=== PATIENT | male | born 1965 | race Native Hawaiian/Other Pacific Islander ===

== ENCOUNTER 2018-10-20 12:14 | Emergency (ER) | payer OTHER, MEDICARE, SELFPAY ==
[2018-10-20 12:22] VITALS: BMI 17.3
[2018-10-20 12:30] VITALS: BP 75/48; PULSE 53; RESP 20; O2SAT 100
[2018-10-20 12:47] VITALS: TEMP 36.5
--- NOTE | 2018-10-20 12:52 | ED_ITS ---
HPI - Male Genitourinary <ALEX BautistaBC - Last Filed: 10/20/18 16:49> General Chief complaint: Urogenital-Male Stated complaint: UTI Time Seen by Provider: 10/20/18 12:37 Source: patient Mode of arrival: wheelchair Limitations: no limitations History of Present Illness HPI Narrative: Patient is a 53-year-old male with history of paraplegia with injury to C6 level presents with a chief complaint of fever chills since Friday. He has a history of recurrent UTIs most recently at [facility]. He has a indwelling urinary catheter at this point time. He states he usually knows when he has a UTI and is treated with Cipro. He denies any fevers, nausea vomiting or diarrhea but complains of frequent fatigue. He does note that he was once admitted to [facility] with urosepsis. He states his Flowers catheter was most recently changed on . He is found to be hypotensive upon arrival to the emergency department, but not tachycardic and not febrile. I discussed with the patient has normal blood pressure parameters any states that his usual BP can range from 70 to below 120. he states he takes midodrine several times a day to help keep his blood pressure up. Related Data Home Medications Medication Instructions Recorded Confirmed Vitamin C 1 tab PO DAILY 10/20/18 10/20/18 Vitamin D3 1 tab PO DAILY 10/20/18 10/20/18 midodrine 1 tab PO DAILY 10/20/18 10/20/18 Previous Rx's Medication Instructions Recorded levofloxacin [Levaquin] 500 mg PO DAILY #10 tab 10/20/18 Allergies Allergy/AdvReac Type Severity Reaction Status Date / Time Sulfa (Sulfonamide Allergy Verified 10/20/18 12:22 Antibiotics) Review of Systems <ALEX BautistaBC - Last Filed: 10/20/18 16:49> Review of Systems GENERAL: See HPI HEENT: Denies sinus pain, ear pain, sore throat, difficulty swallowing, dizziness. RESPIRATORY: Denies dyspnea, cough, wheezing, hemoptysis, sputum. CARDIOVASCULAR: Denies chest pain, palpitations, orthopnea, edema, GASTROINTESTINAL: Denies nausea, vomiting, abdominal pain, diarrhea, constipation, melena. : see HPI MUSCULOSKELETAL: denies weakness, joint pain, or bony pain SKIN: Denies rash, skin lesions, or other NEUROLOGIC: Denies weakness, headache, numbness, change in speech, confusion, seizures, incoordination. PSYCHIATRIC: No concerning psychosocial issues. 12 point review of systems is negative except for those stated above Exam <MARLEN Bautista - Last Filed: 10/20/18 16:49> Narrative Exam Narrative: GENERAL: thin patient sitting in wheelchair HEAD: Atraumatic. Normocephalic. No temporal or scalp tenderness. EYES: Pupils equal round and reactive. Extraocular motions intact. No scleral icterus. No injection or drainage. ENT: Nose without bleeding, purulent drainage or septal hematoma. Throat without erythema, tonsillar hypertrophy or exudate. Uvula midline. Airway patent. NECK: Trachea midline. No JVD or lymphadenopathy. Supple, nontender, no meningeal signs. CARDIOVASCULAR: Regular rate and rhythm without murmurs, gallops, or rubs. RESPIRATORY: Clear to auscultation. Breath sounds equal bilaterally. No wheezes , rales, or rhonchi. No cough on exam. No increased respiratory effort. GASTROINTESTINAL: Abdomen soft, non-tender, nondistended. No hepato-splenomegaly , or palpable masses. No guarding. Active bowel sounds all [address]rants[address] catheter in place draining cloudy urine. EXTREMITIES: No clubbing, cyanosis, or edema. No joint tenderness, effusion, or edema noted. BACK: Nontender without deformity or crepitance. NEURO: AOx3. sensation is at patient's baseline Starting at patient's nipple line. SKIN: No rash or erythema. Initial Vital Signs Initial Vital Signs: Vital Signs Pulse Rate 53 L 10/20/18 12:30 Respiratory Rate 10/20/18 12:30 Blood Pressure 75/48 L 10/20/18 12:30 Pulse Oximetry 100 10/20/18 12:30 <Jackson Nicolas DO - Last Filed: 10/20/18 17:24> Initial Vital Signs Initial Vital Signs: Vital Signs Pulse Rate 53 L 10/20/18 12:30 Respiratory Rate 20 10/20/18 12:30 Blood Pressure 75/48 L 10/20/18 12:30 Pulse Oximetry 100 10/20/18 12:30 Course <MARLEN Bautista - Last Filed: 10/20/18 16:49> Course Narrative: I discussed at length with the patient that ft a patient who has a Flowers catheter presents with a urinary tract infection, I often change the Flowers catheters this can be a source of the infection. The patient declined stating that it was just changed on and he usually does not changes Flowers catheter when he has urinary tract infections. I checked on this patient several times throughout his stay in the emergency department. Orders Ordered: ED Orders 10/20/18 12:26 Urine Culture Stat Urine Microscopic Stat 10/20/18 13:42 Blood Culture Stat Complete Blood Count AUTO DIFF Stat Comprehensive Metabolic Panel Stat Lactate (Lactic Acid) Stat Procalcitonin Stat Discontinued Medications Sodium Chloride (Normal Saline 0.9%) 1,000 mls @ 1,000 mls/hr IV BOLUS ONE Stop: 10/20/18 13:48 Last Infusion: 10/20/18 16:08 Dose: 1,000 mls/hr Admin: 10/20/18 13:33 Dose: 1,000 mls/hr Levofloxacin (Levaquin) 750 mg in 150 mls @ 100 mls/hr IV NOW ONE Stop: 10/20/18 15:18 Last Infusion: 10/20/18 16:08 Dose: 100 mls/hr Admin: 10/20/18 14:07 Dose: 100 mls/hr Vital Signs - 8 hr 10/20/18 12:30 10/20/18 12:47 10/20/18 13:42 Temperature 97.7 F Pulse Rate 53 L 81 Respiratory Rate 20 20 Blood Pressure [Left Arm] 75/48 L 101/69 Pulse Oximetry 100 100 10/20/18 15:10 10/20/18 16:07 Temperature Pulse Rate 82 73 Respiratory Rate 20 Blood Pressure [Left Arm] 103/64 99/70 Pulse Oximetry 98 <Jackson Nicolas, - Last Filed: 10/20/18 17:24> Orders Ordered: ED Orders 10/20/18 12:26 Urine Culture Stat Urine Microscopic Stat 10/20/18 13:42 Blood Culture Stat Complete Blood Count AUTO DIFF Stat Comprehensive Metabolic Panel Stat Lactate (Lactic Acid) Stat Procalcitonin Stat Discontinued Medications Sodium Chloride (Normal Saline 0.9%) 1,000 mls @ 1,000 mls/hr IV BOLUS ONE Stop: 10/20/18 13:48 Last Infusion: 10/20/18 16:08 Dose: 1,000 mls/hr Admin: 10/20/18 13:33 Dose: 1,000 mls/hr Levofloxacin (Levaquin) 750 mg in 150 mls @ 100 mls/hr IV NOW ONE Stop: 10/20/18 15:18 Last Infusion: 10/20/18 16:08 Dose: 100 mls/hr Admin: 10/20/18 14:07 Dose: 100 mls/hr Vital Signs - 8 hr 10/20/18 12:30 10/20/18 12:47 10/20/18 13:42 Temperature 97.7 F Pulse Rate 53 L 81 Respiratory Rate 20 20 Blood Pressure [Left Arm] 75/48 L 101/69 Pulse Oximetry 100 100 10/20/18 15:10 10/20/18 16:07 Temperature Pulse Rate 82 73 Respiratory Rate 20 Blood Pressure [Left Arm] 103/64 99/70 Pulse Oximetry 98 MDM - Male Genitourinary <MELO Bautista- - Last Filed: 10/20/18 16:49> Lab Data Result diagrams: 10/20/18 13:42 10/20/18 13:42 Lab Results 10/20/18 10/20/18 10/20/18 Range/Units 12:26 13:42 13:42 WBC 9.6 (4.5-11.0) X10^3/uL RBC 4.00 L (4.5-5.9) X10^6/uL Hgb 11.8 L (13.5-17.5) g/dL Hct 35.3 L (41-53) % MCV 88.4 (80-100) fL MCH 29.4 (26-34) PG MCHC 33.3 (30-36) % RDW 14.3 (11.6-14.8) % Plt Count 199 (150-400) X10^3/uL Neut % (Auto) 82.5 H (50-75) % Lymph % (Auto) 7.9 L (25-40) % Callahan % (Auto) 8.5 (3-14) % Eos % (Auto) 0.7 L (2-4) % Baso % (Auto) 0.4 (0-2) % Neut # (Auto) 7900 H (9252-1358) /uL Lymph # (Auto) 800 L (7360-6180) /uL Callahan # (Auto) 800 (0-900) /uL Eos # (Auto) 100 (0-450) /uL Baso # (Auto) 0 (0-100) /uL Sodium (137-145) mmol/L Potassium (3.4-5.1) mmol/L Chloride (98-107) mmol/L Carbon Dioxide (22-32) mmol/L BUN (9-20) mg/dL Creatinine (0.66-1.25) mg/dL Estimated GFR (>60) mL/min BUN/Creatinine Ratio (6-22) Glucose (70-100) mg/dL Lactate (0.7-2.1) mmol/L Calcium (8.4-10.2) mg/dL Total Bilirubin (0.2-1.3) mg/dL AST (17-59) IU/L ALT (21-72) IU/L Alkaline Phosphatase (38-126) U/L Total Protein (6.3-8.2) g/dL Albumin (3.5-5.0) g/dL Globulin (1.7-4.1) g/dL Albumin/Globulin Ratio (1.0-2.8) Procalcitonin 0.24 (<0.5) ng/mL Urine RBC 1-5/hpf (0-5/HPF) Urine WBC >100/hpf H (0-5/HPF) Ur Squamous Epith Cells 1-5 /hpf Ur Renal Epithelial Cell 0-1/hpf Amorphous Sediment 1+ Urine Bacteria Many (>30) H (None) Urine Mucus 1+ H (Negative) Ur Culture Indicated? Specimen cultured 10/20/18 10/20/18 Range/Units 13:42 13:42 WBC (4.5-11.0) X10^3/uL RBC (4.5-5.9) X10^6/uL Hgb (13.5-17.5) g/dL Hct (41-53) % MCV (80-100) fL MCH (26-34) PG MCHC (30-36) % RDW (11.6-14.8) % Plt Count (150-400) X10^3/uL Neut % (Auto) (50-75) % Lymph % (Auto) (25-40) % Callahan % (Auto) (3-14) % Eos % (Auto) (2-4) % Baso % (Auto) (0-2) % Neut # (Auto) (9180-9766) /uL Lymph # (Auto) (5814-6635) /uL Callahan # (Auto) (0-900) /uL Eos # (Auto) (0-450) /uL Baso # (Auto) (0-100) /uL Sodium 133 L (137-145) mmol/L Potassium 4.2 (3.4-5.1) mmol/L Chloride 99 (98-107) mmol/L Carbon Dioxide 23 (22-32) mmol/L BUN 15 (9-20) mg/dL Creatinine 0.60 L (0.66-1.25) mg/dL Estimated GFR > 60.0 (>60) mL/min BUN/Creatinine Ratio 25.0 H (6-22) Glucose 115 H (70-100) mg/dL Lactate 2.0 (0.7-2.1) mmol/L Calcium 9.1 (8.4-10.2) mg/dL Total Bilirubin 0.8 (0.2-1.3) mg/dL AST 45 (17-59) IU/L ALT 32 (21-72) IU/L Alkaline Phosphatase 84 (38-126) U/L Total Protein 6.8 (6.3-8.2) g/dL Albumin 3.6 (3.5-5.0) g/dL Globulin 3.2 (1.7-4.1) g/dL Albumin/Globulin Ratio 1.1 (1.0-2.8) Procalcitonin (<0.5) ng/mL Urine RBC (0-5/HPF) Urine WBC (0-5/HPF) Ur Squamous Epith Cells Ur Renal Epithelial Cell Amorphous Sediment Urine Bacteria (None) Urine Mucus (Negative) Ur Culture Indicated? Urine Dip Bedside Urine Glucose Negative Bedside Urine Bilirubin ++ 2 Bedside Urine Ketone +/- 5 Urine Specific [place] 1.020 Bedside Urine Occult Blood +++ Bedside Urine pH 6.0 Bedside Urine Protein ++ 100 Bedside Urine Urobilinogen +/- 1mg Bedside Urine Nitrite + Positive Bedside Urine Leukocytes +++ 500 Esterase MDM Narrative Medical decision making narrative: the patient is a 53-year-old paraplegic who presents with a chief complaint of possible UTI. He does have a history of urosepsis is concerned as such. Urinalysis indicates a UTI. However he does not have an elevated white blood cell count, has a normal lactate and a normal pro calcitonin. His vital signs within normal limits for the patient as he has a history of hypotension. He remained afebrile throughout stay in the emergency department. I will treat him with Levaquin. Given his history is given a dose of IV antibiotics prior to discharge. I discussed at length follow up with primary care provider is worsening including fevers, inability keep down his antibiotics etc. Patient has no questions or concerns upon discharge. <Jackson Nicolas, DO - Last Filed: 10/20/18 17:24> Lab Data Lab Results 10/20/18 10/20/18 10/20/18 Range/Units 12:26 13:42 13:42 WBC 9.6 (4.5-11.0) X10^3/uL RBC 4.00 L (4.5-5.9) X10^6/uL Hgb 11.8 L (13.5-17.5) g/dL Hct 35.3 L (41-53) % MCV 88.4 (80-100) fL MCH 29.4 (26-34) PG MCHC 33.3 (30-36) % RDW 14.3 (11.6-14.8) % Plt Count 199 (150-400) X10^3/uL Neut % (Auto) 82.5 H (50-75) % Lymph % (Auto) 7.9 L (25-40) % Callahan % (Auto) 8.5 (3-14) % Eos % (Auto) 0.7 L (2-4) % Baso % (Auto) 0.4 (0-2) % Neut # (Auto) 7900 H (4496-3471) /uL Lymph # (Auto) 800 L (0253-3921) /uL Callahan # (Auto) 800 (0-900) /uL Eos # (Auto) 100 (0-450) /uL Baso # (Auto) 0 (0-100) /uL Sodium (137-145) mmol/L Potassium (3.4-5.1) mmol/L Chloride (98-107) mmol/L Carbon Dioxide (22-32) mmol/L BUN (9-20) mg/dL Creatinine (0.66-1.25) mg/dL Estimated GFR (>60) mL/min BUN/Creatinine Ratio (6-22) Glucose (70-100) mg/dL Lactate (0.7-2.1) mmol/L Calcium (8.4-10.2) mg/dL Total Bilirubin (0.2-1.3) mg/dL AST (17-59) IU/L ALT (21-72) IU/L Alkaline Phosphatase (38-126) U/L Total Protein (6.3-8.2) g/dL Albumin (3.5-5.0) g/dL Globulin (1.7-4.1) g/dL Albumin/Globulin Ratio (1.0-2.8) Procalcitonin 0.24 (<0.5) ng/mL Urine RBC 1-5/hpf (0-5/HPF) Urine WBC >100/hpf H (0-5/HPF) Ur Squamous Epith Cells 1-5 /hpf Ur Renal Epithelial Cell 0-1/hpf Amorphous Sediment 1+ Urine Bacteria Many (>30) H (None) Urine Mucus 1+ H (Negative) Ur Culture Indicated? Specimen cultured 10/20/18 10/20/18 Range/Units 13:42 13:42 WBC (4.5-11.0) X10^3/uL RBC (4.5-5.9) X10^6/uL Hgb (13.5-17.5) g/dL Hct (41-53) % MCV (80-100) fL MCH (26-34) PG MCHC (30-36) % RDW (11.6-14.8) % Plt Count (150-400) X10^3/uL Neut % (Auto) (50-75) % Lymph % (Auto) (25-40) % Callahan % (Auto) (3-14) % Eos % (Auto) (2-4) % Baso % (Auto) (0-2) % Neut # (Auto) (5741-5652) /uL Lymph # (Auto) (4060-8253) /uL Callahan # (Auto) (0-900) /uL Eos # (Auto) (0-450) /uL Baso # (Auto) (0-100) /uL Sodium 133 L (137-145) mmol/L Potassium 4.2 (3.4-5.1) mmol/L Chloride 99 (98-107) mmol/L Carbon Dioxide 23 (22-32) mmol/L BUN 15 (9-20) mg/dL Creatinine 0.60 L (0.66-1.25) mg/dL Estimated GFR > 60.0 (>60) mL/min BUN/Creatinine Ratio 25.0 H (6-22) Glucose 115 H (70-100) mg/dL Lactate 2.0 (0.7-2.1) mmol/L Calcium 9.1 (8.4-10.2) mg/dL Total Bilirubin 0.8 (0.2-1.3) mg/dL AST 45 (17-59) IU/L ALT 32 (21-72) IU/L Alkaline Phosphatase 84 (38-126) U/L Total Protein 6.8 (6.3-8.2) g/dL Albumin 3.6 (3.5-5.0) g/dL Globulin 3.2 (1.7-4.1) g/dL Albumin/Globulin Ratio 1.1 (1.0-2.8) Procalcitonin (<0.5) ng/mL Urine RBC (0-5/HPF) Urine WBC (0-5/HPF) Ur Squamous Epith Cells Ur Renal Epithelial Cell Amorphous Sediment Urine Bacteria (None) Urine Mucus (Negative) Ur Culture Indicated? Urine Dip Bedside Urine Glucose Negative Bedside Urine Bilirubin ++ 2 Bedside Urine Ketone +/- 5 Urine Specific [place] 1.020 Bedside Urine Occult Blood +++ Bedside Urine pH 6.0 Bedside Urine Protein ++ 100 Bedside Urine Urobilinogen +/- 1mg Bedside Urine Nitrite + Positive Bedside Urine Leukocytes +++ 500 Esterase Discharge Plan Departure Patient Disposition: Home Clinical Impression: Urinary tract infection Discharge Date/Time: 10/20/18 16:35 Interventions: ED Discharge Assessment Last Done: 10/20/18 16:32 Instructions: How to Care for Your Flowers Catheter -- Male, DI for Urinary Tract Infection (UTI) Activity Restrictions/Additional Instructions: I am starting on an antibiotic for your urinary tract infection. Given that we gave you dose the emergency department through your IV, you can start your prescription tomorrow. Please push fluids. Please follow-up with your primary care provider. Please come back to the emergency department if you become a febrile, or unable to keep down here antibiotics or fluid, or have any acute concerns. Prescriptions: New levofloxacin [Levaquin] 500 mg tablet 500 mg PO DAILY Qty: 10 RF: 0 No Action midodrine 1 tab PO DAILY RF: 0 Vitamin C 1 tab PO DAILY RF: 0 Vitamin D3 1 tab PO DAILY RF: 0 <Jackson Nicolas DO - Last Filed: 10/20/18 17:24> [facility] Attending Rhianna Attestation: I was available for consultation during this patient's emergency department encounter
[2018-10-20 13:02] LABS: Amorphous Sediment Urine 1+; Bacteria Urine Many (>30); Culture Indicated Urine Specimen Cultured; Mucus Urine 1+ (Negative); RBC Urine 1-5/HPF (0-5/HPF); Renal Epithelial Cells Urine 0-1/HPF; Squamous Epithelial Cell Urine 1-5 /HPF; WBC Urine >100/HPF (0-5/HPF)
[2018-10-20] MEDS: SODIUM CHLORIDE 0.9% 1,000 ML 1000 ML IV (13:33)
[2018-10-20 13:42] VITALS: BP 101/69; PULSE 81; RESP 20; O2SAT 100
[2018-10-20 13:54] LABS: Add Manual Diff / Slide Review NO; Basophils Absolute Auto 0 /uL (0-100); Basophils Percent Auto 0.4 % (0-2); Eosinophils Absolute Auto 100 /uL (0-450); Eosinophils Percent Auto 0.7 % (2-4); Hematocrit 35.3 % (41-53); Hemoglobin 11.8 g/dL (13.5-17.5); Lymphocytes Absolute Auto 800 /uL (1100-4500); Lymphocytes Percent Auto 7.9 % (25-40); Mean Corpuscular HGB Conc 33.3 % (30-36); Mean Corpuscular Hemoglobin 29.4 PG (26-34); Mean Corpuscular Volume 88.4 fL (80-100); Monocytes Absolute Auto 800 /uL (0-900); Monocytes Percent Auto 8.5 % (3-14); Neutrophils Absolute Auto 7900 /uL (1500-7000); Neutrophils Percent Auto 82.5 % (50-75); Platelet Count 199 X10^3/uL (150-400); Red Cell Distribution Width 14.3 % (11.6-14.8); White Blood Cell Count 9.6 X10^3/uL (4.5-11.0)
[2018-10-20] MEDS: levoFLOXacin 750 MG/150 ML PIGGYBACK 100 MG IV (14:07)
[2018-10-20 14:15] LABS: Alanine Aminotransferase 32 IU/L (21-72); Albumin 3.6 g/dL (3.5-5.0); Albumin Globulin Ratio 1.1 (1.0-2.8); Alkaline Phosphatase 84 U/L (38-126); Aspartate Aminotransferase 45 IU/L (17-59); Bilirubin Total 0.8 mg/dL (0.2-1.3); Blood Urea Nitrogen 15 mg/dL (9-20); Calcium 9.1 mg/dL (8.4-10.2); Carbon Dioxide 23 mmol/L (22-32); Chloride 99 mmol/L (98-107); Estimated Glomerular Filt Rate > 60.0 mL/min (>60); Globulin 3.2 g/dL (1.7-4.1); Glucose 115 mg/dL (70-100); HEMOLYSIS < 15 (0-50); Potassium 4.2 mmol/L (3.4-5.1); Sodium 133 mmol/L (137-145); Total Protein 6.8 g/dL (6.3-8.2)
[2018-10-20 14:45] LABS: Procalcitonin 0.24 ng/mL (<0.5)
[2018-10-20 15:10] VITALS: BP 103/64; PULSE 82; RESP 20; O2SAT 98
[2018-10-20 16:07] VITALS: BP 99/70; PULSE 73
== END 2018-10-20 16:35 | disposition home or self-care (01) ==
PROVIDERS: Emergency Medicine; Emergency Provider Nurse Practitioner Family
DX: N39.0 Urinary tract infection, site not specified (principal)
CPT/HCPCS: 36415; 36591; 80053; 81003; 81015; 83605; 84145; 85025; 87040; 87077; 87086; 87186; 96361; 96365; 96366; 99283; 99284; J1956

== ENCOUNTER 2019-01-14 16:45 | Inpatient (IN) | payer OTHER, MEDICARE, SELFPAY ==
[2019-01-14] VITALS (14 sets, daily range): BP systolic 77–146; BP diastolic 37–85; PULSE 76–91; RESP 15–20; TEMP 36.7–39.2; O2SAT 96–100; BMI 18.2
--- NOTE | 2019-01-14 17:38 | PC.NURSE ---
At triage pt was unable to move himself over to the bed. 3 staff members came in to assist me to help him onto the stretcher. Pt refused to let 3 of them help. He said only 2 of them could help or not at all. I told him we would use a bill lift. Pt was agreeable to that. Then while attempting to check pts vital signs pt told me that his is 5'4 and can lift him herself. I informed him that it is not a matter of if we can but should we. I informed him that we are not willing to injure ourselves to get him onto the stretcher. Then I asked the patient if we could take 1 of his arms out of his sweatshirt to check his bp,pt refused. He told me that we could do it over his sweatshirt, I've had it done many times over a shirt its fine. I told him it was too thick to check his bp over it. Pt told me that I could not check his bp then.
--- NOTE | 2019-01-14 17:45 | PC.NURSE ---
Assisted patient from wheelchair into bill lift and onto the bed with the help of the nurse. Patient was upset we chose to use a bill, but would not let us help him otherwise get into the bed. We helped him into a comfortable position while he waits.
[2019-01-14] MEDS: ACETAMINOPHEN 325 MG TABLET 975 MG PO (18:16)
[2019-01-14 18:22] LABS: Add Manual Diff / Slide Review NO; Basophils Absolute Auto 0 /uL (0-100); Basophils Percent Auto 0.3 % (0-2); Eosinophils Absolute Auto 100 /uL (0-450); Eosinophils Percent Auto 0.4 % (2-4); Hemoglobin 12.9 g/dL (13.5-17.5); Lymphocytes Absolute Auto 400 /uL (1100-4500); Lymphocytes Percent Auto 3.3 % (25-40); Mean Corpuscular Hemoglobin 29.1 PG (26-34); Mean Corpuscular Volume 88.1 fL (80-100); Monocytes Absolute Auto 800 /uL (0-900); Neutrophils Absolute Auto 11900 /uL (1500-7000); Platelet Count 206 X10^3/uL (150-400); Red Blood Cell Count 4.42 X10^6/uL (4.5-5.9); Red Cell Distribution Width 14.5 % (11.6-14.8); White Blood Cell Count 13.3 X10^3/uL (4.5-11.0)
--- NOTE | 2019-01-14 18:22 | ED.MALEGU ---
HPI - Male Genitourinary General Chief complaint: Urogenital-Male Stated complaint: wants to be seen for a bladder infection Time Seen by Provider: 01/14/19 17:16 Source: patient Mode of arrival: wheelchair Limitations: no limitations History of Present Illness HPI Narrative: Patient is a 53-year-old male. Has a known C6 spinal injury. He states that he is a ?quadriplegic ?however does have use of his upper extremities. He is in a wheelchair at home. He does have an indwelling Flowers catheter. His last change of the Flowers catheter was on Friday. He has frequent urinary tract infections. He states that yesterday started to not feel well which worsened today. He was concerned that he had another urinary tract infection. Related Data Home Medications Medication Instructions Recorded Confirmed Vitamin C 1 tab PO DAILY 10/20/18 01/14/19 Vitamin D3 1 tab PO DAILY 10/20/18 01/14/19 midodrine 1 tab PO DAILY 10/20/18 01/14/19 Allergies Allergy/AdvReac Type Severity Reaction Status Date / Time Sulfa (Sulfonamide Allergy Verified 01/14/19 17:20 Antibiotics) Review of Systems Constitutional Reports chills, Reports fever(s) and Reports malaise Cardiovascular Denies chest pain and Denies dyspnea Respiratory Denies dyspnea Musculoskeletal Comments: No change in his musculoskeletal is Integumentary/Breasts Denies lesions and Denies rash Neurologic Comments: No change in his neurologic status Hematologic/Lymphatic Denies easy bleeding and Denies easy bruising Allergic/Immunologic Denies urticaria [facility] Medical History Hearing loss (Chronic) Kidney stones (Chronic ~09/2017) Quadriplegia (Chronic) Shoulder pain (Chronic ~1997) Vision disorder (Chronic) Chicken pox (Resolved) Surgical History History of back surgery (Resolved) Family History (Updated 10/31/18 @ 22:03 by Rosy Aguirre) Father Cancer Mother Dementia Sister Heart disease Social History household members: caregiver Smoking Status: Never smoker Family History Father Cancer Mother Dementia Sister Heart disease Social History household members: caregiver Smoking Status: Never smoker Exam Initial Vital Signs Initial Vital Signs: Vital Signs Temperature 101.3 F H 01/14/19 17:20 Pulse Rate 91 H 01/14/19 17:20 Respiratory Rate 15 01/14/19 17:20 Pulse Oximetry 100 01/14/19 17:20 Const General: cooperative, No acute distress and ill appearing Orientation: alert, awake and oriented x3 HENMT Head: normal to inspection and normocephalic Resp Effort & Inspection: normal respiratory effort Auscultation: clear to auscultation bilaterally Cardio Rate: regular rate Rhythm: regular rhythm GI Inspection: non-distended Palpation: soft Skin Rashes: no rashes Neuro General: alert, awake and oriented x3 Cognition: normal cognition Speech: speech normal Other: No changes in his neurologic status Extrem General: capillary refill normal Psych Appearance: grossly normal and well kempt Course Orders Ordered: ED Orders 01/14/19 17:55 Complete Blood Count AUTO DIFF Stat Comprehensive Metabolic Panel Stat Lactate (Lactic Acid) Stat Procalcitonin Stat 01/14/19 18:16 Urinalysis and Microscopic Stat Urine Culture Stat 01/14/19 18:18 Blood Culture Stat 01/14/19 20:05 Consult to Physician Routine Sodium Chloride (Normal Saline 0.9%) 632 mls @ 544 mls/hr IV CONT ABNER Last Infusion: 01/14/19 22:27 Dose: 0 mls/hr Infusion: 01/14/19 21:06 Dose: 544 mls/hr Infusion: 01/14/19 20:50 Dose: 0 mls/hr Admin: 01/14/19 20:25 Dose: 544 mls/hr Midodrine (Midodrine) 5 mg PO 0600 [facility] Ondansetron HCl (Zofran) 4 mg IV Q4HR PRN PRN Reason: Nausea And Vomiting Discontinued Medications Acetaminophen (Tylenol) 975 mg PO NOW ONE Stop: 01/14/19 17:48 Last Admin: 01/14/19 18:16 Dose: 975 mg Diphenhydramine HCl (Benadryl) 25 mg IV NOW ONE Stop: 01/14/19 19:56 Last Admin: 01/14/19 20:15 Dose: 25 mg Sodium Chloride (Normal Saline 0.9%) 1,000 mls @ 1,000 mls/hr IV BOLUS ONE Stop: 01/14/19 19:24 Last Infusion: 01/14/19 20:30 Dose: 0 mls/hr Infusion: 01/14/19 19:52 Dose: 999 mls/hr Infusion: 01/14/19 19:08 Dose: 300 mls/hr Admin: 01/14/19 18:28 Dose: 1,000 mls/hr Ceftriaxone Sodium/Dextrose (Rocephin) 1 gm in 50 mls @ 100 mls/hr IV NOW ONE Stop: 01/14/19 19:16 Last Infusion: 01/14/19 19:52 Dose: 0 mls/hr Admin: 01/14/19 19:08 Dose: 100 mls/hr Sodium Chloride (Normal Saline 0.9%) 1,632.93 mls @ 544.31 mls/hr 30 ml/kg infuse over 3 hr (1632.93 ml) IV NOW ONE Stop: 01/14/19 22:53 Last Admin: 01/14/19 20:31 Dose: Not Given Ibuprofen (Advil) 800 mg PO NOW ONE Stop: 01/14/19 19:31 Last Admin: 01/14/19 19:32 Dose: 800 mg Vital Signs - 8 hr 01/14/19 17:20 01/14/19 18:00 01/14/19 18:16 Temperature 101.3 F H 101.6 F H Pulse Rate 91 H 81 Respiratory Rate 15 16 Blood Pressure Blood Pressure [Right Arm] 146/83 H Pulse Oximetry 100 97 01/14/19 18:30 01/14/19 18:47 01/14/19 19:07 Temperature 100.6 F H 100.6 F H 102.5 F H Pulse Rate 87 Respiratory Rate 19 Blood Pressure Blood Pressure [Right Arm] 104/69 Pulse Oximetry 96 01/14/19 19:30 01/14/19 19:32 01/14/19 19:53 Temperature 102.5 F H 102.1 F H Pulse Rate 88 89 Respiratory Rate 19 20 Blood Pressure Blood Pressure [Right Arm] 77/53 L 118/62 Pulse Oximetry 96 96 01/14/19 20:21 01/14/19 20:49 01/14/19 22:00 Temperature 100.2 F H 99.3 F Pulse Rate 88 86 Respiratory Rate 16 20 Blood Pressure 136/81 Blood Pressure [Right Arm] 140/85 Pulse Oximetry 97 97 MDM - Male Genitourinary Lab Data Attestation: I reviewed the patient's lab results. Result diagrams: 01/14/19 17:55 01/14/19 17:55 Lab Results 01/14/19 01/14/19 01/14/19 Range/Units 17:55 17:55 17:55 WBC 13.3 H (4.5-11.0) X10^3/uL RBC 4.42 L (4.5-5.9) X10^6/uL Hgb 12.9 L (13.5-17.5) g/dL Hct 39.0 L (41-53) % MCV 88.1 (80-100) fL MCH 29.1 (26-34) PG MCHC 33.0 (30-36) % RDW 14.5 (11.6-14.8) % Plt Count 206 (150-400) X10^3/uL Neut % (Auto) 90.0 H (50-75) % Lymph % (Auto) 3.3 L (25-40) % [place] % (Auto) 6.0 (3-14) % Eos % (Auto) 0.4 L (2-4) % Baso % (Auto) 0.3 (0-2) % Neut # (Auto) 94104 H (4873-6839) /uL Lymph # (Auto) 400 L (5389-9541) /uL [place] # (Auto) 800 (0-900) /uL Eos # (Auto) 100 (0-450) /uL Baso # (Auto) 0 (0-100) /uL Sodium 131 L (137-145) mmol/L Potassium 3.9 (3.4-5.1) mmol/L Chloride 96 L (98-107) mmol/L Carbon Dioxide 21 L (22-32) mmol/L BUN 13 (9-20) mg/dL Creatinine 0.40 L (0.66-1.25) mg/dL Estimated GFR > 60.0 (>60) mL/min BUN/Creatinine Ratio 32.5 H (6-22) Glucose 113 H (70-100) mg/dL Lactate (0.7-2.1) mmol/L Calcium 9.4 (8.4-10.2) mg/dL Total Bilirubin 1.0 (0.2-1.3) mg/dL AST 24 (17-59) IU/L ALT 27 (21-72) IU/L Alkaline Phosphatase 78 (38-126) U/L Total Protein 7.7 (6.3-8.2) g/dL Albumin 4.3 (3.5-5.0) g/dL Globulin 3.4 (1.7-4.1) g/dL Albumin/Globulin Ratio 1.3 (1.0-2.8) Procalcitonin 0.05 (<0.5) ng/mL Urine Color Urine Appearance Urine pH (4.5-8.0) Ur Specific [place] (1.000-1.035) Urine Protein (Negative) Urine Glucose (UA) (Negative) g/dL Urine Ketones (NEGATIVE) Urine Occult Blood (Negative) Urine Nitrate (Negative) Urine Bilirubin (NEGATIVE) Urine Urobilinogen (0.2) E.U./dL Ur Leukocyte Esterase (NEGATIVE) Urine RBC (0-5/HPF) Urine WBC (0-5/HPF) Ur Squamous Epith Cells (0-5/HPF) Urine Bacteria (None) Ur Culture Indicated? 01/14/19 01/14/19 01/14/19 Range/Units 17:55 18:16 20:25 WBC (4.5-11.0) X10^3/uL RBC (4.5-5.9) X10^6/uL Hgb (13.5-17.5) g/dL Hct (41-53) % MCV (80-100) fL MCH (26-34) PG MCHC (30-36) % RDW (11.6-14.8) % Plt Count (150-400) X10^3/uL Neut % (Auto) (50-75) % Lymph % (Auto) (25-40) % [place] % (Auto) (3-14) % Eos % (Auto) (2-4) % Baso % (Auto) (0-2) % Neut # (Auto) (2576-8409) /uL Lymph # (Auto) (3901-0883) /uL [place] # (Auto) (0-900) /uL Eos # (Auto) (0-450) /uL Baso # (Auto) (0-100) /uL Sodium (137-145) mmol/L Potassium (3.4-5.1) mmol/L Chloride (98-107) mmol/L Carbon Dioxide (22-32) mmol/L BUN (9-20) mg/dL Creatinine (0.66-1.25) mg/dL Estimated GFR (>60) mL/min BUN/Creatinine Ratio (6-22) Glucose (70-100) mg/dL Lactate 2.3 H 0.9 (0.7-2.1) mmol/L Calcium (8.4-10.2) mg/dL Total Bilirubin (0.2-1.3) mg/dL AST (17-59) IU/L ALT (21-72) IU/L Alkaline Phosphatase (38-126) U/L Total Protein (6.3-8.2) g/dL Albumin (3.5-5.0) g/dL Globulin (1.7-4.1) g/dL Albumin/Globulin Ratio (1.0-2.8) Procalcitonin (<0.5) ng/mL Urine Color Yellow Urine Appearance Cloudy Urine pH 7.5 (4.5-8.0) Ur Specific [place] 1.010 (1.000-1.035) Urine Protein Negative (Negative) Urine Glucose (UA) Negative (Negative) g/dL Urine Ketones Negative (NEGATIVE) Urine Occult Blood 2+ H (Negative) Urine Nitrate Positive (Negative) Urine Bilirubin Negative (NEGATIVE) Urine Urobilinogen 0.2 (0.2) E.U./dL Ur Leukocyte Esterase 3+ H (NEGATIVE) Urine RBC 1-5/hpf (0-5/HPF) Urine WBC 10-30/hpf H (0-5/HPF) Ur Squamous Epith Cells None seen (0-5/HPF) Urine Bacteria Moderate (10-30) H (None) Ur Culture Indicated? Specimen cultured Urine Dip Bedside Urine Glucose Negative Bedside Urine Bilirubin - Negative Bedside Urine Ketone - Negative Urine Specific [place] 1.015 Bedside Urine Occult Blood +/- Bedside Urine pH 8.0 Bedside Urine Protein +/- 15 Bedside Urine Urobilinogen - Negative Bedside Urine Nitrite + Positive Bedside Urine Leukocytes +++ 500 Esterase MDM Narrative Medical decision making narrative: Patient with nitrite positive urine. Was febrile. Initially had an elevated lactate which improved with fluids. Does have an elevated white blood cell count. Has had urinary tract infections in the past. Review of the prior urine cultures show multiple infections to include E coli. Does have variable susceptibilities. Was given Rocephin secondary to these susceptibilities. Patient looks ill. Is having rigors. Is tolerating oral intake. Has no change in his neurologic status. Discussed the case with Dr. Reddy who is on-call for the patient's primary provider who will accept the patient. Holding orders were placed. Care was transitioned to admitting provider at time of admission. Discuss the admission with the patient. He expressed understanding and agreement. Discharge Plan Departure Patient Disposition: Admitted As Inpatient Clinical Impression: Urinary tract infection Qualifiers: Urinary tract infection type: site unspecified Hematuria presence: without hematuria Qualified Code(s): N39.0 - Urinary tract infection, site not specified Discharge Date/Time: 01/14/19 20:55 Interventions: ED Discharge Assessment Last Done: 01/14/19 20:49 Admit Date/Time: 01/14/19 20:18 Admit Provider: Donte Reddy
[2019-01-14] MEDS: SODIUM CHLORIDE 0.9% 1,000 ML 1000 ML IV (18:28)
[2019-01-14 18:29] LABS: Lactate (Lactic Acid) 2.3 mmol/L (0.7-2.1)
[2019-01-14 18:30] LABS: Alanine Aminotransferase 27 IU/L (21-72); Albumin 4.3 g/dL (3.5-5.0); Albumin Globulin Ratio 1.3 (1.0-2.8); Alkaline Phosphatase 78 U/L (38-126); Aspartate Aminotransferase 24 IU/L (17-59); BUN Creatinine Ratio 32.5 (6-22); Blood Urea Nitrogen 13 mg/dL (9-20); Calcium 9.4 mg/dL (8.4-10.2); Carbon Dioxide 21 mmol/L (22-32); Chloride 96 mmol/L (98-107); Estimated Glomerular Filt Rate > 60.0 mL/min (>60); Globulin 3.4 g/dL (1.7-4.1); Glucose 113 mg/dL (70-100); HEMOLYSIS < 15 (0-50); Potassium 3.9 mmol/L (3.4-5.1); Sodium 131 mmol/L (137-145); Total Protein 7.7 g/dL (6.3-8.2)
[2019-01-14 18:34] LABS: Appearance Urine UA CLOUDY; Bilirubin Urine UA NEGATIVE (NEGATIVE); Color Urine UA YELLOW; Glucose Urine UA NEGATIVE (Negative); Ketones Urine UA NEGATIVE (NEGATIVE); Leukocyte Esterase Urine UA 3+ (NEGATIVE); Nitrite Urine UA POSITIVE (Negative); Occult Blood Urine UA 2+ (Negative); Protein Urine UA NEGATIVE (Negative); Urobilinogen Urine UA 0.2 E.U./dL (0.2); pH Urine UA 7.5 (4.5-8.0)
[2019-01-14 18:50] LABS: Bacteria Urine Moderate (10-30); Culture Indicated Urine Specimen Cultured; RBC Urine 1-5/HPF (0-5/HPF); Squamous Epithelial Cell Urine None Seen (0-5/HPF); WBC Urine 10-30/HPF (0-5/HPF)
[2019-01-14 18:55] LABS: Procalcitonin 0.05 ng/mL (<0.5)
[2019-01-14] MEDS: CEFTRIAXONE 1 GM/50 ML FROZ.PIGGY IV (19:08)
[2019-01-14] MEDS: IBUPROFEN 400 MG TABLET 800 MG PO (19:32)
[2019-01-14 20:09] LABS: Reflexed Lactate in 2 Hours Y
[2019-01-14] MEDS: diphenhydrAMINE 50 MG/ML VIAL 25 MG IV (20:15)
[2019-01-14] MEDS: SODIUM CHLORIDE 0.9% 632 ML 544 ML IV (20:25)
[2019-01-14 20:48] LABS: Lactate 2HR (Lactic Acid Rflx) 0.9 mmol/L (0.7-2.1)
--- NOTE | 2019-01-14 23:37 | PC.NURSE ---
2100:Pt A&OX3. 97%RA. denied chest pain, nausea or sob. IVF infusing. Flowers intact. pt has a leg bag. oriented pt to the room. call light in reach.
[2019-01-15] VITALS (9 sets, daily range): BP systolic 77–145; BP diastolic 53–84; PULSE 77–85; RESP 16–18; TEMP 36.7–38; O2SAT 95–100
--- NOTE | 2019-01-15 06:04 | PC.NURSE ---
VINER OPERATOR note: patient refused vital signs. VALE Valencia aware.
[2019-01-15 08:27] LABS: Enterococcus species Not Detected (Not Detect); Vancomycin-rest genes A/B Not Detected (Not Detect)
[2019-01-15 08:28] LABS: Acinetobacter baumannii Not Detected (Not Detect); Enterobacteriaceae species Detected (Not Detect); Listeria monocytogenes Not Detected (Not Detect); Methicillin-resistant gene Not Detected (Not Detect); Staphylococcus species Not Detected (Not Detect); Streptococcus agalactiae (Gr B Not Detected (Not Detect); Streptococcus pneumonia Not Detected (Not Detect); Streptococcus pyogenes (Gr A) Not Detected (Not Detect); Streptococcus species Not Detected (Not Detect)
[2019-01-15 08:29] LABS: Candida albicans Not Detected (Not Detect); Candida glabrata Not Detected (Not Detect); Candida krusei Not Detected (Not Detect); Candida parapsilosis Not Detected (Not Detect); Candida tropicalis Not Detected (Not Detect); E. coli Detected (Not Detect); Enterobacter cloacae complex Not Detected (Not Detect); Haemophilus influenzae Not Detected (Not Detect); KPC (carbapenem-resist gene) Not Detected (Not Detect); Neisseria meningitidis Not Detected (Not Detect); Proteus species Not Detected (Not Detect); Pseudomonas aeruginosa Not Detected (Not Detect); Serratia marcescens Not Detected (Not Detect)
[2019-01-15] MEDS: CEFTRIAXONE 2 GM/50 ML FROZ.PIGGY IV (11:13)
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
[2019-01-15] MEDS: ACETAMINOPHEN 325 MG TABLET 650 MG PO (16:23)
--- NOTE | 2019-01-15 20:27 | PC.NURSE ---
Pt is febrile 100.4, medicated w/ Tylenol, temp down to 99.6.
[2019-01-15] MEDS: SODIUM CHLORIDE 0.9% FLUSH 10 ML IV (22:12)
[2019-01-16] VITALS (12 sets, daily range): BP systolic 118–156; BP diastolic 73–104; PULSE 61–86; RESP 16–18; TEMP 36.8–37.8; O2SAT 97–99
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
[2019-01-16 05:57] LABS: Add Manual Diff / Slide Review NO; Basophils Absolute Auto 0 /uL (0-100); Basophils Percent Auto 0.3 % (0-2); Eosinophils Absolute Auto 100 /uL (0-450); Eosinophils Percent Auto 0.7 % (2-4); Hematocrit 35.9 % (41-53); Hemoglobin 11.8 g/dL (13.5-17.5); Lymphocytes Absolute Auto 1000 /uL (1100-4500); Lymphocytes Percent Auto 8.4 % (25-40); Mean Corpuscular HGB Conc 32.9 % (30-36); Mean Corpuscular Hemoglobin 29.4 PG (26-34); Mean Corpuscular Volume 89.4 fL (80-100); Monocytes Absolute Auto 900 /uL (0-900); Monocytes Percent Auto 7.4 % (3-14); Neutrophils Absolute Auto 9800 /uL (1500-7000); Neutrophils Percent Auto 83.2 % (50-75); Platelet Count 168 X10^3/uL (150-400); Red Blood Cell Count 4.02 X10^6/uL (4.5-5.9); Red Cell Distribution Width 14.8 % (11.6-14.8); White Blood Cell Count 11.8 X10^3/uL (4.5-11.0)
[2019-01-16 06:03] LABS: Blood Urea Nitrogen 12 mg/dL (9-20); Calcium 8.7 mg/dL (8.4-10.2); Carbon Dioxide 22 mmol/L (22-32); Chloride 103 mmol/L (98-107); Estimated Glomerular Filt Rate > 60.0 mL/min (>60); Glucose 86 mg/dL (70-100); HEMOLYSIS < 15 (0-50); Potassium 3.7 mmol/L (3.4-5.1); Sodium 134 mmol/L (137-145)
[2019-01-16] MEDS: CEFTRIAXONE 2 GM/50 ML FROZ.PIGGY IV (09:48)
[2019-01-16] MEDS: SODIUM CHLORIDE 0.9% FLUSH 10 ML IV ×2 (09:48→11:08)
--- NOTE | 2019-01-16 10:48 | PM.PN.1 ---
Subjective Date Patient Seen: 01/16/19 Time Patient Seen: 10:48 Interval history: Patient really has no complaints. Did acknowledge she had low-grade fever yesterday on 2 occasions. Did not spike to greater than 101 F Feels weak as he has been relatively inactive because of his illness and now here in the hospital etc but otherwise no new complaints or issues Exam Vital Signs (past 8 hours): - 01/16/19 06:09 01/16/19 07:30 01/16/19 09:09 Temperature 99.4 F 98.5 F Pulse Rate 79 84 Respiratory Rate 16 16 Blood Pressure 122/73 142/88 H Pulse Oximetry 98 97 97 Oxygen Delivery Method Room Air Oxygen Flow Rate 0 Objective Labs Result Diagrams: 01/16/19 05:35 01/16/19 05:35 Labs: Laboratory Results - last 24 hr 01/16/19 01/16/19 05:35 05:35 WBC 11.8 H RBC 4.02 L Hgb 11.8 L Hct 35.9 L MCV 89.4 MCH 29.4 MCHC 32.9 RDW 14.8 Plt Count 168 Neut % (Auto) 83.2 H Lymph % (Auto) 8.4 L [place] % (Auto) 7.4 Eos % (Auto) 0.7 L Baso % (Auto) 0.3 Neut # (Auto) 9800 H Lymph # (Auto) 1000 L [place] # (Auto) 900 Eos # (Auto) 100 Baso # (Auto) 0 Sodium 134 L Potassium 3.7 Chloride 103 Carbon Dioxide 22 BUN 12 Creatinine 0.50 L Estimated GFR > 60.0 BUN/Creatinine Ratio 24.0 H Glucose 86 Calcium 8.7 Blood culture growing E coli from 01/14/2019 Urine culture growing Serratia as well as a gram-negative bacillus yet to be determined (likely E coli given the blood culture result) Assessment & Plan Assessment & Plan narrative: 1. Urosepsis with initial elevated lactate and modest hypotension. Responded nicely to appropriate therapies. Growing E coli from the blood and Serratia from his urine with sensitivities matching previously identified organisms. Also previously grew Pseudomonas but we do not see at this point a 3rd gram-negative organism. Current antibiotics are 3rd generation cephalosporin it parenterally and patient is clinically much improved. Based on sensitivities thus far obtained that should be appropriate antibiotic therapy. At this point given his persistent even low-grade fever I am hesitant to send him home today. We have yet to identify the 2nd organism in his urine culture definitively although I suspect it is the E coli were picking up out of his blood. Assuming that is the case and he clinically remains stable with no evidence of clinical decline he can likely be discharged home tomorrow to continue on oral 3rd generation cephalosporin for another 7 days Fortunately patient has only had a couple of episodes of urosepsis like this given his 20+ year history of chronic indwelling urinary catheterization. He has had multiple UTIs of course which is why he has developed antibiotic resistance as with his microbial grace. Consideration for consultation with Urology regarding perhaps suppressive dose antibiotics and/or other ways to manage would certainly seem to be in order as an outpatient Otherwise he is stable. Blood pressure is okay on his usual midodrine etc. Plan for him to probably go home tomorrow assuming clinical stability. Note: Greater than 30 minutes was spent evaluating the patient on the floor, including examining the patient, discussing clinical course with clinical and nursing staff, reviewing clinical course in the computer, preparing documentation and writing orders for continued management of care, discussing status with family as appropriate, reviewing plans for the next 24 hours with both patient/family and nursing staff as appropriate.
--- NOTE | 2019-01-16 10:52 | P.PN_ITS ---
Subjective Date Patient Seen: 01/16/19 Time Patient Seen: 10:48 Interval history: Patient really has no complaints. Did acknowledge she had low-grade fever yesterday on 2 occasions. Did not spike to greater than 101 F Feels weak as he has been relatively inactive because of his illness and now here in the hospital etc but otherwise no new complaints or issues Exam Vital Signs (past 8 hours): - 01/16/19 06:09 01/16/19 07:30 01/16/19 09:09 Temperature 99.4 F 98.5 F Pulse Rate 79 84 Respiratory Rate 16 16 Blood Pressure 122/73 142/88 H Pulse Oximetry 98 97 97 Oxygen Delivery Method Room Air Oxygen Flow Rate 0 Objective Labs Result Diagrams: 01/16/19 05:35 01/16/19 05:35 Labs: Laboratory Results - last 24 hr 01/16/19 01/16/19 05:35 05:35 WBC 11.8 H RBC 4.02 L Hgb 11.8 L Hct 35.9 L MCV 89.4 MCH 29.4 MCHC 32.9 RDW 14.8 Plt Count 168 Neut % (Auto) 83.2 H Lymph % (Auto) 8.4 L [place] % (Auto) 7.4 Eos % (Auto) 0.7 L Baso % (Auto) 0.3 Neut # (Auto) 9800 H Lymph # (Auto) 1000 L [place] # (Auto) 900 Eos # (Auto) 100 Baso # (Auto) 0 Sodium 134 L Potassium 3.7 Chloride 103 Carbon Dioxide 22 BUN 12 Creatinine 0.50 L Estimated GFR > 60.0 BUN/Creatinine Ratio 24.0 H Glucose 86 Calcium 8.7 Blood culture growing E coli from 01/14/2019 Urine culture growing Serratia as well as a gram-negative bacillus yet to be determined (likely E coli given the blood culture result) Assessment & Plan Assessment & Plan narrative: 1. Urosepsis with initial elevated lactate and modest hypotension. Responded nicely to appropriate therapies. Growing E coli from the blood and Serratia from his urine with sensitivities matching previously identified organisms. Also previously grew Pseudomonas but we do not see at this point a 3rd gram- negative organism. Current antibiotics are 3rd generation cephalosporin it parenterally and patient is clinically much improved. Based on sensitivities thus far obtained that should be appropriate antibiotic therapy. At this point given his persistent even low-grade fever I am hesitant to send him home today. We have yet to identify the 2nd organism in his urine culture definitively although I suspect it is the E coli were picking up out of his b lood. Assuming that is the case and he clinically remains stable with no evidence of clinical decline he can likely be discharged home tomorrow to continue on oral 3rd generation cephalosporin for another 7 days Fortunately patient has only had a couple of episodes of urosepsis like this given his 20+ year history of chronic indwelling urinary catheterization. He has had multiple UTIs of course which is why he has developed antibiotic resistance as with his microbial grace. Consideration for consultation with Urology regarding perhaps suppressive dose antibiotics and/or other ways to manage would certainly seem to be in order as an outpatient Otherwise he is stable. Blood pressure is okay on his usual midodrine etc. Plan for him to probably go home tomorrow assuming clinical stability. Note: Greater than 30 minutes was spent evaluating the patient on the floor, including examining the patient, discussing clinical course with clinical and nursing staff, reviewing clinical course in the computer, preparing documentation and writing orders for continued management of care, discussing status with family as appropriate, reviewing plans for the next 24 hours with both patient/family and nursing staff as appropriate.
[2019-01-16] MEDS: FLEETS ENEMA 1 EACH PR (11:07)
--- NOTE | 2019-01-16 13:03 | PC.NURSE ---
Pt alert, oriented, denies pain at this time. Given enema per patient request, no results, manual disimpaction attempted per patient request, no stool noted.
[2019-01-17 00:05] VITALS: BP 162/94; PULSE 64; RESP 16; TEMP 37.4; O2SAT 99
[2019-01-17 06:20] VITALS: BP 124/77; PULSE 78; RESP 16; TEMP 37; O2SAT 98
[2019-01-17 09:00] VITALS: BP 117/78; PULSE 74; RESP 16; TEMP 36.6; O2SAT 99
--- NOTE | 2019-01-17 09:18 | P.DS_ITS ---
History of Present Illness Date Patient Seen: 01/17/19 Time Patient Seen: 09:14 Chief complaint: wants to be seen for a bladder infection Narrative: Pt is a 53yo man with incomplete C5-C6 quadriplegia and recurrent UTIs who presented with malaise and fever, found to have recurrent UTI and m eeting sepsis criteria. Discharge Providers Date of admission: 01/14/19 20:18 Discharge Date: 01/17/19 Primary care physician: Christine Magaña MD Consults: 01/14/19 20:05 Consult to Physician Routine Comment: Consulting Provider: Donte Reddy Reason for consultation: Admission Has provider been notified: Yes Discharge provider: Jeffery Elkins MD Summary Discharge Diagnosis: 1. UTI with sepsis 2. E coli bacteremia likely secondary to UTI 3. UTI growing Serratia, Pseudomonas, and presumably E coli, secondary to chronic indwelling Flowers catheterization 4. Chronic indwelling Flowers catheterization 5. Quadriplegia due to injury at C5-6 6. Autonomic insufficiency causing hypotension requiring treatment Hospital Course: Patient was admitted with evidence of sepsis on the basis of his UTI. Blood culture quickly grew gram-negative jerad where subsequent proved to be E coli with sensitivities consistent with prior organisms obtained from urine. Urine culture grew Serratia and Pseudomonas but as of time of discharge patient was not growing E coli from urine culture. Patient was placed on empiric (based on previous culture results) IV antibiotics (ceftriaxone) in the emergency department. With this he defervesced and slowly but surely improved over the next 24-48 hours. Over this time his urine and blood cultures came back as above. It appears the ceftriaxone is likely still appropriate for his organisms based on clinical result and findings on culture Given the rapid improvement, becoming afebrile and clinically subjectively feeling much better patient was felt to be ready for discharge by the morning of the 17 of January Patient will continue on oral 3rd generation cephalosporin as an outpatient. Patient reports upcoming appointment with his spinal cord injury physician at [facility] in the coming week and plan for him to be seen by his PCP locally here in the next 7-10 days as well. Again consideration for long-term management of his chronic indwelling Flowers in effort to reduce infectious complication should be employed as an outpatient Status at Discharge Cognitive/behavioral status at discharge: at baseline, oriented Functional status at discharge: wheelchair bound Overall status at discharge: patient is progressing back to baseline Exam Vital Signs (past 8 hours): - 01/17/19 06:20 Temperature 98.6 F Pulse Rate 78 Respiratory Rate 16 Blood Pressure 124/77 Pulse Oximetry 98 Oxygen Delivery Method Room Air Oxygen Flow Rate 0 Narrative Exam Narrative: Unchanged from previous Objective Labs Result Diagrams: 01/16/19 05:35 01/16/19 05:35 Discharge Plan Discharge Plan Patient Disposition: Home Discharge Med Rec/Prescriptions Prescriptions: New cefixime 400 mg capsule 400 mg PO Q24H 7 Days Qty: 7 RF: 0 Continued midodrine 1 tab PO DAILY RF: 0 Vitamin C 1 tab PO DAILY RF: 0 Vitamin D3 1 tab PO DAILY RF: 0 Follow up/Referrals: Christine Magaña MD [Primary Care Provider] - 1 Week Provider Discharge Instructions Diet: Diet as Tolerated Discharge Data Primary Care Provider: Christine Magaña Attending Provider: Christine Magaña Admit Date/Time: 01/14/19 20:18
[2019-01-17] MEDS: CEFTRIAXONE 2 GM/50 ML FROZ.PIGGY IV (09:57)
[2019-01-17] MEDS: SODIUM CHLORIDE 0.9% FLUSH 10 ML IV (09:57)
[2019-01-17 10:11] VITALS: O2SAT 96
--- NOTE | 2019-01-17 10:49 | PC.NURSE ---
Last dose IV abx finished, IV removed. Went over discharge instructions and medications with patient. Questions answered. Pt's omalley changed over to his leg bag, pt able to transfer himself to his wheelchair with min assist.Pt escorted to his vehicle. Pt had all belongings.
--- NOTE | 2019-01-17 12:44 | CM.DPC ---
DCP: continued: Case discussed in Team Rounds. EMR reviewed. Dr. Elkins was here and ok'd pt for d/c home today. [facility] and will see his PCP: Dr. Magaña in 7-10 days. Pt had last IV antibiotic dose and did go d/c to home today at 1030. JESSIE # 1: obtained from pt via [facility] on 01/15 1049 via verbal consent of pt ( quadriplegia and unable to sign form). Pt remained aware of his Medicare d/c rights.
== END 2019-01-17 10:58 | disposition home or self-care (01) | DRG 698 ==
LOC: ED 19:54 → AC 01-15 06:53
PROVIDERS: Emergency Medicine; Admitting Provider Family Medicine; Emergency Provider Emergency Medicine; Family Provider Family Medicine; PCP Family Medicine; Visit Provider Family Medicine
DX: T83.511A Infection and inflammatory reaction due to indwelling urethral catheter, initial encounter (principal); G82.54 Quadriplegia, C5-C7 incomplete; A41.51 Sepsis due to Escherichia coli [E. coli]; R65.20 Severe sepsis without septic shock; N39.0 Urinary tract infection, site not specified; B96.20 Unspecified Escherichia coli [E. coli] as the cause of diseases classified elsewhere; B96.89 Other specified bacterial agents as the cause of diseases classified elsewhere; Z99.3 Dependence on wheelchair; I95.9 Hypotension, unspecified; B96.5 Pseudomonas (aeruginosa) (mallei) (pseudomallei) as the cause of diseases classified elsewhere; G90.4 Autonomic dysreflexia; G90.8 Other disorders of autonomic nervous system
CPT/HCPCS: 36415; 36591; 80048; 80053; 81001; 81003; 83605; 84145; 85025; 87040; 87077; 87086; 87150; 87186; 87205; 96361; 96365; 96375; 99232; 99238; 99283; 99285; J0696; J1200

== ENCOUNTER 2019-03-13 19:04 | Emergency (ER) | payer OTHER, MEDICARE, SELFPAY ==
[2019-01-14 21:10] VITALS: BMI 18.2
[2019-03-13 19:15] VITALS: BP 120/80; PULSE 86; RESP 18; TEMP 37.1; O2SAT 100; BMI 17.6
--- NOTE | 2019-03-13 19:49 | ED_ITS ---
HPI - Male Genitourinary General Chief complaint: Urogenital-Male Stated complaint: Bladder infection Time Seen by Provider: 03/13/19 19:17 Source: patient Mode of arrival: wheelchair Limitations: no limitations History of Present Illness HPI Narrative: Patient is a 53-year-old spinal cord injury C6 wheelchair-bound patient. He has a chronic indwelling Flowers catheter. He states that he thinks he has infection as he does have some sensation insert places. He has been having some burning at his penis. He has had low-grade fever last night and just before he got here. Afebrile here. He previously was in the hospital in December with sepsis and bacteremia. He wants to catch it early this time. His he really has no abdominal pain but often can't feel that. He has not been vomiting. No coughing. He has history of recurrent UTI. Previously discharged on cefixime. This Flowers catheters are changed every other week MD Complaint: dysuria Related Data Home Medications Medication Instructions Recorded Confirmed Vitamin C 1 tab PO DAILY 10/20/18 01/26/19 Vitamin D3 1 tab PO DAILY 10/20/18 01/26/19 midodrine 1 tab PO DAILY 10/20/18 01/26/19 Previous Rx's Medication Instructions Recorded cefixime 400 mg PO Q24H 7 Days #7 cap 03/13/19 Allergies Allergy/AdvReac Type Severity Reaction Status Date / Time Sulfa (Sulfonamide Allergy Verified 01/26/19 15:32 Antibiotics) Review of Systems Review of Systems ROS Unobtainable: All systems reviewed & are unremarkable except as noted in HPI and below Constitutional Denies chills, Reports fever(s), Denies lethargy and Denies weakness Eyes Denies change in vision, Denies eye discharge, Denies irritation and Denies loss of vision ENT Ears, Nose, Mouth, and Throat: Denies change in voice, Denies neck pain and Denies sore throat Cardiovascular Denies dyspnea and Denies dyspnea on exertion Respiratory Denies cough, Denies dyspnea, Denies dyspnea on exertion and Denies wheezing Genitourinary Reports as per HPI Musculoskeletal Reports as per HPI and Denies neck pain Neurologic Reports as per HPI, Denies loss of vision and Denies weakness Allergic/Immunologic Denies wheezing [facility] Medical History Hearing loss (Chronic) Kidney stones (Chronic ~09/2017) Quadriplegia (Chronic) Shoulder pain (Chronic ~1997) Vision disorder (Chronic) Chicken pox (Resolved) Surgical History History of back surgery (Resolved) Family History Father Cancer Mother Dementia Sister Heart disease Social History household members: spouse and caregiver Smoking Status: Never smoker Family History Father Cancer Mother Dementia Sister Heart disease Social History household members: spouse and caregiver Smoking Status: Never smoker Exam Initial Vital Signs Initial Vital Signs: Vital Signs Temperature 98.7 F 03/13/19 19:15 Pulse Rate 86 03/13/19 19:15 Respiratory Rate 18 03/13/19 19:15 Blood Pressure 120/80 03/13/19 19:15 Pulse Oximetry 100 03/13/19 19:15 GENERAL: Alert well-appearing male quadriplegic in the chair HEENT: Head atraumatic,EOMI, pupils reactive, neck is supple CARDIOVASCULAR: Regular rate and rhythm without murmurs, rubs or gallops. RESPIRATORY: Breath sounds equal bilaterally, no wheezes rales or rhonchi. ABDOMEN: Soft, nontender. Normoactive bowel sounds all 4 quadrants. No guarding or rebound. EXTREMITIES: Normal range of motion, no clubbing or edema. Neurovascularly intact NEUROLOGICAL: Alert, neuro status at baseline. He actually does this time. SKIN: Warm, dry, no laceration, no petechiae, no rashes or lesions. Course Orders Ordered: ED Orders 03/13/19 19:10 Urine Culture Stat Urine Microscopic Stat 03/13/19 19:53 Basic Metabolic Panel Stat Complete Blood Count AUTO DIFF Stat Procalcitonin Stat 03/13/19 20:20 Blood Culture Stat Lactate (Lactic Acid) Stat Discontinued Medications Sodium Chloride (Normal Saline 0.9%) 1,000 mls @ 1,000 mls/hr IV BOLUS ONE Stop: 03/13/19 20:37 Last Infusion: 03/13/19 21:03 Dose: 0 mls/hr Admin: 03/13/19 20:03 Dose: 1,000 mls/hr Ceftriaxone Sodium/Dextrose (Rocephin) 1 gm in 50 mls @ 100 mls/hr IV NOW ONE Stop: 03/13/19 21:07 Last Infusion: 03/13/19 21:49 Dose: 0 mls/hr Admin: 03/13/19 21:15 Dose: 100 mls/hr Vital Signs - 8 hr 03/13/19 22:20 Temperature 97.6 F Pulse Rate 70 Respiratory Rate 18 Blood Pressure 98/68 Pulse Oximetry 99 MDM - Male Genitourinary Lab Data Attestation: I reviewed the patient's lab results. Result diagrams: 03/13/19 19:53 03/13/19 19:53 Lab Results 03/13/19 03/13/19 03/13/19 Range/Units 19:10 19:53 19:53 WBC 7.8 (4.5-11.0) X10^3/uL RBC 4.16 L (4.5-5.9) X10^6/uL Hgb 12.4 L (13.5-17.5) g/dL Hct 36.5 L (41-53) % MCV 87.7 (80-100) fL MCH 29.8 (26-34) PG MCHC 34.0 (30-36) % RDW 13.9 (11.6-14.8) % Plt Count 157 (150-400) X10^3/uL Neut % (Auto) 82.0 H (50-75) % Lymph % (Auto) 8.2 L (25-40) % [place] % (Auto) 7.9 (3-14) % Eos % (Auto) 1.6 L (2-4) % Baso % (Auto) 0.3 (0-2) % Neut # (Auto) 6400 (2280-3809) /uL Lymph # (Auto) 600 L (7527-9188) /uL [place] # (Auto) 600 (0-900) /uL Eos # (Auto) 100 (0-450) /uL Baso # (Auto) 0 (0-100) /uL Sodium (137-145) mmol/L Potassium (3.4-5.1) mmol/L Chloride (98-107) mmol/L Carbon Dioxide (22-32) mmol/L BUN (9-20) mg/dL Creatinine (0.66-1.25) mg/dL Estimated GFR (>60) mL/min BUN/Creatinine Ratio (6-22) Glucose (70-100) mg/dL Lactate (0.7-2.1) mmol/L Calcium (8.4-10.2) mg/dL Procalcitonin < 0.05 (<0.5) ng/mL Urine RBC 1-5/hpf (0-5/HPF) Urine WBC 10-30/hpf H (0-5/HPF) Amorphous Sediment 3+ Urine Bacteria Many (>30) H (None) Ur Culture Indicated? Specimen cultured 03/13/19 03/13/19 Range/Units 19:53 20:20 WBC (4.5-11.0) X10^3/uL RBC (4.5-5.9) X10^6/uL Hgb (13.5-17.5) g/dL Hct (41-53) % MCV (80-100) fL MCH (26-34) PG MCHC (30-36) % RDW (11.6-14.8) % Plt Count (150-400) X10^3/uL Neut % (Auto) (50-75) % Lymph % (Auto) (25-40) % [place] % (Auto) (3-14) % Eos % (Auto) (2-4) % Baso % (Auto) (0-2) % Neut # (Auto) (3580-0455) /uL Lymph # (Auto) (9318-9169) /uL [place] # (Auto) (0-900) /uL Eos # (Auto) (0-450) /uL Baso # (Auto) (0-100) /uL Sodium 130 L (137-145) mmol/L Potassium 4.0 (3.4-5.1) mmol/L Chloride 96 L (98-107) mmol/L Carbon Dioxide 25 (22-32) mmol/L BUN 13 (9-20) mg/dL Creatinine 0.50 L (0.66-1.25) mg/dL Estimated GFR > 60.0 (>60) mL/min BUN/Creatinine Ratio 26.0 H (6-22) Glucose 124 H (70-100) mg/dL Lactate 1.0 (0.7-2.1) mmol/L Calcium 9.1 (8.4-10.2) mg/dL Procalcitonin (<0.5) ng/mL Urine RBC (0-5/HPF) Urine WBC (0-5/HPF) Amorphous Sediment Urine Bacteria (None) Ur Culture Indicated? Urine Dip Bedside Urine Glucose Negative Bedside Urine Bilirubin - Negative Bedside Urine Ketone ++ 40 Urine Specific [place] 1.015 Bedside Urine Occult Blood +++ Bedside Urine pH 7 Bedside Urine Protein +/- 15 Bedside Urine Urobilinogen +/- 1mg Bedside Urine Nitrite + Positive Bedside Urine Leukocytes +++ 500 Esterase MDM Narrative Medical decision making narrative: Patient overall is not septic. Vitals are within normal limits and he appears well. He is given a dose of Rocephin and placed on cefixime, previously his culture was sensitive to this. I have explained that he may have resistance if that is the case we will call him. At this time I recommend outpatient follow-up. Discharge Plan Departure Patient Disposition: Home Clinical Impression: Recurrent UTI Discharge Date/Time: 03/13/19 22:21 Interventions: ED Discharge Assessment Last Done: 03/13/19 22:20 Instructions: DI for Urinary Tract Infection (UTI) Activity Restrictions/Additional Instructions: *You have been diagnosed with recurrent UTI *What to do: At this time blood work is reassuring. However antibiotics may need to be changed. *Continue to take medications as directed Cefixime 400 mg once daily for 7 days--> sent to [facility] in [place] *Follow up with your primary care provider in 2-3 days *Return to ER if you should have persistent fever, change in mentation is increasing pain or any new, worsening or concerning symptoms Prescriptions: New cefixime 400 mg capsule 400 mg PO Q24H 7 Days Qty: 7 RF: 0 No Action midodrine 1 tab PO DAILY RF: 0 Vitamin C 1 tab PO DAILY RF: 0 Vitamin D3 1 tab PO DAILY RF: 0 Referrals: Christine Magaña MD [Primary Care Provider] -
[2019-03-13] MEDS: SODIUM CHLORIDE 0.9% 1,000 ML 1000 ML IV (20:03)
[2019-03-13 20:14] LABS: Add Manual Diff / Slide Review NO; Basophils Absolute Auto 0 /uL (0-100); Basophils Percent Auto 0.3 % (0-2); Eosinophils Absolute Auto 100 /uL (0-450); Eosinophils Percent Auto 1.6 % (2-4); Hematocrit 36.5 % (41-53); Hemoglobin 12.4 g/dL (13.5-17.5); Lymphocytes Absolute Auto 600 /uL (1100-4500); Lymphocytes Percent Auto 8.2 % (25-40); Mean Corpuscular Hemoglobin 29.8 PG (26-34); Mean Corpuscular Volume 87.7 fL (80-100); Monocytes Absolute Auto 600 /uL (0-900); Monocytes Percent Auto 7.9 % (3-14); Neutrophils Absolute Auto 6400 /uL (1500-7000); Platelet Count 157 X10^3/uL (150-400); Red Blood Cell Count 4.16 X10^6/uL (4.5-5.9); Red Cell Distribution Width 13.9 % (11.6-14.8); White Blood Cell Count 7.8 X10^3/uL (4.5-11.0)
[2019-03-13 20:19] LABS: Blood Urea Nitrogen 13 mg/dL (9-20); Calcium 9.1 mg/dL (8.4-10.2); Carbon Dioxide 25 mmol/L (22-32); Chloride 96 mmol/L (98-107); Estimated Glomerular Filt Rate > 60.0 mL/min (>60); Glucose 124 mg/dL (70-100); HEMOLYSIS < 15 (0-50); Sodium 130 mmol/L (137-145)
[2019-03-13 20:35] LABS: Procalcitonin < 0.05 ng/mL (<0.5)
[2019-03-13] MEDS: CEFTRIAXONE 1 GM/50 ML FROZ.PIGGY IV (21:15)
[2019-03-13 22:20] VITALS: BP 98/68; PULSE 70; RESP 18; TEMP 36.4; O2SAT 99
== END 2019-03-13 22:21 | disposition home or self-care (01) ==
PROVIDERS: Emergency Provider Emergency Medicine; PCP Family Medicine
DX: N39.0 Urinary tract infection, site not specified (principal)
CPT/HCPCS: 36415; 36591; 80048; 81003; 81015; 83605; 84145; 85025; 87040; 87077; 87086; 87186; 96361; 96365; 99283; 99284

== ENCOUNTER 2019-04-11 00:48 | Emergency (ER) | payer OTHER, MEDICARE, SELFPAY ==
[2019-01-14 21:10] VITALS: BMI 18.2
[2019-04-11 00:57] VITALS: BP 133/102; PULSE 72; RESP 17; TEMP 37.1; O2SAT 97; BMI 17.6
[2019-04-11 01:00] LABS: RBC Urine None Seen (0-5/HPF)
[2019-04-11 01:02] LABS: Appearance Urine UA CLEAR; Bilirubin Urine UA NEGATIVE (NEGATIVE); Glucose Urine UA NEGATIVE (Negative); Ketones Urine UA NEGATIVE (NEGATIVE); Leukocyte Esterase Urine UA 3+ (NEGATIVE); Nitrite Urine UA POSITIVE (Negative); Occult Blood Urine UA 1+ (Negative); Protein Urine UA NEGATIVE (Negative); Urobilinogen Urine UA 0.2 E.U./dL (0.2)
[2019-04-11 01:03] LABS: Color Urine UA Straw
[2019-04-11 01:13] LABS: WBC Urine 10-30/HPF (0-5/HPF)
--- NOTE | 2019-04-11 01:13 | ED.MALEGU ---
HPI - Male Genitourinary General Chief complaint: Urogenital-Male Stated complaint: UTI Time Seen by Provider: 04/11/19 00:55 Source: patient and old records reviewed Mode of arrival: wheelchair Limitations: no limitations History of Present Illness HPI Narrative: Patient is a 53-year-old male with history of C6 spinal cord injury wheelchair-bound chronic indwelling Flowers catheter with frequent UTIs presenting all with a burning sensation and frequency along with abdominal distention. He said this started sometime this afternoon. Previously septic. Actually saw him here 03/13/2019 he was placed on cefixime, which was appropriate and he says it worked and helped him get better. This evening he was shaking and chills and could not get warm. MD Complaint: dysuria Related Data Home Medications Medication Instructions Recorded Confirmed Vitamin C 1 tab PO DAILY 10/20/18 01/26/19 Vitamin D3 1 tab PO DAILY 10/20/18 01/26/19 midodrine 1 tab PO DAILY 10/20/18 01/26/19 Previous Rx's Medication Instructions Recorded cefixime 400 mg PO Q24H 7 Days #7 cap 04/11/19 Allergies Allergy/AdvReac Type Severity Reaction Status Date / Time Sulfa (Sulfonamide Allergy Verified 04/11/19 01:03 Antibiotics) Review of Systems Review of Systems ROS Unobtainable: All systems reviewed & are unremarkable except as noted in HPI and below Constitutional Reports chills and Denies fever(s) Eyes Denies change in vision, Denies eye discharge, Denies irritation and Denies loss of vision Cardiovascular Denies chest pain, Denies irregular heart rhythm, Denies lightheadedness, Denies palpitations, Denies dyspnea, Denies dyspnea on exertion and Denies orthopnea Respiratory Denies cough, Denies dyspnea, Denies dyspnea on exertion and Denies wheezing Gastrointestinal Gastrointestinal: Denies abdominal pain, Reports bloating, Denies nausea and Denies vomiting Genitourinary Reports as per HPI Musculoskeletal Denies back pain, Denies muscle weakness, Denies numbness and Denies tingling Integumentary/Breasts Denies pruritus, Denies erythema, Denies rash and Denies wounds Neurologic Denies loss of vision, Denies numbness and Denies tingling Endocrine Denies palpitations Allergic/Immunologic Denies wheezing [facility] Medical History Hearing loss (Chronic) Kidney stones (Chronic ~09/2017) Quadriplegia (Chronic) Shoulder pain (Chronic ~1997) Vision disorder (Chronic) Chicken pox (Resolved) Surgical History History of back surgery (Resolved) Family History Father Cancer Mother Dementia Sister Heart disease Social History household members: spouse and caregiver Smoking Status: Never smoker Family History Father Cancer Mother Dementia Sister Heart disease Social History household members: spouse and caregiver Smoking Status: Never smoker Exam Initial Vital Signs Initial Vital Signs: Vital Signs Temperature 98.8 F 04/11/19 00:57 Pulse Rate 72 04/11/19 00:57 Respiratory Rate 17 04/11/19 00:57 Blood Pressure 133/102 H 04/11/19 00:57 Pulse Oximetry 97 04/11/19 00:57 GENERAL: Well-appearing, well-nourished and in no acute distress. HEENT: Head atraumatic, no crepitations no depression EOMI, pupils reactive, CARDIOVASCULAR: Regular rate and rhythm without murmurs, rubs or gallops. RESPIRATORY: Breath sounds equal bilaterally, no wheezes rales or rhonchi. ABDOMEN: Soft, mild distention but soft nontender nontender. Normoactive bowel sounds all 4 quadrants. No guarding or rebound. EXTREMITIES: Normal range of motion, no clubbing or edema. Neurovascularly intact NEUROLOGICAL: Alert and oriented x4. SKIN: Warm, dry, no laceration, no petechiae, no rashes or lesions. Course Orders Ordered: ED Orders 04/11/19 00:51 Urinalysis and Microscopic Stat Urine Culture Stat 04/11/19 01:30 Basic Metabolic Panel Stat Complete Blood Count AUTO DIFF Stat 04/11/19 01:54 Blood Culture Stat Lactate (Lactic Acid) Stat Discontinued Medications Ceftriaxone Sodium/Dextrose (Rocephin) 1 gm in 50 mls @ 100 mls/hr IV NOW ONE Stop: 04/11/19 01:43 Last Admin: 04/11/19 01:44 Dose: 100 mls/hr Vital Signs - 8 hr 04/11/19 00:57 Temperature 98.8 F Pulse Rate 72 Respiratory Rate 17 Blood Pressure 133/102 H Pulse Oximetry 97 MDM - Male Genitourinary Lab Data Attestation: I reviewed the patient's lab results. Result diagrams: 04/11/19 01:30 04/11/19 01:30 Lab Results 04/11/19 04/11/19 04/11/19 Range/Units 00:51 01:30 01:30 WBC 7.1 (4.5-11.0) X10^3/uL RBC 3.91 L (4.5-5.9) X10^6/uL Hgb 11.7 L (13.5-17.5) g/dL Hct 34.6 L (41-53) % MCV 88.5 (80-100) fL MCH 29.9 (26-34) PG MCHC 33.8 (30-36) % RDW 14.2 (11.6-14.8) % Plt Count 157 (150-400) X10^3/uL Neut % (Auto) 80.4 H (50-75) % Lymph % (Auto) 6.8 L (25-40) % [place] % (Auto) 8.4 (3-14) % Eos % (Auto) 3.9 (2-4) % Baso % (Auto) 0.5 (0-2) % Neut # (Auto) 5700 (8013-5156) /uL Lymph # (Auto) 500 L (7539-8565) /uL [place] # (Auto) 600 (0-900) /uL Eos # (Auto) 300 (0-450) /uL Baso # (Auto) 0 (0-100) /uL Sodium 135 L (137-145) mmol/L Potassium 4.0 (3.4-5.1) mmol/L Chloride 101 (98-107) mmol/L Carbon Dioxide 25 (22-32) mmol/L BUN 13 (9-20) mg/dL Creatinine 0.40 L (0.66-1.25) mg/dL Estimated GFR > 60.0 (>60) mL/min BUN/Creatinine Ratio 32.5 H (6-22) Glucose 93 (70-100) mg/dL Lactate (0.7-2.1) mmol/L Calcium 9.3 (8.4-10.2) mg/dL Urine Color Straw Urine Appearance Clear Urine pH 7.0 (4.5-8.0) Ur Specific [place] 1.010 (1.000-1.035) Urine Protein Negative (Negative) Urine Glucose (UA) Negative (Negative) g/dL Urine Ketones Negative (NEGATIVE) Urine Occult Blood 1+ H (Negative) Urine Nitrate Positive (Negative) Urine Bilirubin Negative (NEGATIVE) Urine Urobilinogen 0.2 (0.2) E.U./dL Ur Leukocyte Esterase 3+ H (NEGATIVE) Urine RBC None seen (0-5/HPF) Urine WBC 10-30/hpf H (0-5/HPF) Urine Bacteria Moderate (10-30) H (None) Ur Culture Indicated? Specimen cultured 04/11/19 Range/Units 01:54 WBC (4.5-11.0) X10^3/uL RBC (4.5-5.9) X10^6/uL Hgb (13.5-17.5) g/dL Hct (41-53) % MCV (80-100) fL MCH (26-34) PG MCHC (30-36) % RDW (11.6-14.8) % Plt Count (150-400) X10^3/uL Neut % (Auto) (50-75) % Lymph % (Auto) (25-40) % [place] % (Auto) (3-14) % Eos % (Auto) (2-4) % Baso % (Auto) (0-2) % Neut # (Auto) (7985-1723) /uL Lymph # (Auto) (2566-9518) /uL [place] # (Auto) (0-900) /uL Eos # (Auto) (0-450) /uL Baso # (Auto) (0-100) /uL Sodium (137-145) mmol/L Potassium (3.4-5.1) mmol/L Chloride (98-107) mmol/L Carbon Dioxide (22-32) mmol/L BUN (9-20) mg/dL Creatinine (0.66-1.25) mg/dL Estimated GFR (>60) mL/min BUN/Creatinine Ratio (6-22) Glucose (70-100) mg/dL Lactate 0.6 L (0.7-2.1) mmol/L Calcium (8.4-10.2) mg/dL Urine Color Urine Appearance Urine pH (4.5-8.0) Ur Specific [place] (1.000-1.035) Urine Protein (Negative) Urine Glucose (UA) (Negative) g/dL Urine Ketones (NEGATIVE) Urine Occult Blood (Negative) Urine Nitrate (Negative) Urine Bilirubin (NEGATIVE) Urine Urobilinogen (0.2) E.U./dL Ur Leukocyte Esterase (NEGATIVE) Urine RBC (0-5/HPF) Urine WBC (0-5/HPF) Urine Bacteria (None) Ur Culture Indicated? MDM Narrative Medical decision making narrative: Patient given 1 dose of IV Rocephin. He does not appear septic. Will be placed on cefixime mean again. However I cautioned him in regards to resistance. Discharge Plan Departure Patient Disposition: Home Clinical Impression: Recurrent UTI Instructions: DI for Urinary Tract Infection (UTI) Activity Restrictions/Additional Instructions: *You have been diagnosed with recurrent UTI *What to do: I recommend speaking with her specialist in regards to frequent UTIs. Your antibiotic may need to be changed. If this is truly will hear a call from us in the next 2-3 days. *Continue to take medications as directed Cefixime 400 mg every 24 hours for 7 days--> [facility] [place] *Follow up with your primary care provider in 2-3 days *Return to ER if you should have persistent fever change in mentation, confusion increasing pain or any new, worsening or concerning symptoms Prescriptions: New cefixime 400 mg capsule 400 mg PO Q24H 7 Days Qty: 7 RF: 0 No Action midodrine 1 tab PO DAILY RF: 0 Vitamin C 1 tab PO DAILY RF: 0 Vitamin D3 1 tab PO DAILY RF: 0 Referrals: Christine Magaña MD [Primary Care Provider] -
[2019-04-11 01:14] LABS: Bacteria Urine Moderate (10-30); Culture Indicated Urine Specimen Cultured
--- NOTE | 2019-04-11 01:15 | PC.NURSE ---
seen recently for UTI sepsis. States feeling poor again and came in before it feels too bad. chronic self cath from spinal cord injury and Know his body. urine sample provded.
[2019-04-11 01:39] LABS: Add Manual Diff / Slide Review NO; Basophils Absolute Auto 0 /uL (0-100); Basophils Percent Auto 0.5 % (0-2); Eosinophils Absolute Auto 300 /uL (0-450); Eosinophils Percent Auto 3.9 % (2-4); Hematocrit 34.6 % (41-53); Hemoglobin 11.7 g/dL (13.5-17.5); Lymphocytes Absolute Auto 500 /uL (1100-4500); Lymphocytes Percent Auto 6.8 % (25-40); Mean Corpuscular HGB Conc 33.8 % (30-36); Mean Corpuscular Hemoglobin 29.9 PG (26-34); Mean Corpuscular Volume 88.5 fL (80-100); Monocytes Absolute Auto 600 /uL (0-900); Monocytes Percent Auto 8.4 % (3-14); Neutrophils Absolute Auto 5700 /uL (1500-7000); Neutrophils Percent Auto 80.4 % (50-75); Platelet Count 157 X10^3/uL (150-400); Red Blood Cell Count 3.91 X10^6/uL (4.5-5.9); Red Cell Distribution Width 14.2 % (11.6-14.8); White Blood Cell Count 7.1 X10^3/uL (4.5-11.0)
[2019-04-11] MEDS: CEFTRIAXONE 1 GM/50 ML FROZ.PIGGY IV (01:44)
[2019-04-11 01:48] LABS: BUN Creatinine Ratio 32.5 (6-22); Blood Urea Nitrogen 13 mg/dL (9-20); Calcium 9.3 mg/dL (8.4-10.2); Carbon Dioxide 25 mmol/L (22-32); Chloride 101 mmol/L (98-107); Estimated Glomerular Filt Rate > 60.0 mL/min (>60); Glucose 93 mg/dL (70-100); HEMOLYSIS 33 (0-50); Sodium 135 mmol/L (137-145)
[2019-04-11 02:20] LABS: Lactate (Lactic Acid) 0.6 mmol/L (0.7-2.1)
[2019-04-11 02:31] VITALS: BP 128/78; PULSE 71; RESP 14; O2SAT 94
== END 2019-04-11 02:34 | disposition home or self-care (01) ==
PROVIDERS: Emergency Provider Emergency Medicine; PCP Family Medicine
DX: N39.0 Urinary tract infection, site not specified (principal)
CPT/HCPCS: 36415; 36591; 80048; 81001; 83605; 85025; 87040; 87077; 87086; 87186; 96365; 99283; 99284

== ENCOUNTER 2019-05-25 12:40 | Inpatient (IN) | payer OTHER, SELFPAY ==
[2019-01-14 21:10] VITALS: BMI 18.2
[2019-05-25] VITALS (12 sets, daily range): BP systolic 81–166; BP diastolic 53–116; PULSE 79–105; RESP 16–28; TEMP 36.6–38.9; O2SAT 96–99; BMI 17.6
[2019-05-25 13:00] LABS: Appearance Urine UA CLOUDY; Bilirubin Urine UA NEGATIVE (NEGATIVE); Color Urine UA YELLOW; Glucose Urine UA NEGATIVE (Negative); Ketones Urine UA NEGATIVE (NEGATIVE); Leukocyte Esterase Urine UA 2+ (NEGATIVE); Nitrite Urine UA POSITIVE (Negative); Occult Blood Urine UA 3+ (Negative); Protein Urine UA 2+ (Negative); Urobilinogen Urine UA 0.2 E.U./dL (0.2); pH Urine UA 6.5 (4.5-8.0)
--- NOTE | 2019-05-25 13:01 | ED_ITS ---
HPI - Male Genitourinary General Chief complaint: Urogenital-Male Stated complaint: POSSIBLE BLADDER INFECTION Time Seen by Provider: 05/25/19 13:07 Source: patient and family () Mode of arrival: wheelchair Limitations: no limitations History of Present Illness HPI Narrative: This is a 53-year-old male comes in with concern for UTI and possibly sepsis. Patient is a C6 incomplete quadriplegic. He has a chronic indwelling Flowers catheter. He had urosepsis in the past. He has felt shaking chills and spasms overnight and just felt really unwell. No documented fevers. No cold cough or congestion, no chest pain or shortness of breath. He felt nauseated but has not had any vomiting. His stools have been a little softer but no new color changes had a little bit of occasional bright red blood but he states he has hemorrhoids present. No other skin changes noted. Patient has chronic hypotension and takes midodrine to help regulate his blood pressure otherwise he does not take any medications regularly. Related Data Home Medications Medication Instructions Recorded Confirmed ascorbic acid (vitamin C) 1,000 mg PO DAILY #0 10/20/18 05/25/19 cholecalciferol (vitamin D3) 2,000 unit PO DAILY #0 10/20/18 05/25/19 [Vitamin D3] midodrine 5 mg PO TID #0 10/20/18 05/25/19 Lubricating Topical Jelly Bact 1 applic TOPICAL DAILY 05/25/19 05/25/19 citric be-ngvetzwowjp-yam carb 20 ml IRRIGATION Q OTHER DAY 05/25/19 05/25/19 [Renacidin] fexofenadine 60 mg PO BID 05/25/19 05/25/19 ibuprofen 400 mg PO TID PRN 05/25/19 05/25/19 nitroglycerin 1 inch TRANSDERMAL Q6H PRN 05/25/19 05/25/19 sodium chloride 1 irrig IRRIGATION DAILY 05/25/19 05/25/19 triamcinolone acetonide 1 applic TOPICAL TID PRN 05/25/19 05/25/19 Allergies Allergy/AdvReac Type Severity Reaction Status Date / Time Sulfa (Sulfonamide Allergy Verified 04/11/19 01:03 Antibiotics) msg Allergy Unknown Uncoded 05/25/19 15:43 Review of Systems Review of Systems ROS Unobtainable: All systems reviewed & are unremarkable except as noted in HPI and below Constitutional Reports chills, Reports fatigue, Denies fever(s), Denies lethargy and Denies weakness ENT Ears, Nose, Mouth, and Throat: Denies nasal discharge Cardiovascular Denies chest pain and Denies dyspnea Respiratory Denies chest congestion, Denies cough, Denies dyspnea and Denies wheezing Gastrointestinal Gastrointestinal: Denies abdominal pain, Denies melena, Reports hematochezia (mild), Denies change in bowel habits, Denies diarrhea, Reports nausea and Denies vomiting Integumentary/Breasts Denies non-healing lesions and Denies rash Neurologic Denies weakness Endocrine Reports fatigue Allergic/Immunologic Denies wheezing [facility] Medical History Hearing loss (Chronic) Kidney stones (Chronic ~09/2017) Quadriplegia (Chronic) Shoulder pain (Chronic ~1997) Vision disorder (Chronic) Chicken pox (Resolved) Surgical History History of back surgery (Resolved) Family History Father Cancer Mother Dementia Sister Heart disease Social History household members: spouse and caregiver Smoking Status: Never smoker Family History Father Cancer Mother Dementia Sister Heart disease Social History household members: spouse and caregiver Smoking Status: Never smoker Exam Narrative Exam Narrative: GENERAL: Alert and oriented x three, thin, well-appearing male i n mild distress. Patient is covered up in multiple blankets and appears cold. HEENT: Head normocephalic, atraumatic, EOMI, pupils reactive, face symmetric, moist mucous membranes NECK: Supple, full range of motion CARDIOVASCULAR: Regular rate and rhythm without murmurs, rubs or gallops. RESPIRATORY: Breath sounds equal bilaterally, no wheezes rales or rhonchi. ABDOMEN: Soft, nontender. Normoactive bowel sounds all 4 quadrants. No guarding or rebound, rigidity, no mass : No CVA tenderness EXTREMITIES: Patient is able to use upper extremities without much issue, he is in a wheelchair and does not have movement in his lower extremities. NEUROLOGICAL: Cranial nerves II through XII grossly intact. Moving upper extremities. SKIN: Warm, dry, no petechiae, no rashes or lesions. Initial Vital Signs Initial Vital Signs: Vital Signs Temperature 97.8 F 05/25/19 12:40 Pulse Rate 81 05/25/19 12:40 Respiratory Rate 18 05/25/19 12:40 Blood Pressure 81/59 L 05/25/19 12:40 Pulse Oximetry 97 05/25/19 12:40 Course Orders Ordered: ED Orders 05/25/19 11:45 Urinalysis and Microscopic Stat Urine Culture Stat 05/25/19 13:49 Blood Culture Stat Complete Blood Count AUTO DIFF Stat Comprehensive Metabolic Panel Stat Lactate (Lactic Acid) Stat Procalcitonin Stat 05/25/19 17:36 Education, smoking cessation ONGOING 05/25/19 17:40 Consult to Physical Therapy Evaluate & Treat 05/26/19 05:45 Basic Metabolic Panel DAILY Complete Blood Count AUTO DIFF DAILY 05/27/19 05:45 Basic Metabolic Panel DAILY Complete Blood Count AUTO DIFF DAILY 05/28/19 05:45 Basic Metabolic Panel DAILY Complete Blood Count AUTO DIFF DAILY 05/29/19 05:45 Basic Metabolic Panel DAILY Complete Blood Count AUTO DIFF DAILY Acetaminophen (Tylenol) 650 mg PO Q6HR PRN PRN Reason: As Needed for Fever/Mild Pain Last Admin: 05/25/19 18:00 Dose: 650 mg Enoxaparin Sodium (Lovenox) 40 mg SUBCUT DAILY [facility] Sodium Chloride (Normal Saline 0.9%) 1,000 mls @ 100 mls/hr IV CONT ABNER Last Admin: 05/25/19 17:58 Dose: 100 mls/hr Ceftriaxone Sodium/Dextrose (Rocephin) 2 gm in 50 mls @ 100 mls/hr IV Q24H ABNER Ciprofloxacin (Cipro) 400 mg in 200 mls @ 200 mls/hr IV Q12H ABNER Loratadine (Claritin) 10 mg PO DAILY [facility] Renacidin Irrigation Soln (Citric Ac/Gluconolact/Mag Carb ) 20 each INJ Q48H ABNER Ondansetron HCl (Zofran) 4 mg IV Q8HR PRN PRN Reason: Nausea And Vomiting Discontinued Medications Sodium Chloride (Normal Saline 0.9%) 1,769.01 mls @ 589.67 mls/hr 30 ml/kg infuse over 3 hr (1769.01 ml) IV NOW ONE Stop: 05/25/19 16:12 Last Infusion: 05/25/19 17:02 Dose: 0 mls/hr Admin: 05/25/19 13:40 Dose: 589.67 mls/hr Ceftriaxone Sodium/Dextrose (Rocephin) 2 gm in 50 mls @ 100 mls/hr IV NOW ONE Stop: 05/25/19 13:49 Last Infusion: 05/25/19 14:26 Dose: 0 mls/hr Admin: 05/25/19 13:56 Dose: 100 mls/hr Ciprofloxacin (Cipro) 400 mg in 200 mls @ 200 mls/hr IV NOW ABNER Last Infusion: 05/25/19 16:59 Dose: 0 mls/hr Admin: 05/25/19 15:43 Dose: 200 mls/hr Ketorolac Tromethamine (Toradol) 30 mg IV NOW ONE Stop: 05/25/19 15:59 Last Admin: 05/25/19 16:06 Dose: 30 mg Vital Signs - 8 hr 05/25/19 12:40 05/25/19 13:30 05/25/19 15:23 Temperature 97.8 F Pulse Rate 81 79 94 H Respiratory Rate 18 16 16 Blood Pressure 81/59 L Blood Pressure [Left Arm] 117/90 147/96 H Pulse Oximetry 97 98 05/25/19 16:00 05/25/19 17:05 05/25/19 17:30 Temperature 100.3 F H 100.3 F H 102.1 F H Pulse Rate 105 H 90 92 H Respiratory Rate 28 H 18 20 Blood Pressure 113/70 Blood Pressure [Left Arm] 166/116 H Pulse Oximetry 97 97 99 05/25/19 18:00 Temperature 102.1 F H Pulse Rate Respiratory Rate Blood Pressure Blood Pressure [Left Arm] Pulse Oximetry MDM - Male Genitourinary Lab Data Result diagrams: 05/25/19 13:49 05/25/19 13:49 Lab Results 05/25/19 05/25/19 05/25/19 Range/Units 11:45 13:49 13:49 WBC 17.4 H (4.5-11.0) X10^3/uL RBC 3.70 L (4.5-5.9) X10^6/uL Hgb 11.0 L (13.5-17.5) g/dL Hct 33.0 L (41-53) % MCV 89.2 (80-100) fL MCH 29.8 (26-34) PG MCHC 33.4 (30-36) % RDW 14.5 (11.6-14.8) % Plt Count 150 (150-400) X10^3/uL Neut % (Auto) 91.3 H (50-75) % Lymph % (Auto) 1.8 L (25-40) % [place] % (Auto) 6.7 (3-14) % Eos % (Auto) 0.1 L (2-4) % Baso % (Auto) 0.1 (0-2) % Neut # (Auto) 23819 H (7661-4435) /uL Lymph # (Auto) 300 L (6056-6627) /uL [place] # (Auto) 1200 H (0-900) /uL Eos # (Auto) 0 (0-450) /uL Baso # (Auto) 0 (0-100) /uL Sodium (137-145) mmol/L Potassium (3.4-5.1) mmol/L Chloride (98-107) mmol/L Carbon Dioxide (22-32) mmol/L BUN (9-20) mg/dL Creatinine (0.66-1.25) mg/dL Estimated GFR (>60) mL/min BUN/Creatinine Ratio (6-22) Glucose (70-100) mg/dL Lactate (0.7-2.1) mmol/L Calcium (8.4-10.2) mg/dL Total Bilirubin (0.2-1.3) mg/dL AST (17-59) IU/L ALT (21-72) IU/L Alkaline Phosphatase (38-126) U/L Total Protein (6.3-8.2) g/dL Albumin (3.5-5.0) g/dL Globulin (1.7-4.1) g/dL Albumin/Globulin Ratio (1.0-2.8) Procalcitonin 9.24 H (<0.5) ng/mL Urine Color Yellow Urine Appearance Cloudy Urine pH 6.5 (4.5-8.0) Ur Specific [place] 1.010 (1.000-1.035) Urine Protein 2+ H (Negative) Urine Glucose (UA) Negative (Negative) g/dL Urine Ketones Negative (NEGATIVE) Urine Occult Blood 3+ H (Negative) Urine Nitrate Positive (Negative) Urine Bilirubin Negative (NEGATIVE) Urine Urobilinogen 0.2 (0.2) E.U./dL Ur Leukocyte Esterase 2+ H (NEGATIVE) Urine RBC 5-10/hpf H (0-5/HPF) Urine WBC >100/hpf H (0-5/HPF) Ur Squamous Epith Cells 1-5 /hpf (0-5/HPF) Amorphous Sediment 2+ Urine Bacteria Many (>30) H (None) Urine Mucus 1+ H (Negative) Ur Culture Indicated? Specimen cultured 05/25/19 05/25/19 Range/Units 13:49 13:49 WBC (4.5-11.0) X10^3/uL RBC (4.5-5.9) X10^6/uL Hgb (13.5-17.5) g/dL Hct (41-53) % MCV (80-100) fL MCH (26-34) PG MCHC (30-36) % RDW (11.6-14.8) % Plt Count (150-400) X10^3/uL Neut % (Auto) (50-75) % Lymph % (Auto) (25-40) % [place] % (Auto) (3-14) % Eos % (Auto) (2-4) % Baso % (Auto) (0-2) % Neut # (Auto) (8407-8050) /uL Lymph # (Auto) (4638-8721) /uL [place] # (Auto) (0-900) /uL Eos # (Auto) (0-450) /uL Baso # (Auto) (0-100) /uL Sodium 134 L (137-145) mmol/L Potassium 3.6 (3.4-5.1) mmol/L Chloride 104 (98-107) mmol/L Carbon Dioxide 21 L (22-32) mmol/L BUN 16 (9-20) mg/dL Creatinine 0.70 (0.66-1.25) mg/dL Estimated GFR > 60.0 (>60) mL/min BUN/Creatinine Ratio 22.9 H (6-22) Glucose 101 H (70-100) mg/dL Lactate 1.3 (0.7-2.1) mmol/L Calcium 8.6 (8.4-10.2) mg/dL Total Bilirubin 1.1 (0.2-1.3) mg/dL AST 20 (17-59) IU/L ALT 19 L (21-72) IU/L Alkaline Phosphatase 61 (38-126) U/L Total Protein 6.2 L (6.3-8.2) g/dL Albumin 3.2 L (3.5-5.0) g/dL Globulin 3.0 (1.7-4.1) g/dL Albumin/Globulin Ratio 1.1 (1.0-2.8) Procalcitonin (<0.5) ng/mL Urine Color Urine Appearance Urine pH (4.5-8.0) Ur Specific [place] (1.000-1.035) Urine Protein (Negative) Urine Glucose (UA) (Negative) g/dL Urine Ketones (NEGATIVE) Urine Occult Blood (Negative) Urine Nitrate (Negative) Urine Bilirubin (NEGATIVE) Urine Urobilinogen (0.2) E.U./dL Ur Leukocyte Esterase (NEGATIVE) Urine RBC (0-5/HPF) Urine WBC (0-5/HPF) Ur Squamous Epith Cells (0-5/HPF) Amorphous Sediment Urine Bacteria (None) Urine Mucus (Negative) Ur Culture Indicated? MDM Narrative Medical decision making narrative: Patient comes in with concern for urosepsis, he has a sample which does show leuks as well as positive nitrates and 5-10 WBCs and greater than 100 WBC's and many bacteria. Specimen cultured. Concern for urosepsis, patient's hypotensive but that is typical for him and he actually takes midodrine when his pressures below with certain level. No temperatures in the department he has not been tachycardic but plan for lab work and IV fluids as well as a dose of IV Rocephin to evaluate for sepsis. Prior urine cultures show sensitivity to Rocephin with E.coli and Serratia, Psuedomonas has sensitivty to Ciprofloxacin but resistance to Levaquin. Spoke with Dr. Núñez who is covering for Dr. Magaña today. He asks that we admit patient under [facility], plan for IVF's, antibiotics and monitoring. Patient urine and blood cultures pending. Patient pressure improved with fluids, and a white count of 17, chronic anemia, procalcitonin is quite elevated at 9.2. Renal function is normal with CO2 being 21 and sodium is 134. Lactate is 1.3. Patient continues to feel chilled and shaking. After discussion patient initially wish to return home but was comfortable with observation for IV antibiotics, fluids and monitoring overnight. Discharge Plan Departure Patient Disposition: Admitted as Observation Clinical Impression: Urinary tract infection, Incomplete quadriplegia at C5-6 level, Sepsis Discharge Date/Time: 05/25/19 17:08 Interventions: ED Discharge Assessment Last Done: 05/25/19 17:05 Referrals: Christine Magaña MD [Primary Care Provider] - Admit Date/Time: 05/25/19 15:20 Admit Provider: Jose Núñez
[2019-05-25 13:06] LABS: RBC Urine 5-10/HPF (0-5/HPF); Squamous Epithelial Cell Urine 1-5 /HPF (0-5/HPF); WBC Urine >100/HPF (0-5/HPF)
[2019-05-25 13:07] LABS: Amorphous Sediment Urine 2+; Bacteria Urine Many (>30); Culture Indicated Urine Specimen Cultured; Mucus Urine 1+ (Negative)
[2019-05-25] MEDS: SODIUM CHLORIDE 0.9% 1,769.01 ML 589.67 ML IV (13:40)
--- NOTE | 2019-05-25 13:47 | PC.NURSE ---
Paraplegic pt at C6-- c/o increased and uncomfortable urination. sample obtained and sent. with with indwelling catheter with leg bag attached. pt reports Sepsis and chronic UTIs in the past. shivering. afebrile at this time. assisted to bed. placed on cardiac monitoring. NSR with frequent pvc's. 22G IV obtained and BC x 1 drawn and sent by VALE Coy. Lab in to draw remaining labs. IVF infusing. ABX started after BC x 2 completed. Resting flat in bed as requested. at side. RR even and unlabored. NAD.
[2019-05-25] MEDS: CEFTRIAXONE 2 GM/50 ML FROZ.PIGGY IV (13:56)
[2019-05-25 14:02] LABS: Add Manual Diff / Slide Review NO; Basophils Absolute Auto 0 /uL (0-100); Basophils Percent Auto 0.1 % (0-2); Eosinophils Absolute Auto 0 /uL (0-450); Eosinophils Percent Auto 0.1 % (2-4); Lymphocytes Absolute Auto 300 /uL (1100-4500); Lymphocytes Percent Auto 1.8 % (25-40); Mean Corpuscular HGB Conc 33.4 % (30-36); Mean Corpuscular Hemoglobin 29.8 PG (26-34); Mean Corpuscular Volume 89.2 fL (80-100); Monocytes Absolute Auto 1200 /uL (0-900); Monocytes Percent Auto 6.7 % (3-14); Neutrophils Absolute Auto 15900 /uL (1500-7000); Neutrophils Percent Auto 91.3 % (50-75); Platelet Count 150 X10^3/uL (150-400); Red Cell Distribution Width 14.5 % (11.6-14.8); White Blood Cell Count 17.4 X10^3/uL (4.5-11.0)
[2019-05-25 14:14] LABS: Alanine Aminotransferase 19 IU/L (21-72); Albumin 3.2 g/dL (3.5-5.0); Albumin Globulin Ratio 1.1 (1.0-2.8); Alkaline Phosphatase 61 U/L (38-126); Aspartate Aminotransferase 20 IU/L (17-59); BUN Creatinine Ratio 22.9 (6-22); Bilirubin Total 1.1 mg/dL (0.2-1.3); Blood Urea Nitrogen 16 mg/dL (9-20); Calcium 8.6 mg/dL (8.4-10.2); Carbon Dioxide 21 mmol/L (22-32); Chloride 104 mmol/L (98-107); Estimated Glomerular Filt Rate > 60.0 mL/min (>60); Glucose 101 mg/dL (70-100); HEMOLYSIS < 15 (0-50); Lactate (Lactic Acid) 1.3 mmol/L (0.7-2.1); Potassium 3.6 mmol/L (3.4-5.1); Sodium 134 mmol/L (137-145); Total Protein 6.2 g/dL (6.3-8.2)
[2019-05-25 14:33] LABS: Procalcitonin 9.24 ng/mL (<0.5)
[2019-05-25] MEDS: CIPROFLOXACIN 400 MG/200 ML PIGGYBACK 200 MG IV (15:43)
[2019-05-25] MEDS: KETOROLAC 30 MG/ML VIAL IV (16:06)
--- NOTE | 2019-05-25 17:02 | PC.NURSE ---
report mariam Simpson RN. pt transferred up to floor with KAYLEIGH Kent. reports mild generalized pain relief s/p torodol. last temp 100.3. No antipyretics ordered at this time. Pt completed ABX x 2 and IVF's. requesting to continue to lay flat for comfort. NAD. denies NVD and denies CP SOB. Flowers emptied before transfer to floor with 400mL output.
--- NOTE | 2019-05-25 17:44 | PM.HP.1 ---
History of Present Illness Date Patient Seen: 05/25/19 Time Patient Seen: 17:44 Chief complaint: POSSIBLE BLADDER INFECTION Narrative: Urinary tract infection. Patient presented to the emergency room this afternoon complaining of urinary tract infection. Symptoms including chills shakes or rigors no fever general muscle spasms and generally feeling poorly. 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 And has had recurrent urinary tract infections basically since Thanksgiving giving similar symptoms. Patient was admitted here in December for similar presentation. Patient is being followed by Urology at [facility] in [place] and [facility]. Was seen there yesterday for catheter change. Has seen there on a regular basis for same. He apparently has kidney stones as well as bladder stones. And was in the process of being arranged for as surgical intervention. Apparently the presumption is that his recurrent urinary tract infections secondary to either the kidney stone or the bladder stones and the intent is to remove same hoping to had decreased urinary tract infection frequently. As best I can tell there has not been urine culture that has been negative since July perhaps this is done through the [facility] system and we are unaware of same. Chart shows multiple urinary tract cultures positive with E coli, Serratia, and Pseudomonas. The patient was treated recently for urinary tract infection with Levaquin and apparently it was resistant but the symptoms resolved. Additionally he has been treated with ceftriaxone which read controlled the E coli and Serratia but not this moans. One/presumption is that the Pseudomonas is a colonization and not really a pathogen yet to be determined. 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 And has orthostatic hypotension for which she takes midodrine generally on the q.a.m. basis but more often on a as needed basis apparently blood pressure typically is approximately 90/60. Patient History Medical History Hearing loss (Chronic) Kidney stones (Chronic ~09/2017) Quadriplegia (Chronic) Shoulder pain (Chronic ~1997) Vision disorder (Chronic) Chicken pox (Resolved) Surgical History History of back surgery (Resolved) Family History Father Cancer Mother Dementia Sister Heart disease Social History household members: spouse and caregiver Smoking Status: Never smoker Family & Social History Family History Father Cancer Mother Dementia Sister Heart disease Social History: household members spouse,caregiver Prior Living Arrangements House Safety & Behavioral: Feels Safe in Current Yes Environment Been Physically Hurt or No Threatened By a Person Suicidal Ideation Description None Suicide Plan Description No Plan Tobacco & Substance use: Smoking Status Never smoker alcohol intake frequency holiday/special occasion Substance Use Type does not use Meds Home Medications Medication Instructions Recorded Confirmed Type ascorbic acid (vitamin C) 1,000 mg PO DAILY #0 10/20/18 05/25/19 History cholecalciferol (vitamin D3) 2,000 unit PO DAILY #0 10/20/18 05/25/19 History [Vitamin D3] midodrine 5 mg PO TID #0 10/20/18 05/25/19 History Lubricating Topical Jelly Bact 1 applic TOPICAL DAILY 05/25/19 05/25/19 History citric vb-[id number]-mrg carb 20 ml IRRIGATION Q OTHER DAY 05/25/19 05/25/19 History [Renacidin] fexofenadine 60 mg PO BID 05/25/19 05/25/19 History ibuprofen 400 mg PO TID PRN 05/25/19 05/25/19 History nitroglycerin 1 inch TRANSDERMAL Q6H PRN 05/25/19 05/25/19 History sodium chloride 1 irrig IRRIGATION DAILY 05/25/19 05/25/19 History triamcinolone acetonide 1 applic TOPICAL TID PRN 05/25/19 05/25/19 History Allergies Allergy/AdvReac Type Severity Reaction Status Date / Time Sulfa (Sulfonamide Allergy Verified 04/11/19 01:03 Antibiotics) msg Allergy Unknown Uncoded 05/25/19 15:43 Review of Systems Review of Systems All systems reviewed & are unremarkable except as noted in HPI and below Exam Vital Signs (past 8 hours): - 05/25/19 12:40 05/25/19 13:30 05/25/19 15:23 Temperature 97.8 F Pulse Rate 81 79 94 H Respiratory Rate 18 16 16 Blood Pressure 81/59 L Blood Pressure [Left Arm] 117/90 147/96 H Pulse Oximetry 97 98 05/25/19 16:00 05/25/19 17:05 05/25/19 17:30 Temperature 100.3 F H 100.3 F H 102.1 F H Pulse Rate 105 H 90 92 H Respiratory Rate 28 H 18 20 Blood Pressure 113/70 Blood Pressure [Left Arm] 166/116 H Pulse Oximetry 97 97 99 Oxygen Delivery Method Room Air Narrative Exam Narrative: Gen.: Patient is resting quietly in his hospital bed generally looks ill but in no acute distress. Complaining of muscle spasms. Skin: Warm well perfused. No prominent lesions. Nonicteric. HEENT: PERRL., normal EOM, external ears canals TMs normal, nasal mucosa normal and midline septum, oropharynx without lesions. Neck: Trachea midline. Thyroid nontender and not enlarged. Carotids without bruits. No lymphadenopathy Back: No obvious deformity or tenderness. Chest: Clear to P&A. Symmetric. CV: RRR no murmur or gallop. No JVD. Abdomen: No masses bruits tenderness or visceromegaly. Neuro: Cranial nerves II through XII grossly intact. Sensory and motor exams intact. Gait normal. Mental status: Intact for screening Extremities: No cyanosis clubbing or edema Musculoskeletal: No gross deformities Lymphatics: Negative for lymphadenopathy, supraclavicular axillary or inguinal Calves are nontender. He has atrophy of his upper extremities Flowers catheter present Objective Labs Result Diagrams: 05/25/19 13:49 05/25/19 13:49 Labs: Laboratory Results - last 24 hr 05/25/19 05/25/19 05/25/19 11:45 13:49 13:49 WBC 17.4 H RBC 3.70 L Hgb 11.0 L Hct 33.0 L MCV 89.2 MCH 29.8 MCHC 33.4 RDW 14.5 Plt Count 150 Neut % (Auto) 91.3 H Lymph % (Auto) 1.8 L [place] % (Auto) 6.7 Eos % (Auto) 0.1 L Baso % (Auto) 0.1 Neut # (Auto) 18899 H Lymph # (Auto) 300 L [place] # (Auto) 1200 H Eos # (Auto) 0 Baso # (Auto) 0 Sodium Potassium Chloride Carbon Dioxide BUN Creatinine Estimated GFR BUN/Creatinine Ratio Glucose Lactate Calcium Total Bilirubin AST ALT Alkaline Phosphatase Total Protein Albumin Globulin Albumin/Globulin Ratio Procalcitonin 9.24 H Urine Color Yellow Urine Appearance Cloudy Urine pH 6.5 Ur Specific [place] 1.010 Urine Protein 2+ H Urine Glucose (UA) Negative Urine Ketones Negative Urine Occult Blood 3+ H Urine Nitrate Positive Urine Bilirubin Negative Urine Urobilinogen 0.2 Ur Leukocyte Esterase 2+ H Urine RBC 5-10/hpf H Urine WBC >100/hpf H Ur Squamous Epith Cells 1-5 /hpf Amorphous Sediment 2+ Urine Bacteria Many (>30) H Urine Mucus 1+ H Ur Culture Indicated? Specimen cultured 05/25/19 05/25/19 13:49 13:49 WBC RBC Hgb Hct MCV MCH MCHC RDW Plt Count Neut % (Auto) Lymph % (Auto) [place] % (Auto) Eos % (Auto) Baso % (Auto) Neut # (Auto) Lymph # (Auto) [place] # (Auto) Eos # (Auto) Baso # (Auto) Sodium 134 L Potassium 3.6 Chloride 104 Carbon Dioxide 21 L BUN 16 Creatinine 0.70 Estimated GFR > 60.0 BUN/Creatinine Ratio 22.9 H Glucose 101 H Lactate 1.3 Calcium 8.6 Total Bilirubin 1.1 AST 20 ALT 19 L Alkaline Phosphatase 61 Total Protein 6.2 L Albumin 3.2 L Globulin 3.0 Albumin/Globulin Ratio 1.1 Procalcitonin Urine Color Urine Appearance Urine pH Ur Specific [place] Urine Protein Urine Glucose (UA) Urine Ketones Urine Occult Blood Urine Nitrate Urine Bilirubin Urine Urobilinogen Ur Leukocyte Esterase Urine RBC Urine WBC Ur Squamous Epith Cells Amorphous Sediment Urine Bacteria Urine Mucus Ur Culture Indicated? Significant lab abnormalities are is elevated white blood cell count, his elevated procalcitonin, and his abnormal urinalysis. Assessment & Plan Assessment & Plan narrative: 1. Presumed urinary tract infection as manifested by abnormal urine, elevated white blood cell count, he has been afebrile. He does have hypotension but that is his normal blood pressure and he has not tachycardic. 2. As stated above unclear actual pathogen but we will be treating him with ceftriaxone and ciprofloxacin to control the above mention bacteria. It would be prudent to verify sterilization of urine if at all possible prior to discharge. 3. Pre-existing indwelling Flowers catheter being managed by urology a at the [facility]. 4. Pre-existing kidney stones and bladder stones per report. 5. Pre-existing autonomic neuropathy secondary to cervical spine injury responding to midodrine. He patient basically has minimal if any sensation from simply nipple line down 6. Will follow up procalcitonin level this evening anticipating paying it to be decreased implying that the antibiotics are appropriate 7. Anticipate hospitalization for at least 2 midnights requiring intravenous antibiotics Quality VTE Deep Vein Thrombosis/Pulmonary Embolism Present on Admission: No
--- NOTE | 2019-05-25 17:52 | P.HP_ITS ---
History of Present Illness Date Patient Seen: 05/25/19 Time Patient Seen: 17:44 Chief complaint: POSSIBLE BLADDER INFECTION Narrative: Urinary tract infection. Patient presented to the emergency room this afternoon complaining of urinary tract infection. Symptoms including chills shakes or rigors no fever general muscle spasms and generally feeling poorly. 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 And has had recurrent urinary tract infections basically since Thanksgiving giving similar symptoms. Patient was admitted here in December for similar presentation. Patient is being followed by Urology at [facility] [place] [facility]. Was seen there yesterday for catheter change. Has seen there on a regular basis for same. He apparently has kidney stones as well as bladder stones. And was in the process of being arranged for as surgical intervention. Apparently the presumption is that his recurrent urinary tract infections secondary to either the kidney stone or the bladder stones and the intent is to remove same hoping to had decreased urinary tract infection frequently. As best I can tell there has not been urine culture that has been negative since July perhaps this is done through the [facility] system and we are unaware of same. Chart shows multiple urinary tract cultures positive with E coli, Serratia, and Pseudomonas. The patient was treated recently for urinary tract infection with Levaquin and apparently it was resistant but the symptoms resolved. Additionally he has been treated with ceftriaxone which read controlled the E coli and Serratia but not this moans. One/presumption is that the Pseudomonas is a colonization and not really a pathogen yet to be determined. 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 And has orthostatic hypotension for which she takes midodrine generally on the q.a.m. basis but more often on a as needed basis apparently blood pressure typically is approximately 90/60. Patient History Medical History Hearing loss (Chronic) Kidney stones (Chronic ~09/2017) Quadriplegia (Chronic) Shoulder pain (Chronic ~1997) Vision disorder (Chronic) Chicken pox (Resolved) Surgical History History of back surgery (Resolved) Family History Father Cancer Mother Dementia Sister Heart disease Social History household members: spouse and caregiver Smoking Status: Never smoker Family & Social History Family History Father Cancer Mother Dementia Sister Heart disease Social History: household members spouse,caregiver Prior Living Arrangements House Safety & Behavioral: Feels Safe in Current Yes Environment Been Physically Hurt or No Threatened By a Person Suicidal Ideation Description None Suicide Plan Description No Plan Tobacco & Substance use: Smoking Status Never smoker alcohol intake frequency holiday/special occasion Substance Use Type does not use Meds Home Medications Medication Instructions Recorded Confirmed Type ascorbic acid (vitamin C) 1,000 mg PO DAILY #0 10/20/18 05/25/19 History cholecalciferol (vitamin D3) 2,000 unit PO DAILY #0 10/20/18 05/25/19 History [Vitamin D3] midodrine 5 mg PO TID #0 10/20/18 05/25/19 History Lubricating Topical Jelly Bact 1 applic TOPICAL DAILY 05/25/19 05/25/19 History citric br-[id number]-fnt carb 20 ml IRRIGATION Q OTHER DAY 05/25/19 05/25/19 History [Renacidin] fexofenadine 60 mg PO BID 05/25/19 05/25/19 History ibuprofen 400 mg PO TID PRN 05/25/19 05/25/19 History nitroglycerin 1 inch TRANSDERMAL Q6H PRN 05/25/19 05/25/19 History sodium chloride 1 irrig IRRIGATION DAILY 05/25/19 05/25/19 History triamcinolone acetonide 1 applic TOPICAL TID PRN 05/25/19 05/25/19 History Allergies Allergy/AdvReac Type Severity Reaction Status Date / Time Sulfa (Sulfonamide Allergy Verified 04/11/19 01:03 Antibiotics) msg Allergy Unknown Uncoded 05/25/19 15:43 Review of Systems Review of Systems All systems reviewed & are unremarkable except as noted in HPI and below Exam Vital Signs (past 8 hours): - 05/25/19 12:40 05/25/19 13:30 05/25/19 15:23 Temperature 97.8 F Pulse Rate 81 79 94 H Respiratory Rate 18 16 16 Blood Pressure 81/59 L Blood Pressure [Left Arm] 117/90 147/96 H Pulse Oximetry 97 98 05/25/19 16:00 05/25/19 17:05 05/25/19 17:30 Temperature 100.3 F H 100.3 F H 102.1 F H Pulse Rate 105 H 90 92 H Respiratory Rate 28 H 18 20 Blood Pressure 113/70 Blood Pressure [Left Arm] 166/116 H Pulse Oximetry 97 97 99 Oxygen Delivery Method Room Air Narrative Exam Narrative: Gen.: Patient is resting quietly in his hospital bed generally looks ill but in no acute distress. Complaining of muscle spasms. Skin: Warm well perfused. No prominent lesions. Nonicteric. HEENT: PERRL., normal EOM, external ears canals TMs normal, nasal mucosa normal and midline septum, oropharynx without lesions. Neck: Trachea midline. Thyroid nontender and not enlarged. Carotids without bruits. No lymphadenopathy Back: No obvious deformity or tenderness. Chest: Clear to P&A. Symmetric. CV: RRR no murmur or gallop. No JVD. Abdomen: No masses bruits tenderness or visceromegaly. Neuro: Cranial nerves II through XII grossly intact. Sensory and motor exams intact. Gait normal. Mental status: Intact for screening Extremities: No cyanosis clubbing or edema Musculoskeletal: No gross deformities Lymphatics: Negative for lymphadenopathy, supraclavicular axillary or inguinal Calves are nontender. He has atrophy of his upper extremities Flowers catheter present Objective Labs Result Diagrams: 05/25/19 13:49 05/25/19 13:49 Labs: Laboratory Results - last 24 hr 05/25/19 05/25/19 05/25/19 11:45 13:49 13:49 WBC 17.4 H RBC 3.70 L Hgb 11.0 L Hct 33.0 L MCV 89.2 MCH 29.8 MCHC 33.4 RDW 14.5 Plt Count 150 Neut % (Auto) 91.3 H Lymph % (Auto) 1.8 L [place] % (Auto) 6.7 Eos % (Auto) 0.1 L Baso % (Auto) 0.1 Neut # (Auto) 50318 H Lymph # (Auto) 300 L [place] # (Auto) 1200 H Eos # (Auto) 0 Baso # (Auto) 0 Sodium Potassium Chloride Carbon Dioxide BUN Creatinine Estimated GFR BUN/Creatinine Ratio Glucose Lactate Calcium Total Bilirubin AST ALT Alkaline Phosphatase Total Protein Albumin Globulin Albumin/Globulin Ratio Procalcitonin 9.24 H Urine Color Yellow Urine Appearance Cloudy Urine pH 6.5 Ur Specific [place] 1.010 Urine Protein 2+ H Urine Glucose (UA) Negative Urine Ketones Negative Urine Occult Blood 3+ H Urine Nitrate Positive Urine Bilirubin Negative Urine Urobilinogen 0.2 Ur Leukocyte Esterase 2+ H Urine RBC 5-10/hpf H Urine WBC >100/hpf H Ur Squamous Epith Cells 1-5 /hpf Amorphous Sediment 2+ Urine Bacteria Many (>30) H Urine Mucus 1+ H Ur Culture Indicated? Specimen cultured 05/25/19 05/25/19 13:49 13:49 WBC RBC Hgb Hct MCV MCH MCHC RDW Plt Count Neut % (Auto) Lymph % (Auto) [place] % (Auto) Eos % (Auto) Baso % (Auto) Neut # (Auto) Lymph # (Auto) [place] # (Auto) Eos # (Auto) Baso # (Auto) Sodium 134 L Potassium 3.6 Chloride 104 Carbon Dioxide 21 L BUN 16 Creatinine 0.70 Estimated GFR > 60.0 BUN/Creatinine Ratio 22.9 H Glucose 101 H Lactate 1.3 Calcium 8.6 Total Bilirubin 1.1 AST 20 ALT 19 L Alkaline Phosphatase 61 Total Protein 6.2 L Albumin 3.2 L Globulin 3.0 Albumin/Globulin Ratio 1.1 Procalcitonin Urine Color Urine Appearance Urine pH Ur Specific [place] Urine Protein Urine Glucose (UA) Urine Ketones Urine Occult Blood Urine Nitrate Urine Bilirubin Urine Urobilinogen Ur Leukocyte Esterase Urine RBC Urine WBC Ur Squamous Epith Cells Amorphous Sediment Urine Bacteria Urine Mucus Ur Culture Indicated? Significant lab abnormalities are is elevated white blood cell count, his elevated procalcitonin, and his abnormal urinalysis. Assessment & Plan Assessment & Plan narrative: 1. Presumed urinary tract infection as manifested by abnormal urine, elevated white blood cell count, he has been afebrile. He does have hypotension but that is his normal blood pressure and he has not tachycardic. 2. As stated above unclear actual pathogen but we will be treating him with ceftriaxone and ciprofloxacin to control the above mention bacteria. It would be prudent to verify sterilization of urine if at all possible prior to discharge. 3. Pre-existing indwelling Flowers catheter being managed by urology a at the [facility]. 4. Pre-existing kidney stones and bladder stones per report. 5. Pre-existing autonomic neuropathy secondary to cervical spine injury responding to midodrine. He patient basically has minimal if any sensation from simply nipple line down 6. Will follow up procalcitonin level this evening anticipating paying it to be decreased implying that the antibiotics are appropriate 7. Anticipate hospitalization for at least 2 midnights requiring intravenous antibiotics Quality VTE Deep Vein Thrombosis/Pulmonary Embolism Present on Admission: No
[2019-05-25] MEDS: SODIUM CHLORIDE 0.9% 1,000 ML 100 ML IV (17:58)
[2019-05-25] MEDS: ACETAMINOPHEN 325 MG TABLET 650 MG PO (18:00)
[2019-05-25 21:33] LABS: Procalcitonin 12.01 ng/mL (<0.5)
--- NOTE | 2019-05-25 22:28 | PC.NURSE ---
Admit/Eveing Shift Note- Patient arrived to room from ER via stretcher, slider board used to transfer patient. Patient alert and oriented and able to make needs known to staff. Patient pleasent, calm, and cooperative with care. Admission question completed, home medications reviewed, and physical assessment done. Oriented patient to bed and bed controls, room, lights, phone, menu, and call henley/tv remote. No complaints of pain at this time. No complaints of N/v. chronic omalley in place. changed out patients own leg bag to a hospital bag and set to gravity to drain. blister noted to left lower leg, patient and reported blister is from omalley tubing. patient sating 98% on room air. lung sounds clear throughout, even and unlabored respirations noted. Safety measures in place. patient agrees to call for assistance. call henley and phone within reach. will continue to monitor.
[2019-05-26] VITALS (9 sets, daily range): BP systolic 94–132; BP diastolic 53–86; PULSE 78–94; RESP 16–78; TEMP 36.7–38.2; O2SAT 88–99
[2019-05-26] MEDS: ONDANSETRON 4 MG/2 ML INJ IV
[2019-05-26] MEDS: CIPROFLOXACIN 400 MG/200 ML PIGGYBACK 200 MG IV (03:29)
--- NOTE | 2019-05-26 03:47 | PC.NURSE ---
Pt is AxOx3, Vitals stable. Pt has hypotension at baseline. Reports no pain. T&P q2h upon patients request. Pt said his Flowers catheter was changed Thursday 05/24; Output oliguric. NS@100mL/hr Borderline temperatures, 99F then came down to 98F. Denies chills
[2019-05-26 06:21] LABS: Add Manual Diff / Slide Review NO; Basophils Absolute Auto 0 /uL (0-100); Basophils Percent Auto 0.2 % (0-2); Eosinophils Absolute Auto 0 /uL (0-450); Eosinophils Percent Auto 0.2 % (2-4); Hematocrit 31.8 % (41-53); Hemoglobin 10.6 g/dL (13.5-17.5); Lymphocytes Absolute Auto 300 /uL (1100-4500); Mean Corpuscular HGB Conc 33.3 % (30-36); Mean Corpuscular Hemoglobin 29.7 PG (26-34); Mean Corpuscular Volume 89.3 fL (80-100); Monocytes Absolute Auto 800 /uL (0-900); Monocytes Percent Auto 5.4 % (3-14); Neutrophils Absolute Auto 13100 /uL (1500-7000); Neutrophils Percent Auto 92.2 % (50-75); Platelet Count 101 X10^3/uL (150-400); Red Blood Cell Count 3.56 X10^6/uL (4.5-5.9); Red Cell Distribution Width 14.7 % (11.6-14.8); White Blood Cell Count 14.2 X10^3/uL (4.5-11.0)
[2019-05-26 06:27] LABS: Blood Urea Nitrogen 18 mg/dL (9-20); Calcium 7.6 mg/dL (8.4-10.2); Carbon Dioxide 22 mmol/L (22-32); Chloride 105 mmol/L (98-107); Estimated Glomerular Filt Rate > 60.0 mL/min (>60); Glucose 90 mg/dL (70-100); HEMOLYSIS < 15 (0-50); Potassium 3.7 mmol/L (3.4-5.1); Sodium 133 mmol/L (137-145)
[2019-05-26 06:59] LABS: Acinetobacter baumannii Not Detected (Not Detect); E. coli Detected (Not Detect); Enterobacter cloacae complex Not Detected (Not Detect); Enterococcus species Not Detected (Not Detect); KPC (carbapenem-resist gene) Not Detected (Not Detect); Listeria monocytogenes Not Detected (Not Detect); Staphylococcus species Not Detected (Not Detect); Streptococcus agalactiae (Gr B Not Detected (Not Detect); Streptococcus pneumonia Not Detected (Not Detect); Streptococcus pyogenes (Gr A) Not Detected (Not Detect); Streptococcus species Not Detected (Not Detect)
[2019-05-26 07:00] LABS: Candida albicans Not Detected (Not Detect); Candida glabrata Not Detected (Not Detect); Candida krusei Not Detected (Not Detect); Candida parapsilosis Not Detected (Not Detect); Candida tropicalis Not Detected (Not Detect); Enterobacteriaceae species Detected (Not Detect); Haemophilus influenzae Not Detected (Not Detect); Neisseria meningitidis Not Detected (Not Detect); Proteus species Not Detected (Not Detect); Pseudomonas aeruginosa Not Detected (Not Detect); Serratia marcescens Not Detected (Not Detect)
[2019-05-26 07:15] LABS: Procalcitonin 13.75 ng/mL (<0.5)
[2019-05-26] MEDS: ENOXAPARIN 40 MG/0.4 ML SYRINGE SUBCUT (08:45)
[2019-05-26] MEDS: LORATADINE 10 MG TABLET PO (08:45)
[2019-05-26] MEDS: ACETAMINOPHEN 325 MG TABLET 650 MG PO (08:45)
--- NOTE | 2019-05-26 09:01 | P.PN_ITS ---
Subjective Subjective Date Patient Seen: 05/26/19 Time Patient Seen: 09:01 Interval history: UTI. Patient had a difficult night. Had lot of chills and shakes. Generally just feels uncomfortable. Here has no basic sensation from the mid chest down so he is unaware of actual pain but he does feels like he is uncomfortable. Continues to have chills and shakes. Minimal nausea. No new symptoms otherwise. He does relate he has had manage his bowel issues with her daily did shows etc. He has noticed some blood in the stools periodically he he has hemorrhoids. He did have a CT of his abdomen looking at his kidneys unclear whether not that looked that is: But presumably so. This is not likely be contributing. Additionally wonders about his fungal toenails he has had fungal toenails he is using a topical. Seems to be helping Exam Vital Signs (past 8 hours): - 05/26/19 03:39 Temperature 98.0 F Pulse Rate 90 Respiratory Rate 16 Blood Pressure 100/61 Pulse Oximetry 99 Oxygen Delivery Method Room Air Narrative Exam Narrative: Patient examined he is in bed covered up with a blanket speaks very quietly hand does have the shakes want speaking with him. ENT unremarkable lungs are clear heart regular rhythm no murmur gallop abdomen is benign S some fairly dystrophic toenails but none of them were inflamed. Objective Labs Result Diagrams: 05/26/19 05:30 05/26/19 05:30 Labs: Laboratory Results - last 24 hr 05/25/19 05/25/19 05/25/19 11:45 13:49 13:49 WBC 17.4 H RBC 3.70 L Hgb 11.0 L Hct 33.0 L MCV 89.2 MCH 29.8 MCHC 33.4 RDW 14.5 Plt Count 150 Neut % (Auto) 91.3 H Lymph % (Auto) 1.8 L [place] % (Auto) 6.7 Eos % (Auto) 0.1 L Baso % (Auto) 0.1 Neut # (Auto) 61762 H Lymph # (Auto) 300 L [place] # (Auto) 1200 H Eos # (Auto) 0 Baso # (Auto) 0 Sodium Potassium Chloride Carbon Dioxide BUN Creatinine Estimated GFR BUN/Creatinine Ratio Glucose Lactate Calcium Total Bilirubin AST ALT Alkaline Phosphatase Total Protein Albumin Globulin Albumin/Globulin Ratio Procalcitonin 9.24 H Urine Color Yellow Urine Appearance Cloudy Urine pH 6.5 Ur Specific [place] 1.010 Urine Protein 2+ H Urine Glucose (UA) Negative Urine Ketones Negative Urine Occult Blood 3+ H Urine Nitrate Positive Urine Bilirubin Negative Urine Urobilinogen 0.2 Ur Leukocyte Esterase 2+ H Urine RBC 5-10/hpf H Urine WBC >100/hpf H Ur Squamous Epith Cells 1-5 /hpf Amorphous Sediment 2+ Urine Bacteria Many (>30) H Urine Mucus 1+ H Ur Culture Indicated? Specimen cultured A. baumannii (PCR) Lili albicans (PCR) C. glabrata (PCR) C. krusei (PCR) C. parapsilosis (PCR) C. tropicalis (PCR) Enterobacteriac sp PCR E. cloacae complex PCR Enterococcus sp PCR E. coli (PCR) H. influenzae (PCR) Klebsiella oxytoca PCR Klebsiella pneumoniae List. monocytogenes PCR N. meningitidis (PCR) Proteus species (PCR) Serratia marcescens PCR Staphylococcus sp PCR Staph aureus (PCR) mecA-Methicil Res Gene Streptococcus sp PCR Group A Strep (PCR) Strep agalactiae (PCR) Strep pneumoniae (PCR) P. aeruginosa (PCR) Yadira/B-Vanco Res Genes KPC-Carbap Res Gene PCR 05/25/19 05/25/19 05/25/19 13:49 13:49 13:49 WBC RBC Hgb Hct MCV MCH MCHC RDW Plt Count Neut % (Auto) Lymph % (Auto) [place] % (Auto) Eos % (Auto) Baso % (Auto) Neut # (Auto) Lymph # (Auto) [place] # (Auto) Eos # (Auto) Baso # (Auto) Sodium 134 L Potassium 3.6 Chloride 104 Carbon Dioxide 21 L BUN 16 Creatinine 0.70 Estimated GFR > 60.0 BUN/Creatinine Ratio 22.9 H Glucose 101 H Lactate 1.3 Calcium 8.6 Total Bilirubin 1.1 AST 20 ALT 19 L Alkaline Phosphatase 61 Total Protein 6.2 L Albumin 3.2 L Globulin 3.0 Albumin/Globulin Ratio 1.1 Procalcitonin Urine Color Urine Appearance Urine pH Ur Specific [place] Urine Protein Urine Glucose (UA) Urine Ketones Urine Occult Blood Urine Nitrate Urine Bilirubin Urine Urobilinogen Ur Leukocyte Esterase Urine RBC Urine WBC Ur Squamous Epith Cells Amorphous Sediment Urine Bacteria Urine Mucus Ur Culture Indicated? A. baumannii (PCR) Not detected Lili albicans (PCR) Not detected C. glabrata (PCR) Not detected C. krusei (PCR) Not detected C. parapsilosis (PCR) Not detected C. tropicalis (PCR) Not detected Enterobacteriac sp PCR Detected H E. cloacae complex PCR Not detected Enterococcus sp PCR Not detected E. coli (PCR) Detected H H. influenzae (PCR) Not detected Klebsiella oxytoca PCR Not detected Klebsiella pneumoniae Not detected List. monocytogenes PCR Not detected N. meningitidis (PCR) Not detected Proteus species (PCR) Not detected Serratia marcescens PCR Not detected Staphylococcus sp PCR Not detected Staph aureus (PCR) Not detected mecA-Methicil Res Gene Not Reportable Streptococcus sp PCR Not detected Group A Strep (PCR) Not detected Strep agalactiae (PCR) Not detected Strep pneumoniae (PCR) Not detected P. aeruginosa (PCR) Not detected Yadira/B-Vanco Res Genes Not Reportable KPC-Carbap Res Gene PCR Not detected 05/25/19 05/26/19 05/26/19 20:55 05:30 05:30 WBC 14.2 H RBC 3.56 L Hgb 10.6 L Hct 31.8 L MCV 89.3 MCH 29.7 MCHC 33.3 RDW 14.7 Plt Count 101 L Neut % (Auto) 92.2 H Lymph % (Auto) 2.0 L [place] % (Auto) 5.4 Eos % (Auto) 0.2 L Baso % (Auto) 0.2 Neut # (Auto) 64847 H Lymph # (Auto) 300 L [place] # (Auto) 800 Eos # (Auto) 0 Baso # (Auto) 0 Sodium 133 L Potassium 3.7 Chloride 105 Carbon Dioxide 22 BUN 18 Creatinine 0.90 Estimated GFR > 60.0 BUN/Creatinine Ratio 20.0 Glucose 90 Lactate Calcium 7.6 L Total Bilirubin AST ALT Alkaline Phosphatase Total Protein Albumin Globulin Albumin/Globulin Ratio Procalcitonin 12.01 H Urine Color Urine Appearance Urine pH Ur Specific [place] Urine Protein Urine Glucose (UA) Urine Ketones Urine Occult Blood Urine Nitrate Urine Bilirubin Urine Urobilinogen Ur Leukocyte Esterase Urine RBC Urine WBC Ur Squamous Epith Cells Amorphous Sediment Urine Bacteria Urine Mucus Ur Culture Indicated? A. baumannii (PCR) Lili albicans (PCR) C. glabrata (PCR) C. krusei (PCR) C. parapsilosis (PCR) C. tropicalis (PCR) Enterobacteriac sp PCR E. cloacae complex PCR Enterococcus sp PCR E. coli (PCR) H. influenzae (PCR) Klebsiella oxytoca PCR Klebsiella pneumoniae List. monocytogenes PCR N. meningitidis (PCR) Proteus species (PCR) Serratia marcescens PCR Staphylococcus sp PCR Staph aureus (PCR) mecA-Methicil Res Gene Streptococcus sp PCR Group A Strep (PCR) Strep agalactiae (PCR) Strep pneumoniae (PCR) P. aeruginosa (PCR) Yadira/B-Vanco Res Genes KPC-Carbap Res Gene PCR 05/26/19 05:30 WBC RBC Hgb Hct MCV MCH MCHC RDW Plt Count Neut % (Auto) Lymph % (Auto) [place] % (Auto) Eos % (Auto) Baso % (Auto) Neut # (Auto) Lymph # (Auto) [place] # (Auto) Eos # (Auto) Baso # (Auto) Sodium Potassium Chloride Carbon Dioxide BUN Creatinine Estimated GFR BUN/Creatinine Ratio Glucose Lactate Calcium Total Bilirubin AST ALT Alkaline Phosphatase Total Protein Albumin Globulin Albumin/Globulin Ratio Procalcitonin 13.75 H Urine Color Urine Appearance Urine pH Ur Specific [place] Urine Protein Urine Glucose (UA) Urine Ketones Urine Occult Blood Urine Nitrate Urine Bilirubin Urine Urobilinogen Ur Leukocyte Esterase Urine RBC Urine WBC Ur Squamous Epith Cells Amorphous Sediment Urine Bacteria Urine Mucus Ur Culture Indicated? A. baumannii (PCR) Lili albicans (PCR) C. glabrata (PCR) C. krusei (PCR) C. parapsilosis (PCR) C. tropicalis (PCR) Enterobacteriac sp PCR E. cloacae complex PCR Enterococcus sp PCR E. coli (PCR) H. influenzae (PCR) Klebsiella oxytoca PCR Klebsiella pneumoniae List. monocytogenes PCR N. meningitidis (PCR) Proteus species (PCR) Serratia marcescens PCR Staphylococcus sp PCR Staph aureus (PCR) mecA-Methicil Res Gene Streptococcus sp PCR Group A Strep (PCR) Strep agalactiae (PCR) Strep pneumoniae (PCR) P. aeruginosa (PCR) Yadira/B-Vanco Res Genes KPC-Carbap Res Gene PCR Labs reviewed today. White count is down to 14,000. Procalcitonin however is increased at 13.7. Blood culture positive for E coli. Urine culture positive for gram-negative jerad yet to be determined Prior urine culture showed E coli Serratia and Pseudomonas all 3 of which were sensitive to cefepime on. This was discussed with pharmacist harsh. And we will switch to this medication covering all 3 meds Assessment & Plan Assessment & Plan narrative: Patient with urinary tract infection as documented by positive urine and white count. Probably has sepsis also based on the current criteria. His white count has decreased. His procalcitonin is increased. His vital signs otherwise stable. He did have a fever during the night that has since resolved. Because of the above we will switch to cefepime fine a different antibiotic that he has not been on past perhaps getting some resistance to the above. Cultures sensitivities pending of the blood and urine but will start him on this 2 g twice a day as recommended by the pharmacist. Yet to be determined what oral version he would be on at that time Quality VTE Deep Vein Thrombosis/Pulmonary Embolism Present on Admission: No
[2019-05-26] MEDS: SODIUM CHLORIDE 0.9% 1,000 ML 100 ML IV (10:00)
[2019-05-26] MEDS: CEFEPIME 2 GM in SODIUM CHLORIDE 0.9% 100 ML 200 ML IV ×2 (10:00→20:39)
--- NOTE | 2019-05-26 11:27 | PC.NURSE ---
Pt shivering with temp of 101.0. Tylenol given and pt is still uncomfortable.. Called and got orders for percolone for pain, ibuprofen for temp, his own home bowel regimen, and saline irrigation bid to catheter. Was going to give pt is ibuprofen to help fever and pts states I gave him 800mg of Ibuprofen from my home supply. Explained to patient that we have to supply our medication if it is available here. He states that he did not understand that he couldnt take meds. Will not give pt ibuprofen to pt till around 1645, he took home dose at 1045. also gave okay for pt to have his own enamez from home which he uses for his daily bowel regimen. Pt is not shaky anymore and seems to be more comfortable. Ivf put back down to 100cc/hr and he is resting comfortably. BS wnl and hr regular.
--- NOTE | 2019-05-26 11:51 | PT-IP ANOTE ---
Physical therapy order received. Chart reviewed. Spoke with his nurse and the patient. Pt reports he does not feel well enough to be getting out of bed yet. He does squat-pivot transfers bed-wheelchair with one person assist at baseline. He has his wheelchair from home in his room. Pt does not feel he needs any physical therapy. He reports he has been able to return home without difficulty after his prior hospitalizations for UTI/sepsis. His and his caregiver assist him at home. 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 He reports he has needed equipment at home. Will discharge physical therapy at this time. Please re-order is new issues arise during this admission.
--- NOTE | 2019-05-26 13:27 | CM.DANOTE ---
Discharge Planning/Care Management DCP: assessment: case received, EMR reviewed. Met early this morning with pt and his . Introduced self and role. Pt is a 53 year old male who admitted yesterday afternoon to care of hospitalist team. Payer: [employer]. Does have Medicare but his care is paid for by the [place] plan. Pt is paraplegic x 20 years after a C5-6 injury related his service. Much of his care is with the [facility]. He has a neurogenic bladder with intermediate designer omalley catheter use and frequent UTIs. Neurogenic bowel. Pt lives with his in [place]. He has caregiver assist for his morning and evening routine and functions with one person assist bed to w/c (a specialized Smart Chair. currently in his room at the hospital.) PT Deidra did see him today and did bedside note after speaking with pt. Pt prefers no PT and currently does not feel well enough to get out of bed. P: PT and his both say he expects to go home when he is well enough just like we did in December. Will follow prn in case any d/c needs arise. Currently blood and urine cultures/sensitivities are pending. CM Discharge Assessment Start: 05/26/19 13:25 Freq: Status: Active Protocol: Document 05/26/19 13:26 ITV (Rec: 05/26/19 13:27 ITV [id number]) Discharge Planning Assessment Advance Directives? Yes History Provided By Patient,Family Member,Medical Record Has Patient been admitted in last 30 No days? Comment last inpt admission was December 2018 Prior Living Arrangements House Household Members spouse Independent with ADL's No Is patient alert and oriented? Yes Caregiver for Another No Whiteboard Updated in Patient Room with Yes name and ext. # of Machinist Class B Review Status In Process
--- NOTE | 2019-05-26 15:10 | P.PN_ITS ---
Exam Vital Signs (past 8 hours): - 05/26/19 08:00 05/26/19 12:00 Temperature 100.7 F H 99.5 F Pulse Rate 90 94 H Respiratory Rate 18 28 H Blood Pressure 94/53 L 104/62 Pulse Oximetry 99 94 Oxygen Delivery Method Room Air Oxygen Flow Rate 0 Objective Labs Result Diagrams: 05/26/19 05:30 05/26/19 05:30 Labs: Laboratory Results - last 24 hr 05/25/19 05/25/19 05/25/19 11:45 13:49 20:55 WBC RBC Hgb Hct MCV MCH MCHC RDW Plt Count Neut % (Auto) Lymph % (Auto) [place] % (Auto) Eos % (Auto) Baso % (Auto) Neut # (Auto) Lymph # (Auto) [place] # (Auto) Eos # (Auto) Baso # (Auto) Sodium Potassium Chloride Carbon Dioxide BUN Creatinine Estimated GFR BUN/Creatinine Ratio Glucose Calcium Procalcitonin 12.01 H Urine Color Yellow Urine Appearance Cloudy Urine pH 6.5 Ur Specific [place] 1.010 Urine Protein 2+ H Urine Glucose (UA) Negative Urine Ketones Negative Urine Occult Blood 3+ H Urine Nitrate Positive Urine Bilirubin Negative Urine Urobilinogen 0.2 Ur Leukocyte Esterase 2+ H Urine RBC 5-10/hpf H Urine WBC >100/hpf H Ur Squamous Epith Cells 1-5 /hpf Amorphous Sediment 2+ Urine Bacteria Many (>30) H Urine Mucus 1+ H Ur Culture Indicated? Specimen cultured A. baumannii (PCR) Not detected Lili albicans (PCR) Not detected C. glabrata (PCR) Not detected C. krusei (PCR) Not detected C. parapsilosis (PCR) Not detected C. tropicalis (PCR) Not detected Enterobacteriac sp PCR Detected H E. cloacae complex PCR Not detected Enterococcus sp PCR Not detected E. coli (PCR) Detected H H. influenzae (PCR) Not detected Klebsiella oxytoca PCR Not detected Klebsiella pneumoniae Not detected List. monocytogenes PCR Not detected N. meningitidis (PCR) Not detected Proteus species (PCR) Not detected Serratia marcescens PCR Not detected Staphylococcus sp PCR Not detected Staph aureus (PCR) Not detected mecA-Methicil Res Gene Not Reportable Streptococcus sp PCR Not detected Group A Strep (PCR) Not detected Strep agalactiae (PCR) Not detected Strep pneumoniae (PCR) Not detected P. aeruginosa (PCR) Not detected Yadira/B-Vanco Res Genes Not Reportable KPC-Carbap Res Gene PCR Not detected 05/26/19 05/26/19 05/26/19 05:30 05:30 05:30 WBC 14.2 H RBC 3.56 L Hgb 10.6 L Hct 31.8 L MCV 89.3 MCH 29.7 MCHC 33.3 RDW 14.7 Plt Count 101 L Neut % (Auto) 92.2 H Lymph % (Auto) 2.0 L [place] % (Auto) 5.4 Eos % (Auto) 0.2 L Baso % (Auto) 0.2 Neut # (Auto) 03153 H Lymph # (Auto) 300 L [place] # (Auto) 800 Eos # (Auto) 0 Baso # (Auto) 0 Sodium 133 L Potassium 3.7 Chloride 105 Carbon Dioxide 22 BUN 18 Creatinine 0.90 Estimated GFR > 60.0 BUN/Creatinine Ratio 20.0 Glucose 90 Calcium 7.6 L Procalcitonin 13.75 H Urine Color Urine Appearance Urine pH Ur Specific [place] Urine Protein Urine Glucose (UA) Urine Ketones Urine Occult Blood Urine Nitrate Urine Bilirubin Urine Urobilinogen Ur Leukocyte Esterase Urine RBC Urine WBC Ur Squamous Epith Cells Amorphous Sediment Urine Bacteria Urine Mucus Ur Culture Indicated? A. baumannii (PCR) Lili albicans (PCR) C. glabrata (PCR) C. krusei (PCR) C. parapsilosis (PCR) C. tropicalis (PCR) Enterobacteriac sp PCR E. cloacae complex PCR Enterococcus sp PCR E. coli (PCR) H. influenzae (PCR) Klebsiella oxytoca PCR Klebsiella pneumoniae List. monocytogenes PCR N. meningitidis (PCR) Proteus species (PCR) Serratia marcescens PCR Staphylococcus sp PCR Staph aureus (PCR) mecA-Methicil Res Gene Streptococcus sp PCR Group A Strep (PCR) Strep agalactiae (PCR) Strep pneumoniae (PCR) P. aeruginosa (PCR) Yadira/B-Vanco Res Genes KPC-Carbap Res Gene PCR Assessment & Plan Assessment & Plan narrative: Phone call discussion with pharmacist Chirag. When switching to oral antibiotics we will choose Cipro to cover the Pseudomonas and cefixime (Suprax) to cover the E coli in the Serratia. This will be prescribed as an outpatient when he is through with intravenous yet to be determined Quality VTE Deep Vein Thrombosis/Pulmonary Embolism Present on Admission: No
[2019-05-26] MEDS: SODIUM CHLORIDE IRRIG SOLUTION 1,000 ML 50 ML IRR (20:40)
[2019-05-26] MEDS: IBUPROFEN 600 MG TABLET PO (22:09)
[2019-05-27 00:30] VITALS: BP 132/86; PULSE 87; RESP 18; TEMP 37; O2SAT 95
[2019-05-27] MEDS: SODIUM CHLORIDE 0.9% 1,000 ML 25 ML IV (01:16)
[2019-05-27 04:00] VITALS: BP 121/74; PULSE 82; RESP 18; TEMP 36.9; O2SAT 99
--- NOTE | 2019-05-27 06:50 | PC.NURSE ---
Pt had 3 episodes of diarrhea for evening shift and 1 for NOC shift. Pts stomach is pretty distended/bloated and requested the IVF be turned down so NS@25mL/hr running for shift. Flowers dante with adequate output. Zofran given at midnight for some nausea. Afebrile. Pt states he hasn't had the chills overnight.
[2019-05-27 08:00] VITALS: BP 112/54; PULSE 79; RESP 17; TEMP 36.6; O2SAT 98
[2019-05-27 08:27] LABS: Add Manual Diff / Slide Review NO; Basophils Absolute Auto 0 /uL (0-100); Basophils Percent Auto 0.1 % (0-2); Eosinophils Absolute Auto 100 /uL (0-450); Eosinophils Percent Auto 1.4 % (2-4); Hematocrit 29.4 % (41-53); Lymphocytes Absolute Auto 300 /uL (1100-4500); Lymphocytes Percent Auto 3.7 % (25-40); Mean Corpuscular HGB Conc 33.8 % (30-36); Mean Corpuscular Hemoglobin 30.4 PG (26-34); Mean Corpuscular Volume 89.7 fL (80-100); Monocytes Absolute Auto 400 /uL (0-900); Monocytes Percent Auto 4.3 % (3-14); Neutrophils Absolute Auto 7800 /uL (1500-7000); Neutrophils Percent Auto 90.5 % (50-75); Platelet Count 77 X10^3/uL (150-400); Red Blood Cell Count 3.28 X10^6/uL (4.5-5.9); Red Cell Distribution Width 14.9 % (11.6-14.8); White Blood Cell Count 8.6 X10^3/uL (4.5-11.0)
[2019-05-27 08:40] LABS: BUN Creatinine Ratio 25.7 (6-22); Blood Urea Nitrogen 18 mg/dL (9-20); Calcium 7.6 mg/dL (8.4-10.2); Carbon Dioxide 19 mmol/L (22-32); Chloride 110 mmol/L (98-107); Estimated Glomerular Filt Rate > 60.0 mL/min (>60); Glucose 82 mg/dL (70-100); HEMOLYSIS 19 (0-50); Potassium 3.2 mmol/L (3.4-5.1); Sodium 133 mmol/L (137-145)
--- NOTE | 2019-05-27 10:00 | P.DS_ITS ---
History of Present Illness History of Present Illness Chief complaint: POSSIBLE BLADDER INFECTION Narrative: Urinary tract infection. Patient presented to the emergency room this afternoon complaining of urinary t ract infection. Symptoms including chills shakes or rigors no fever general muscle spasms and generally feeling poorly. 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 And has had recurrent urinary tract infections basically since Thanksgiving giving similar symptoms. Patient was admitted here in December for similar presentation. Patient is being followed by Urology at the [facility] in [place] and [facility]. Was seen there yesterday for catheter change. Has seen there on a regular basis for same. He apparently has kidney stones as well as bladder stones. And was in the process of being arranged for as surgical intervention. Apparently the presumption is that his recurrent urinary tract infections secondary to either the kidney stone or the bladder stones and the intent is to remove same hoping to had decreased urinary tract infection frequently. As best I can tell there has not been urine culture that has been negative since July perhaps this is done through the [facility] system and we are unaware of same. Chart shows multiple urinary tract cultures positive with E coli, Serratia, and Pseudomonas. The patient was treated recently for urinary tract infection with Levaquin and apparently it was resistant but the symptoms resolved. Additionally he has been treated with ceftriaxone which read controlled the E coli and Serratia but not this moans. One/presumption is that the Pseudomonas is a colonization and not really a pathogen yet to be determined. 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 And has orthostatic hypotension for which she takes midodrine generally on the q.a.m. basis but more often on a as needed basis apparently blood pressure typically is approximately 90/60. Discharge Providers Provider Date of admission: 05/25/19 15:20 Discharge Date: 05/27/19 Primary care physician: Christine Magaña MD Consults: 05/25/19 17:40 Consult to Physical Therapy Evaluate & Treat Comment: Physician Instructions: Evaluate and Treat Discharge provider: Jose Núñez MD Summary Hospital Course Discharge Diagnosis: 1. E coli urinary tract infection. 2. E coli sepsis manifested by positive blood culture. 3. Resolved Serratia and Pseudomonas infection. 4. C5-C6 spinal injury stable. 5. History of kidney stones. Hospital Course: The patient was admitted through the ER for presumed urinary tract infection and possible sepsis manifested by elevated white blood cell count elevated procalcitonin and general malaise. He was found to have E coli in his blood. Additionally was found to have he caught coli in his urine. Initially was empirically treated with ceftriaxone and Cipro which is what he been treated with 4. His white count dropped only minimally. She microbiology was reviewed and if I felt that perhaps more appropriate antibiotic would be cefixime. He was given 2 g IV twice a day and he defervesced, white count normalized and patient's nausea resolved chills resolved. He improved significantly on the change of antibiotics. Patient was discharged home on cefixime 400 mg daily for 10 days. He [facility] consideration being for evaluation of kidney stones. Also consideration would be ongoing urinary prophylaxis with low-dose antibiotics yet to be determined Status at Discharge Cognitive/behavioral status at discharge: oriented and at baseline, oriented Functional status at discharge: wheelchair bound Overall status at discharge: patient is progressing back to baseline Exam Vital Signs (past 8 hours): - 05/27/19 04:00 05/27/19 08:00 Temperature 98.4 F 97.8 F Pulse Rate 82 79 Respiratory Rate 18 17 Blood Pressure 121/74 112/54 L Pulse Oximetry 99 98 Oxygen Delivery Method Room Air Oxygen Flow Rate 0 on discharge he was alert and oriented x3 much more animated the had been in the past who appeared back to his usual premorbid state Objective Labs Result Diagrams: 05/27/19 08:07 05/27/19 08:07 Labs: Laboratory Results - last 24 hr 05/27/19 05/27/19 08:07 08:07 WBC 8.6 RBC 3.28 L Hgb 10.0 L Hct 29.4 L MCV 89.7 MCH 30.4 MCHC 33.8 RDW 14.9 H Plt Count 77 L Neut % (Auto) 90.5 H Lymph % (Auto) 3.7 L [place] % (Auto) 4.3 Eos % (Auto) 1.4 L Baso % (Auto) 0.1 Neut # (Auto) 7800 H Lymph # (Auto) 300 L [place] # (Auto) 400 Eos # (Auto) 100 Baso # (Auto) 0 Sodium 133 L Potassium 3.2 L Chloride 110 H Carbon Dioxide 19 L BUN 18 Creatinine 0.70 Estimated GFR > 60.0 BUN/Creatinine Ratio 25.7 H Glucose 82 Calcium 7.6 L Discharge Plan Discharge Plan Patient Disposition: Home Discharge comment: cefixime x 10 d [facility] Discharge Med Rec/Prescriptions Prescriptions: New cefixime 400 mg capsule 400 mg PO Q24H 10 Days Qty: 10 RF: 0 Continued midodrine 5 mg Tablet 5 mg PO TID Qty: 0 RF: 0 ascorbic acid (vitamin C) 500 mg Tablet 1,000 mg PO DAILY Qty: 0 RF: 0 cholecalciferol (vitamin D3) [Vitamin D3] 1,000 unit Tablet 2,000 unit PO DAILY Qty: 0 RF: 0 fexofenadine 60 mg Tablet 60 mg PO BID RF: 0 triamcinolone acetonide 0.5 % Cream 1 applic TOPICAL TID PRN (Reason: Itching) RF: 0 sodium chloride 0.9 % Solution 1 irrig IRRIGATION DAILY RF: 0 ibuprofen 400 mg Tablet 400 mg PO TID PRN (Reason: pain) RF: 0 nitroglycerin 2 % Ointment 1 inch TRANSDERMAL Q6H PRN (Reason: autonomic dysreflexia) RF: 0 Renacidin 1,980.6 mg-59.4 mg-980.4mg/30mL Solution 20 ml IRRIGATION Q OTHER DAY RF: 0 Lubricating Topical Jelly Bact 1 applic topical DAILY RF: 0 Follow up/Referrals: Christine Magaña MD [Primary Care Provider] - Discharge Data Primary Care Provider: Christine Magaña Quality VTE Deep Vein Thrombosis/Pulmonary Embolism Present on Admission: No
[2019-05-27] MEDS: CEFEPIME 2 GM in SODIUM CHLORIDE 0.9% 100 ML 200 ML IV (10:27)
[2019-05-27] MEDS: ENOXAPARIN 40 MG/0.4 ML SYRINGE SUBCUT (10:28)
[2019-05-27] MEDS: LORATADINE 10 MG TABLET PO (10:28)
[2019-05-27] MEDS: SODIUM CHLORIDE 0.9% FLUSH 10 ML IV (10:29)
[2019-05-27] MEDS: LACTOBACILLUS ACIDOPHILUS TABLET 1 EACH PO (10:30)
--- NOTE | 2019-05-27 11:38 | PC.NURSE ---
Pt seems to be feeling better this morning. He has had some lose stools in the night but not yet this am. He denies pain and has had no shaking. He is going to be discharged home today around 1300.
--- NOTE | 2019-05-27 14:08 | PC.NURSE ---
Pts abdomen distended, His wanted this RN to call the MD to let him know. Pt states that he is always distended like this when he leaves the hospital from having so many fluids. Dr. Núñez notified and had no knew orders for pt so he has discharged to home. Pt was not in any pain. Walked out to car and drove pt home.
== END 2019-05-27 14:07 | disposition home or self-care (01) | DRG 871 ==
LOC: ED 15:19 → AC 16:01
PROVIDERS: Admitting Provider Family Medicine; Emergency Provider Emergency Medicine; PCP Family Medicine; Visit Provider Family Medicine
DX: A41.51 Sepsis due to Escherichia coli [E. coli] (principal); G82.54 Quadriplegia, C5-C7 incomplete; N39.0 Urinary tract infection, site not specified; B96.20 Unspecified Escherichia coli [E. coli] as the cause of diseases classified elsewhere; Z16.11 Resistance to penicillins; Z16.19 Resistance to other specified beta lactam antibiotics; Z16.29 Resistance to other single specified antibiotic; Z16.39 Resistance to other specified antimicrobial drug; Z16.31 Resistance to antiparasitic drug(s); N20.0 Calculus of kidney; N21.0 Calculus in bladder; G90.8 Other disorders of autonomic nervous system
CPT/HCPCS: 36415; 36591; 80048; 80053; 81001; 83605; 84145; 85025; 87040; 87077; 87086; 87150; 87186; 87205; 96365; 96367; 96375; 99223; 99233; 99238; 99283; 99284; J0692; J0696; J0744; J1650; J1885; J2405

== ENCOUNTER 2019-06-10 19:38 | Emergency (ER) | payer OTHER, SELFPAY ==
[2019-05-25 17:27] VITALS: BMI 17.6
[2019-06-10 19:45] VITALS: BP 94/50; PULSE 85; RESP 16; TEMP 37.1; O2SAT 100
--- NOTE | 2019-06-10 20:03 | ED.MALEGU ---
HPI - Male Genitourinary General Chief complaint: Urogenital-Male Stated complaint: thinks he has an infection going on Time Seen by Provider: 06/10/19 19:44 Source: patient Mode of arrival: wheelchair Limitations: no limitations History of Present Illness HPI Narrative: Patient is a C6 quadriplegic. Within the past month he was admitted to the hospital here for urosepsis. Earlier this week he completed his course of antibiotics. Today he had a follow-up with his primary provider. He stated that as he was driving home he was feeling chills. He also has sensations a potentially has another urinary tract infection. He does have an indwelling urinary catheter. He also stated that last night he felt like he had a fever. He came in for evaluation because he did not want to have another episode of sepsis. Related Data Home Medications Medication Instructions Recorded Confirmed ascorbic acid (vitamin C) 1,000 mg PO DAILY #0 10/20/18 05/25/19 cholecalciferol (vitamin D3) 2,000 unit PO DAILY #0 10/20/18 05/25/19 [Vitamin D3] midodrine 5 mg PO TID #0 10/20/18 05/25/19 Lubricating Topical Jelly Bact 1 applic TOPICAL DAILY 05/25/19 05/25/19 Renacidin 20 ml IRRIGATION Q OTHER DAY 05/25/19 05/25/19 fexofenadine 60 mg PO BID 05/25/19 05/25/19 ibuprofen 400 mg PO TID PRN 05/25/19 05/25/19 nitroglycerin 1 inch TRANSDERMAL Q6H PRN 05/25/19 05/25/19 sodium chloride 1 irrig IRRIGATION DAILY 05/25/19 05/25/19 triamcinolone acetonide 1 applic TOPICAL TID PRN 05/25/19 05/25/19 Previous Rx's Medication Instructions Recorded cefixime 400 mg PO Q24H 10 Days #10 cap 05/27/19 Allergies Allergy/AdvReac Type Severity Reaction Status Date / Time Sulfa (Sulfonamide Allergy Verified 04/11/19 01:03 Antibiotics) msg Allergy Unknown Uncoded 05/25/19 15:43 Review of Systems Constitutional Constitutional: Reports chills and Reports fever(s) Cardiovascular Cardiovascular: Denies chest pain and Denies dyspnea Respiratory Respiratory: Denies dyspnea Integumentary/Breasts Skin/Breast: Denies rash Neurologic Comments: C6 quadriplegia without any change Hematologic/Lymphatic Hematologic/Lymphatic: Denies easy bleeding and Denies easy bruising [facility] Medical History Chicken pox (Resolved) Hearing loss (Chronic) Kidney stones (Chronic ~09/2017) Quadriplegia (Chronic) Shoulder pain (Chronic ~1997) Vision disorder (Chronic) Social History household members: spouse Smoking Status: Never smoker Exam Initial Vital Signs Initial Vital Signs: Vital Signs Temperature 98.8 F 06/10/19 19:45 Pulse Rate 85 06/10/19 19:45 Respiratory Rate 16 06/10/19 19:45 Blood Pressure 94/50 L 06/10/19 19:45 Pulse Oximetry 100 06/10/19 19:45 Const General: comfortable and well developed Orientation: alert, awake and oriented x3 Resp Effort & Inspection: normal respiratory effort Cardio Rate: regular rate Other: Flowers catheter in place Skin Lesions: no lesions Rashes: no rashes Neuro Other: In wheelchair unchanged from baseline Psych Appearance: grossly normal and well kempt Course Orders Ordered: ED Orders 06/10/19 20:15 Urinalysis and Microscopic Stat Urine Culture Stat 06/10/19 20:18 Basic Metabolic Panel Stat Complete Blood Count AUTO DIFF Stat Lactate (Lactic Acid) Stat Procalcitonin Stat Vital Signs Vital signs: Vital Signs - 8 hr 06/10/19 19:45 06/10/19 21:29 Temperature 98.8 F 98.3 F Pulse Rate 85 76 Respiratory Rate 16 Blood Pressure 94/50 L 87/54 L Pulse Oximetry 100 99 MDM - Male Genitourinary Lab Data Attestation: I reviewed the patient's lab results. Result diagrams: 06/10/19 20:18 06/10/19 20:18 Labs: Lab Results 06/10/19 06/10/19 06/10/19 Range/Units 20:15 20:18 20:18 WBC 10.3 (4.5-11.0) X10^3/uL RBC 3.48 L (4.5-5.9) X10^6/uL Hgb 10.2 L (13.5-17.5) g/dL Hct 30.7 L (41-53) % MCV 88.3 (80-100) fL MCH 29.4 (26-34) PG MCHC 33.3 (30-36) % RDW 14.2 (11.6-14.8) % Plt Count 292 (150-400) X10^3/uL Neut % (Auto) 80.5 H (50-75) % Lymph % (Auto) 7.0 L (25-40) % Rolette % (Auto) 9.4 (3-14) % Eos % (Auto) 2.5 (2-4) % Baso % (Auto) 0.6 (0-2) % Neut # (Auto) 8300 H (5236-1673) /uL Lymph # (Auto) 700 L (5784-5399) /uL Rolette # (Auto) 1000 H (0-900) /uL Eos # (Auto) 300 (0-450) /uL Baso # (Auto) 100 (0-100) /uL Sodium (137-145) mmol/L Potassium (3.4-5.1) mmol/L Chloride (98-107) mmol/L Carbon Dioxide (22-32) mmol/L BUN (9-20) mg/dL Creatinine (0.66-1.25) mg/dL Estimated GFR (>60) mL/min BUN/Creatinine Ratio (6-22) Glucose (70-100) mg/dL Lactate (0.7-2.1) mmol/L Calcium (8.4-10.2) mg/dL Procalcitonin < 0.05 (<0.5) ng/mL Urine Color Yellow Urine Appearance Cloudy Urine pH 6.5 (4.5-8.0) Ur Specific Murdock 1.015 (1.000-1.035) Urine Protein 1+ H (Negative) Urine Glucose (UA) Negative (Negative) g/dL Urine Ketones Trace H (NEGATIVE) Urine Occult Blood 3+ H (Negative) Urine Nitrate Positive (Negative) Urine Bilirubin Negative (NEGATIVE) Urine Urobilinogen 0.2 (0.2) E.U./dL Ur Leukocyte Esterase 3+ H (NEGATIVE) Urine RBC >100/hpf (0-5/HPF) Urine WBC 30-100/hpf H (0-5/HPF) Ur Squamous Epith Cells 0-1 /hpf (0-5/HPF) Urine Bacteria Many (>30) H (None) Ur Culture Indicated? Culture not indicate Micro UA Comment Cx already ordered 06/10/19 06/10/19 Range/Units 20:18 20:18 WBC (4.5-11.0) X10^3/uL RBC (4.5-5.9) X10^6/uL Hgb (13.5-17.5) g/dL Hct (41-53) % MCV (80-100) fL MCH (26-34) PG MCHC (30-36) % RDW (11.6-14.8) % Plt Count (150-400) X10^3/uL Neut % (Auto) (50-75) % Lymph % (Auto) (25-40) % Rolette % (Auto) (3-14) % Eos % (Auto) (2-4) % Baso % (Auto) (0-2) % Neut # (Auto) (6003-5683) /uL Lymph # (Auto) (0514-5296) /uL Rolette # (Auto) (0-900) /uL Eos # (Auto) (0-450) /uL Baso # (Auto) (0-100) /uL Sodium 134 L (137-145) mmol/L Potassium 3.4 (3.4-5.1) mmol/L Chloride 100 (98-107) mmol/L Carbon Dioxide 24 (22-32) mmol/L BUN 16 (9-20) mg/dL Creatinine 0.70 (0.66-1.25) mg/dL Estimated GFR > 60.0 (>60) mL/min BUN/Creatinine Ratio 22.9 H (6-22) Glucose 124 H (70-100) mg/dL Lactate 1.5 (0.7-2.1) mmol/L Calcium 9.3 (8.4-10.2) mg/dL Procalcitonin (<0.5) ng/mL Urine Color Urine Appearance Urine pH (4.5-8.0) Ur Specific Murdock (1.000-1.035) Urine Protein (Negative) Urine Glucose (UA) (Negative) g/dL Urine Ketones (NEGATIVE) Urine Occult Blood (Negative) Urine Nitrate (Negative) Urine Bilirubin (NEGATIVE) Urine Urobilinogen (0.2) E.U./dL Ur Leukocyte Esterase (NEGATIVE) Urine RBC (0-5/HPF) Urine WBC (0-5/HPF) Ur Squamous Epith Cells (0-5/HPF) Urine Bacteria (None) Ur Culture Indicated? Micro UA Comment MDM Narrative Medical decision making narrative: Patient does not have a white count, is afebrile, his procalcitonin is negative and lactate is negative. His urine does show nitrite positive urine. He just recently completed a course of antibiotics. Had a long discussion with him and his regarding his symptoms. Informed him that his urinalysis could be a urinary tract infection or could be colonization due to his indwelling Flowers catheter. His catheter was last changed on Friday of this week. I did inform him that the rest of his labs and his physical exam were not consistent with a systemic infection like sepsis. After this discussion the patient stated that he did not want to do another course of antibiotics. A urine culture was obtained and is pending. He was informed that we would contact him if we needed to start on antibiotics. He was given strict return precautions. He expressed understanding and agreement with plan. Discharge Plan Departure Patient Disposition: Home Clinical Impression: Bacteriuria Discharge Date/Time: 06/10/19 21:29 Instructions: How to Care for Your Flowers Catheter -- Male Activity Restrictions/Additional Instructions: There is a urine culture pending. We will call you in the next several days if we need to start on antibiotics. Continue all of your medications as directed. Contact your primary provider for follow-up. Return to the emergency department for any new or worsening symptoms Prescriptions: No Action midodrine 5 mg Tablet 5 mg PO TID Qty: 0 RF: 0 ascorbic acid (vitamin C) 500 mg Tablet 1,000 mg PO DAILY Qty: 0 RF: 0 cholecalciferol (vitamin D3) [Vitamin D3] 1,000 unit Tablet 2,000 unit PO DAILY Qty: 0 RF: 0 fexofenadine 60 mg Tablet 60 mg PO BID RF: 0 triamcinolone acetonide 0.5 % Cream 1 applic TOPICAL TID PRN (Reason: Itching) RF: 0 sodium chloride 0.9 % Solution 1 irrig IRRIGATION DAILY RF: 0 ibuprofen 400 mg Tablet 400 mg PO TID PRN (Reason: pain) RF: 0 nitroglycerin 2 % Ointment 1 inch TRANSDERMAL Q6H PRN (Reason: autonomic dysreflexia) RF: 0 Renacidin 1,980.6 mg-59.4 mg-980.4mg/30mL Solution 20 ml IRRIGATION Q OTHER DAY RF: 0 Lubricating Topical Jelly Bact 1 applic topical DAILY RF: 0 cefixime 400 mg capsule 400 mg PO Q24H 10 Days Qty: 10 RF: 0 Referrals: Christine Magaña MD [Primary Care Provider] -
[2019-06-10 20:28] LABS: Add Manual Diff / Slide Review NO; Basophils Absolute Auto 100 /uL (0-100); Basophils Percent Auto 0.6 % (0-2); Eosinophils Absolute Auto 300 /uL (0-450); Eosinophils Percent Auto 2.5 % (2-4); Hematocrit 30.7 % (41-53); Hemoglobin 10.2 g/dL (13.5-17.5); Lymphocytes Absolute Auto 700 /uL (1100-4500); Mean Corpuscular HGB Conc 33.3 % (30-36); Mean Corpuscular Hemoglobin 29.4 PG (26-34); Mean Corpuscular Volume 88.3 fL (80-100); Monocytes Absolute Auto 1000 /uL (0-900); Monocytes Percent Auto 9.4 % (3-14); Neutrophils Absolute Auto 8300 /uL (1500-7000); Neutrophils Percent Auto 80.5 % (50-75); Platelet Count 292 X10^3/uL (150-400); Red Blood Cell Count 3.48 X10^6/uL (4.5-5.9); Red Cell Distribution Width 14.2 % (11.6-14.8); White Blood Cell Count 10.3 X10^3/uL (4.5-11.0)
[2019-06-10 20:29] LABS: Appearance Urine UA CLOUDY; Bilirubin Urine UA NEGATIVE (NEGATIVE); Color Urine UA YELLOW; Glucose Urine UA NEGATIVE (Negative); Ketones Urine UA TRACE (NEGATIVE); Leukocyte Esterase Urine UA 3+ (NEGATIVE); Nitrite Urine UA POSITIVE (Negative); Occult Blood Urine UA 3+ (Negative); Protein Urine UA 1+ (Negative); Specific Gravity Urine UA 1.015 (1.000-1.035); Urobilinogen Urine UA 0.2 E.U./dL (0.2); pH Urine UA 6.5 (4.5-8.0)
--- NOTE | 2019-06-10 20:30 | PC.NURSE ---
p states he was driving home from [place] in [place]. pt states he starting having shaking last night, this am had a temp 100.5. pt took ibuprofen this am [facility] driving home this evening pt started having chills, pt nervous because 2 weeks ago he was admitted for urosepsis.
--- NOTE | 2019-06-10 20:32 | PC.NURSE ---
PT states concerned for urosepsis wants blood draw to check, has frequent UTI's and is nervous because has a 100.5 T this morning and was having chills and shaking last night. PT was admitted here for urosepsis 2 weeks ago. PT took ibuprofen this morning and macrobid [facility] received [facility]. Pt has indwelling catheter with leg bag, denies usual burning that is often associated with his chronic UTI's however states urine appears darker than normal.
[2019-06-10 20:37] LABS: Bacteria Urine Many (>30); RBC Urine >100/HPF (0-5/HPF); Squamous Epithelial Cell Urine 0-1 /HPF (0-5/HPF); Urine Comments CX ALREADY ORDERED; WBC Urine 30-100/HPF (0-5/HPF)
[2019-06-10 20:40] LABS: BUN Creatinine Ratio 22.9 (6-22); Blood Urea Nitrogen 16 mg/dL (9-20); Calcium 9.3 mg/dL (8.4-10.2); Carbon Dioxide 24 mmol/L (22-32); Chloride 100 mmol/L (98-107); Estimated Glomerular Filt Rate > 60.0 mL/min (>60); Glucose 124 mg/dL (70-100); HEMOLYSIS < 15 (0-50); Lactate (Lactic Acid) 1.5 mmol/L (0.7-2.1); Potassium 3.4 mmol/L (3.4-5.1); Sodium 134 mmol/L (137-145)
[2019-06-10 20:59] LABS: Procalcitonin < 0.05 ng/mL (<0.5)
[2019-06-10 21:29] VITALS: BP 87/54; PULSE 76; TEMP 36.8; O2SAT 99
== END 2019-06-10 21:29 | disposition home or self-care (01) ==
PROVIDERS: Emergency Provider Emergency Medicine; PCP Family Medicine
DX: R82.71 Bacteriuria (principal)
CPT/HCPCS: 36415; 80048; 81001; 83605; 84145; 85025; 87077; 87086; 87186; 99282; 99283

== ENCOUNTER → 2019-06-18 17:26 | Outpatient (ROUT) | payer OTHER, SELFPAY ==
[2019-05-25 17:27] VITALS: BMI 17.6
[2019-06-18 17:26] LABS: Add Manual Diff / Slide Review NO; Basophils Absolute Auto 100 /uL (0-100); Basophils Percent Auto 1.3 % (0-2); Eosinophils Absolute Auto 800 /uL (0-450); Eosinophils Percent Auto 10.3 % (2-4); Hematocrit 32.7 % (41-53); Hemoglobin 10.9 g/dL (13.5-17.5); Lymphocytes Absolute Auto 1400 /uL (1100-4500); Mean Corpuscular HGB Conc 33.5 % (30-36); Mean Corpuscular Hemoglobin 29.3 PG (26-34); Mean Corpuscular Volume 87.4 fL (80-100); Monocytes Absolute Auto 400 /uL (0-900); Monocytes Percent Auto 4.9 % (3-14); Neutrophils Absolute Auto 5000 /uL (1500-7000); Neutrophils Percent Auto 65.5 % (50-75); Platelet Count 277 X10^3/uL (150-400); Red Blood Cell Count 3.73 X10^6/uL (4.5-5.9); Red Cell Distribution Width 14.4 % (11.6-14.8); White Blood Cell Count 7.7 X10^3/uL (4.5-11.0)
[2019-06-18 17:41] LABS: Alanine Aminotransferase 19 IU/L (21-72); Albumin 3.7 g/dL (3.5-5.0); Albumin Globulin Ratio 1.1 (1.0-2.8); Alkaline Phosphatase 78 U/L (38-126); Aspartate Aminotransferase 26 IU/L (17-59); Bilirubin Total 0.3 mg/dL (0.2-1.3); Blood Urea Nitrogen 15 mg/dL (9-20); Calcium 9.1 mg/dL (8.4-10.2); Carbon Dioxide 29 mmol/L (22-32); Chloride 101 mmol/L (98-107); Estimated Glomerular Filt Rate > 60.0 mL/min (>60); Globulin 3.4 g/dL (1.7-4.1); Glucose 103 mg/dL (70-100); HEMOLYSIS < 15 (0-50); Potassium 4.2 mmol/L (3.4-5.1); Sodium 137 mmol/L (137-145); Total Protein 7.1 g/dL (6.3-8.2)
== END ==
PROVIDERS: PCP Family Medicine; Visit Provider Family Medicine
DX: Z45.2 Encounter for adjustment and management of vascular access device (principal); G82.50 Quadriplegia, unspecified
CPT/HCPCS: 80053; 85025

== ENCOUNTER 2019-06-18 17:58 | Outpatient (RCR) | payer OTHER, SELFPAY ==
[2019-05-25 17:27] VITALS: BMI 17.6
--- NOTE | 2019-06-18 16:47 | DI.RAD.S_ITS ---
PROCEDURE: XR CHEST FOR PICC 1V INDICATIONS: picc placement COMPARISON: None. FINDINGS: PICC was placed by the intravenous therapy team from the left side. Fluoroscopic spot film demonstrates the tip of PICC projecting to the area of mid SVC IMPRESSION: Tip of PICC projects to the area of the mid SVC Dictated by: Barbara Rosales M.D. on 06/18/2019 at 16:58 Approved by: Barbara Rosales M.D. on 06/18/2019 at 16:58
[2019-06-18] MEDS: CEFEPIME 2 GM in SODIUM CHLORIDE 0.9% 100 ML 200 ML IV (18:00)
--- NOTE | 2019-06-18 18:24 | PC.NURSE ---
pt here on this date 06/18/19 for picc placement and antibx infusion as pt [facility] well dc home for outpt iv therapy.
== END 2019-06-18 18:30 | disposition home or self-care (01) ==
PROVIDERS: PCP Family Medicine; Visit Provider Family Medicine
DX: Z45.2 Encounter for adjustment and management of vascular access device (principal); G82.50 Quadriplegia, unspecified
CPT/HCPCS: 36569; 80053; 85025; J0692

== ENCOUNTER 2019-11-16 11:46 | Outpatient (RCR) | payer OTHER, SELFPAY ==
[2019-05-25 17:27] VITALS: BMI 17.6
--- NOTE | 2019-11-16 16:12 | PT.OIE ---
Current Diagnoses Benign paroxysmal vertigo, unspecified ear (11/16/19) Past Medical History (Last Reviewed 06/11/19 @ 02:06 by Jackson Nicolas DO) Chicken pox (Resolved) Hearing loss (Chronic) Kidney stones (Chronic ~09/2017) Quadriplegia (Chronic) Shoulder pain (Chronic ~1997) Vision disorder (Chronic) Past Surgical History (Last Reviewed 05/25/19 @ 17:47 by Jose Núñez MD) History of back surgery (Resolved) Visit Care Team Role Provider Type Other Providers Referring Provider Specialty: Address: Phone: Fax: Email: Christine Magaña MD Family Provider Physician Primary Care Provider Specialty: Family Practice Address: [address] [place] [address], [id number] Email: [email or web address] Wright Attending Provider Non-Staff Specialty: Physical Medicine and Rehab Address: [address] [place] [address], [address] Email: Physical Therapy Initial Evaluation PT-OP-A Visit Information Start: 11/16/19 07:22 Freq: Status: Active Protocol: Document 11/16/19 12:16 MB (Rec: 11/16/19 13:04 MB [id number]) Out-Patient Physical Therapy Visit Information Visit Information Visit Type Initial Evaluation Visit Start Time 12:16 Visit Stop Time 12:56 Total Visit Minutes 40 Visit Number 1 Evaluation Information Evaluation Date 11/16/19 Precautions Precautions Fall risk, pt requires asst for transfers, dependent to [place] A for bed mobility PT-OP-B Current Condition Start: 11/16/19 07:22 Freq: Status: Active Protocol: Document 11/16/19 12:16 MB (Rec: 11/16/19 13:04 MB [id number]) Current Condition History of Current Condition Onset Date August 2019 Current Complaints Dizziness when sitting up in bed, lying down and rolling over History of Current Condition Pt states that he had vertigo in the past. He had increased wax in his right ear. Once it was cleaned out, it was better . Pt wears hearing aides in both ears. Pt has complete C6 injury. Pt can perform shoulder elevation , biceps curl, wrist extension and trace wrist flexion and triceps use. Pt has indwelling catheter. Pt has help with dressing, bathing and housework. He needs asst for transfers. He states that dizziness might be worst ot the left. Pt has history of low BP after neck injury. Pt takes Medidrine to help raise BP. He takes it occ . Eating a big meal drops his BP. He no longer uses compression. His BP symptoms are different that his current complaints. Pt had a recent concussion in 06/2019 on his w/c ramp getting into van. He his the back of his head, closer to the right. He heard ringing. He hit his head again last (4 days ago) when he popped a wheelie in his w/c and hit the back of his head. His issue is better. Treatment Goals Patient/Caregiver Goals To see if he has positional vertigo Prior Functional Status Baseline Function- ADL's Needs Assist Baseline Function- Mobility Needs Assist PT-OP-C Subjective Start: 11/16/19 07:22 Freq: Status: Active Protocol: Document 11/16/19 12:16 MB (Rec: 11/16/19 16:12 MB [id number]) OP-PT Subjective Patient Comments Patient Comments See pt goals Patient Reported Progress Improving Patient Questionnaires Dizziness Handicap Inventory DHI Score 4 DHI Functional Impairment 1 to 19% Impaired (Score 1-19) PT-OP-D Balance Start: 11/16/19 07:22 Freq: Status: Active Protocol: Document 11/16/19 12:16 MB (Rec: 11/16/19 16:12 MB [id number]) OP-PT Balance Assessment Sitting Balance Static Sitting Balance Ability Poor Dynamic Sitting Balance Ability Poor Sitting Balance Comments UE support static sitting as well as back support and cushion creating sacral sitting to help with upright balance. Pt requires min A for scoot pivot transfer w/c to mat and back Caruso Fall Scale Copyright Permission PT-OP-Q Treatments Start: 11/16/19 07:22 Freq: Status: Active Protocol: Document 11/16/19 12:16 MB (Rec: 11/16/19 16:12 MB [id number]) Self-Care/Home Management Treatment Education Other Education Extensive ed in inner ear anatomy, BPPV, causes and treatment for BPPV PT-OP-T Assessment and Plan Start: 11/16/19 07:22 Freq: Status: Active Protocol: Document 11/16/19 12:16 MB (Rec: 11/16/19 16:12 MB [id number]) Physical Therapy Assessment Rehab Potential Rehabilitation Potential Fair Evaluation Complexity Number of Personal Factors/Comorbidities 1-2 Number of Body Systems Impaired 3 Clinical Presentation at Evaluation Stable Impairments Impairments Balance,Functional Activities, Functional Mobility,ROM, Strength,Transfers,Vestibular Other Impairments Personal factors including quadriplegia and needing asst for mobility, recent histories of falls. Body systems affected include neuromuscular , cardiac (history hypotension ), musculoskeletal (weakness UEs and no AROM LEs) Other Concerns Fall Risk Yes Barriers to Rehabilitation Dependent asst needed for hook lying to supine for BPPV testing, heavy asst other mat mobility Goals 1 Manager [employer] Goal (LTG) Pt will present with no dizziness or nystagmus with B Roll Test and Bienvenido-Hallpike to decrease fall risk by 2019. LTG Duration 4 weeks Assessment Summary Assessment Pt is a 54 y/o male presenting with improving dizziness that he describes as rotatory in nature and with bed mobility and lying down and sitting up. He reports postural hypotension related to spinal cord injury in the past but that his recent symptoms are not the same. He reports two falls recently when he hit the back of his head. He requires heavy asst for transfer to the mat and mat mobility. Negative B Bienvenido-Hallpike and Roll Test for nystagmus and dizziness today. He can perform B shoulder elevation, biceps recruitment, mild wrist extensor recruitment, trace wrist flexor and triceps recruitment. He has good neck control and can only sit upright with back support. He has no spontaneous nystagmus today. Will set one appointment for pt and keep chart open for 1 month to see if dizziness recurs and pt needs treatment. Physical Therapy Plan Frequency and Duration Frequency of Treatment 1-2 treatments Duration of Treatment 1 month Plan of Care Start Date 11/16/19 Plan of Care End Date 12/15/19 Therapeutic Interventions Therapeutic Interventions Canalithic Repositioning, Vestibular Rehabilitation Next Visit Focus/Plan Next Note Type Treatment Note Next Visit Plan Reassess for BPPV
--- NOTE | 2019-11-16 16:13 | PT.OPPOC ---
Physical, Occupational & Speech Therapy At [facility] Current Diagnoses Benign paroxysmal vertigo, unspecified ear (11/16/19) Visit Care Team Role Provider Type Other Providers Referring Provider Specialty: Address: Phone: Fax: Email: Christine Magaña MD Family Provider Physician Primary Care Provider Specialty: Family Practice Address: [address] [place] [address], [place], [address] Email: [email or web address] Rut Wright Attending Provider Non-Staff Specialty: Physical Medicine and Rehab Address: [address] [facility], [place], [address] Email: Plan Of Care PT-OP-T Assessment and Plan Start: 11/16/19 07:22 Freq: Status: Active Protocol: Document 11/16/19 12:16 MB (Rec: 11/16/19 16:12 MB [id number]) Physical Therapy Assessment Rehab Potential Rehabilitation Potential Fair Evaluation Complexity Number of Personal Factors/Comorbidities 1-2 Number of Body Systems Impaired 3 Clinical Presentation at Evaluation Stable Impairments Impairments Balance,Functional Activities, Functional Mobility,ROM, Strength,Transfers,Vestibular Other Impairments Personal factors including quadriplegia and needing asst for mobility, recent histories of falls. Body systems affected include neuromuscular , cardiac (history hypotension ), musculoskeletal (weakness UEs and no AROM LEs) Other Concerns Fall Risk Yes Barriers to Rehabilitation Dependent asst needed for hook lying to supine for BPPV testing, heavy asst other mat mobility Goals 1 Steep Tender Goal (LTG) Pt will present with no dizziness or nystagmus with B Roll Test and Bienvenido-Hallpike to decrease fall risk by 2019. LTG Duration 4 weeks Assessment Summary Assessment Pt is a 54 y/o male presenting with improving dizziness that he describes as rotatory in nature and with bed mobility and lying down and sitting up. He reports postural hypotension related to spinal cord injury in the past but that his recent symptoms are not the same. He reports two falls recently when he hit the back of his head. He requires heavy asst for transfer to the mat and mat mobility. Negative B [place]-Hallpike and Roll Test for nystagmus and dizziness today. He can perform B shoulder elevation, biceps recruitment, mild wrist extensor recruitment, trace wrist flexor and triceps recruitment. He has good neck control and can only sit upright with back support. He has no spontaneous nystagmus today. Will set one appointment for pt and keep chart open for 1 month to see if dizziness recurs and pt needs treatment. Physical Therapy Plan Frequency and Duration Frequency of Treatment 1-2 treatments Duration of Treatment 1 month Plan of Care Start Date 11/16/19 Plan of Care End Date 12/15/19 Therapeutic Interventions Therapeutic Interventions Canalithic Repositioning, Vestibular Rehabilitation Next Visit Focus/Plan Next Note Type Treatment Note Next Visit Plan Reassess for BPPV Plan of Care Dates Plan of Care Start Date 11/16/19 Plan of Care End Date 12/15/19 Electronically Signed by: Clair Mckeon PT 11/16/19 2417 Please Sign and Return: I have reviewed this Plan of Care and certify that the skilled therapy services above are required to meet the patient?s needs. Physician Signature Date Printed Name and Credentials Clinical Instructor Signature Printed Name and Credentials
--- NOTE | 2019-12-10 13:15 | PT.OPDS ---
Current Diagnoses Benign paroxysmal vertigo, unspecified ear (11/16/19) Visit Care Team Role Provider Type Other Providers Referring Provider Specialty: Address: Phone: Fax: Email: Christine Magaña MD Family Provider Physician Primary Care Provider Specialty: Family Practice Address: [facility] [address], [place], [address] Email: [email or web address] Wright Attending Provider Non-Staff Specialty: Physical Medicine and Rehab Address: [address] [place], [address] Email: Visit Number Visit Number 1 Discharge Summary PT-OP-B Current Condition Start: 11/16/19 07:22 Freq: Status: Active Protocol: Document 11/16/19 12:16 MB (Rec: 11/16/19 13:04 MB [id number]) Current Condition History of Current Condition Onset Date August 2019 Current Complaints Dizziness when sitting up in bed, lying down and rolling over History of Current Condition Pt states that he had vertigo in the past. He had increased wax in his right ear. Once it was cleaned out, it was better . Pt wears hearing aides in both ears. Pt has complete C6 injury. Pt can perform shoulder elevation , biceps curl, wrist extension and trace wrist flexion and triceps use. Pt has indwelling catheter. Pt has help with dressing, bathing and housework. He needs asst for transfers. He states that dizziness might be worst ot the left. Pt has history of low BP after neck injury. Pt takes Medidrine to help raise BP. He takes it occ . Eating a big meal drops his BP. He no longer uses compression. His BP symptoms are different that his current complaints. Pt had a recent concussion in 06/2019 on his w/c ramp getting into van. He his the back of his head, closer to the right. He heard ringing. He hit his head again last (4 days ago) when he popped a wheelie in his w/c and hit the back of his head. His issue is better. Treatment Goals Patient/Caregiver Goals To see if he has positional vertigo Prior Functional Status Baseline Function- ADL's Needs Assist Baseline Function- Mobility Needs Assist PT-OP-C Subjective Start: 11/16/19 07:22 Freq: Status: Active Protocol: Document 11/16/19 12:16 MB (Rec: 11/16/19 16:12 MB [id number]) OP-PT Subjective Patient Comments Patient Comments See pt goals Patient Reported Progress Improving Patient Questionnaires Dizziness Handicap Inventory DHI Score 4 DHI Functional Impairment 1 to 19% Impaired (Score 1-19) PT-OP-D Balance Start: 11/16/19 07:22 Freq: Status: Active Protocol: Document 11/16/19 12:16 MB (Rec: 11/16/19 16:12 MB [id number]) OP-PT Balance Assessment Sitting Balance Static Sitting Balance Ability Poor Dynamic Sitting Balance Ability Poor Sitting Balance Comments UE support static sitting as well as back support and cushion creating sacral sitting to help with upright balance. Pt requires min A for scoot pivot transfer w/c to mat and back Caruso Fall Scale Copyright Permission PT-OP-T Assessment and Plan Start: 11/16/19 07:22 Freq: Status: Active Protocol: Document 12/10/19 13:15 MB (Rec: 12/10/19 13:15 MB [id number]) Physical Therapy Plan Discharge Physical Therapy Discharge Reasons No Longer Attending PT Discharge Comments PT calls pt. He reports that he has had no more dizziness after treatment for BPPV. D/c PT.
== END 2019-12-10 13:51 ==
LOC: PHYS 11:46
PROVIDERS: Family Provider Family Medicine; PCP Family Medicine; Visit Provider Physical Medicine & Rehabilitation Spinal Cord Injury Medicine
DX: H81.10 Benign paroxysmal vertigo, unspecified ear (principal)
CPT/HCPCS: 97161; 97535

== ENCOUNTER → 2019-12-31 14:02 | Outpatient (CLI) | payer OTHER, SELFPAY ==
[2019-05-25 17:27] VITALS: BMI 17.6
[2019-12-31 14:32] LABS: Appearance Urine UA CLOUDY; Bilirubin Urine UA NEGATIVE (NEGATIVE); Color Urine UA YELLOW; Glucose Urine UA NEGATIVE (Negative); Ketones Urine UA 2+ (NEGATIVE); Leukocyte Esterase Urine UA 3+ (NEGATIVE); Nitrite Urine UA POSITIVE (Negative); Occult Blood Urine UA 3+ (Negative); Protein Urine UA 1+ (Negative); Specific Gravity Urine UA 1.015 (1.000-1.035); Urobilinogen Urine UA 0.2 E.U./dL (0.2)
[2019-12-31 14:44] LABS: Amorphous Sediment Urine 1+; Bacteria Urine Many (>30); Culture Indicated Urine Specimen Cultured; Mucus Urine 2+ (Negative); RBC Urine 5-10/HPF (0-5/HPF); Squamous Epithelial Cell Urine 0-1 /HPF (0-5/HPF); WBC Urine >100/HPF (0-5/HPF)
== END ==
PROVIDERS: Family Provider Family Medicine; PCP Family Medicine; Referring Provider Family Medicine; Visit Provider Family Medicine
DX: N39.0 Urinary tract infection, site not specified (principal)
CPT/HCPCS: 81001; 87077; 87086; 87186

== ENCOUNTER 2020-04-28 23:47 | Emergency (ER) | payer OTHER, SELFPAY ==
[2019-05-25 17:27] VITALS: BMI 17.6
[2020-04-29 00:01] VITALS: BP 120/70; PULSE 77; RESP 28; TEMP 38.2; O2SAT 96; BMI 20.3
[2020-04-29 00:07] LABS: Appearance Urine UA CLEAR; Bilirubin Urine UA NEGATIVE (NEGATIVE); Color Urine UA YELLOW; Glucose Urine UA NEGATIVE (Negative); Ketones Urine UA NEGATIVE (NEGATIVE); Leukocyte Esterase Urine UA 3+ (NEGATIVE); Nitrite Urine UA POSITIVE (Negative); Occult Blood Urine UA 3+ (Negative); Protein Urine UA NEGATIVE (Negative); Specific Gravity Urine UA <=1.005 (1.000-1.035); Urobilinogen Urine UA 0.2 E.U./dL (0.2)
[2020-04-29 00:18] LABS: RBC Urine 1-5/HPF (0-5/HPF); WBC Urine 10-30/HPF (0-5/HPF)
[2020-04-29 00:19] LABS: Bacteria Urine Many (>30); Culture Indicated Urine Specimen Cultured
--- NOTE | 2020-04-29 00:31 | DI.RAD.S_ITS ---
PROCEDURE: XR CHEST 1V INDICATIONS: suspected sepsis TECHNIQUE: One view of the chest was acquired. COMPARISON: [facility], CR, XR CHEST FOR PICC 1V, 06/18/2019, 16:48. FINDINGS: Surgical changes and devices: Cervical spine fixation hardware is seen. Lungs and pleura: Lungs are clear. No pleural effusions or pneumothorax. Mediastinum: Mediastinal contours appear normal. Heart size is normal. Bones and chest wall: No suspicious bony lesions. Age-appropriate bony degenerative changes are seen. Overlying soft tissues appear unremarkable. IMPRESSION: No focal infiltrates are seen. Postoperative and degenerative changes are seen. Dictated by: Ru Fischer M.D. on 04/29/2020 at 7:43 Approved by: Ru Fischer M.D. on 04/29/2020 at 7:44
[2020-04-29 01:15] LABS: Add Manual Diff / Slide Review NO; Basophils Absolute Auto 0 /uL (0-100); Basophils Percent Auto 0.5 % (0-2); Eosinophils Absolute Auto 100 /uL (0-450); Eosinophils Percent Auto 0.6 % (2-4); Hematocrit 36.6 % (41-53); Hemoglobin 12.3 g/dL (13.5-17.5); Lymphocytes Absolute Auto 600 /uL (1100-4500); Lymphocytes Percent Auto 6.5 % (25-40); Mean Corpuscular HGB Conc 33.5 % (30-36); Mean Corpuscular Hemoglobin 30.1 PG (26-34); Mean Corpuscular Volume 89.8 fL (80-100); Monocytes Absolute Auto 800 /uL (0-900); Monocytes Percent Auto 9.5 % (3-14); Neutrophils Absolute Auto 7400 /uL (1500-7000); Neutrophils Percent Auto 82.9 % (50-75); Platelet Count 160 X10^3/uL (150-400); Red Blood Cell Count 4.08 X10^6/uL (4.5-5.9); White Blood Cell Count 8.9 X10^3/uL (4.5-11.0)
[2020-04-29 01:16] LABS: INR 1.2 (0.9-1.3); Prothrombin Time 13.5 SECONDS (10.1-12.7)
[2020-04-29 01:18] LABS: PTT Partial Thromboplastin Tim 36 SECONDS (26.4-36.2)
[2020-04-29 01:19] LABS: Lactate (Lactic Acid) 0.7 mmol/L (0.7-2.1)
[2020-04-29 01:22] LABS: Alanine Aminotransferase 13 IU/L (<50); Albumin 3.7 g/dL (3.5-5.0); Albumin Globulin Ratio 1.2 (1.0-2.8); Alkaline Phosphatase 70 U/L (38-126); Aspartate Aminotransferase 22 IU/L (17-59); BUN Creatinine Ratio 23.5 (6-22); Bilirubin Total 0.8 mg/dL (0.2-1.3); Blood Urea Nitrogen 12 mg/dL (9-20); Carbon Dioxide 25 mmol/L (22-32); Chloride 102 mmol/L (98-107); Estimated Glomerular Filt Rate > 60.0 mL/min (>60); Globulin 3.1 g/dL (1.7-4.1); Glucose 121 mg/dL (70-100); HEMOLYSIS < 15 (0-50); Lipase 132 U/L (23-300); Potassium 3.7 mmol/L (3.4-5.1); Sodium 132 mmol/L (137-145); Total Protein 6.8 g/dL (6.3-8.2)
--- NOTE | 2020-04-29 01:25 | ED.MALEGU ---
HPI - Male Genitourinary General Chief complaint: Urogenital-Male Stated complaint: states bladder infection Time Seen by Provider: 04/29/20 00:32 Source: patient Mode of arrival: Wheelchair Limitations: no limitations History of Present Illness HPI Narrative: 54-year-old see 5 6 quadriplegic presents with sensation of burning in his lower abdomen, chills and increasing autonomic dysreflexia symptoms which she has previously noted with prior bladder infections. He describes muscle aching, fevers, no vomiting, diarrhea, cough, chest pain. No skin breakdown however he does note a dry plaque on his right arm that he had been previously treating with the steroid cream. He has run out of the steroid cream in the plaque has returned. Related Data Home Medications Medication Instructions Recorded Confirmed ascorbic acid (vitamin C) 1,000 mg PO DAILY #0 10/20/18 05/25/19 cholecalciferol (vitamin D3) 2,000 unit PO DAILY #0 10/20/18 05/25/19 [Vitamin D3] midodrine 5 mg PO TID #0 10/20/18 05/25/19 Lubricating Topical Jelly Bact 1 applic TOPICAL DAILY 05/25/19 05/25/19 Renacidin 20 ml IRRIGATION Q OTHER DAY 05/25/19 05/25/19 fexofenadine 60 mg PO BID 05/25/19 05/25/19 ibuprofen 400 mg PO TID PRN 05/25/19 05/25/19 nitroglycerin 1 inch TRANSDERMAL Q6H PRN 05/25/19 05/25/19 sodium chloride 1 irrig IRRIGATION DAILY 05/25/19 05/25/19 triamcinolone acetonide 1 applic TOPICAL TID PRN 05/25/19 05/25/19 Previous Rx's Medication Instructions Recorded levofloxacin 750 mg PO DAILY #10 tab 04/29/20 Allergies Allergy/AdvReac Type Severity Reaction Status Date / Time Sulfa (Sulfonamide Allergy Verified 12/31/19 11:23 Antibiotics) msg Allergy Unknown Uncoded 05/25/19 15:43 Review of Systems Review of Systems Narrative: Remainder of review of systems including constitutional, ENT, cardiovascular, respiratory, GI, , musculoskeletal, skin, neurologic and psychiatric systems reviewed and are unremarkable except as noted in HPI. Patient History Medical History Chicken pox (Resolved) Hearing loss (Chronic) Kidney stones (Chronic ~09/2017) Quadriplegia (Chronic) Shoulder pain (Chronic ~1997) Vision disorder (Chronic) Surgical History History of back surgery (Resolved) Family History Father Cancer Mother Dementia Sister Heart disease Social History household members: spouse Smoking Status: Never smoker Smoking Status: Never smoker alcohol intake frequency: holidays/special occasions only Substance Use Type: does not use Exam Narrative Exam Narrative: General: Mildly ill-appearing in moderate distress, mildly tachypneic but able to give a complete and coherent history. In a wheelchair HEENT: Moist mucous membranes, normal sclera with reactive pupils, Neck: No JVD, supple Respiratory: Lungs are clear to auscultation, no wheezing no rales no rhonchi. Full and symmetrical air movement Cardiac: Regular rate and rhythm no murmurs no bruits Abdomen: Soft, he has minimal abdominal sensation, good bowel tones, Skin: Warm and dry, 1 cm plaque over the right elbow consistent with nummular eczema, noninfected Neurologic: C 5 6 paraplegia Extremities: No trauma, well perfused, muscle atrophy consistent with his paraplegia Psych: Cooperative, appropriate insight and affect Initial Vital Signs Initial Vital Signs: Vital Signs Temperature 100.8 F H 04/29/20 00:01 Pulse Rate 77 04/29/20 00:01 Respiratory Rate 28 H 04/29/20 00:01 Blood Pressure 120/70 04/29/20 00:01 Pulse Oximetry 96 04/29/20 00:01 Course Orders Ordered: ED Orders 04/28/20 23:40 Urinalysis and Microscopic Stat Urine Culture Stat 04/29/20 00:31 XR chest 1V Stat RT Consult Eval and Treat Now 04/29/20 00:50 Complete Blood Count AUTO DIFF Stat Comprehensive Metabolic Panel Stat Lactate (Lactic Acid) Stat Lipase Stat Partial Thromboplastin Time Stat Procalcitonin Stat Prothrombin Time INR Stat 04/29/20 01:00 Blood Culture Stat Discontinued Medications Sodium Chloride (Normal Saline 0.9%) 1,000 mls @ 1,000 mls/hr IV BOLUS ONE Stop: 04/29/20 01:29 Last Infusion: 04/29/20 03:07 Dose: 0 mls/hr Documented by: Admin: 04/29/20 01:43 Dose: 1,000 mls/hr Documented by: SIOBHAN Sodium Chloride (Normal Saline 0.9%) 1,000 mls @ 1,000 mls/hr IV BOLUS ONE Stop: 04/29/20 02:35 Last Admin: 04/29/20 03:07 Dose: Not Given Documented by: SIOBHAN Levofloxacin (Levaquin) 750 mg in 150 mls @ 100 mls/hr IV NOW ONE Stop: 04/29/20 03:05 Last Infusion: 04/29/20 03:07 Dose: 0 mls/hr Documented by: Admin: 04/29/20 01:43 Dose: 100 mls/hr Documented by: SIOBHAN Ondansetron HCl (Zofran) 4 mg IV NOW ONE Stop: 04/29/20 03:09 Last Admin: 04/29/20 03:19 Dose: 4 mg Documented by: SIOBHAN Vital Signs Vital signs: Vital Signs - 8 hr 04/29/20 00:01 Temperature 100.8 F H Pulse Rate 77 Respiratory Rate 28 H Blood Pressure 120/70 Pulse Oximetry 96 MDM - Male Genitourinary Lab Data Attestation: I reviewed the patient's lab results. Result diagrams: 04/29/20 00:50 04/29/20 00:50 Labs: Lab Results 04/28/20 04/29/20 04/29/20 Range/Units 23:40 00:50 00:50 WBC 8.9 (4.5-11.0) X10^3/uL RBC 4.08 L (4.5-5.9) X10^6/uL Hgb 12.3 L (13.5-17.5) g/dL Hct 36.6 L (41-53) % MCV 89.8 (80-100) fL MCH 30.1 (26-34) PG MCHC 33.5 (30-36) % RDW 14.0 (11.6-14.8) % Plt Count 160 (150-400) X10^3/uL Neut % (Auto) 82.9 H (50-75) % Lymph % (Auto) 6.5 L (25-40) % [place] % (Auto) 9.5 (3-14) % Eos % (Auto) 0.6 L (2-4) % Baso % (Auto) 0.5 (0-2) % Neut # (Auto) 7400 H (7158-2479) /uL Lymph # (Auto) 600 L (7776-7107) /uL [place] # (Auto) 800 (0-900) /uL Eos # (Auto) 100 (0-450) /uL Baso # (Auto) 0 (0-100) /uL PT 13.5 H (10.1-12.7) SECONDS INR 1.2 (0.9-1.3) APTT 36 (26.4-36.2) SECONDS Sodium (137-145) mmol/L Potassium (3.4-5.1) mmol/L Chloride (98-107) mmol/L Carbon Dioxide (22-32) mmol/L BUN (9-20) mg/dL Creatinine (0.66-1.25) mg/dL Estimated GFR (>60) mL/min BUN/Creatinine Ratio (6-22) Glucose (70-100) mg/dL Lactate (0.7-2.1) mmol/L Calcium (8.4-10.2) mg/dL Total Bilirubin (0.2-1.3) mg/dL AST (17-59) IU/L ALT (<50) IU/L Alkaline Phosphatase (38-126) U/L Total Protein (6.3-8.2) g/dL Albumin (3.5-5.0) g/dL Globulin (1.7-4.1) g/dL Albumin/Globulin Ratio (1.0-2.8) Lipase (23-300) U/L Procalcitonin (<0.5) ng/mL Urine Color Yellow Urine Appearance Clear Urine pH 7.0 (4.5-8.0) Ur Specific [place] <=1.005 (1.000-1.035) Urine Protein Negative (Negative) Urine Glucose (UA) Negative (Negative) g/dL Urine Ketones Negative (NEGATIVE) Urine Occult Blood 3+ H (Negative) Urine Nitrate Positive (Negative) Urine Bilirubin Negative (NEGATIVE) Urine Urobilinogen 0.2 (0.2) E.U./dL Ur Leukocyte Esterase 3+ H (NEGATIVE) Urine RBC 1-5/hpf (0-5/HPF) Urine WBC 10-30/hpf H (0-5/HPF) Urine Bacteria Many (>30) H (None) Ur Culture Indicated? Specimen cultured 04/29/20 04/29/20 04/29/20 Range/Units 00:50 00:50 00:50 WBC (4.5-11.0) X10^3/uL RBC (4.5-5.9) X10^6/uL Hgb (13.5-17.5) g/dL Hct (41-53) % MCV (80-100) fL MCH (26-34) PG MCHC (30-36) % RDW (11.6-14.8) % Plt Count (150-400) X10^3/uL Neut % (Auto) (50-75) % Lymph % (Auto) (25-40) % [place] % (Auto) (3-14) % Eos % (Auto) (2-4) % Baso % (Auto) (0-2) % Neut # (Auto) (2644-7672) /uL Lymph # (Auto) (4673-0340) /uL [place] # (Auto) (0-900) /uL Eos # (Auto) (0-450) /uL Baso # (Auto) (0-100) /uL PT (10.1-12.7) SECONDS INR (0.9-1.3) APTT (26.4-36.2) SECONDS Sodium 132 L (137-145) mmol/L Potassium 3.7 (3.4-5.1) mmol/L Chloride 102 (98-107) mmol/L Carbon Dioxide 25 (22-32) mmol/L BUN 12 (9-20) mg/dL Creatinine 0.51 L (0.66-1.25) mg/dL Estimated GFR > 60.0 (>60) mL/min BUN/Creatinine Ratio 23.5 H (6-22) Glucose 121 H (70-100) mg/dL Lactate 0.7 (0.7-2.1) mmol/L Calcium 9.0 (8.4-10.2) mg/dL Total Bilirubin 0.8 (0.2-1.3) mg/dL AST 22 (17-59) IU/L ALT 13 (<50) IU/L Alkaline Phosphatase 70 (38-126) U/L Total Protein 6.8 (6.3-8.2) g/dL Albumin 3.7 (3.5-5.0) g/dL Globulin 3.1 (1.7-4.1) g/dL Albumin/Globulin Ratio 1.2 (1.0-2.8) Lipase 132 (23-300) U/L Procalcitonin 0.05 (<0.5) ng/mL Urine Color Urine Appearance Urine pH (4.5-8.0) Ur Specific [place] (1.000-1.035) Urine Protein (Negative) Urine Glucose (UA) (Negative) g/dL Urine Ketones (NEGATIVE) Urine Occult Blood (Negative) Urine Nitrate (Negative) Urine Bilirubin (NEGATIVE) Urine Urobilinogen (0.2) E.U./dL Ur Leukocyte Esterase (NEGATIVE) Urine RBC (0-5/HPF) Urine WBC (0-5/HPF) Urine Bacteria (None) Ur Culture Indicated? Urinalysis December 31, 2019 Citrobacter braakii Serratia marcescens M.I.C. RX M.I.C. RX --------- --- --------- --- * Amoxicillin/Clavulanate R R * Cefazolin R R * Cefepime S S * Ceftriaxone I I * Ciprofloxacin S S * Ertapenem S S * Gentamicin S S * Imipenem S * Levofloxacin S S * Nitrofurantoin S R * Tobramycin S S * Trimethoprim/Sulfamethoxazole S S * Piperacillin/Tazobactam S MDM Narrative Medical decision making narrative: 54-year-old quadriplegic with symptoms consistent with urinary tract infection. He is not hypotensive and lactic acid is not elevated, no significantly elevated white blood cell count or acute renal insufficiency. Urinary tract infection from 4 months ago grew Citrobacter and Serratia both of which were sensitive to Levaquin. Urine today is consistent with recurrent bladder infection. Will begin treatment with Levaquin. Discharge Plan Departure Patient Disposition: Home Clinical Impression: Recurrent UTI, Incomplete quadriplegia at C5-6 level Instructions: DI for Urinary Tract Infection (UTI) Activity Restrictions/Additional Instructions: Thank you for coming in today You do have another bladder infection but I did not find evidence of kidney infection or sepsis. In the emergency room you are given a L of fluid and started on Levaquin. In December the 2 bacteria that grew with that bladder infection were both sensitive to Levaquin which is why that was chosen for you. I am going to prescribe another 10 days of Levaquin. The prescription was electronically transmitted to [facility] in [place] for you to order picker/assembler later today. If you develop worsening symptoms, fevers or other symptoms of worsening infection please return to the emergency department. I hope you feel better Prescriptions: New levofloxacin 750 mg tablet 750 mg PO DAILY Qty: 10 RF: 0 No Action midodrine 5 mg Tablet 5 mg PO TID Qty: 0 RF: 0 ascorbic acid (vitamin C) 500 mg Tablet 1,000 mg PO DAILY Qty: 0 RF: 0 cholecalciferol (vitamin D3) [Vitamin D3] 1,000 unit Tablet 2,000 unit PO DAILY Qty: 0 RF: 0 fexofenadine 60 mg Tablet 60 mg PO BID RF: 0 triamcinolone acetonide 0.5 % Cream 1 applic TOPICAL TID PRN (Reason: Itching) RF: 0 sodium chloride 0.9 % Solution 1 irrig IRRIGATION DAILY RF: 0 ibuprofen 400 mg Tablet 400 mg PO TID PRN (Reason: pain) RF: 0 nitroglycerin 2 % Ointment 1 inch TRANSDERMAL Q6H PRN (Reason: autonomic dysreflexia) RF: 0 Renacidin 1,980.6 mg-59.4 mg-980.4mg/30mL Solution 20 ml IRRIGATION Q OTHER DAY RF: 0 Lubricating Topical Jelly Bact 1 applic topical DAILY RF: 0 Referrals: Christine Magaña MD [Primary Care Provider] -
[2020-04-29 01:38] LABS: Procalcitonin 0.05 ng/mL (<0.5)
[2020-04-29] MEDS: levoFLOXacin 750 MG/150 ML PIGGYBACK 100 MG IV (01:43)
[2020-04-29] MEDS: SODIUM CHLORIDE 0.9% 1,000 ML 1000 ML IV (01:43)
--- NOTE | 2020-04-29 01:52 | PC.NURSE ---
pt is quadriplegic, has indwelling catheter, states has burning in lower abdomen. Pt reports has this feeling with urinary tract infections. has had fever as high as 104.
[2020-04-29] MEDS: ONDANSETRON 4 MG/2 ML INJ IV (03:19)
[2020-04-29 03:57] VITALS: BP 178/90; PULSE 78; RESP 24; TEMP 37
== END 2020-04-29 04:00 | disposition home or self-care (01) ==
PROVIDERS: Emergency Provider Emergency Medicine; Family Provider Family Medicine; PCP Family Medicine
DX: N39.0 Urinary tract infection, site not specified (principal); G82.54 Quadriplegia, C5-C7 incomplete
CPT/HCPCS: 36415; 71045; 80053; 81001; 83605; 83690; 84145; 85025; 85610; 85730; 87040; 87086; 96365; 96375; 99284; J1956; J2405

== ENCOUNTER → 2021-03-14 14:49 | Outpatient (CLI) | payer OTHER, SELFPAY ==
[2019-05-25 17:27] VITALS: BMI 17.6
--- NOTE | 2021-03-14 14:51 | DI.RAD.S_ITS ---
PROCEDURE: XR ABDOMEN 1V INDICATIONS: constipation TECHNIQUE: One view of the abdomen acquired. COMPARISON: None. FINDINGS: Surgical changes and devices: None. Bowel: Bowel gas pattern is abnormal with colonic obstipation over the mid and lower abdomen and gas-filled colon across the upper abdomen.. Soft tissues: No suspicious abdominal calcifications. Visualized solid organ contours appear normal in size. Bones: No suspicious bony lesions. IMPRESSION: No free air found but there is prominent colonic obstipation over the mid and lower abdomen and gas-filled colon over the upper abdomen. Dictated by: Rajesh Tony M.D. on 03/14/2021 at 15:20 Approved by: Rajesh Tony M.D. on 03/14/2021 at 15:21
== END ==
PROVIDERS: Family Provider Family Medicine; PCP Family Medicine; Referring Provider Family Medicine; Visit Provider Family Medicine
DX: K59.00 Constipation, unspecified (principal)
CPT/HCPCS: 74018

== ENCOUNTER → 2021-04-10 11:26 | Outpatient (ROUT) | payer OTHER, SELFPAY ==
[2019-05-25 17:27] VITALS: BMI 17.6
[2021-04-10 11:46] LABS: Appearance Urine UA SL CLOUDY; Bilirubin Urine UA NEGATIVE (NEGATIVE); Color Urine UA YELLOW; Glucose Urine UA NEGATIVE (Negative); Ketones Urine UA NEGATIVE (NEGATIVE); Leukocyte Esterase Urine UA 2+ (NEGATIVE); Nitrite Urine UA POSITIVE (Negative); Occult Blood Urine UA 3+ (Negative); Protein Urine UA TRACE (Negative); Specific Gravity Urine UA 1.015 (1.000-1.035); Urobilinogen Urine UA 0.2 E.U./dL (0.2)
[2021-04-10 12:00] LABS: Bacteria Urine Many (>30); Culture Indicated Urine Specimen Cultured; RBC Urine 1-5/HPF (0-5/HPF); WBC Urine 30-100/HPF (0-5/HPF)
== END ==
PROVIDERS: Family Provider Family Medicine; PCP Family Medicine; Visit Provider Family Medicine
DX: N39.0 Urinary tract infection, site not specified (principal)
CPT/HCPCS: 81001; 87077; 87086; 87186

== ENCOUNTER → 2021-09-02 11:11 | Outpatient (CLI) | payer OTHER, SELFPAY ==
[2019-05-25 17:27] VITALS: BMI 17.6
== END ==
PROVIDERS: Family Provider Family Medicine; PCP Family Medicine; Referring Provider Nurse Practitioner; Visit Provider Nurse Practitioner
DX: R82.90 Unspecified abnormal findings in urine (principal)
CPT/HCPCS: 87077; 87086; 87186

== ENCOUNTER 2022-05-15 12:10 | Emergency (ER) | payer OTHER, MEDICARE, SELFPAY ==
[2019-05-25 17:27] VITALS: BMI 17.6
[2022-05-15] VITALS (12 sets, daily range): BP systolic 90–131; BP diastolic 50–78; PULSE 73–98; RESP 14–24; TEMP 37.6; O2SAT 91–99; BMI 20.3
[2022-05-15 13:13] LABS: Bacteria Urine Many (>30); RBC Urine 1-5/HPF (0-5/HPF); Squamous Epithelial Cell Urine 0-1 /HPF (0-5/HPF); WBC Urine 10-30/HPF (0-5/HPF)
--- NOTE | 2022-05-15 14:07 | PC.NURSE ---
Pt reports testing positive for COVID this morning at home.
--- NOTE | 2022-05-15 14:30 | DI.RAD.S_ITS ---
PROCEDURE: XR CHEST 1V INDICATIONS: covid TECHNIQUE: One view of the chest was acquired. COMPARISON: [facility], , XR CHEST FOR PICC 1V, 06/18/2019, 16:48. FINDINGS: Surgical changes and devices: Fusion hardware in lower cervical spine is seen. Lungs and pleura: There is mild hyperinflation. Lungs are clear. No pleural effusions or pneumothorax. Mediastinum: Mediastinal contours appear normal. Heart size is normal. Bones and chest wall: No suspicious bony lesions. Overlying soft tissues appear unremarkable. IMPRESSION: No focal infiltrate, pleural effusion or pneumothorax. Mild hyperinflation. Dictated by: Sid Jin M.D. on 05/15/2022 at 15:22 Approved by: Sid Jin M.D. on 05/15/2022 at 15:23
--- NOTE | 2022-05-15 14:30 | ED.SEPSIS ---
HPI - Sepsis General Chief Complaint: Upper Respiratory Symptoms Mode of arrival: Wheelchair Evaluation Sepsis Screen: Possible Severe Sepsis Risk Sepsis Infection Criteria Present: Documented Infection Narrative: Patient is a 56-year-old male C5-6, quadriplegic chronic indwelling Flowers catheter recurrent UTIs autonomic dysreflexia presenting today with fever chills headache. He said he started having a dry nonproductive cough 5 days ago. Woke up very chilled this morning to go home COVID test was positive. He is also thinks that he has a UTI. His Flowers catheter was changed yesterday. He denies any shortness of breath or chest pain. Overall very chilled under many blankets. Review of Systems Review of Systems Narrative: GENERAL: Denies chills, fatigue, malaise, fever, sweats, travel HEENT: Denies sinus pain, ear pain, sore throat, difficulty swallowing, neck pain RESPIRATORY: See HPI CARDIOVASCULAR: Denies chest pain, palpitations, orthopnea, edema GASTROINTESTINAL: Denies nausea, vomiting, abdominal pain, diarrhea, constipation, melena. : See HPI MUSCULOSKELETAL: Denies weakness, joint pain, or bony pain SKIN: No rash, no erythema, no pruritus NEUROLOGIC: See HPI PSYCHIATRIC: No concerning psychosocial issues. 12 point review of systems is negative except for those stated above and HPI Patient History Medical History (Updated 05/15/22 @ 16:22 by Skylar Mitchell DO) Chicken pox Hearing loss Kidney stones (~09/2017) Quadriplegia Shoulder pain (~1997) Vision disorder Surgical History History of back surgery Family History Father Cancer Mother Dementia Sister Heart disease Social History household members: spouse Smoking Status: Never smoker Smoking Status: Never smoker alcohol intake frequency: holidays/special occasions only Substance Use Type: does not use Exam Initial Vital Signs Initial Vital Signs: Vital Signs Temperature 99.7 F H 05/15/22 12:35 Pulse Rate 98 H 05/15/22 12:35 Respiratory Rate 18 05/15/22 12:35 Blood Pressure 90/50 L 05/15/22 12:35 Pulse Oximetry 99 05/15/22 12:35 Oxygen Delivery Method 05/15/22 12:35 GENERAL: Alert 56-year-old male covered in blankets in his wheelchair appears to not feel well HEENT: Head atraumatic,EOMI, pupils reactive, face symmetric, [moist] mucous membranes CARDIOVASCULAR: Regular rate and rhythm without murmurs, rubs or gallops. RESPIRATORY: Breath sounds equal bilaterally, no wheezes rales or rhonchi. ABDOMEN: Soft, nontender. Normoactive bowel sounds all 4 quadrants. No guarding or rebound. : Flowers catheter EXTREMITIES: Normal range of motion, no clubbing or edema. Neurovascularly intact NEUROLOGICAL: Alert and oriented x4. At baseline SKIN: Warm, dry, no laceration, no petechiae, no rashes or lesions. Course Orders Ordered: ED Orders 05/15/22 12:54 Urine Culture Stat Urine Microscopic Stat 05/15/22 14:14 COVID19 -Nasal RAPID/Pre-Proc Stat 05/15/22 14:30 XR chest 1V Stat 05/15/22 14:39 Complete Blood Count AUTO DIFF Stat Comprehensive Metabolic Panel Stat Lactate (Lactic Acid) Stat Procalcitonin Stat 05/15/22 15:05 EKG-12 Lead Stat 05/15/22 15:22 Blood Culture Stat Discontinued Medications Acetaminophen (Acetaminophen 325 Mg Tablet) 975 mg PO NOW ONE Stop: 05/15/22 14:34 Last Admin: 05/15/22 14:47 Dose: 975 mg Documented By: NEFTALI Sodium Chloride (Normal Saline 0.9%) 1,000 mls @ 1,000 mls/hr IV BOLUS ONE Stop: 05/15/22 15:32 Last Infusion: 05/15/22 16:35 Dose: 0 mls/hr Documented By: Admin: 05/15/22 14:47 Dose: 1,000 mls/hr Documented By: NEFTALI Ceftriaxone Sodium 1,000 mg/ (Sodium Chloride) 100 mls @ 200 mls/hr IV NOW ONE Stop: 05/15/22 15:21 Last Infusion: 05/15/22 16:35 Dose: 0 mls/hr Documented By: Admin: 05/15/22 15:33 Dose: 200 mls/hr Documented By: ANA Vital Signs Vital signs: Vital Signs - 8 hr 05/15/22 13:54 05/15/22 13:54 05/15/22 14:00 Pulse Rate 94 H 88 Respiratory Rate Blood Pressure 131/76 Pulse Oximetry 97 96 05/15/22 14:58 05/15/22 14:30 05/15/22 14:31 Pulse Rate 86 89 Respiratory Rate 24 Blood Pressure 128/78 Pulse Oximetry 91 91 05/15/22 14:46 05/15/22 15:00 05/15/22 15:07 Pulse Rate 88 Respiratory Rate Blood Pressure 128/78 98/63 Pulse Oximetry 97 05/15/22 15:30 05/15/22 15:31 05/15/22 15:31 Pulse Rate 76 78 Respiratory Rate 17 14 Blood Pressure 123/58 L Pulse Oximetry 05/15/22 16:00 05/15/22 16:00 Pulse Rate 73 Respiratory Rate 23 Blood Pressure 111/68 Pulse Oximetry Sepsis Guideline Criteria Level 1 - Infection Sepsis Infection Criteria Present: Documented Infection Treatment Initiated Antibiotics:: IV antimicrobials will be initiated as soon as possible after recognition of sepsis state and within one hour for both sepsis and septic shock. MDM - Sepsis Lab Data Result diagrams: 05/15/22 14:39 05/15/22 14:39 Labs: Lab Results 05/15/22 05/15/22 05/15/22 Range/Units 12:54 14:14 14:39 WBC 4.9 (4.5-11.0) X10^3/uL RBC 4.07 L (4.5-5.9) X10^6/uL Hgb 12.6 L (13.5-17.5) g/dL Hct 36.0 L (41-53) % MCV 88.6 (80-100) fL MCH 31.0 (26-34) PG MCHC 35.0 (30-36) % RDW 14.1 (11.6-14.8) % Plt Count 151 (150-400) X10^3/uL Neut % (Auto) 79.5 H (50-75) % Lymph % (Auto) 5.8 L (25-40) % [place] % (Auto) 11.7 (3-14) % Eos % (Auto) 2.3 (2-4) % Baso % (Auto) 0.7 (0-2) % Neut # (Auto) 3900 (4327-6851) /uL Lymph # (Auto) 300 L (5254-9086) /uL [place] # (Auto) 600 (0-900) /uL Eos # (Auto) 100 (0-450) /uL Baso # (Auto) 0 (0-100) /uL Sodium (137-145) mmol/L Potassium (3.4-5.1) mmol/L Chloride (98-107) mmol/L Carbon Dioxide (22-32) mmol/L BUN (9-20) mg/dL Creatinine (0.66-1.25) mg/dL Estimated GFR (>60) mL/min BUN/Creatinine Ratio (6-22) Glucose (70-100) mg/dL Lactate (0.7-2.1) mmol/L Calcium (8.4-10.2) mg/dL Total Bilirubin (0.2-1.3) mg/dL AST (17-59) IU/L ALT (<50) IU/L Alkaline Phosphatase (38-126) U/L Total Protein (6.3-8.2) g/dL Albumin (3.5-5.0) g/dL Globulin (1.7-4.1) g/dL Albumin/Globulin Ratio (1.0-2.8) Procalcitonin (<0.5) ng/mL Urine RBC 1-5/hpf (0-5/HPF) Urine WBC 10-30/hpf H (0-5/HPF) Ur Squamous Epith Cells 0-1 /hpf (0-5/HPF) Urine Bacteria Many (>30) H (None) Ur Culture Indicated? Culture not indicate SARS-CoV-2 (PCR) Positive H (Negative) 05/15/22 05/15/22 Range/Units 14:39 14:39 WBC (4.5-11.0) X10^3/uL RBC (4.5-5.9) X10^6/uL Hgb (13.5-17.5) g/dL Hct (41-53) % MCV (80-100) fL MCH (26-34) PG MCHC (30-36) % RDW (11.6-14.8) % Plt Count (150-400) X10^3/uL Neut % (Auto) (50-75) % Lymph % (Auto) (25-40) % [place] % (Auto) (3-14) % Eos % (Auto) (2-4) % Baso % (Auto) (0-2) % Neut # (Auto) (6855-5156) /uL Lymph # (Auto) (3793-3662) /uL [place] # (Auto) (0-900) /uL Eos # (Auto) (0-450) /uL Baso # (Auto) (0-100) /uL Sodium 135 L (137-145) mmol/L Potassium 3.8 (3.4-5.1) mmol/L Chloride 102 (98-107) mmol/L Carbon Dioxide 23 (22-32) mmol/L BUN 13 (9-20) mg/dL Creatinine 0.53 L (0.66-1.25) mg/dL Estimated GFR > 60 (>60) mL/min BUN/Creatinine Ratio 24.5 H (6-22) Glucose 98 (70-100) mg/dL Lactate 0.8 (0.7-2.1) mmol/L Calcium 8.7 (8.4-10.2) mg/dL Total Bilirubin 0.3 (0.2-1.3) mg/dL AST 27 (17-59) IU/L ALT 22 (<50) IU/L Alkaline Phosphatase 90 (38-126) U/L Total Protein 7.2 (6.3-8.2) g/dL Albumin 4.0 (3.5-5.0) g/dL Globulin 3.2 (1.7-4.1) g/dL Albumin/Globulin Ratio 1.3 (1.0-2.8) Procalcitonin 0.05 (<0.5) ng/mL Urine RBC (0-5/HPF) Urine WBC (0-5/HPF) Ur Squamous Epith Cells (0-5/HPF) Urine Bacteria (None) Ur Culture Indicated? SARS-CoV-2 (PCR) (Negative) Urine Dip Bedside Urine Glucose Negative Bedside Urine Bilirubin - Negative Bedside Urine Ketone - Negative Urine Specific [place] 1.025 Bedside Urine Occult Blood +++ Bedside Urine pH 6.0 Bedside Urine Protein - Negative Bedside Urine Urobilinogen - Negative Bedside Urine Nitrite + Positive Bedside Urine Leukocytes ++ 125 Esterase Imaging Data Chest x-ray: Radiologist's Impression: [facility] [address] [place] [id number] XRay Report Signed Patient: Jeffery Figueroa MR#: [id number] : 1965 Acct:[id number] Age/Sex: 56 / M Date of Service: 05/15/22 Loc: ED Accession Number: [id number] ?? Procedure: XR chest 1V Ordering Provider: Skylar Mitchell D.O. PROCEDURE:? XR CHEST 1V ? INDICATIONS:? covid ? TECHNIQUE:? One view of the chest was acquired.? ? COMPARISON:? [facility], CR, XR CHEST FOR PICC 1V, 06/18/2019, 16:48. ? FINDINGS:? ? Surgical changes and devices:? Fusion hardware in lower cervical spine is seen. ? Lungs and pleura:? There is mild hyperinflation.? Lungs are clear.? No pleural effusions or pneumothorax.? ? Mediastinum:? Mediastinal contours appear normal.? Heart size is normal.? ? Bones and chest wall:? No suspicious bony lesions.? Overlying soft tissues appear unremarkable.? ? IMPRESSION:? No focal infiltrate, pleural effusion or pneumothorax.? Mild hyperinflation. ? ? Dictated by: Sid Jin M.D. on 05/15/2022 at 15:22 ?? MDM Narrative Medical decision making narrative: Patient is found to be COVID positive and have a UTI. His symptoms of COVID seems to have started last week certainly more than 5 days ago. And today woke up with symptoms of a UTI. He has nitrates and leukocytes in his urine he has had multiple recurrent UTIs. After IV fluids and IV antibiotics he is overall feeling significantly better. Antibiotic choice is based off of previous cultures and sensitivities. He is not hypotensive he is not tachycardic. He feels like he is able to go home. All likely on the tail end of his COVID infection but now with a new UTI infection. Discharge Plan Departure Patient Disposition: Home Clinical Impression: COVID-19, UTI (urinary tract infection) due to urinary indwelling catheter Instructions: DI for Urinary Tract Infection (UTI), COVID-19 Activity Restrictions/Additional Instructions: *You have been diagnosed with bladder infection and COVID *What to do: I am sorry that you feel terrible. At this time antibiotic should help her bladder infection. Your COVID infection should actually start improving. *Continue to take medications as directed Cefdinir 300 mg twice a day for 10 days--> SENT TO [facility] *Follow up with your primary care provider in 2-3 days or call [phone] *Return to ER if you should have increasing confusion weakness [or] any new, worsening or concerning symptoms Prescriptions: New cefdinir 300 mg capsule 300 mg PO Q12H Qty: 20 0RF No Action levofloxacin 750 mg tablet 750 mg PO DAILY Qty: 10 0RF cefpodoxime 200 mg tablet 200 mg PO BID Qty: 28 0RF Rx Instructions: must administer with a meal/food cefixime 400 mg capsule 400 mg PO DAILY 7 Days Qty: 7 0RF midodrine 5 mg Tablet 5 mg PO TID Qty: 0 Label Comments: patient states takes daily and prn. Rx Instructions: Take first dose shortly before rising, last dose 4 hours or more before lying down. ascorbic acid (vitamin C) 500 mg Tablet 1,000 mg PO DAILY Qty: 0 cholecalciferol (vitamin D3) [Vitamin D3] 1,000 unit Tablet 2,000 unit PO DAILY Qty: 0 fexofenadine 60 mg Tablet 60 mg PO BID triamcinolone acetonide 0.5 % Cream 1 applic TOPICAL TID PRN (Reason: Itching) Rx Instructions: itching or rash on on right elbow sodium chloride 0.9 % Solution 1 irrig IRRIGATION DAILY Rx Instructions: when Renacidin not used ibuprofen 400 mg Tablet 400 mg PO TID PRN (Reason: pain) nitroglycerin 2 % Ointment 1 inch TRANSDERMAL Q6H PRN (Reason: autonomic dysreflexia) Renacidin 1,980.6 mg-59.4 mg-980.4mg/30mL Solution 20 ml IRRIGATION Q OTHER DAY Rx Instructions: by catheter Lubricating Topical Jelly Bact 1 applic topical DAILY Rx Instructions: Apply thin film to affected area every day levofloxacin 750 mg tablet 750 mg PO DAILY Qty: 10 0RF Referrals: Christine Magaña MD [Primary Care Provider] - Visit Report Forms: Patient Portal/API
[2022-05-15] MEDS: ACETAMINOPHEN 325 MG TABLET 975 MG PO (14:47)
[2022-05-15] MEDS: SODIUM CHLORIDE 0.9% 1,000 ML 1000 ML IV (14:47)
[2022-05-15 14:49] LABS: Add Manual Diff / Slide Review NO; Basophils Absolute Auto 0 /uL (0-100); Basophils Percent Auto 0.7 % (0-2); Eosinophils Absolute Auto 100 /uL (0-450); Eosinophils Percent Auto 2.3 % (2-4); Hemoglobin 12.6 g/dL (13.5-17.5); Lymphocytes Absolute Auto 300 /uL (1100-4500); Lymphocytes Percent Auto 5.8 % (25-40); Mean Corpuscular Volume 88.6 fL (80-100); Monocytes Absolute Auto 600 /uL (0-900); Monocytes Percent Auto 11.7 % (3-14); Neutrophils Absolute Auto 3900 /uL (1500-7000); Neutrophils Percent Auto 79.5 % (50-75); Platelet Count 151 X10^3/uL (150-400); Red Blood Cell Count 4.07 X10^6/uL (4.5-5.9); Red Cell Distribution Width 14.1 % (11.6-14.8); White Blood Cell Count 4.9 X10^3/uL (4.5-11.0)
[2022-05-15 15:08] LABS: Lactate (Lactic Acid) 0.8 mmol/L (0.7-2.1)
[2022-05-15 15:10] LABS: Alanine Aminotransferase 22 IU/L (<50); Albumin Globulin Ratio 1.3 (1.0-2.8); Alkaline Phosphatase 90 U/L (38-126); Aspartate Aminotransferase 27 IU/L (17-59); BUN Creatinine Ratio 24.5 (6-22); Bilirubin Total 0.3 mg/dL (0.2-1.3); Blood Urea Nitrogen 13 mg/dL (9-20); Calcium 8.7 mg/dL (8.4-10.2); Carbon Dioxide 23 mmol/L (22-32); Chloride 102 mmol/L (98-107); Estimated Glomerular Filt Rate > 60 mL/min (>60); Globulin 3.2 g/dL (1.7-4.1); Glucose 98 mg/dL (70-100); HEMOLYSIS < 15 (0-50); Potassium 3.8 mmol/L (3.4-5.1); Sodium 135 mmol/L (137-145); Total Protein 7.2 g/dL (6.3-8.2)
[2022-05-15 15:16] LABS: COVID19 -Nasal RAPID POSITIVE (Negative)
[2022-05-15 15:26] LABS: Procalcitonin 0.05 ng/mL (<0.5)
[2022-05-15] MEDS: cefTRIAXone 1,000 MG in SODIUM CHLORIDE 0.9% 100 ML 200 MG IV (15:33)
== END 2022-05-15 16:37 | disposition home or self-care (01) ==
PROVIDERS: Emergency Provider Emergency Medicine; Family Provider Family Medicine; PCP Family Medicine
DX: U07.1 COVID-19 (principal); T83.511A Infection and inflammatory reaction due to indwelling urethral catheter, initial encounter
CPT/HCPCS: 36415; 71045; 80053; 81003; 81015; 83605; 84145; 85025; 87040; 87077; 87086; 87186; 87635; 93005; 93010; 96365; 99284; C9803; J0696

== ENCOUNTER → 2022-11-12 10:32 | Outpatient (ROUT) | payer OTHER, SELFPAY ==
[2019-05-25 17:27] VITALS: BMI 17.6
[2022-11-12 10:40] LABS: Appearance Urine UA CLEAR; Bilirubin Urine UA NEGATIVE (NEGATIVE); Color Urine UA YELLOW; Glucose Urine UA NEGATIVE (Negative); Ketones Urine UA NEGATIVE (NEGATIVE); Leukocyte Esterase Urine UA 3+ (NEGATIVE); Nitrite Urine UA POSITIVE (Negative); Occult Blood Urine UA 1+ (Negative); Protein Urine UA NEGATIVE (Negative); Specific Gravity Urine UA 1.015 (1.000-1.035)
[2022-11-12 10:58] LABS: Bacteria Urine Many (>30); Culture Indicated Urine Specimen Cultured; RBC Urine 1-5/HPF (0-5/HPF); Squamous Epithelial Cell Urine 0-1 /HPF (0-5/HPF); WBC Urine 30-100/HPF (0-5/HPF)
== END ==
PROVIDERS: Family Provider Family Medicine; PCP Family Medicine; Visit Provider Family Medicine
DX: N39.0 Urinary tract infection, site not specified (principal); R30.0 Dysuria
CPT/HCPCS: 81001; 87077; 87086; 87186

== ENCOUNTER 2022-12-27 19:35 | Inpatient (IN) | payer OTHER, SELFPAY ==
[2019-05-25 17:27] VITALS: BMI 17.6
[2022-12-27] VITALS (7 sets, daily range): BP systolic 110–119; BP diastolic 61–62; PULSE 73–79; RESP 18; TEMP 37.3; O2SAT 95–99
--- NOTE | 2022-12-27 22:16 | ED_ITS ---
HPI - Male Genitourinary General Chief complaint: Urogenital-Male Stated complaint: Bladder infection Time Seen by Provider: 12/27/22 19:50 Source: patient Mode of arrival: Wheelchair History of Present Illness HPI Narrative: 57-year-old male nonsmoker with prior C6 spinal cord injury and recent urologic procedure involving a kidney stone removed on states and states that he has had subjective fever, chills and felt generally unwell since then. [place]. He denies any runny nose, sore throat or cough. He is had no chest pain or shortness of breath. Related Data Home Medications Medication Instructions Recorded Confirmed ascorbic acid (vitamin C) 500 mg 1,000 mg PO DAILY ##0 10/20/18 03/14/21 tablet cholecalciferol (vitamin D3) 25 2,000 unit PO DAILY ##0 10/20/18 03/14/21 mcg (1,000 unit) tablet (Vitamin D3) midodrine 5 mg tablet 5 mg PO TID ##0 10/20/18 03/14/21 Lubricating Topical Jelly Bact 1 applic topical DAILY 05/25/19 03/14/21 citric ac 1980.6 mg-glucono 59.4 20 ml irrigation Q OTHER DAY 05/25/19 03/14/21 mg-mag carb 980.4 mg/30 mL irrig.soln (Renacidin) fexofenadine 60 mg tablet 60 mg PO BID 05/25/19 03/14/21 ibuprofen 400 mg tablet 400 mg PO TID PRN pain 05/25/19 03/14/21 nitroglycerin 2 % transdermal 1 inch transdermal Q6H PRN 05/25/19 03/14/21 ointment autonomic dysreflexia sodium chloride 0.9 % irrigation 1 irrig irrigation DAILY 05/25/19 03/14/21 solution triamcinolone acetonide 0.5 % 1 applic topical TID PRN Itching 05/25/19 03/14/21 topical cream Allergies Allergy/AdvReac Type Severity Reaction Status Date / Time Sulfa (Sulfonamide Allergy Verified 05/15/22 12:43 Antibiotics) msg Allergy Unknown Uncoded 05/15/22 12:43 Review of Systems Review of Systems Narrative: GENERAL: See HPI HEENT: Denies sinus pain, ear pain, sore throat, difficulty swallowing, dizziness. RESPIRATORY: See HPI CARDIOVASCULAR: Denies chest pain, palpitations, orthopnea, edema, GASTROINTESTINAL: Denies nausea, vomiting, abdominal pain, diarrhea, constipation, melena. : Denies dysuria, frequency, incontinence, hematuria, urinary retention. MUSCULOSKELETAL: denies weakness, joint pain, or bony pain SKIN: Denies rash, skin lesions, or other NEUROLOGIC: Denies weakness, headache, numbness, change in speech, confusion, seizures, incoordination. PSYCHIATRIC: No concerning psychosocial issues. 12 point review of systems is negative except for those stated above Patient History Medical History (Updated 12/28/22 @ 05:42 by Wade Zaragoza DO) Chicken pox Hearing loss Kidney stones (~09/2017) Quadriplegia Shoulder pain (~1997) Vision disorder Surgical History History of back surgery Family History Father Cancer Mother Dementia Sister Heart disease Social History household members: spouse Smoking Status: Never smoker Smoking Status: Never smoker alcohol intake frequency: holidays/special occasions only Substance Use Type: does not use Exam Narrative Exam Narrative: GENERAL: [57] year old patient appears stated age. Well-developed patient, in mild distress. HEAD: Atraumatic. Normocephalic. EYES: Pupils equal round and reactive. Extraocular motions intact. No scleral icterus. No injection or drainage. ENT: Nose without bleeding, purulent drainage. Throat without erythema, tonsillar hypertrophy or exudate. Airway patent. NECK: Trachea midline. Non tender CARDIOVASCULAR: Regular rate and rhythm without murmurs, gallops, or rubs. RESPIRATORY: Clear to auscultation. Breath sounds equal bilaterally. No wheezes, rales, or rhonchi. GASTROINTESTINAL: A soft, slightly distended, this is at baseline per patient. Bowel sounds present. He feels no pain with palpation but just pressure EXTREMITIES: No edema or joint tenderness. BACK: Nontender without deformity or crepitance. No flank tenderness. NEURO: AOx3. SKIN: No rash or erythema of visible areas Initial Vital Signs Initial Vital Signs: Vital Signs Temperature 99.2 F 12/27/22 19:46 Pulse Rate 79 12/27/22 19:46 Respiratory Rate 18 12/27/22 19:46 Blood Pressure 110/62 12/27/22 19:46 Pulse Oximetry 99 12/27/22 19:46 Oxygen Delivery Method Room Air 12/27/22 19:46 Course Orders Ordered: ED Orders 12/27/22 22:27 Blood Culture Stat EKG-12 Lead Stat 12/27/22 22:30 Complete Blood Count AUTO DIFF Stat Comprehensive Metabolic Panel Stat Lactate (Lactic Acid) Stat Procalcitonin Stat Troponin & CK Cardiac Panel Stat 12/27/22 23:18 CT kidney ureter bladder (KUB) Stat 12/28/22 02:10 COVID19 -Nasal RAPID Stat Sodium Chloride (Normal Saline 0.9%) 1,000 mls @ 125 mls/hr IV CONT ABNER Last Admin: 12/28/22 05:31 Dose: 125 mls/hr Documented By: Ondansetron HCl (Ondansetron 4 Mg/2 Ml Inj) 4 mg IV Q4HR PRN PRN Reason: Nausea And Vomiting Discontinued Medications Sodium Chloride (Normal Saline 0.9%) 1,000 mls @ 1,000 mls/hr IV BOLUS ONE Stop: 12/27/22 23:26 Last Infusion: 12/27/22 23:55 Dose: 0 mls/hr Documented By: Admin: 12/27/22 22:55 Dose: 1,000 mls/hr Documented By: SHERLY Ceftriaxone Sodium 2,000 mg/ (Sodium Chloride) 100 mls @ 200 mls/hr IV NOW ONE Stop: 12/27/22 22:28 Last Infusion: 12/27/22 23:22 Dose: 0 mls/hr Documented By: Admin: 12/27/22 22:55 Dose: 200 mls/hr Documented By: SHERLY Potassium Chloride (Potassium Chloride 20 Meq/15 Ml Udc) 40 meq PO NOW ONE Stop: 12/27/22 23:37 Last Admin: 12/28/22 00:04 Dose: 40 meq Documented By: SHERLY Potassium Chloride (Potassium Chloride 20 Meq Tab) 40 meq PO NOW ONE Stop: 12/27/22 23:37 Last Admin: 12/28/22 00:03 Dose: 40 meq Documented By: SHERLY Vital Signs Vital signs: Vital Signs - 8 hr 12/27/22 23:01 12/27/22 22:00 12/27/22 22:30 Pulse Rate 73 77 79 Respiratory Rate 18 Blood Pressure 119/61 Pulse Oximetry 98 95 99 Oxygen Delivery Method Room Air Room Air Room Air 12/28/22 00:25 12/28/22 00:30 12/28/22 01:00 Pulse Rate 71 72 77 Respiratory Rate 17 17 23 Blood Pressure Pulse Oximetry 96 98 97 Oxygen Delivery Method 12/28/22 01:30 12/28/22 02:00 12/28/22 02:30 Pulse Rate 76 74 71 Respiratory Rate 20 19 16 Blood Pressure Pulse Oximetry 97 98 98 Oxygen Delivery Method 12/28/22 03:00 12/28/22 03:05 12/28/22 03:05 Pulse Rate 75 81 Respiratory Rate 18 31 H Blood Pressure 139/96 H Pulse Oximetry 99 99 Oxygen Delivery Method MDM - Male Genitourinary Lab Data 12/27/22 22:30 12/27/22 22:30 Labs: Lab Results 12/27/22 12/27/22 12/27/22 Range/Units 22:30 22:30 22:30 WBC 21.2 H (4.5-11.0) X10^3/uL RBC 3.71 L (4.5-5.9) X10^6/uL Hgb 10.9 L (13.5-17.5) g/dL Hct 32.3 L (41-53) % MCV 87.2 (80-100) fL MCH 29.4 (26-34) PG MCHC 33.8 (30-36) % RDW 13.9 (11.6-14.8) % Plt Count 301 (150-400) X10^3/uL Neut % (Auto) 90.9 H (50-75) % Lymph % (Auto) 2.7 L (25-40) % [place] % (Auto) 5.8 (3-14) % Eos % (Auto) 0.0 L (2-4) % Baso % (Auto) 0.6 (0-2) % Neut # (Auto) 92034 H (1176-9838) /uL Lymph # (Auto) 600 L (1741-6973) /uL [place] # (Auto) 1200 H (0-900) /uL Eos # (Auto) 0 (0-450) /uL Baso # (Auto) 100 (0-100) /uL Sodium 129 L (137-145) mmol/L Potassium 2.7 L* (3.4-5.1) mmol/L Chloride 96 L (98-107) mmol/L Carbon Dioxide 23 (22-32) mmol/L BUN 9 (9-20) mg/dL Creatinine 0.45 L (0.66-1.25) mg/dL Estimated GFR > 60 (>60) mL/min BUN/Creatinine Ratio 20.0 (6-22) Glucose 118 H (70-100) mg/dL Lactate 0.8 (0.7-2.1) mmol/L Calcium 8.3 L (8.4-10.2) mg/dL Total Bilirubin 1.5 H (0.2-1.3) mg/dL AST 28 (17-59) IU/L ALT 43 (<50) IU/L Alkaline Phosphatase 104 (38-126) U/L Total Creatine Kinase 51 L (55-170) U/L CK-MB (CK-2) TNP CK-MB (CK-2) Rel Index TNP Troponin I 0.023 (0.01-0.034) ng/mL Total Protein 6.8 (6.3-8.2) g/dL Albumin 3.4 L (3.5-5.0) g/dL Globulin 3.4 (1.7-4.1) g/dL Albumin/Globulin Ratio 1.0 (1.0-2.8) Procalcitonin 1.20 H (<0.5) ng/mL SARS-CoV-2 (PCR) (Negative) 12/28/22 Range/Units 02:10 WBC (4.5-11.0) X10^3/uL RBC (4.5-5.9) X10^6/uL Hgb (13.5-17.5) g/dL Hct (41-53) % MCV (80-100) fL MCH (26-34) PG MCHC (30-36) % RDW (11.6-14.8) % Plt Count (150-400) X10^3/uL Neut % (Auto) (50-75) % Lymph % (Auto) (25-40) % [place] % (Auto) (3-14) % Eos % (Auto) (2-4) % Baso % (Auto) (0-2) % Neut # (Auto) (5932-0531) /uL Lymph # (Auto) (6237-4864) /uL [place] # (Auto) (0-900) /uL Eos # (Auto) (0-450) /uL Baso # (Auto) (0-100) /uL Sodium (137-145) mmol/L Potassium (3.4-5.1) mmol/L Chloride (98-107) mmol/L Carbon Dioxide (22-32) mmol/L BUN (9-20) mg/dL Creatinine (0.66-1.25) mg/dL Estimated GFR (>60) mL/min BUN/Creatinine Ratio (6-22) Glucose (70-100) mg/dL Lactate (0.7-2.1) mmol/L Calcium (8.4-10.2) mg/dL Total Bilirubin (0.2-1.3) mg/dL AST (17-59) IU/L ALT (<50) IU/L Alkaline Phosphatase (38-126) U/L Total Creatine Kinase (55-170) U/L CK-MB (CK-2) CK-MB (CK-2) Rel Index Troponin I (0.01-0.034) ng/mL Total Protein (6.3-8.2) g/dL Albumin (3.5-5.0) g/dL Globulin (1.7-4.1) g/dL Albumin/Globulin Ratio (1.0-2.8) Procalcitonin (<0.5) ng/mL SARS-CoV-2 (PCR) Negative (Negative) Urine Dip Bedside Urine Glucose Negative Bedside Urine Bilirubin - Negative Bedside Urine Ketone ++ 40 Urine Specific [place] 1.025 Bedside Urine Occult Blood +++ Bedside Urine pH 6.0 Bedside Urine Protein + 30 Bedside Urine Urobilinogen 1+ 2mg Bedside Urine Nitrite + Positive Bedside Urine Leukocytes ++ 125 Esterase MDM Narrative Medical decision making narrative: [57] year old patient presents with fever, chills, weakness and recent urological procedure Multiple etiologies for patient's symptoms considered including, but not limited to: [UTI with sepsis, upper respiratory infection versus other] Prior Charts reviewed in our EMR Primary Historian: patient Labs reviewed and interpreted by myself: Leukocytosis with relative left shift, procalcitonin critically elevated, lactate and normal range Imaging reviewed: CT KUB notes possible ileus, left ureteral stent in place with mild hydro and mild right hydro, possible recently passed stone Consultations: Dr. Reddy on behalf of Dr. Magaña, accepts patient on his service Discharge Plan Departure Patient Disposition: Admitted As Inpatient Clinical Impression: Acute UTI, Sepsis, Acute hypokalemia Admit Date/Time: 12/28/22 03:13 Admit Provider: Vamshi Gordon
[2022-12-27 22:54] LABS: Add Manual Diff / Slide Review NO; Basophils Absolute Auto 100 /uL (0-100); Basophils Percent Auto 0.6 % (0-2); Eosinophils Absolute Auto 0 /uL (0-450); Hematocrit 32.3 % (41-53); Hemoglobin 10.9 g/dL (13.5-17.5); Lymphocytes Absolute Auto 600 /uL (1100-4500); Lymphocytes Percent Auto 2.7 % (25-40); Mean Corpuscular HGB Conc 33.8 % (30-36); Mean Corpuscular Hemoglobin 29.4 PG (26-34); Mean Corpuscular Volume 87.2 fL (80-100); Monocytes Absolute Auto 1200 /uL (0-900); Monocytes Percent Auto 5.8 % (3-14); Neutrophils Absolute Auto 19200 /uL (1500-7000); Neutrophils Percent Auto 90.9 % (50-75); Platelet Count 301 X10^3/uL (150-400); Red Blood Cell Count 3.71 X10^6/uL (4.5-5.9); Red Cell Distribution Width 13.9 % (11.6-14.8); White Blood Cell Count 21.2 X10^3/uL (4.5-11.0)
[2022-12-27] MEDS: cefTRIAXone 2,000 MG in SODIUM CHLORIDE 0.9% 100 ML 200 MG IV (22:55)
[2022-12-27] MEDS: SODIUM CHLORIDE 0.9% 1,000 ML 1000 ML IV (22:55)
[2022-12-27 23:05] LABS: Alanine Aminotransferase 43 IU/L (<50); Albumin 3.4 g/dL (3.5-5.0); Alkaline Phosphatase 104 U/L (38-126); Aspartate Aminotransferase 28 IU/L (17-59); Bilirubin Total 1.5 mg/dL (0.2-1.3); Blood Urea Nitrogen 9 mg/dL (9-20); Calcium 8.3 mg/dL (8.4-10.2); Carbon Dioxide 23 mmol/L (22-32); Chloride 96 mmol/L (98-107); Creatine Kinase 51 U/L (55-170); Estimated Glomerular Filt Rate > 60 mL/min (>60); Globulin 3.4 g/dL (1.7-4.1); Glucose 118 mg/dL (70-100); HEMOLYSIS < 15 (0-50); Sodium 129 mmol/L (137-145); Total Protein 6.8 g/dL (6.3-8.2)
[2022-12-27 23:06] LABS: Lactate (Lactic Acid) 0.8 mmol/L (0.7-2.1)
[2022-12-27 23:11] LABS: Potassium 2.7 mmol/L (3.4-5.1)
[2022-12-27 23:17] LABS: Troponin I 0.023 ng/mL (0.01-0.034)
--- NOTE | 2022-12-27 23:18 | DI.CT.S_ITS ---
PROCEDURE: CT KIDNEY URETER BLADDER (KUB) INDICATIONS: recent stent/lithotripsy, UTI, uropathy? TECHNIQUE: Axial sections were acquired from the lung bases to the pubic symphysis. Coronal and sagittal reformats were performed. For radiation dose reduction, the following was used: automated exposure control, adjustment of mA and/or kV according to patient size. COMPARISON: None available. FINDINGS: Image quality: Excellent. Lung bases: There is mild dependent atelectasis. Heart: Heart is normal in size. URINARY: Right Kidney and Ureter: There is mild right hydroureteronephrosis extending to the ureterovesicular junction without a discrete obstructing stone visualized. No renal stones. There is a right renal cortical cyst medially. Left Kidney and Ureter: There is a left ureteral stent with the proximal coil in the left renal pelvis and the distal coil in the bladder. There is mild left hydroureteronephrosis with mild urothelial thickening. There is also mild left perinephric stranding. There are 3 nonobstructing left renal stones with the largest measuring up to 0.3 cm. Bladder: There is a Flowers catheter within a partially distended urinary bladder. Normal wall thickness. No stones. ABDOMEN: Liver: There is a small hypodensity in the right hepatic dome likely representing a cyst. Gallbladder: Within normal limits without calcified gallstones. Biliary ducts: No biliary ductal dilatation. Pancreas: Unremarkable. Spleen: Normal in size. Adrenal Glands: No adrenal nodules. Stomach and Bowel: Stomach and small bowel are normal in caliber and wall thickness. No pericecal inflammatory changes to suggest appendicitis. There is marked gaseous distention of the sigmoid colon, measuring up to 9.0 cm in diameter. There is a transition into a nondistended distal sigmoid colon without a discrete obstructing mass identified. No evidence of volvulus. There is [id number] stool distention of the colon proximally. Peritoneum: There is a small amount of intraperitoneal free fluid. No free air. Ventral Wall: No hernia. Abdominal Nodes: No retroperitoneal or mesenteric adenopathy by size criteria. Vessels: Aorta and inferior vena cava are normal in size. PELVIS: Pelvic Organs: Unremarkable. Pelvic Nodes: No enlarged lymph nodes. Miscellaneous: No inguinal hernias identified. Bones: Visualized osseous structures demonstrate no suspicious focal lesions. IMPRESSION: 1. Mild right hydroureteronephrosis extending to the UVJ without a discrete obstructing stone visualized. Findings may represent a recently passed stone. 2. Left ureteral stent demonstrated with mild left hydroureteronephrosis. 3. Marked gaseous distention in the sigmoid colon without a discrete obstructing mass identified at the transition point. No definite evidence of volvulus. The findings are suggestive of an ileus. 4. Small nonobstructing left renal stones as described. Dictated by: Tad Rincon M.D. on 12/28/2022 at 0:32 Approved by: Tad Rincon M.D. on 12/28/2022 at 0:42
[2022-12-28] VITALS (19 sets, daily range): BP systolic 108–165; BP diastolic 58–101; PULSE 67–88; RESP 16–31; TEMP 36.3–38.2; O2SAT 94–99; BMI 25.7
[2022-12-28] MEDS: POTASSIUM CHLORIDE 20 MEQ TAB 40 MEQ PO (00:03)
[2022-12-28] MEDS: POTASSIUM CHLORIDE 20 MEQ/15 ML UDC 40 MEQ PO (00:04)
[2022-12-28 02:31] LABS: COVID19 -Nasal RAPID Negative (Negative)
[2022-12-28] MEDS: SODIUM CHLORIDE 0.9% 1,000 ML 125 ML IV (05:31)
--- NOTE | 2022-12-28 06:27 | PC.NURSE ---
[facility] Contacted ER Dr Zaragoza about orders for patient. Dr Zaragoza gave verbal orders for tele, and confirmed only medications for patient is NS @125 and 4mg zofran IV PRN for nausea, and Q2Hour VS per Sepsis protocol, Dr Zaragoza informed RN that Dr Reddy was informed on patient status and admission and that Dr Reddy would be in first thing in the morning to assess patient and to notify Dr Reddy of any other concerns.
[2022-12-28] MEDS: cefTRIAXone 1,000 MG in SODIUM CHLORIDE 0.9% 100 ML 200 MG IV (07:07)
[2022-12-28] MEDS: ACETAMINOPHEN 325 MG TABLET 650 MG PO ×3 (07:07→21:44)
[2022-12-28 07:29] LABS: BUN Creatinine Ratio 22.5 (6-22); Blood Urea Nitrogen 9 mg/dL (9-20); Calcium 8.2 mg/dL (8.4-10.2); Carbon Dioxide 21 mmol/L (22-32); Chloride 105 mmol/L (98-107); Estimated Glomerular Filt Rate > 60 mL/min (>60); Glucose 112 mg/dL (70-100); HEMOLYSIS 18 (0-50); Potassium 3.6 mmol/L (3.4-5.1); Sodium 134 mmol/L (137-145)
--- NOTE | 2022-12-28 08:10 | PM.HP.1 ---
History of Present Illness History of Present Illness Date Patient Seen: 12/28/22 Time Patient Seen: 08:10 Chief complaint: Bladder infection Narrative: 57-year-old male with a history of incomplete quadriplegia at C5-C6 level with recent kidney stone. Patient was [facility] at the [facility] where he had lithotripsy and a stent placed approximately 3 days ago. Patient states he was doing well after discharge. 24 hours after discharge broke out in a little bit of sweat with G never does before. The following day he was sick and nauseated in addition to sweats. He did not really want to come back to the hospital but his made him come back in. Because he has loss of sensation he does not have any significant pain has always belly distention but it is a little bit more distended than normal. Does have a history of urinary tract infections. But he usually does not know because of his sensory deficits. On arrival the emergency department he was found to have an elevated white blood cell count was hypokalemic he had a normal lactate and an elevated procalcitonin. His CT scan shows my mild right hydronephrosis left ureteral stent gaseous distention in the sigmoid colon with no mass left nonobstructing renal stone. Patient was admitted for IV antibiotics IV fluids because of infection of his urinary tract and possible blood infection. Patient states he is feeling a little bit better this morning. He is still quite weak and tired. Has mild decreased appetite. [facility] Medical History Chicken pox Hearing loss Kidney stones (~09/2017) Quadriplegia Shoulder pain (~1997) Vision disorder Surgical History History of back surgery Family History Father Cancer Mother Dementia Sister Heart disease Social History household members: spouse Smoking Status: Never smoker alcohol intake: current Meds Home Medications and Allergies Home Medications Medication Instructions Recorded Confirmed Type ascorbic acid (vitamin C) 500 mg 1,000 mg PO DAILY ##0 10/20/18 03/14/21 History tablet cholecalciferol (vitamin D3) 25 2,000 unit PO DAILY ##0 10/20/18 03/14/21 History mcg (1,000 unit) tablet (Vitamin D3) midodrine 5 mg tablet 5 mg PO TID ##0 10/20/18 03/14/21 History Lubricating Topical Jelly Bact 1 applic topical DAILY 05/25/19 03/14/21 History citric ac 1980.6 mg-glucono 59.4 20 ml irrigation Q OTHER DAY 05/25/19 03/14/21 History mg-mag carb 980.4 mg/30 mL irrig.soln (Renacidin) fexofenadine 60 mg tablet 60 mg PO BID 05/25/19 03/14/21 History ibuprofen 400 mg tablet 400 mg PO TID PRN pain 05/25/19 03/14/21 History nitroglycerin 2 % transdermal 1 inch transdermal Q6H PRN 05/25/19 03/14/21 History ointment autonomic dysreflexia sodium chloride 0.9 % irrigation 1 irrig irrigation DAILY 05/25/19 03/14/21 History solution triamcinolone acetonide 0.5 % 1 applic topical TID PRN Itching 05/25/19 03/14/21 History topical cream Allergies Allergy/AdvReac Type Severity Reaction Status Date / Time Sulfa (Sulfonamide Allergy Verified 05/15/22 12:43 Antibiotics) msg Allergy Unknown Uncoded 05/15/22 12:43 Exam Vital Signs (past 8 hours): - 12/28/22 00:25 12/28/22 00:30 12/28/22 01:00 Temperature Pulse Rate 71 72 77 Respiratory Rate 17 17 23 Blood Pressure Pulse Oximetry 96 98 97 Oxygen Delivery Method Oxygen Flow Rate 12/28/22 01:30 12/28/22 02:00 12/28/22 02:30 Temperature Pulse Rate 76 74 71 Respiratory Rate 20 19 16 Blood Pressure Pulse Oximetry 97 98 98 Oxygen Delivery Method Oxygen Flow Rate 12/28/22 03:00 12/28/22 03:05 12/28/22 03:05 Temperature Pulse Rate 75 81 Respiratory Rate 18 31 H Blood Pressure 139/96 H Pulse Oximetry 99 99 Oxygen Delivery Method Oxygen Flow Rate 12/28/22 03:30 12/28/22 03:59 12/28/22 03:45 Temperature 98.7 F Pulse Rate 75 85 Respiratory Rate 25 H 19 Blood Pressure 165/87 H Pulse Oximetry 97 97 Oxygen Delivery Method Room Air Oxygen Flow Rate 0 12/28/22 04:15 12/28/22 05:26 12/28/22 03:32 Temperature 100.8 F H Pulse Rate 88 Respiratory Rate 19 Blood Pressure 151/87 H 150/71 H Pulse Oximetry 97 Oxygen Delivery Method Room Air Oxygen Flow Rate 0 12/28/22 07:07 Temperature 100.3 F H Pulse Rate Respiratory Rate Blood Pressure Pulse Oximetry Oxygen Delivery Method Oxygen Flow Rate Oxygen Delivery Method Room Air Oxygen Flow Rate 0 Narrative Exam Narrative: Gen.:[Alert and oriented x3 no apparent distress. HEENT: NCAT PERRLA tympanic membranes are clear nares are patent oral mucosa is moist no tonsillar hypertrophy neck is supple without lymphadenopathy no thyroid enlargement. Cardio: S1-S2 regular rate and rhythm no murmurs appreciated. Respiratory:[Lungs are clear to auscultation no wheezes or crackles normal respiratory effort. Abdomen: Soft nontender Distended Extremities: patient has decreased movement of lower extremities and right upper extremity weakness and lack of range of motion. Objective Labs 12/27/22 22:30 12/28/22 07:10 Labs: Laboratory Results - last 24 hr 12/27/22 12/27/22 12/27/22 22:30 22:30 22:30 WBC 21.2 H RBC 3.71 L Hgb 10.9 L Hct 32.3 L MCV 87.2 MCH 29.4 MCHC 33.8 RDW 13.9 Plt Count 301 Neut % (Auto) 90.9 H Lymph % (Auto) 2.7 L [place] % (Auto) 5.8 Eos % (Auto) 0.0 L Baso % (Auto) 0.6 Neut # (Auto) 43364 H Lymph # (Auto) 600 L [place] # (Auto) 1200 H Eos # (Auto) 0 Baso # (Auto) 100 Sodium 129 L Potassium 2.7 L* Chloride 96 L Carbon Dioxide 23 BUN 9 Creatinine 0.45 L Estimated GFR > 60 BUN/Creatinine Ratio 20.0 Glucose 118 H Lactate 0.8 Calcium 8.3 L Total Bilirubin 1.5 H AST 28 ALT 43 Alkaline Phosphatase 104 Total Creatine Kinase 51 L CK-MB (CK-2) TNP CK-MB (CK-2) Rel Index TNP Troponin I 0.023 Total Protein 6.8 Albumin 3.4 L Globulin 3.4 Albumin/Globulin Ratio 1.0 Procalcitonin 1.20 H SARS-CoV-2 (PCR) 12/28/22 12/28/22 02:10 07:10 WBC RBC Hgb Hct MCV MCH MCHC RDW Plt Count Neut % (Auto) Lymph % (Auto) [place] % (Auto) Eos % (Auto) Baso % (Auto) Neut # (Auto) Lymph # (Auto) [place] # (Auto) Eos # (Auto) Baso # (Auto) Sodium 134 L Potassium 3.6 Chloride 105 Carbon Dioxide 21 L BUN 9 Creatinine 0.40 L Estimated GFR > 60 BUN/Creatinine Ratio 22.5 H Glucose 112 H Lactate Calcium 8.2 L Total Bilirubin AST ALT Alkaline Phosphatase Total Creatine Kinase CK-MB (CK-2) CK-MB (CK-2) Rel Index Troponin I Total Protein Albumin Globulin Albumin/Globulin Ratio Procalcitonin SARS-CoV-2 (PCR) Negative Assessment & Plan Assessment and plan (1) Acute hypokalemia: Status: Acute (2) Sepsis: Status: Acute (3) UTI (urinary tract infection) due to urinary indwelling catheter: Status: Acute (4) Incomplete quadriplegia at C5-6 level: Status: Chronic Plan sepsis due to acute urinary tract infection patient received appropriate treatment in the emergency department with fluids IV antibiotics blood culture and urine culture pending at this point. Patient will be continued on IV fluids antibiotics with ceftriaxone review of previous urinary tract infections shows rush sensitivity we will follow urinary tract cultures and blood cultures. Will continue ceftriaxone. Monitor his white blood cell count for improvement. Acute hypokalemia. Patient's potassium was quite low on arrival. He received IV potassium. Will switch his IV fluid over to normal saline with potassium. Will continue IV fluids for another 24 hours due to his weakness and infection. Recent kidney stone removal with lithotripsy and stent in place in the right kidney. Has mild hydronephrosis. No signs of abscess or underlying injury on CT scan. Continue to observe. Sigmoid gaseous distention. Patient has gaseous distention of his sigmoid colon patient states this happened sometime it is not unusual. He is having bowel movements and passing gas will continue with a soft mechanical diet. DVT prophylaxis with Lovenox Anticipate hospital stay for greater than 48 hours
[2022-12-28] MEDS: ENOXAPARIN 40 MG/0.4 ML SYRINGE SUBCUT (09:48)
[2022-12-28] MEDS: KCL 20 MEQ IN NS 1,000 ML 125 MEQ IV ×2 (09:49→16:33)
--- NOTE | 2022-12-28 12:52 | CM.DANOTE ---
Initial Discharge Planning Assessment Note: Case reviewed, met with patient. Introduced self and role. Payer: [employer] and self pay PCP: Christine Magaña 57 year old male with incomplete quadriplegia (C5-6) admitted yesterday with fever, chills, diagnosed with acute UTI, Sepsis and acute hypokalemia. He had a recent procedure at the [facility] (pt states was on 12/19/22) for lithrotripsy for kidney stone and a stent. Patient is pleasant, A/O. His spinal injury occurred over 20 years ago from an accident he states. He lives with spouse in [place], she works from the home and is available to help him. Additionally he has a caregiver in the mornings who does AM care and helps get him up to his custom wheelchair. Plan: When medically cleared, return home to care of spouse, with continued daily caregiving. [facility] Discharge Planning/Care Management Advanced directive, confirm from FAMILY Start: 12/28/22 06:13 Freq: Q24H Status: Active Protocol: Document 12/28/22 06:13 MS (Rec: 12/28/22 06:14 MS [id number]) Advance Directive, confirm on record Time 06:14 Person contacted patient Copy received No CM Discharge Assessment Start: 12/28/22 12:50 Freq: Status: Active Protocol: Document 12/28/22 12:50 SJ (Rec: 12/28/22 12:52 SJ [id number]) Discharge Planning Assessment Assigned Screw Machine Adjust[employer] Automatic Pura Jacques RN/DCP Advance Directives? Yes Advance Directives on File No History Provided By Patient,Medical Record Prior Living Arrangements House Household Members spouse Type of transporation used prior to Drives own vehicle admit Comment has specially adapted van Independent with ADL's No: Self transfers, but some assist from /cg in ADLs Is patient alert and oriented? Yes Needs Assistance With Bathing,Grooming,Meal Prep, Toileting,Managing Medications ,Home Chores / Shopping Caregiver for Another No DME Already Rented / Owned Hospital Bed,Wheelchair, Elevated Toilet Seat,Bedside Commode Discharge Plan Home Referrals Initiated None needed Review Status In Process Next Review Type Continued Stay Review
[2022-12-28] MEDS: MAGNESIUM HYDROXIDE 30 ML UDC PO (20:18)
[2022-12-28] MEDS: DOCUSATE 100 MG CAPSULE PO (20:19)
[2022-12-28] MEDS: FLEETS ENEMA 1 EACH PR (22:20)
[2022-12-29 05:36] LABS: Alanine Aminotransferase 34 IU/L (<50); Albumin Globulin Ratio 0.8 (1.0-2.8); Alkaline Phosphatase 110 U/L (38-126); Aspartate Aminotransferase 22 IU/L (17-59); BUN Creatinine Ratio 19.5 (6-22); Bilirubin Total 0.5 mg/dL (0.2-1.3); Blood Urea Nitrogen 8 mg/dL (9-20); Calcium 8.1 mg/dL (8.4-10.2); Carbon Dioxide 23 mmol/L (22-32); Chloride 107 mmol/L (98-107); Estimated Glomerular Filt Rate > 60 mL/min (>60); Globulin 3.6 g/dL (1.7-4.1); Glucose 91 mg/dL (70-100); HEMOLYSIS < 15 (0-50); Potassium 3.3 mmol/L (3.4-5.1); Sodium 136 mmol/L (137-145); Total Protein 6.6 g/dL (6.3-8.2)
[2022-12-29 06:00] VITALS: BP 145/92; PULSE 69; RESP 18; TEMP 36.4; O2SAT 95
[2022-12-29] MEDS: cefTRIAXone 1,000 MG in SODIUM CHLORIDE 0.9% 100 ML 200 MG IV (06:20)
[2022-12-29 07:59] VITALS: BP 139/84; PULSE 72; RESP 18; TEMP 36.7; O2SAT 100
--- NOTE | 2022-12-29 08:24 | P.PN_ITS ---
Subjective Subjective Date Patient Seen: 12/29/22 Time Patient Seen: 08:25 Interval history: Patient seen and evaluated this morning. Had an elevation of his blood pressure last night. He says it was due to being constipated. We are able to give him a enema get him cleaned out. Blood pressure is responding his belly is less distended today he is on some stool softeners. Looks less weak and pale. Exam Vital Signs (past 8 hours): - 12/29/22 06:00 12/29/22 07:59 Temperature 97.5 F L 98.0 F Pulse Rate 69 72 Respiratory Rate 18 18 Blood Pressure 145/92 H 139/84 Pulse Oximetry 95 100 Oxygen Flow Rate 0 0 Oxygen Delivery Method Room Air Oxygen Flow Rate 0 Narrative Exam Narrative: Gen.: Alert and oriented x3 no apparent distress. HEENT: NCAT PERRLA tympanic membranes are clear nares are patent oral mucosa is moist no tonsillar hypertrophy neck is supple without lymphadenopathy no thyroid enlargement. Cardio: S1-S2 regular rate and rhythm no murmurs appreciated. Respiratory: Lungs are clear to auscultation no wheezes or crackles normal respiratory effort. Abdomen: Soft nontender no rebound or guarding no liver spleen enlargement no appreciable hernias Extremities: Patient with paraplegia and weakness in upper and lower extremities Objective Labs 12/27/22 22:30 12/29/22 04:40 Labs: Laboratory Results - last 24 hr 12/29/22 04:40 Sodium 136 L Potassium 3.3 L Chloride 107 Carbon Dioxide 23 BUN 8 L Creatinine 0.41 L Estimated GFR > 60 BUN/Creatinine Ratio 19.5 Glucose 91 Calcium 8.1 L Total Bilirubin 0.5 AST 22 ALT 34 Alkaline Phosphatase 110 Total Protein 6.6 Albumin 3.0 L Globulin 3.6 Albumin/Globulin Ratio 0.8 L [facility] Medical History Chicken pox Hearing loss Kidney stones (~09/2017) Quadriplegia Shoulder pain (~1997) Vision disorder Surgical History History of back surgery Family History Father Cancer Mother Dementia Sister Heart disease Social History household members: spouse Smoking Status: Never smoker alcohol intake: current Assessment & Plan Assessment and plan (1) Acute UTI: Status: Acute (2) Sepsis: Status: Acute (3) Acute hypokalemia: Status: Acute Plan Sepsis due to urinary tract infection. Continue with ceftriaxone. Blood counts are pending this morning blood pressure stable definitely less weak. Will go ahead and DC his IV fluids continue ceftriaxone monitor blood counts blood cultures and urine culture results for determination. Acute hypokalemia. On potassium containing IV fluids he is will be stopped his potassium again a little bit low today will provide oral potassium replacement. Kidney stone with recent stent placement with lithotripsy. Some bilateral hydronephrosis. Chronic and stable contributing factor to his underlying infection no signs of perinephric abscess bleeding Obstipation constipation with sigmoid gaseous distention. Patient was able to get a bowel clean out yesterday. His abdomen is less distended. Had some hypertension associated with this DVT prophylaxis with Lovenox Disposition and plan decrease IV fluid continue with potassium supplementation. Anticipate hopeful discharge tomorrow after 48 hours of IV antibiotics and awaiting culture results
[2022-12-29 08:37] LABS: Add Manual Diff / Slide Review NO; Basophils Absolute Auto 0 /uL (0-100); Basophils Percent Auto 0.3 % (0-2); Eosinophils Absolute Auto 100 /uL (0-450); Eosinophils Percent Auto 0.5 % (2-4); Hematocrit 33.2 % (41-53); Lymphocytes Absolute Auto 700 /uL (1100-4500); Lymphocytes Percent Auto 7.4 % (25-40); Mean Corpuscular HGB Conc 33.3 % (30-36); Mean Corpuscular Hemoglobin 29.4 PG (26-34); Mean Corpuscular Volume 88.3 fL (80-100); Monocytes Absolute Auto 800 /uL (0-900); Monocytes Percent Auto 7.7 % (3-14); Neutrophils Absolute Auto 8500 /uL (1500-7000); Neutrophils Percent Auto 84.1 % (50-75); Platelet Count 294 X10^3/uL (150-400); Red Blood Cell Count 3.76 X10^6/uL (4.5-5.9); Red Cell Distribution Width 14.3 % (11.6-14.8); White Blood Cell Count 10.1 X10^3/uL (4.5-11.0)
[2022-12-29] MEDS: ACETAMINOPHEN 325 MG TABLET 650 MG PO ×2 (08:57→17:44)
[2022-12-29] MEDS: DOCUSATE 100 MG CAPSULE PO ×2 (08:57→21:00)
[2022-12-29] MEDS: POTASSIUM CHLORIDE 20 MEQ/15 ML UDC PO ×2 (09:35→16:13)
[2022-12-29] MEDS: FLEETS ENEMA 1 EACH PR (13:56)
[2022-12-29 15:00] VITALS: BP 141/91; PULSE 65; RESP 16; TEMP 36.8; O2SAT 99
[2022-12-29 18:52] VITALS: BP 125/75; PULSE 85; RESP 20; TEMP 37.4; O2SAT 98
[2022-12-29 21:37] VITALS: TEMP 36.9
[2022-12-30] VITALS (9 sets, daily range): BP systolic 124–177; BP diastolic 79–99; PULSE 78–87; RESP 14–24; TEMP 36.7–40.1; O2SAT 96–98
[2022-12-30] MEDS: FLEETS ENEMA 1 EACH PR (02:58)
[2022-12-30 05:27] LABS: Add Manual Diff / Slide Review NO; Basophils Absolute Auto 0 /uL (0-100); Basophils Percent Auto 0.4 % (0-2); Eosinophils Absolute Auto 0 /uL (0-450); Eosinophils Percent Auto 0.5 % (2-4); Hematocrit 31.8 % (41-53); Hemoglobin 10.9 g/dL (13.5-17.5); Lymphocytes Absolute Auto 700 /uL (1100-4500); Lymphocytes Percent Auto 7.5 % (25-40); Mean Corpuscular HGB Conc 34.2 % (30-36); Mean Corpuscular Hemoglobin 29.6 PG (26-34); Mean Corpuscular Volume 86.7 fL (80-100); Monocytes Absolute Auto 700 /uL (0-900); Monocytes Percent Auto 7.9 % (3-14); Neutrophils Absolute Auto 7500 /uL (1500-7000); Neutrophils Percent Auto 83.7 % (50-75); Platelet Count 350 X10^3/uL (150-400); Red Blood Cell Count 3.67 X10^6/uL (4.5-5.9); White Blood Cell Count 8.9 X10^3/uL (4.5-11.0)
[2022-12-30 05:31] LABS: Alanine Aminotransferase 31 IU/L (<50); Albumin 2.9 g/dL (3.5-5.0); Albumin Globulin Ratio 0.8 (1.0-2.8); Alkaline Phosphatase 132 U/L (38-126); Aspartate Aminotransferase 19 IU/L (17-59); BUN Creatinine Ratio 16.7 (6-22); Bilirubin Total 0.5 mg/dL (0.2-1.3); Blood Urea Nitrogen 6 mg/dL (9-20); Calcium 8.3 mg/dL (8.4-10.2); Carbon Dioxide 24 mmol/L (22-32); Chloride 104 mmol/L (98-107); Estimated Glomerular Filt Rate > 60 mL/min (>60); Globulin 3.6 g/dL (1.7-4.1); Glucose 102 mg/dL (70-100); HEMOLYSIS < 15 (0-50); Potassium 3.2 mmol/L (3.4-5.1); Sodium 134 mmol/L (137-145); Total Protein 6.5 g/dL (6.3-8.2)
[2022-12-30] MEDS: cefTRIAXone 1,000 MG in SODIUM CHLORIDE 0.9% 100 ML 200 MG IV (06:52)
[2022-12-30] MEDS: SODIUM CHLORIDE 0.9% 250 ML 21 ML IV (07:01)
[2022-12-30] MEDS: POTASSIUM CHLORIDE 20 MEQ/15 ML UDC PO ×2 (09:00→17:29)
[2022-12-30] MEDS: ENOXAPARIN 40 MG/0.4 ML SYRINGE SUBCUT (09:03)
[2022-12-30] MEDS: DOCUSATE 100 MG CAPSULE PO ×2 (09:03→21:33)
[2022-12-30] MEDS: ACETAMINOPHEN 325 MG TABLET 650 MG PO ×2 (09:06→15:37)
--- NOTE | 2022-12-30 12:01 | CM.DPNOTE ---
Discharge Planning Note: Met with patient and he states that Dr Magaña had just seen him and that he will not be discharged today, possibly tomorrow if symptoms have resolved. Patient states he had chills and sweats this morning and generally not feeling well. Plan: When medically cleared, discharge home, spouse has wheelchair van and can transport. Patient is able to self transfer and has his specialty wheelchair in the room. Pura Jacques RN/DCP
[2022-12-30] MEDS: POTASSIUM CHLORIDE 20 MEQ/15 ML UDC 40 MEQ PO (12:55)
--- NOTE | 2022-12-30 13:23 | P.PN_ITS ---
Subjective Subjective Date Patient Seen: 12/30/22 Time Patient Seen: 09:30 Interval history: The pt reports that overall he is feeling improved. He continues to have autonomic dysfunction particularly in the evening where he feels very sweaty and clammy. He had chills last night as well. He states that he normally doesn't sweat at all. He denies any chest pain, SOB. He had a BM last night after an enema, which did help with the feeling. Exam Vital Signs (past 8 hours): - 12/30/22 09:02 Temperature 99.0 F Pulse Rate 87 Respiratory Rate 20 Blood Pressure 158/81 H Pulse Oximetry 97 Oxygen Delivery Method Room Air Oxygen Flow Rate 0 Narrative Exam Narrative: Gen: NAD, sitting comfortably in bed, appears well CV: RRR, no murmurs Resp: clear to auscultation bilaterally Abd: soft, nontender, slightly distended, normoactive bowel sounds, no HSM Ext: no edema Objective Labs 12/30/22 04:50 12/30/22 04:50 Labs: Laboratory Results - last 24 hr 12/30/22 12/30/22 04:50 04:50 WBC 8.9 RBC 3.67 L Hgb 10.9 L Hct 31.8 L MCV 86.7 MCH 29.6 MCHC 34.2 RDW 14.0 Plt Count 350 Neut % (Auto) 83.7 H Lymph % (Auto) 7.5 L [place] % (Auto) 7.9 Eos % (Auto) 0.5 L Baso % (Auto) 0.4 Neut # (Auto) 7500 H Lymph # (Auto) 700 L [place] # (Auto) 700 Eos # (Auto) 0 Baso # (Auto) 0 Sodium 134 L Potassium 3.2 L Chloride 104 Carbon Dioxide 24 BUN 6 L Creatinine 0.36 L Estimated GFR > 60 BUN/Creatinine Ratio 16.7 Glucose 102 H Calcium 8.3 L Total Bilirubin 0.5 AST 19 ALT 31 Alkaline Phosphatase 132 H Total Protein 6.5 Albumin 2.9 L Globulin 3.6 Albumin/Globulin Ratio 0.8 L PFSH Medical History Chicken pox Hearing loss Kidney stones (~09/2017) Quadriplegia Shoulder pain (~1997) Vision disorder Surgical History History of back surgery Family History Father Cancer Mother Dementia Sister Heart disease Social History household members: spouse Smoking Status: Never smoker alcohol intake: current Assessment & Plan Assessment & Plan narrative: 1) Sepsis due to UTI: Blood cultures negative x 48hrs. Pt with ongoing chills , but no documented fevers. Pt continues to feel weak. - Continue IV Ceftriaxone - At discharge, plan to continue for 14 days total of antibiotic therapy - F/U blood cultures to 72hrs. Urine culture unfortunately not sent from the ED. 2) Acute hypokalemia: Potassium critically low at admission, now 3.2. - Continue oral replacement - Continue to trend 3) Kidney stone with recent stent placement with lithotripsy: Some bilateral hydronephrosis noted on admission imaging.? Chronic and stable contributing factor to his underlying infection. No signs of perinephric abscess, bleeding. - No intervention needed 4) Obstipation/constipation with sigmoid gaseous distention: Improving with nelly wel clean out yesterday.? Pt feels the need for additional enema tonight or tomorrow morning. - Continue with enema PRN - Bowel regimen FEN: General diet Code: Full DVT prophylaxis with Lovenox Disposition: Continue potassium supplementation, IV antibiotics, more aggressive bowel regimen for one more night. Plan on d/c tomorrow morning.
--- NOTE | 2022-12-30 16:05 | PC.NURSE ---
Addendum entered by Ching Blanton R.N. 12/30/22 18:45: Per MD orders omalley catheter replaced. Ibuprofen 800mg po PRN administered. Pt is also given simethicone 80mg po prn per request. upon recheck temp 98.9. Pt without chills or shakes. Original Note: Pt trembling approximately 1510 today, reports feelimg chilled and awful. Upon temperature assessment temp is 101.9. Pt is given tylenol 650 mg PRN, and MD Magaña notified. Per new orders from MD Magaña sent urine sample from Omalley catheter port. Patient encouraged to drink po fluids. Upon reassment of temperature at 1600 temp is 104.1. MD Magaña office staff Luma notified. Applying ice packs to under arms.
[2022-12-30] MEDS: SIMETHICONE 80 MG TABLET PO (16:31)
[2022-12-30] MEDS: IBUPROFEN 400 MG TABLET 800 MG PO (16:37)
[2022-12-31] VITALS (19 sets, daily range): BP systolic 110–197; BP diastolic 69–108; PULSE 66–96; RESP 14–20; TEMP 36.2–39.8; O2SAT 94–100; BMI 25.7
--- NOTE | 2022-12-31 | PATH_ITS ---
[facility] Accession Number: [id number] No. of containers..01 Tissue . 01 Material submitted: . colon - SIGMOID COLON . 01 Diagnosis: Sigmoid Colon, Sigmoidectomy: Segments of colonic tissue with vascular congestion, mural hematoma, and focal active inflammation, consistent with operative impression of volvulus. Ten benign pericolonic lymph nodes. Negative for granulomas, dysplasia or malignancy. MRV 01/06/2023 1254 Local . 01 Electronically signed: . Dakota Mcdaniels MD, PhD, Pathologist NPI- [id number] . 01 Gross description: . The specimen is received in formalin labeled with the patient's name, , and sigmoid colon, and consists of two unoriented fragments of colon, the first fragment measures 44.8 cm in length and ranges in diameter from 2.1 to 5.8 cm. A moderate amount of mesentery is attached extending out to 7.5 cm. The margin with the widest diameter is inked blue while the narrowest diameter margin is inked black, and the mesenteric margin is inked green. The serosa is grady, smooth and intact with no perforations or areas of puckering grossly identified. The lumen contains a small amount of mucohemorrhagic material. The mucosa is pink-grady and denuded with minimal folds and slightly nodular areas measuring up to 5.2 cm in greatest dimension and occupying approximately 10% of the mucosal surface. Several small hemorrhagic defects are identified measuring up to 0.5 cm in greatest dimension possibly consistent with surgical artifact. No lesions, polyps or diverticula are identified. The martin average 0.2 cm thick. Palpation of the attached adipose reveals 11 grady lymph node candidates ranging from 0.1 to 0.7 cm in greatest dimension. . The second fragment of colon measures 6.1 cm in length by 2.5 cm in diameter with grady intact smooth serosa and a moderate amount of attached adipose extending out to 4.5 cm. One margin is inked blue, the opposite margin is inked black, and the mesenteric margin is inked green. The lumen contains a small amount of brown semi-solid material. The mucosa is grady and velvety with slightly attenuated folds with no polyps, lesions or diverticula identified. The martin average 0.2 cm thick. Palpation of the attached adipose reveals two grady lymph node candidates measuring 0.2 cm each in greatest dimension. . Emergency Vehicle Driver sections are submitted as follows: A1: First fragment rep blue and green margins en face. A2: First fragment rep black margin en face. A3: First fragment possible surgical defects. A4: First fragment nodular area. A5: First fragment additional rep sections. A6: First fragment three intact lymph node candidates. A7: First fragment three intact lymph node candidates. A8: First fragment three intact lymph node candidates. A9: First fragment two intact lymph node candidates. A10: Second fragment appliance service representative margins en face. A11: Additional appliance service representative sections second fragment. A12: Second fragment two intact lymph node candidates. ([id number]) /MRV 01/01/2023 1648 Local . 01 Pathologist provided ICD-10: K56.2 . 01 CPT . 530269 Specimen Comment: A courtesy copy of this report has been sent to [phone] Performed at: 01 [facility] [address] [place] [address], [place], [place] [id number] MD Tad Farley MD Phone: [phone]
[2022-12-31] MEDS: ACETAMINOPHEN 325 MG TABLET 650 MG PO ×3 (01:27→23:29)
[2022-12-31] MEDS: FLEETS ENEMA 1 EACH PR (01:28)
[2022-12-31] MEDS: SIMETHICONE 80 MG TABLET PO (02:34)
[2022-12-31 05:15] LABS: HEMOLYSIS 29 (0-50); Potassium 3.3 mmol/L (3.4-5.1)
[2022-12-31] MEDS: cefTRIAXone 1,000 MG in SODIUM CHLORIDE 0.9% 100 ML 200 MG IV (06:17)
--- NOTE | 2022-12-31 08:29 | CM.DPC ---
DCP Cont: Per MD, pt continues to have fever and chills and abdomen slightly distended and getting imaging today to r/o illeus. Pt may not be medically stable to d/c home yet today. Per UR RN, EHR determined pt can be changed from OBS to Inpt Status as of 12/29/22. Plan: SW to follow for imaging and to r/o further medical needs to confirm safe plan of home via spouse's w/c van and any further identified needs. JUSTO Oconnell
--- NOTE | 2022-12-31 08:35 | DI.CT.S_ITS ---
PROCEDURE: CT ABDOMEN PELVIS W CON INDICATIONS: firm abdominal distension TECHNIQUE: After the administration of intravenous contrast, axial sections acquired from the lung bases to the pubic symphysis. Coronal and sagittal reformats were performed. For radiation dose reduction, the following was used: automated exposure control, adjustment of mA and/or kV according to patient size. COMPARISON: [facility], CT, CT KIDNEY URETER BLADDER (KUB), 12/27/2022, 23:21. FINDINGS: Image quality: Good Lower chest: Basal scarring/atelectasis Solid organs: Subcentimeter hepatic lesions are too small to characterize. Per latest proposed guidelines, no dedicated followup is needed assuming patient has no primary malignancy history and is not high risk. There also cysts. Gallbladder is absent. Prominent pancreatic duct appears similar to prior, without definite obstructing lesion. No splenomegaly. No adrenal nodules. Left ureter stent in place without significant collecting system dilation, however the, there is heterogeneous decreased perfusion to the left kidney compared to the right. Right renal cyst is present. No right hydronephrosis. Vessels and lymph nodes: Prominent, non-specific lymph nodes are present that are not enlarged by size criteria. No significant portal venous gas at this time. Bowel and peritoneum: Sigmoid volvulus, with increased distention. There is mesenteric congestion. Small amount pelvic free fluid is present. Body wall: Unremarkable Pelvis: Bladder has a stent and is under distended with Flowers in place. Prostate is not well evaluated. Bones: Demineralization and degenerative changes. IMPRESSION: Sigmoid volvulus. Distension is increased. Recommend urgent surgical consultation Delayed heterogeneous left renal perfusion is suggestive of infection, ureteral stent is in place without hydronephrosis currently. Decreased dilation of the right collecting system. Other nonacute findings as above. Dictated by: Christ Meeks M.D. on 12/31/2022 at 11:05 Approved by: Christ Meeks M.D. on 12/31/2022 at 11:11
[2022-12-31] MEDS: DOCUSATE 100 MG CAPSULE PO (08:56)
[2022-12-31] MEDS: ENOXAPARIN 40 MG/0.4 ML SYRINGE SUBCUT (08:57)
[2022-12-31] MEDS: POTASSIUM CHLORIDE 20 MEQ/15 ML UDC PO (08:58)
--- NOTE | 2022-12-31 10:32 | PM.PN.1 ---
Subjective Subjective Date Patient Seen: 12/31/22 Time Patient Seen: 08:00 Interval history: The pt reports feeling unwell this morning. Yesterday afternoon he felt extremely chills and shakes, and spiked a fever to 104F. The nurse did a digital rectal exam without production of any gas or fecal material. He was given Tylenol and Ibuprofen, and ultimately his temperature improved. In the evening, he again felt very chilled. He did not have a fever. Another digital rectal exam was completed, and a small amount of fecal material was produced. The pts chills improved briefly, but returned again this morning. He continues to deny any chest pain or SOB. Exam Vital Signs (past 8 hours): - 12/31/22 08:43 12/31/22 08:55 Temperature 100.8 F H Pulse Rate 75 Respiratory Rate 17 Blood Pressure 158/85 H Pulse Oximetry 94 Oxygen Flow Rate 0 Oxygen Delivery Method Room Air Oxygen Flow Rate 0 Narrative Exam Narrative: Gen: shaking with chills with many blankets on in bed, appears slightly pale CV: RRR, no murmurs Resp: clear to auscultation bilaterally Abd: significantly distended and slightly taught, no fluid wave, normoactive bowel sounds Ext: no edema Objective Labs 12/30/22 04:50 12/31/22 04:40 Labs: Laboratory Results - last 24 hr 12/31/22 04:40 Potassium 3.3 L PFSH Medical History Chicken pox Hearing loss Kidney stones (~09/2017) Quadriplegia Shoulder pain (~1997) Vision disorder Surgical History History of back surgery Family History Father Cancer Mother Dementia Sister Heart disease Social History household members: spouse Smoking Status: Never smoker alcohol intake: current Assessment & Plan Assessment & Plan narrative: 1)? Obstipation:? Pt with chronic bowel issues due to quadriplegia, however acutely worsened now. Does have significantly distension this morning. Question more severe ileus/obstruction. - Repeat enema this morning - CT abd/pelvis this morning to re-evaluate 2) Fever, chills: Did obtain urine culture yesterday, pt already on IV abx. Growing gram negative bacilli, however pt is chronically colonized with E coli. Pt feels is from autonomic dysfunction, however this is typically triggered by something such as infection. No symptoms to suggest pneumonia/pulm etiology. No swelling suggestive of DVT. Does have significant abdominal distension this morning as above. Pt does not experience abdominal pain, therefore difficult to say if more acute infection could be at play. - CT to evaluate for ileus/obstruction, also ensure no evidence infectious cause that could require different antibiotics/surgical evaluation 3)? Sepsis due to UTI:? Blood cultures negative x 72hrs.? Pt with ongoing chills as above. Urine culture not sent from the ED, due to recurrent fever sent yesterday. Growing gram negative bacilli, however pt is chronically colonized. Low suspicion contributing to fevers at this point. - Continue IV Ceftriaxone - At discharge, plan to continue for 14 days total of antibiotic therapy 2)? Acute hypokalemia:? Potassium critically low at admission, now 3.3. - Continue oral replacement - Continue to trend 3)? Kidney stone with recent stent placement with lithotripsy:? Some bilateral hydronephrosis noted on admission imaging.? Chronic and stable contributing factor to his underlying infections.? No signs of perinephric abscess, bleeding. Repeat CT today to ensure no worsening of hydronephrosis. FEN:? General diet Code:? Full DVT prophylaxis with Lovenox Disposition:? Pending additional work-up with CT abd/pelvis. Anticipate at least one additional midnight. Would like to see improved bowel function prior to d/c.
[2022-12-31] MEDS: IBUPROFEN 400 MG TABLET 800 MG PO ×2 (10:42→20:22)
--- NOTE | 2022-12-31 14:05 | PC.NURSE ---
Addendum entered by Ching Blanton R.N. 12/31/22 18:51: Pt returned from PACU this evening at 1700. He is lethargic but able to answer questions and talk to his on the phone. SBP elevates 180's -190's and prn nitro paste applied (1 inch) IVF LR at 125 ml/hr. Upon reassessment BP 160's /100's.Repositioning q [address] Continuous monitoring. Original Note: Pt is A&OX4, he experiences chills this a.m. with a fever tmax of 103.6 which improves this afternoon after tylenol and ibuprofen (temp reduces to 97.2) Pt reports feeling generalized upper body aches from the shaking and overall doesnt feel well. He is taken for a CT scan this a.m. after drinking contrast. MD Magaña orders a surgical consult shortly afterwards and pt is kept NPO. He is taken to pre op at approximately 1400.
[2022-12-31] MEDS: LACTATED RINGERS 1,000 ML 42 ML IV (14:13)
--- NOTE | 2022-12-31 14:44 | PM.CN ---
History of Present Illness Consult details Date Patient Seen: 12/31/22 Time Patient Seen: 14:44 Chief complaint: Bladder infection Reason for consult: sigmoid volvulus Requesting provider: Christine Magaña Narrative: Admitted for UTI, underlying condition of incomplete quad. New onset of distended abdomen with CT scan confirming sigmoid volvulus. Stage 1 pressure ulcer on right buttock. Meds Home Medications and Allergies Home Medications Medication Instructions Recorded Confirmed Type ascorbic acid (vitamin C) 500 mg 1,000 mg PO DAILY ##0 10/20/18 12/30/22 History tablet cholecalciferol (vitamin D3) 25 2,000 unit PO DAILY ##0 10/20/18 12/30/22 History mcg (1,000 unit) tablet (Vitamin D3) midodrine 5 mg tablet 5 mg PO TID ##0 10/20/18 12/30/22 History Lubricating Topical Jelly Bact 1 applic topical DAILY 05/25/19 12/30/22 History citric ac 1980.6 mg-glucono 59.4 20 ml irrigation Q OTHER DAY 05/25/19 03/14/21 History mg-mag carb 980.4 mg/30 mL irrig.soln (Renacidin) fexofenadine 60 mg tablet 60 mg PO BID 05/25/19 12/30/22 History ibuprofen 400 mg tablet 400 mg PO TID PRN pain 05/25/19 12/30/22 History nitroglycerin 2 % transdermal 1 inch transdermal Q6H PRN 05/25/19 12/30/22 History ointment autonomic dysreflexia sodium chloride 0.9 % irrigation 1 irrig irrigation DAILY 05/25/19 03/14/21 History solution triamcinolone acetonide 0.5 % 1 applic topical TID PRN Itching 05/25/19 03/14/21 History topical cream Allergies Allergy/AdvReac Type Severity Reaction Status Date / Time Sulfa (Sulfonamide Allergy Mild Rash Verified 12/31/22 14:10 Antibiotics) Review of Systems Review of Systems ROS: Yes All systems reviewed with the patient and are negative except as otherwise documented Exam Vital Signs (past 8 hours): - 12/31/22 08:43 12/31/22 08:55 12/31/22 10:33 Temperature 100.8 F H 103.2 F H Pulse Rate 75 Respiratory Rate 17 Blood Pressure 158/85 H Pulse Oximetry 94 Oxygen Delivery Method Oxygen Flow Rate 0 12/31/22 10:42 12/31/22 09:20 12/31/22 10:50 Temperature 102.1 F H 103.6 F H 102.1 F H Pulse Rate 95 H Respiratory Rate 18 Blood Pressure 153/92 H Pulse Oximetry 98 Oxygen Delivery Method Oxygen Flow Rate 0 12/31/22 13:14 12/31/22 12:00 12/31/22 14:23 Temperature 97.2 F L 97.2 F L 98.2 F Pulse Rate 75 Respiratory Rate 20 Blood Pressure 158/99 H Pulse Oximetry 100 Oxygen Delivery Method Room Air Oxygen Flow Rate Oxygen Delivery Method Room Air Oxygen Flow Rate 0 Const General: cooperative and frail appearing Nutritional Appearance: cachectic Orientation: alert, awake and oriented x3 HENMT Head: normocephalic and atraumatic Ears: hearing grossly normal bilaterally Nose: external nose normal Face and sinus: normal facial exam Eyes General: appearance normal, both eyes and all related structures Neck Neck: trachea midline Resp Effort & Inspection: normal respiratory effort and able to speak in complete sentences Cardio Rate: regular rate Rhythm: regular rhythm GI Inspection: distended Palpation: firm Skin General: atrophy Neuro General: patient alert, patient awake and patient oriented x3 Cognition: normal cognition Speech: speech normal Motor: muscle tone abnormal and strength abnormal Psych Mental Status: mental status grossly normal Judgment: judgment good Objective Labs 12/30/22 04:50 12/31/22 04:40 Labs: Laboratory Results - last 24 hr 12/31/22 04:40 Potassium 3.3 L [facility] Medical History Chicken pox Hearing loss Kidney stones (~09/2017) Quadriplegia Shoulder pain (~1997) Vision disorder Surgical History History of back surgery Family History Father Cancer Mother Dementia Sister Heart disease Social History household members: spouse Tobacco & Substance Use Smoking Status: Never smoker alcohol intake: current Assessment & Plan Assessment & Plan narrative: Sigmoid volvulus with underlying incomplete quadraplegic. Plan: Open Sigmoid colectomy COVID-19 COVID-19 status: Negative Time Spent With Patient Time with patient: 30 to 49 minutes with 50% spent counseling/coordinating care
--- NOTE | 2022-12-31 15:45 | SUR.OPER ---
Addendum entered by Bernadette Luciano R.N. 12/31/22 16:52: Patients bilateral hearing aids removed when patient in the OR. Bilateral hearing aids Placed into patient labelled specimen cup and taken with patient to PACU. Original Note: Lithotomy on padded OR bed, head on pillow, arms secured on padded arm boards at <90 degrees abduction. Legs secured in padded yellow fins stirrups.
--- NOTE | 2022-12-31 16:52 | PM.OP.1 ---
Operative Date/Time/Diagnoses Date of procedure: 12/31/22 Time of procedure: 16:52 Pre-op diagnosis: Sigmoid volvulus Post-op diagnosis: same Procedure & Clinicians Procedure: Exploratory laparotomy with sigmoid colectomy Same procedure as scheduled: Yes Indications: Sigmoid volvulus Surgeon: Annabelle Okeefe Click Yes if Unassisted: Yes Anesthesia Type: General Operative Notes Findings: Sigmoid volvulus Closure Type: primary Specimen(s): other (Sigmoid colon) Estimated Blood Loss (mL): 30 Blood products transfused: none Procedure in detail: Preop diagnosis: Sigmoid volvulus Postop diagnosis: Same Operative procedure: Exploratory laparotomy with sigmoid colectomy Surgeon: Chanda Okeefe MD Findings: Sigmoid volvulus without rupture. Procedure: Patient placed in a supine position. Prepped and draped sterile fashion to expose his abdomen. Lower midline incision was created using electrocautery and blunt dissection. The large sigmoid colon was delivered into the lower midline wound. Transition point at the twist was located. Mesenteric windows were created and the colon was transected with a 75 blue load TAZ stapling device both proximal and distal. The mesentery was taken down with electrocautery and LigaSure device. I then did a dhha-hj-cebe staple anastomosis again using the linear 75 blue load closing the enterotomy with a 60 blue load TIA. The staple line was oversewn with interrupted 3-0 silk suture. There was a small mesenteric window and that was addressed by tacking the left colon to the sidewall with interrupted 3-0 silk suture to close the defect. Abdomen was irrigated to a clear return. The omentum was pulled down across the exposed bowel. And fascial closure was created using a running looped 0 PDS. Skin was reapproximated with surgical tarah. Dry dressings were placed. Patient was awakened, extubated, taken to recovery room in stable condition. Needle, instrument, sponge counts correct. Blood loss: 30 mL Specimen: Sigmoid colon
[2022-12-31] MEDS: LACTATED RINGERS 1,000 ML 120 ML IV (17:20)
[2022-12-31] MEDS: POTASSIUM CHLORIDE 20 MEQ TAB 40 MEQ PO (18:03)
[2022-12-31] MEDS: NITROGLYCERIN OINT 1 INCH/GM OINT...G. 86 INCH TOP (18:48)
[2023-01-01] MEDS: IBUPROFEN 400 MG TABLET 800 MG PO (04:41)
[2023-01-01 05:00] VITALS: BP 104/60; PULSE 89; RESP 18; TEMP 36.7; O2SAT 99
[2023-01-01] MEDS: cefTRIAXone 1,000 MG in SODIUM CHLORIDE 0.9% 100 ML 200 MG IV (06:50)
[2023-01-01] MEDS: DOCUSATE 100 MG CAPSULE PO (09:00)
--- NOTE | 2023-01-01 09:44 | P.PN_ITS ---
Subjective Subjective Date Patient Seen: 01/01/23 Time Patient Seen: 09:44 Interval history: Patient seen this morning received sign-out from Dr. Daniel muhammad. Patient is sitting comfortably in bed. Had some clear liquid diet this morning. He feels fine. Tired of being in the hospital would like to go home although he is not ready. Patient had yesterday a new concerning finding with the just still blood pressure issues sweaty chilly not feeling well repeat CT scan showed sigmoid bolus general surgery was consulted patient underwent surgical operation yesterd ay evening. This morning patient is feeling well. No nausea or vomiting. Unaware of passing gas. No pain concerns. Exam Vital Signs (past 8 hours): - 01/01/23 05:00 Temperature 98.0 F Pulse Rate 89 Respiratory Rate 18 Blood Pressure 104/60 Pulse Oximetry 99 Oxygen Flow Rate 0 Oxygen Delivery Method Room Air Oxygen Flow Rate 0 Narrative Exam Narrative: Gen.: Alert good historian HEENT: Pupils equal round and reactive or mucosa is moist Cardio: S1-S2 regular rate and rhythm no murmurs appreciated. Respiratory: Lungs are clear to auscultation no wheezes or crackles normal respiratory effort. Abdomen: Soft bandage in place on abdomen mild distention Extremities: Quadriplegic warm dry perfused extremities loss of range of motion upper and lower extremities Objective Labs 12/30/22 04:50 12/31/22 04:40 [facility] Medical History Chicken pox Hearing loss Kidney stones (~09/2017) Quadriplegia Shoulder pain (~1997) Vision disorder Surgical History History of back surgery Family History Father Cancer Mother Dementia Sister Heart disease Social History household members: spouse Smoking Status: Never smoker alcohol intake: current Assessment & Plan Assessment and plan (1) Sepsis: Status: Acute Plan Sigmoid volvulus. Patient with quadriplegic with worsening symptoms yesterday of distention ileus obstruction. Repeat imaging showed sigmoid volvulus general surgery consulted and patient was taken to the OR for sigmoid volvulus and sigmoid colectomy. Patient postoperative day 1. Doing well this morning surgical care per General surgery. Fever chills due to underlying urinary tract infection with sepsis. Patient on ceftriaxone cultures are pending. Blood cultures have been no growth to this state. Continue with IV antibiotics. Patient with multiple history of urinary tract infections and possibly colonized. Sepsis due to UTI. Sepsis has resolved. Kidney stone with recent stent placement and lithotripsy. Stent in place and functioning. Acute hypokalemia. Continue to monitor closely potassium and electrolytes replace as needed. Quadriplegia present on admission. Lower extremity and upper extremity weakness. Chronic continue with positioning and comfort. Disposition and plan patient doing well surgical management per General surgery. Medically stable at this time
--- NOTE | 2023-01-01 10:31 | P.PN_ITS ---
Subjective Subjective Date Patient Seen: 01/01/23 Time Patient Seen: 10:31 Interval history: no complaints. Unable to tell if he passes gas due to paralysis. Exam Vital Signs (past 8 hours): - 01/01/23 05:00 Temperature 98.0 F Pulse Rate 89 Respiratory Rate 18 Blood Pressure 104/60 Pulse Oximetry 99 Oxygen Flow Rate 0 Oxygen Delivery Method Room Air Oxygen Flow Rate 0 Narrative Exam Narrative: abdomen is soft, not distended, wound intact. Objective Labs 12/30/22 04:50 12/31/22 04:40 [facility] Medical History Chicken pox Hearing loss Kidney stones (~09/2017) Quadriplegia Shoulder pain (~1997) Vision disorder Surgical History History of back surgery Family History Father Cancer Mother Dementia Sister Heart disease Social History household members: spouse Smoking Status: Never smoker alcohol intake: current Assessment & Plan Post-op Postoperative Procedures: Procedures Operation Date: 12/31/22 15:15 Actual Procedure Side Surgeon p Exploratory Laparotomy with Sigmoid Colectomy Not Applicable Annabelle Okeefe MD Postoperative status: doing well Postoperative plan narrative: Clear liquids until clear evidence of GI function. Needs discharge planning due to no heavy lifting for 2 weeks that impacts his transfers No enemas for 2 weeks. Time Spent With Patient Time with patient: 15-24 minutes
[2023-01-01 14:14] VITALS: BP 117/74; PULSE 81; TEMP 36.5
[2023-01-01 14:15] VITALS: BP 114/74; PULSE 81; RESP 18; TEMP 36.5; O2SAT 99
[2023-01-01] MEDS: SODIUM CHLORIDE 0.9% FLUSH 10 ML IV (20:39)
[2023-01-01] MEDS: SIMETHICONE 80 MG TABLET PO (20:39)
--- NOTE | 2023-01-01 21:02 | PC.NURSE ---
[facility] Contacted contact center rep Mami Sanchez on Pt distended abdominal. Dr. Sanchez recommended call Dr Okeefe. Contacted Dr Okeefe. Informed Dr Okeefe that Pt has a distended abdomen, Pt's VS WNL, temp 97.3, denies N/V or Shortness of breath. Bowel tones present but hypoactive in all quadrants. denied any tenderness to palpation. Dr Okeefe gave verbal order for dulcolax suppository to help relieve gas.
[2023-01-01 22:00] VITALS: BP 120/77; PULSE 74; RESP 18; TEMP 36.7; O2SAT 97
[2023-01-01] MEDS: BISACODYL 10 MG SUPP PR (22:17)
[2023-01-01] MEDS: ACETAMINOPHEN 325 MG TABLET 650 MG PO (22:29)
[2023-01-02] VITALS (12 sets, daily range): BP systolic 91–159; BP diastolic 62–88; PULSE 69–82; RESP 15–22; TEMP 36.6–37.3; O2SAT 94–100; BMI 25.7
[2023-01-02] MEDS: IBUPROFEN 400 MG TABLET 800 MG PO (01:41)
[2023-01-02] MEDS: ACETAMINOPHEN 325 MG TABLET 650 MG PO (06:14)
[2023-01-02] MEDS: cefTRIAXone 1,000 MG in SODIUM CHLORIDE 0.9% 100 ML 200 MG IV (06:14)
[2023-01-02 06:24] LABS: Add Manual Diff / Slide Review NO; Basophils Absolute Auto 0 /uL (0-100); Basophils Percent Auto 0.3 % (0-2); Eosinophils Absolute Auto 100 /uL (0-450); Eosinophils Percent Auto 0.7 % (2-4); Hemoglobin 10.5 g/dL (13.5-17.5); Lymphocytes Absolute Auto 900 /uL (1100-4500); Lymphocytes Percent Auto 8.9 % (25-40); Mean Corpuscular HGB Conc 33.8 % (30-36); Mean Corpuscular Volume 88.7 fL (80-100); Monocytes Absolute Auto 800 /uL (0-900); Neutrophils Absolute Auto 8300 /uL (1500-7000); Neutrophils Percent Auto 82.1 % (50-75); Platelet Count 339 X10^3/uL (150-400); Red Blood Cell Count 3.49 X10^6/uL (4.5-5.9); Red Cell Distribution Width 14.3 % (11.6-14.8); White Blood Cell Count 10.1 X10^3/uL (4.5-11.0)
[2023-01-02 06:40] LABS: BUN Creatinine Ratio 13.3 (6-22); Blood Urea Nitrogen 6 mg/dL (9-20); Calcium 8.3 mg/dL (8.4-10.2); Carbon Dioxide 26 mmol/L (22-32); Chloride 100 mmol/L (98-107); Estimated Glomerular Filt Rate > 60 mL/min (>60); Glucose 95 mg/dL (70-100); HEMOLYSIS < 15 (0-50); Potassium 3.7 mmol/L (3.4-5.1); Sodium 133 mmol/L (137-145)
--- NOTE | 2023-01-02 07:38 | DI.RAD.S_ITS ---
PROCEDURE: XR ABDOMEN 1V INDICATIONS: abd pain TECHNIQUE: One view of the abdomen acquired. COMPARISON: [facility], CR, XR ABDOMEN 1V, 03/14/2021, 14:49. [facility], CT, CT ABDOMEN PELVIS W CON, 12/31/2022, 10:19. FINDINGS: Surgical changes and devices: Surgical skin tarah are seen projecting over the lower abdomen. Stable left ureteral stent. Bowel: Distended air-filled loops of small and large bowel are again seen filling the abdomen. Distension of the sigmoid colon appears decreased when compared to the prior CT. Soft tissues: Evaluation for calcifications is compromised by extensive overlying bowel gas. Visualized solid organ contours appear normal in size. Bones: No suspicious bony lesions. IMPRESSION: Interval postsurgical changes with decreased prominence of the sigmoid colon. Distended air-filled loops of small and large bowel are again seen throughout the abdomen and pelvis, which may be secondary to ileus or persistent bowel obstruction. Approved by: Mundo Kimball M.D. on 01/02/2023 at 9:00
--- NOTE | 2023-01-02 07:51 | DI.RAD.S_ITS ---
PROCEDURE: XR SHOULDER RT MIN 2V INDICATIONS: shoulder pain TECHNIQUE: 4 views of the shoulder were acquired. COMPARISON: None. FINDINGS: Bones: No acute fractures or dislocations. No suspicious bony lesions. Visualized ribs appear intact. Mild to moderate acromioclavicular joint osteoarthrosis. Postsurgical changes are seen in the cervical spine. Soft tissues: No suspicious soft tissue calcifications. There appears to be free air under the right hemidiaphragm, which may be related to recent surgery. IMPRESSION: 1. Mild to moderate acromioclavicular joint osteoarthrosis. No acute osseous abnormality. If the symptoms persist, consider cross sectional imaging such as MRI or CT for further assessment. 2. Suspected free air under the right hemidiaphragm may be related to recent abdominal surgery. Approved by: Mundo Kimball M.D. on 01/02/2023 at 9:03
--- NOTE | 2023-01-02 07:52 | PM.PN.1 ---
Subjective Subjective Date Patient Seen: 01/02/23 Time Patient Seen: 07:52 Interval history: Patient seen and evaluated this morning. Patient states a little bit of a rough night. Having some abdominal spasm pain. And some shoulder pain which is probably referred. He worries about his arms and shoulders as this is how he mobilizes he was wondering about an x-ray. Says he has not really passed gas that he is aware of. He is feeling a little bit nauseated. He said the general surgeon had been in to see him this morning. Exam Vital Signs (past 8 hours): - 01/02/23 04:41 Temperature 97.9 F Pulse Rate 80 Respiratory Rate 19 Blood Pressure 146/88 H Pulse Oximetry 96 Oxygen Flow Rate 0 Oxygen Delivery Method Room Air Oxygen Flow Rate 0 Narrative Exam Narrative: Gen.: Alert good historian HEENT: Pupils equal round and reactive or mucosa is moist mildly hard of hearing Cardio: [S1-S2 regular rate and rhythm no murmurs appreciated.] Respiratory: [Lungs are clear to auscultation no wheezes or crackles normal respiratory effort.] Abdomen: Soft mild distention Extremities: Quadriplegic with decreased range of motion of lower extremities and limited range of motion upper extremities Objective Labs 01/02/23 04:55 01/02/23 04:55 Labs: Laboratory Results - last 24 hr 01/02/23 01/02/23 04:55 04:55 WBC 10.1 RBC 3.49 L Hgb 10.5 L Hct 31.0 L MCV 88.7 MCH 30.0 MCHC 33.8 RDW 14.3 Plt Count 339 Neut % (Auto) 82.1 H Lymph % (Auto) 8.9 L [place] % (Auto) 8.0 Eos % (Auto) 0.7 L Baso % (Auto) 0.3 Neut # (Auto) 8300 H Lymph # (Auto) 900 L [place] # (Auto) 800 Eos # (Auto) 100 Baso # (Auto) 0 Sodium 133 L Potassium 3.7 Chloride 100 Carbon Dioxide 26 BUN 6 L Creatinine 0.45 L Estimated GFR > 60 BUN/Creatinine Ratio 13.3 Glucose 95 Calcium 8.3 L PFSH Medical History Chicken pox Hearing loss Kidney stones (~09/2017) Quadriplegia Shoulder pain (~1997) Vision disorder Surgical History History of back surgery Family History Father Cancer Mother Dementia Sister Heart disease Social History household members: spouse Smoking Status: Never smoker alcohol intake: current Assessment & Plan Assessment and plan (1) Sepsis: Status: Acute (2) Incomplete quadriplegia at C5-6 level: Status: Chronic Plan Sigmoid volvulus.? Patient with quadriplegic with worsening symptoms yesterday of distention ileus obstruction.? Postop day 2. As per General surgery Fever chills due to underlying urinary tract infection with sepsis.? Patient on ceftriaxone cultures are pending.? Antibiotics will be continued. Once tolerating better oral diet will switch to oral antibiotics. Sepsis due to UTI.? Sepsis has resolved. Kidney stone with recent stent placement and lithotripsy.? Stent in place and functioning. Acute hypokalemia.? Potassium looks good today. Quadriplegia present on admission.? Lower extremity and upper extremity weakness.? Chronic continue with positioning and comfort. Disposition and plan. [facility] with [facility] due to his abdominal surgery.
--- NOTE | 2023-01-02 08:28 | P.PN_ITS ---
Subjective Subjective Date Patient Seen: 01/02/23 Time Patient Seen: 08:28 Interval history: left shoulder pain and abdominal distention. No stools, no gas out with suppository. Exam Vital Signs (past 8 hours): - 01/02/23 04:41 Temperature 97.9 F Pulse Rate 80 Respiratory Rate 19 Blood Pressure 146/88 H Pulse Oximetry 96 Oxygen Flow Rate 0 Oxygen Delivery Method Room Air Oxygen Flow Rate 0 Narrative Exam Narrative: abdomen distended. Abd Xray is diffuse gas w/o transition. Const General: cooperative Nutritional Appearance: overweight HENMT Head: normocephalic and atraumatic GI Inspection: distended Palpation: soft Objective Labs 01/02/23 04:55 01/02/23 04:55 Labs: Laboratory Results - last 24 hr 01/02/23 01/02/23 04:55 04:55 WBC 10.1 RBC 3.49 L Hgb 10.5 L Hct 31.0 L MCV 88.7 MCH 30.0 MCHC 33.8 RDW 14.3 Plt Count 339 Neut % (Auto) 82.1 H Lymph % (Auto) 8.9 L [place] % (Auto) 8.0 Eos % (Auto) 0.7 L Baso % (Auto) 0.3 Neut # (Auto) 8300 H Lymph # (Auto) 900 L [place] # (Auto) 800 Eos # (Auto) 100 Baso # (Auto) 0 Sodium 133 L Potassium 3.7 Chloride 100 Carbon Dioxide 26 BUN 6 L Creatinine 0.45 L Estimated GFR > 60 BUN/Creatinine Ratio 13.3 Glucose 95 Calcium 8.3 L PFSH Medical History Chicken pox Hearing loss Kidney stones (~09/2017) Quadriplegia Shoulder pain (~1997) Vision disorder Surgical History History of back surgery Family History Father Cancer Mother Dementia Sister Heart disease Social History household members: spouse Smoking Status: Never smoker alcohol intake: current Assessment & Plan Post-op Postoperative Procedures: Procedures Operation Date: 12/31/22 15:15 Actual Procedure Side Surgeon p Exploratory Laparotomy with Sigmoid Colectomy Not Applicable Annabelle Okeefe MD Postoperative status narrative: post op ileus verse anastomotic issue. Plan: Gentle flex sig to decompress and evaluate anastomosis. Time Spent With Patient Time with patient: 15-24 minutes
[2023-01-02] MEDS: SODIUM CHLORIDE 0.9% FLUSH 10 ML IV ×2 (08:58→20:47)
[2023-01-02] MEDS: SIMETHICONE 80 MG TABLET PO ×2 (08:58→20:46)
[2023-01-02] MEDS: LACTATED RINGERS 1,000 ML 42 ML IV (10:08)
--- NOTE | 2023-01-02 10:14 | PM.PREOP ---
Pre-operative Note COVID-19 COVID-19 status: Negative Criteria for continued procedure: Expected advancement of disease process Interval Note History & Physical reviewed/Exam performed by Physician: Yes Changes to H&P: Yes H&P completed within 30 days and has changed as indicated here:: See todays progress note.
--- NOTE | 2023-01-02 10:52 | PM.OP.COLON ---
Operative Date/Time/Diagnoses Date of procedure: 01/02/23 Time of procedure: 10:52 Pre-op diagnosis: Status post sigmoid colectomy for sigmoid volvulus. Evaluation of anastomosis Post-op diagnosis: same Procedure & Clinicians Study performed: Flex sig with MAC Same procedure as scheduled: Yes Indications: Status post sigmoid colectomy for sigmoid volvulus. Evaluation of anastomosis Surgeon: Annabelle Okeefe Procedure Notes Procedure in detail: Preop diagnosis: Status post sigmoid colectomy, evaluation of anastomosis Postop diagnosis: Same Operative procedure: Flexible sigmoidoscopy with MAC Findings: Stool throughout the sigmoid colon into the rectal vault. Anastomosis is within normal limits. Distended colon above without abnormality Procedure: Patient placed in a lateral position. Rectal exam performed showing no tone no masses. Colonoscope inserted in the rectum and advanced to the splenic flexure without difficulty. Insufflation and extraction of the scope allowed me to decompress the proximal colon and evaluate the anastomosis which was in good standing. Also manual disimpaction of the stool from the rectal vault. Impression: No twist or obstruction at the anastomosis. Slow transit phenomenon causing colonic distention at this time. Plan: Proceed with regular diet and can resume daily bowel regimen without enema. May require oral laxatives until 2 weeks have passed and he can resume his enemas. Specimen(s): none sent Complications: none Post-procedure Follow up: as needed Disposition: PACU
--- NOTE | 2023-01-02 10:54 | PC.NURSE ---
Addendum entered by Renetta Caruso R.N. 01/02/23 12:12: Pt arrived back to unit @ 1130. VS stable, RA, A&Ox4, pt stating that he felt groggy and tired. Pt currently resting in bed with call light within reach. Original Note: Pt left unit for a scope @ 0975 onto stretcher to pre op.
[2023-01-02] MEDS: CIPROFLOXACIN 400 MG/200 ML PIGGYBACK 200 MG IV ×2 (11:31→21:11)
[2023-01-02] MEDS: MAGNESIUM HYDROXIDE 30 ML UDC PO (20:46)
[2023-01-02] MEDS: DOCUSATE 100 MG CAPSULE PO (20:46)
[2023-01-03 00:02] VITALS: BP 143/85; PULSE 83; RESP 18; TEMP 37.2; O2SAT 98
[2023-01-03] MEDS: ACETAMINOPHEN 325 MG TABLET 650 MG PO ×2 (03:12→21:42)
[2023-01-03] MEDS: SIMETHICONE 80 MG TABLET PO ×2 (05:44→08:35)
--- NOTE | 2023-01-03 08:32 | P.PN_ITS ---
Subjective Subjective Date Patient Seen: 01/03/23 Time Patient Seen: 08:33 Interval history: Patient seen this morning doing well. Discussed care with Dr. Okeefe yesterday. Recommended MiraLax regimen daily. Patient has little bit of decreased appetite not feeling super hungry. Stills feels like his abdomen is distended. Antibiotics changed yesterday per recommendation of new urine culture. Exam Vital Signs (past 8 hours): Oxygen Delivery Method Room Air Oxygen Flow Rate 0 Narrative Exam Narrative: Gen.: Alert good historian HEENT: Pupils equal round and reactive Respiratory: Normal respiratory effort Abdomen: Soft mild distention Objective Labs 01/02/23 04:55 01/02/23 04:55 [facility] Medical History (Updated 01/03/23 @ 08:37 by Donte Reddy MD) Chicken pox Hearing loss Kidney stones (~09/2017) Quadriplegia Shoulder pain (~1997) Vision disorder Surgical History History of back surgery Family History Father Cancer Mother Dementia Sister Heart disease Social History household members: spouse Smoking Status: Never smoker alcohol intake: current Assessment & Plan Assessment and plan (1) Sigmoid volvulus: Status: Acute Plan Sigmoid volvulus.? Postop day 3. Colonoscopy done yesterday with this impaction. Started on MiraLax. Further surgical management per General surgery Urinary tract infection with sepsis. Repeat urinalysis showed Pseudomonas. Intermediate sensitivity to cephalosporins he is currently on ciprofloxacin IV. Will continue with this. He will be discharged on oral antibiotics Kidney stone with recent stent placement and lithotripsy.? Stent in place and functioning. Acute hypokalemia.? Resolved. No current labs today. Quadriplegia present on admission.? Lower extremity and upper extremity weakness.? Chronic continue with positioning and comfort. Disposition and plan.? Discharge plan. Non weightbearing for 14 days to protect abdominal surgery.
[2023-01-03] MEDS: polyethylene glycoL 3350 17 GM POWD.PACK PO (08:35)
[2023-01-03] MEDS: SODIUM CHLORIDE 0.9% FLUSH 10 ML IV ×2 (08:37→22:25)
[2023-01-03] MEDS: CIPROFLOXACIN 400 MG/200 ML PIGGYBACK 200 MG IV ×2 (09:36→21:50)
--- NOTE | 2023-01-03 09:49 | PM.PNPO.1 ---
Subjective Subjective Date Patient Seen: 01/03/23 Time Patient Seen: 09:49 Interval history: no issues. Exam Vital Signs (past 8 hours): Oxygen Delivery Method Room Air Oxygen Flow Rate 0 Narrative Exam Narrative: abdomen is distended and soft, wound dry and intact. Objective Labs 01/02/23 04:55 01/02/23 04:55 [facility] Medical History (Updated 01/03/23 @ 08:37 by Donte Reddy MD) Chicken pox Hearing loss Kidney stones (~09/2017) Quadriplegia Shoulder pain (~1997) Vision disorder Surgical History History of back surgery Family History Father Cancer Mother Dementia Sister Heart disease Social History household members: spouse Smoking Status: Never smoker alcohol intake: current Assessment & Plan Post-op Postoperative Procedures: Procedures Operation Date: 12/31/22 15:15 Actual Procedure Side Surgeon p Exploratory Laparotomy with Sigmoid Colectomy Not Applicable Annabelle Okeefe MD Operation Date: 01/02/23 12:45 Actual Procedure Side Surgeon p Colonoscopy Flexible Sigmoidoscopy Annabelle Okeefe MD Postoperative status narrative: No colon obstruction at anastomosis, no postop complications. Slow transit issue with remaining colon Postoperative plan narrative: Add Miralax to bowel regimen, avoid enema for 2 weeks. Can continue to do digital assist. No heavy lifting (transfers) for 2 weeks. Time Spent With Patient Time with patient: 15-24 minutes
[2023-01-03] MEDS: ONDANSETRON 4 MG/2 ML INJ IV ×2 (10:52→21:41)
--- NOTE | 2023-01-03 10:57 | PC.NURSE ---
Addendum entered by Renetta Caruso R.N. 01/03/23 15:44: Turned pt to the R side to attempt to disimpact. There was more gas but no stool. Encouraged pt to keep alternating laying on each side to relieve gas and move stool along. Pt tolerated it well. Pt requested to lie on L side, supported pt with pillows and left chucks pad just in case pt has loose, incontinent stool. Addendum entered by Renetta Caruso R.N. 01/03/23 14:43: Rolled pt of L side with a chucks pad, towel and bedpan. attempted to disimpact pt, but could not feel an hard stool. There was a lot of gas expelled. Allowed pt to lie on L side for 10-15 mins to allow for gas/stool to move. Will attempt to disimpact and turn pt to the other side. Pt tolerated attempts well. Original Note: Pt c/o nausea and had a little emesis. Zofran IV administered. Effective and pt is lying down, cleaned up, resting.
--- NOTE | 2023-01-03 11:42 | CM.DPNOTE ---
DCP Note According to review of Dr Okeefe's notes and then discussion with Dr Reddy- recommendation for patient s/p: Exploratory Laparotomy with Sigmoid Colectomy 4.01.19 Colonoscopy Flexible Sigmoidoscopy .03.21 is Non weightbearing for 14 days to protect abdominal surgery Met w/patient to discuss dispo options. Patient will not consider discharge to a SNF, rather requests this CARPET INSTALLATION SPECIALIST contact the [place] spinal chord unit within the [facility] system at P [phone] Rut Wright- spinal chord specialist [email or web address] and ask about respite stay for two weeks for assist w/ADLs Placed call to the inpatient spinal chord unit and spoke w/Hattie in admissions. Currently, this unit is at maximum capacity and currently does not take veterans for respite at this time (this was a pre-COVID service which has not resumed) Hattie, admissions, will plan to leave patient's [facility] social work supervisor a msg today alerting her that of patient's needs. Hattie recommends SNF placement using patient's [facility]. Updated that patient resistant to this option at this time This CARPET INSTALLATION SPECIALIST will plan to return to patient's room to discuss dispo options once again, likely home w/spouse and caregivers (increase hours of assistance?) vs SNF search if patient agreeable JW
[2023-01-03] MEDS: MIDODRINE HCL 5 MG TABLET PO (16:55)
--- NOTE | 2023-01-03 17:26 | PC.NURSE ---
Days shift: Pt BP 80/40 at approx 1640. States I feel like its low and feel just a little off. Pt states THis does happen to me when I'm not in the hospital and I take a medication that helps raise my blood pressure. Dr Reddy called and this telegraphic typewriter operator chief spoke to him about Pt's hypotension. Verbal order taken to order Midodrine. This has been done and Pt sleping at this time (1730). Will continue to monitor.
[2023-01-03 17:28] VITALS: BP 69/40; PULSE 79; RESP 18; TEMP 36.7; O2SAT 97
[2023-01-03 17:34] VITALS: BP 113/68
--- NOTE | 2023-01-03 17:35 | PC.NURSE ---
Day shift: Pt BP at this time (1736) is 113/68. Will continue to monitor.
[2023-01-03 20:00] VITALS: BP 142/86; PULSE 90; RESP 17; TEMP 37.4; O2SAT 97
[2023-01-03] MEDS: DOCUSATE 100 MG CAPSULE PO (21:42)
[2023-01-04 04:00] VITALS: BP 148/85; PULSE 86; RESP 19; TEMP 37.1; O2SAT 100
--- NOTE | 2023-01-04 06:29 | PC.WOUNDPHOT ---
2 cm x 3 cm stage 2 PI on coccyx
--- NOTE | 2023-01-04 06:30 | PC.NURSE ---
Open wound on coccyx noted, cleaned and dressed with allevyn Pt passed stool and gas, bloating and distension improving over shift
--- NOTE | 2023-01-04 08:06 | PC.NURSE ---
Pt is A&O offers no overt c/o. Will call as needs present.
[2023-01-04] MEDS: CIPROFLOXACIN 400 MG/200 ML PIGGYBACK 200 MG IV ×2 (10:03→21:27)
[2023-01-04] MEDS: DOCUSATE 100 MG CAPSULE PO ×2 (10:03→21:27)
[2023-01-04] MEDS: SODIUM CHLORIDE 0.9% FLUSH 10 ML IV ×2 (10:03→21:27)
[2023-01-04] MEDS: polyethylene glycoL 3350 17 GM POWD.PACK PO (10:03)
[2023-01-04 11:03] VITALS: BP 125/79; PULSE 79; RESP 17; TEMP 35.8; O2SAT 100
--- NOTE | 2023-01-04 11:23 | PM.DS.1 ---
History of Present Illness History of Present Illness Date Patient Seen: 01/04/23 Time Patient Seen: 11:23 Chief complaint: Bladder infection Narrative: done in error Discharge Providers Provider Date of admission: 12/29/22 07:00 Discharge Date: 01/21/23 Primary care physician: Christine Magaña MD Consults: 12/31/22 12:44 Consult to General Surgery Routine Comment: Consulting Provider: Annabelle Okeefe Reason for consultation: sigmoid volvulus Has provider been notified: Yes 01/01/23 10:30 Consult to Discharge Planning Routine Comment: needs no lifting >15lbs for 2 weeks Discharge provider: Sohan Sanchez MD Exam Vital Signs (past 8 hours): - 01/04/23 04:00 01/04/23 11:03 Temperature 98.7 F 96.4 F L Pulse Rate 86 79 Respiratory Rate 19 17 Blood Pressure 148/85 H 125/79 Pulse Oximetry 100 100 Oxygen Flow Rate 0 Oxygen Delivery Method Room Air Oxygen Flow Rate 0 Objective Labs 01/06/23 04:59 01/06/23 04:59 PFSH Medical History (Updated 01/16/23 @ 15:12 by Gucci Patten MD) Chicken pox Hearing loss Kidney stones (~09/2017) Quadriplegia Shoulder pain (~1997) Vision disorder Surgical History History of back surgery Family History Father Cancer Mother Dementia Sister Heart disease Social History household members: spouse Smoking Status: Never smoker alcohol intake: current Discharge Plan Discharge Plan Patient Disposition: Home Discharge orders & Medications Prescriptions: New polyethylene glycol 3350 17 gram Powder In Packet 17 gm PO DAILY Qty: 300 0RF docusate sodium 100 mg Capsule 100 mg PO BID Qty: 60 0RF simethicone [Gas Relief 80 (simethicone)] 80 mg Tablet,Chewable 80 mg PO QID PRN (Reason: Flatulence or bloating) Qty: 30 0RF ondansetron 4 mg tablet,disintegrating 4 mg PO Q8H PRN (Reason: nausea and vomiting) Qty: 20 0RF ciprofloxacin HCl 500 mg tablet 500 mg PO BID Qty: 7 0RF Continued midodrine 5 mg Tablet 5 mg PO TID Qty: 0 Patient Comments: patient states takes daily and prn. Rx Instructions: Take first dose shortly before rising, and the other doses PRN ie: after a big meal/ when BP drops ascorbic acid (vitamin C) 500 mg Tablet 1,000 mg PO DAILY Qty: 0 cholecalciferol (vitamin D3) [Vitamin D3] 1,000 unit Tablet 2,000 unit PO DAILY Qty: 0 fexofenadine 60 mg Tablet 60 mg PO BID triamcinolone acetonide 0.5 % Cream 1 applic TOPICAL TID PRN (Reason: Itching) Rx Instructions: itching or rash on on right elbow sodium chloride 0.9 % Solution 1 irrig IRRIGATION DAILY Rx Instructions: when Renacidin not used ibuprofen 400 mg Tablet 400 mg PO TID PRN (Reason: pain) nitroglycerin 2 % Ointment 1 inch TRANSDERMAL Q6H PRN (Reason: autonomic dysreflexia) Rx Instructions: when blood pressure spikes Renacidin 1,980.6 mg-59.4 mg-980.4mg/30mL Solution 20 ml IRRIGATION Q OTHER DAY Rx Instructions: by catheter Lubricating Topical Jelly Bact 1 applic topical DAILY Rx Instructions: Apply thin film to affected area every day Follow up/Referrals: Annabelle Okeefe MD [Physician] - (skin staple remove 7-10 days) Christine Magaña MD [Primary Care Provider] - 1 Month Diet/Activity/Treatments Diet: Diet as Tolerated and Regular Skin/Wound/Dressing Care Report to your healthcare provider any signs of infection, such as:: chills, fever and unusual drainage Visit Report/Discharge Packet Instructions: [facility]: Wound Care Stand Alone Forms: Patient Portal/API, Stroke Signs & Symptoms, Surgery Discharge Discharge Data Primary Care Provider: Christine Magaña Discharges patient from system. Discharge Date/Time: 01/07/23 15:07
--- NOTE | 2023-01-04 11:24 | PM.PN.1 ---
Subjective Subjective Interval history: Patient seen in follow-up of UTI and sigmoid volvulus. Patient feeling better today. Appetite is better. Apparently still required manual extraction of bowel movements. But overall feeling better. No nausea no vomiting. No other changes. Day 4 status post surgery. Without any other changes. Exam Vital Signs (past 8 hours): - 01/04/23 04:00 01/04/23 11:03 Temperature 98.7 F 96.4 F L Pulse Rate 86 79 Respiratory Rate 19 17 Blood Pressure 148/85 H 125/79 Pulse Oximetry 100 100 Oxygen Flow Rate 0 Oxygen Delivery Method Room Air Oxygen Flow Rate 0 Narrative Exam Narrative: Alert male lying in bed no acute distress. Mucous membranes moist. Neck supple without adenopathy lungs are clear heart regular rate and rhythm. Abdomen is distended with tympanic bowel sounds. Moderate tenderness no rebound or guarding Objective Labs 01/02/23 04:55 01/02/23 04:55 [facility] Medical History (Updated 01/03/23 @ 08:37 by Donte Reddy MD) Chicken pox Hearing loss Kidney stones (~09/2017) Quadriplegia Shoulder pain (~1997) Vision disorder Surgical History History of back surgery Family History Father Cancer Mother Dementia Sister Heart disease Social History household members: spouse Smoking Status: Never smoker alcohol intake: current Assessment & Plan Assessment & Plan narrative: Urinary tract infection with sepsis. Growing both E coli and Pseudomonas now. Clinically seems better. White count is down. Complicated by sigmoid volvulus. At this point will continue Cipro. Sensitivities for both should be good. May need longer antibiotics then discharged due to stent. Will see how things go. Sigmoid volvulus postop day 3. Bowel sounds still do not sound normal he still mildly distended as per surgery. Will find out how things go. Is on MiraLax. Kidney stone recent stent placement seems to be functional. May need to consider longer antibiotics with stent just to make sure we clear infection. Acute hypokalemia. Stable at this time. Will recheck a.m.. Hypertension. Patient with blood pressure variability. Off of nitro and watching closely. Will follow. Quadriplegia present on admission no change but will impact discharge. Disposition. Patient is certainly improving. Issue will be will need quite a bit of help because will be able to mobilize in his usual wheelchair because of abdominal restrictions. Discussed with social service. Apparently unable to transfer to [place] and other options are less appealing. Apparently plan is to go home. Will need time to get risk and compliance analytics director set up. I do not think will be going home today maybe tomorrow maybe on Friday I do not know this will depend on surgical opinion. Certainly abdomen does not seem to be doing well. We discussed this with patient and we will continue to follow recheck a.m. depending on surgical evaluation 50 minutes spent with patient chart review social service orders in no
--- NOTE | 2023-01-04 14:47 | CM.DPNOTE ---
Addendum entered by JUSTO Huerta 01/04/23 15:57: ADD: [place] spinal chord social contact worker covering Friday is Luis Alberto P [phone] (same number as Jaqui) WILIAM Original Note: DCP Note Lengthy voice message from Jaqui Storey, [place] spinal chord injury social contact worker P [phone] relaying her conversation with patient yesterday afternoon 4..23- Patient's father in law just so spouse will need to be flying to [place] soon Patient has been calling family members that can help care for him and stay overnight once home and can help with his bowel regimen Contacts left on VM: Sister Karmen Serrato and PAZ P [phone] Brother (nm?) P [phone] Sanchez, patient will likely be here through the weekend, potential for discharge home w/family Friday if cleared by surgery. If patient does not discharge to a SNF he will require caregivers/family to assist Plan: Anticipate discharge home w/family, established caregivers (increase hours possibly?) and home health services if patient agreeable WILIAM
[2023-01-04 17:12] VITALS: BP 96/63; PULSE 83; RESP 18; TEMP 37.8; O2SAT 98
[2023-01-04 21:00] VITALS: BP 138/87; PULSE 84; RESP 17; TEMP 37.3; O2SAT 98
[2023-01-04] MEDS: ACETAMINOPHEN 325 MG TABLET 650 MG PO (21:29)
[2023-01-04] MEDS: MAGNESIUM HYDROXIDE 30 ML UDC PO (21:29)
[2023-01-04] MEDS: SIMETHICONE 80 MG TABLET PO (21:59)
[2023-01-05] VITALS: BP 155/77; PULSE 83; RESP 19; TEMP 37.4; O2SAT 99
[2023-01-05] MEDS: ONDANSETRON 4 MG/2 ML INJ IV ×2 (04:42→10:02)
[2023-01-05] MEDS: SODIUM CHLORIDE 0.9% FLUSH 10 ML IV ×2 (04:48→21:21)
[2023-01-05 06:11] LABS: Add Manual Diff / Slide Review NO; Basophils Absolute Auto 100 /uL (0-100); Basophils Percent Auto 0.5 % (0-2); Eosinophils Absolute Auto 300 /uL (0-450); Eosinophils Percent Auto 2.9 % (2-4); Hematocrit 32.1 % (41-53); Hemoglobin 10.7 g/dL (13.5-17.5); Lymphocytes Absolute Auto 800 /uL (1100-4500); Lymphocytes Percent Auto 7.6 % (25-40); Mean Corpuscular HGB Conc 33.2 % (30-36); Mean Corpuscular Hemoglobin 29.2 PG (26-34); Mean Corpuscular Volume 88.2 fL (80-100); Monocytes Absolute Auto 700 /uL (0-900); Monocytes Percent Auto 6.3 % (3-14); Neutrophils Absolute Auto 9100 /uL (1500-7000); Neutrophils Percent Auto 82.7 % (50-75); Platelet Count 412 X10^3/uL (150-400); Red Blood Cell Count 3.64 X10^6/uL (4.5-5.9); White Blood Cell Count 11.1 X10^3/uL (4.5-11.0)
[2023-01-05 06:24] LABS: Alanine Aminotransferase 48 IU/L (<50); Albumin Globulin Ratio 0.8 (1.0-2.8); Alkaline Phosphatase 191 U/L (38-126); Aspartate Aminotransferase 47 IU/L (17-59); BUN Creatinine Ratio 10.4 (6-22); Bilirubin Total 0.5 mg/dL (0.2-1.3); Blood Urea Nitrogen 5 mg/dL (9-20); Calcium 8.6 mg/dL (8.4-10.2); Carbon Dioxide 29 mmol/L (22-32); Chloride 98 mmol/L (98-107); Estimated Glomerular Filt Rate > 60 mL/min (>60); Globulin 3.6 g/dL (1.7-4.1); Glucose 110 mg/dL (70-100); HEMOLYSIS < 15 (0-50); Potassium 3.1 mmol/L (3.4-5.1); Sodium 132 mmol/L (137-145); Total Protein 6.6 g/dL (6.3-8.2)
[2023-01-05 08:00] VITALS: BP 119/75; PULSE 75; RESP 17; TEMP 36.6; O2SAT 99
--- NOTE | 2023-01-05 10:00 | PM.PNPO.1 ---
Subjective Subjective Date Patient Seen: 01/05/23 Time Patient Seen: 10:00 Interval history: Sleeping. Exam Vital Signs (past 8 hours): - 01/05/23 08:00 Temperature 97.8 F Pulse Rate 75 Respiratory Rate 17 Blood Pressure 119/75 Pulse Oximetry 99 Oxygen Flow Rate 0 Oxygen Delivery Method Room Air Oxygen Flow Rate 0 Narrative Exam Narrative: abdomen is soft and slightly distended. wound intact. No complications Objective Labs 01/05/23 05:29 01/05/23 05:29 Labs: Laboratory Results - last 24 hr 01/05/23 01/05/23 05:29 05:29 WBC 11.1 H RBC 3.64 L Hgb 10.7 L Hct 32.1 L MCV 88.2 MCH 29.2 MCHC 33.2 RDW 14.0 Plt Count 412 H Neut % (Auto) 82.7 H Lymph % (Auto) 7.6 L [place] % (Auto) 6.3 Eos % (Auto) 2.9 Baso % (Auto) 0.5 Neut # (Auto) 9100 H Lymph # (Auto) 800 L [place] # (Auto) 700 Eos # (Auto) 300 Baso # (Auto) 100 Sodium 132 L Potassium 3.1 L Chloride 98 Carbon Dioxide 29 BUN 5 L Creatinine 0.48 L Estimated GFR > 60 BUN/Creatinine Ratio 10.4 Glucose 110 H Calcium 8.6 Total Bilirubin 0.5 AST 47 ALT 48 Alkaline Phosphatase 191 H Total Protein 6.6 Albumin 3.0 L Globulin 3.6 Albumin/Globulin Ratio 0.8 L [facility] Medical History (Updated 01/03/23 @ 08:37 by Donte Reddy MD) Chicken pox Hearing loss Kidney stones (~09/2017) Quadriplegia Shoulder pain (~1997) Vision disorder Surgical History History of back surgery Family History Father Cancer Mother Dementia Sister Heart disease Social History household members: spouse Smoking Status: Never smoker alcohol intake: current Assessment & Plan Post-op Postoperative Procedures: Procedures Operation Date: 12/31/22 15:15 Actual Procedure Side Surgeon p Exploratory Laparotomy with Sigmoid Colectomy Not Applicable Annabelle Okeefe MD Operation Date: 01/02/23 12:45 Actual Procedure Side Surgeon p Colonoscopy Flexible Sigmoidoscopy Annabelle Okeefe MD Postoperative status narrative: no post op complications. slow transit issues with remaining GI tract will persist, bloating should improve over time Postoperative plan narrative: Modify bowel regimen for 2 weeks and heavy lifting(transfers) for 2 weeks. Time Spent With Patient Time with patient: less than 15 minutes
[2023-01-05] MEDS: SCOPOLAMINE 1 PATCH TOP (12:48)
[2023-01-05] MEDS: METOCLOPRAMIDE 10 MG/2 ML INJ IV ×2 (12:48→21:23)
--- NOTE | 2023-01-05 12:53 | PC.NURSE ---
Addendum entered by Rach Fong R.N. 01/05/23 13:35: Patient had an xl soft/semiformed bowel movement. Did digital stimulation and their was nothing in rectum. Patient cleaned up and placed on his left side with pillows under his legs and a brief on him. His abdomen has gone down and is half the size it was before having the bowel movement, his abdomen is soft and non tender. Given reglan and a scopalomine patch behind r.ear and this has been helpful for his nausea. He has been unable to take po, will try again after his nap. Dressing to stage two/three to coccyx changed. Area is dry and looks to be healing. Resting comfortably at this time. Original Note: Patient is nauseous this morning and was given zofran. This did not help him. Reglan and Scopalomine patch placed on patient. We are going to reposition him to his side, see if he has to have a bm, and check for wrinkles under his bottom. We will also make sure that his omalley is draining well.
--- NOTE | 2023-01-05 13:41 | P.PN_ITS ---
Subjective Subjective Interval history: Patient seen in follow-up of UTIs sigmoid volvulus. Patient overall feeling a little better. Had a large bowel movement which is better. Has been having a lot of nausea. No vomiting. No pain. No fevers no chills otherwise stable. Exam Vital Signs (past 8 hours): - 01/05/23 08:00 Temperature 97.8 F Pulse Rate 75 Respiratory Rate 17 Blood Pressure 119/75 Pulse Oximetry 99 Oxygen Flow Rate 0 Oxygen Delivery Method Room Air Oxygen Flow Rate 0 Narrative Exam Narrative: Alert male lying in bed mildly fatigued in appearance Lungs are clear heart is regular rate and rhythm abdomen is still mildly distended with hypoactive bowel sounds but otherwise no change minimally tender Objective Labs 01/05/23 05:29 01/05/23 05:29 Labs: Laboratory Results - last 24 hr 01/05/23 01/05/23 05:29 05:29 WBC 11.1 H RBC 3.64 L Hgb 10.7 L Hct 32.1 L MCV 88.2 MCH 29.2 MCHC 33.2 RDW 14.0 Plt Count 412 H Neut % (Auto) 82.7 H Lymph % (Auto) 7.6 L Kaufman % (Auto) 6.3 Eos % (Auto) 2.9 Baso % (Auto) 0.5 Neut # (Auto) 9100 H Lymph # (Auto) 800 L Kaufman # (Auto) 700 Eos # (Auto) 300 Baso # (Auto) 100 Sodium 132 L Potassium 3.1 L Chloride 98 Carbon Dioxide 29 BUN 5 L Creatinine 0.48 L Estimated GFR > 60 BUN/Creatinine Ratio 10.4 Glucose 110 H Calcium 8.6 Total Bilirubin 0.5 AST 47 ALT 48 Alkaline Phosphatase 191 H Total Protein 6.6 Albumin 3.0 L Globulin 3.6 Albumin/Globulin Ratio 0.8 L [facility] Medical History (Updated 01/03/23 @ 08:37 by Donte Reddy MD) Chicken pox Hearing loss Kidney stones (~09/2017) Quadriplegia Shoulder pain (~1997) Vision disorder Surgical History History of back surgery Family History Father Cancer Mother Dementia Sister Heart disease Social History household members: spouse Smoking Status: Never smoker alcohol intake: current Assessment & Plan Assessment & Plan narrative: Urinary tract infection with sepsis. Seems to be doing well white count is stable. Slightly increased today but I do not think it is significant. Will repeat tomorrow to make sure stable. Otherwise seems to be doing well. Will continue antibiotics today question will be how long do we continue on as outpatient. Will discuss tomorrow. Sigmoid volvulus day 4 postop. Still slow return to normal bowel function but did have bowel function today. Has been persistently nauseated. Suspect this is going to take time. Will see how he does in the next 24 hours. Status post recent kidney stone stent placement at this time doing well no evidence of infection History of hypokalemia. Acute. Normal. Stable at this time. Will follow probably will need follow-up as outpatient Hypertension stable no change at this time Quadriplegia present on admission no change but will impact his ability to go home Disposition. Little unclear on his bowel function whether it is going to be able to go home tomorrow or not. He does have caretakers set up plan is for him to go home. Not sure what that will look like depending on tomorrow. Surgery feels like things are progressing but slowly and at this point will continue current care and see how things go over the next 24 hours
[2023-01-05 14:27] VITALS: BP 137/92; PULSE 83; RESP 18; TEMP 36.2; O2SAT 99
--- NOTE | 2023-01-05 14:27 | CM.DPNOTE ---
Discharge Planning Note: Dr Sanchez just in to see patient. Patient is in discomfort due to bowels, sigmoid volvulus. He did just have large stool and feels relieved but not able to talk about his discharge plan desires this afternoon. Plan: Possible DC Friday per Dr Sanchez (?). Discuss DCP with patient, increasing caregiving hours, possible HH? Pura Jacques RN/DCP
[2023-01-05] MEDS: LACTATED RINGERS 1,000 ML 100 ML IV (18:53)
[2023-01-05] MEDS: CIPROFLOXACIN 400 MG/200 ML PIGGYBACK 200 MG IV (18:54)
[2023-01-05 20:00] VITALS: BP 105/69; PULSE 84; RESP 18; TEMP 36.9; O2SAT 99
[2023-01-06 02:00] VITALS: BP 126/77; PULSE 92; RESP 18; TEMP 36.5; O2SAT 99
[2023-01-06 05:19] LABS: Hemoglobin 10.3 g/dL (13.5-17.5); Mean Corpuscular HGB Conc 33.3 % (30-36); Mean Corpuscular Hemoglobin 29.2 PG (26-34); Mean Corpuscular Volume 87.7 fL (80-100); Platelet Count 407 X10^3/uL (150-400); Red Blood Cell Count 3.54 X10^6/uL (4.5-5.9); Red Cell Distribution Width 14.1 % (11.6-14.8); White Blood Cell Count 10.2 X10^3/uL (4.5-11.0)
[2023-01-06 05:20] LABS: Add Manual Diff / Slide Review YES
[2023-01-06 05:26] LABS: HEMOLYSIS < 15 (0-50); Potassium 3.9 mmol/L (3.4-5.1)
[2023-01-06 06:42] LABS: Neutrophils Absolute Manual 8364 /uL (3000-5900); Total Cells Counted 100
[2023-01-06 06:43] LABS: RBC Morphology Normal Morphology
[2023-01-06] MEDS: CIPROFLOXACIN 400 MG/200 ML PIGGYBACK 200 MG IV ×2 (06:59→18:23)
--- NOTE | 2023-01-06 09:25 | P.PN_ITS ---
Subjective Subjective Date Patient Seen: 01/06/23 Interval history: This morning the pt reports that he has had more than one very loose BM since yesterday. He continues to experience intermittent nausea. He is happy with his return of bowel function, and feels it will be easier to manage at home. He is feeling weak, and is concerned about being able to stay upright in his wheelchair. Exam Vital Signs (past 8 hours): - 01/06/23 02:00 Temperature 97.7 F Pulse Rate 92 H Respiratory Rate 18 Blood Pressure 126/77 Pulse Oximetry 99 Oxygen Delivery Method Room Air Oxygen Flow Rate 0 Narrative Exam Narrative: Gen: NAD, laying comfortably in bed, appears slightly more pale than usual CV: RRR, no murmurs Resp: clear to auscultation bilaterally Abd: soft, nontender, nondistended, dressing with central dried blood present, hypoactive bowel sounds Ext: 1+ pitting edema bilateral feet Objective Labs 01/06/23 04:59 01/06/23 04:59 Labs: Laboratory Results - last 24 hr 01/06/23 01/06/23 04:59 04:59 WBC 10.2 RBC 3.54 L Hgb 10.3 L Hct 31.0 L MCV 87.7 MCH 29.2 MCHC 33.3 RDW 14.1 Plt Count 407 H Neut % (Auto) Not Reportable Lymph % (Auto) Not Reportable Faulkner % (Auto) Not Reportable Eos % (Auto) Not Reportable Baso % (Auto) Not Reportable Lymph # (Auto) Not Reportable Faulkner # (Auto) Not Reportable Baso # (Auto) Not Reportable Total Counted 100 Seg Neutrophils % 79.0 H Band Neutrophils % 3.0 Lymphocytes % (Manual) 12.0 L Monocytes % (Manual) 3.0 Eosinophils % (Manual) 2.0 Myelocytes % 1.0 H Neutrophils # (Manual) 8364 H RBC Morphology Normal morphology Potassium 3.9 PFSH Medical History (Updated 01/03/23 @ 08:37 by Donte Reddy MD) Chicken pox Hearing loss Kidney stones (~09/2017) Quadriplegia Shoulder pain (~1997) Vision disorder Surgical History History of back surgery Family History Father Cancer Mother Dementia Sister Heart disease Social History household members: spouse Smoking Status: Never smoker alcohol intake: current Assessment & Plan Assessment & Plan narrative: 1) Sigmoid volvulus, POD #6 s/p sigmoid colectomy: Pt recovering well overall, has had slow return of bowel function but is now with more consistent BMs. Is experiencing more incontinence than usual. Postoperative course complicated by paralysis. - Continue management as per Surgery - Will need to continue bowel regimen at home - PT consulted today to help with upper body strengthening 2) UTI with sepsis: WBC count stable. Grew Pseudomonas. - Plan to continue antibiotics for total of 14 days, will discharge on PO Cipro 3) s/p recent ureteral stent placement: No evidence complications 4) Acute hypokalemia: Stable 5) Hypertension: Stable FEN: General diet Code: Full DVT ppx: Lovenox Dispo: Potential discharge tomorrow assuming continued good bowel function. Pt with 24hr caregiving available at home.
[2023-01-06 11:00] VITALS: BP 122/71; PULSE 71; RESP 18; TEMP 36.6; O2SAT 100
[2023-01-06] MEDS: LACTATED RINGERS 1,000 ML 100 ML IV (11:12)
--- NOTE | 2023-01-06 12:12 | PT-IP ANOTE ---
Received PT orders and completed chart review. Per general surgery note, No heavy lifting (transfers) for 2 weeks. Acute PT is not indicated at this time. Will discharge therapy orders. Due to inability to transfer independently (which is pt's baseline), pt will likely require SNF or a bill lift for home.
--- NOTE | 2023-01-06 13:31 | PM.CALLCOV.1 ---
Call Coverage Note Note Date of Patient Contact: 01/06/23 Narrative of Care Provided: No surgical complications. Recovery is more challenging due to paralysis. Will see again tomorrow and likely sign off.
[2023-01-06 20:00] VITALS: BP 136/94; PULSE 85; RESP 18; TEMP 36.8; O2SAT 100
[2023-01-07] VITALS: BP 105/68; PULSE 86; RESP 19; TEMP 37.4; O2SAT 98
[2023-01-07] MEDS: ACETAMINOPHEN 325 MG TABLET 650 MG PO (03:54)
[2023-01-07] MEDS: CIPROFLOXACIN 400 MG/200 ML PIGGYBACK 200 MG IV (06:13)
[2023-01-07] MEDS: METOCLOPRAMIDE 10 MG/2 ML INJ IV (07:47)
[2023-01-07 09:32] VITALS: BP 110/70; PULSE 83; RESP 18; TEMP 37.1; O2SAT 97
[2023-01-07] MEDS: DOCUSATE 100 MG CAPSULE PO (09:39)
[2023-01-07] MEDS: polyethylene glycoL 3350 17 GM POWD.PACK PO (09:39)
[2023-01-07] MEDS: SODIUM CHLORIDE 0.9% FLUSH 10 ML IV (09:41)
--- NOTE | 2023-01-07 11:27 | PM.DS.1 ---
History of Present Illness History of Present Illness Date Patient Seen: 01/07/23 Chief complaint: Bladder infection Narrative: 57-year-old male with a history of incomplete quadriplegia at C5-C6 level with recent kidney stone.? Patient was down at the [facility] where he had lithotripsy and a stent placed approximately 3 days ago.? Patient states he was doing well after discharge.? 24 hours after discharge broke out in a little bit of sweat with G never does before.? The following day he was sick and nauseated in addition to sweats.? He did not really want to come back to the hospital but his made him come back in.? Because he has loss of sensation he does not have any significant pain has always belly distention but it is a little bit more distended than normal.? Does have a history of urinary tract infections.? But he usually does not know because of his sensory deficits.? On arrival the emergency department he was found to have an elevated white blood cell count was hypokalemic he had a normal lactate and an elevated procalcitonin.? His CT scan shows my mild right hydronephrosis left ureteral stent gaseous distention in the sigmoid colon with no mass left nonobstructing renal stone.? Patient was admitted for IV antibiotics IV fluids because of infection of his urinary tract and possible blood infection. Patient states he is feeling a little bit better this morning.? He is still quite weak and tired.? Has mild decreased appetite. Discharge Providers Provider Date of admission: 12/29/22 07:00 Discharge Date: 01/07/23 Primary care physician: Christine Magaña MD Consults: 12/31/22 12:44 Consult to General Surgery Routine Comment: Consulting Provider: Annabelle Okeefe Reason for consultation: sigmoid volvulus Has provider been notified: Yes 01/01/23 10:30 Consult to Discharge Planning Routine Comment: needs no lifting >15lbs for 2 weeks 01/06/23 11:25 Consult to Physical Therapy Evaluate & Treat Comment: please give therabands so can do in bed arm work Physician Instructions: Evaluate and Treat Discharge provider: Christine Magaña MD Summary Hospital Course Discharge Diagnosis: UTI with sepsis Sigmoid volvulus S/P sigmoid colectomy Hypokalemia Hypertension Incomplete quadriplegia Hospital Course: The pt presented with sepsis thought to be due to UTI. He was initially treated with IV Ceftriaxone. He continued to have fevers and autonomic dysfunction episodes. Urine culture was obtained that grew Pseudomonas, and his antibiotics were switched to IV Ciprofloxacin. His abdomen was noted to be increasingly distended. Repeat abdominal CT showed a sigmoid volvulus. The pt underwent sigmoid colectomy with Dr Okeefe on 12/31 without complications. Colonoscopy on 01/02 showed an intact anastamosis. The pts recovery after surgery was without complications, although slightly prolonged due to his immobility. At the time of discharge he had return of bowel function and was tolerating PO well. He had mild nausea associated with his antibiotics. The pt did have several episodes of hypertension while in the hospital, that resolved with nitroglycerin paste. His BP was stable off medications for more than 24hrs prior to discharge. The pt will complete 14 days of antibiotics total as an outpatient. Status at Discharge Cognitive/behavioral status at discharge: oriented Functional status at discharge: wheelchair bound Overall status at discharge: patient is progressing back to baseline Exam Vital Signs (past 8 hours): - 01/07/23 09:32 Temperature 98.8 F Pulse Rate 83 Respiratory Rate 18 Blood Pressure 110/70 Pulse Oximetry 97 Oxygen Flow Rate 0 Oxygen Delivery Method Room Air Oxygen Flow Rate 0 Narrative Exam Narrative: Gen:? NAD, laying comfortably in bed, appears slightly more pale than usual CV:? RRR, no murmurs Resp:? clear to auscultation bilaterally Abd:? soft, nontender, nondistended, dressing with central dried blood present, normoactive bowel sounds Ext:? trace pitting edema bilateral feet Objective Labs 01/06/23 04:59 01/06/23 04:59 [facility] Medical History (Updated 01/03/23 @ 08:37 by Donte Reddy MD) Chicken pox Hearing loss Kidney stones (~09/2017) Quadriplegia Shoulder pain (~1997) Vision disorder Surgical History History of back surgery Family History Father Cancer Mother Dementia Sister Heart disease Social History household members: spouse Smoking Status: Never smoker alcohol intake: current Discharge Plan Discharge Plan Patient Disposition: Home Health Service Discharge orders & Medications Prescriptions: New polyethylene glycol 3350 17 gram Powder In Packet 17 gm PO DAILY Qty: 300 0RF docusate sodium 100 mg Capsule 100 mg PO BID Qty: 60 0RF simethicone [Gas Relief 80 (simethicone)] 80 mg Tablet,Chewable 80 mg PO QID PRN (Reason: Flatulence or bloating) Qty: 30 0RF ondansetron 4 mg tablet,disintegrating 4 mg PO Q8H PRN (Reason: nausea and vomiting) Qty: 20 0RF ciprofloxacin HCl 500 mg tablet 500 mg PO BID Qty: 7 0RF Continued midodrine 5 mg Tablet 5 mg PO TID Qty: 0 Patient Comments: patient states takes daily and prn. Rx Instructions: Take first dose shortly before rising, and the other doses PRN ie: after a big meal/ when BP drops ascorbic acid (vitamin C) 500 mg Tablet 1,000 mg PO DAILY Qty: 0 cholecalciferol (vitamin D3) [Vitamin D3] 1,000 unit Tablet 2,000 unit PO DAILY Qty: 0 fexofenadine 60 mg Tablet 60 mg PO BID triamcinolone acetonide 0.5 % Cream 1 applic TOPICAL TID PRN (Reason: Itching) Rx Instructions: itching or rash on on right elbow sodium chloride 0.9 % Solution 1 irrig IRRIGATION DAILY Rx Instructions: when Renacidin not used ibuprofen 400 mg Tablet 400 mg PO TID PRN (Reason: pain) nitroglycerin 2 % Ointment 1 inch TRANSDERMAL Q6H PRN (Reason: autonomic dysreflexia) Rx Instructions: when blood pressure spikes Renacidin 1,980.6 mg-59.4 mg-980.4mg/30mL Solution 20 ml IRRIGATION Q OTHER DAY Rx Instructions: by catheter Lubricating Topical Jelly Bact 1 applic topical DAILY Rx Instructions: Apply thin film to affected area every day Follow up/Referrals: Annabelle Okeefe MD [Physician] - (skin staple remove 7-10 days) Christine Magaña MD [Primary Care Provider] - 1 Month Diet/Activity/Treatments Diet: Diet as Tolerated and Regular Skin/Wound/Dressing Care Report to your healthcare provider any signs of infection, such as:: chills, fever and unusual drainage Visit Report/Discharge Packet Instructions: [facility]: Wound Care Stand Alone Forms: Patient Portal/API, Stroke Signs & Symptoms, Surgery Discharge Discharge Data Primary Care Provider: Christine Magaña Discharges patient from system. Discharge Date/Time: 01/07/23 15:07
--- NOTE | 2023-01-07 12:06 | CM.DPNOTE ---
Addendum entered by JUSTO Huerta 01/07/23 12:14: ADD: Patient has arranged for one of his caregivers to be at his house upon his arrival via BLS JW Original Note: DC Note Discharge order placed by Dr Magaña this morning, home w assist Met w/patient to review DCP; he confirms he has arranged help once home. Patient denies the need for home health services Patient requests BLS transport home; does not want a cabulance home r/t not being able to self transfer. Patient has transported via BLS before and is hopeful his [facility] Plan will cover the entire cost of BLS transport Plan: Discharge home via BLS, p/u arranged for 1445, close outpatient follow up recommended, patient denies need for services at this time JW
--- NOTE | 2023-01-07 12:06 | CM.DPNOTE ---
Called [facility] and spoke to Edin in the beginning to arrange BLS transport to his home. After giving preliminary information, I was to call back with caregiver numbers and to see if they could transport his wheel chair. I called back and spoke to Chriss and told her patient will give name and number to ambulance crew when they get here. Also, she said she will tell her crew about the portable wheel chair with wheels that come off. Tequila Santos CM Assist.
--- NOTE | 2023-01-07 14:43 | PM.PNPO.1 ---
Subjective Subjective Date Patient Seen: 01/07/23 Time Patient Seen: 12:00 Interval history: Good return of bowel function. Exam Vital Signs (past 8 hours): - 01/07/23 09:32 Temperature 98.8 F Pulse Rate 83 Respiratory Rate 18 Blood Pressure 110/70 Pulse Oximetry 97 Oxygen Flow Rate 0 Oxygen Delivery Method Room Air Oxygen Flow Rate 0 Narrative Exam Narrative: No post op complication. Distension will improve over time. Poor wound healing with tarah still in place for skin closure. Objective Labs 01/06/23 04:59 01/06/23 04:59 [facility] Medical History (Updated 01/03/23 @ 08:37 by Donte Reddy MD) Chicken pox Hearing loss Kidney stones (~09/2017) Quadriplegia Shoulder pain (~1997) Vision disorder Surgical History History of back surgery Family History Father Cancer Mother Dementia Sister Heart disease Social History household members: spouse Smoking Status: Never smoker alcohol intake: current Assessment & Plan Post-op Postoperative Procedures: Procedures Operation Date: 12/31/22 15:15 Actual Procedure Side Surgeon p Exploratory Laparotomy with Sigmoid Colectomy Not Applicable Annabelle Okeefe MD Operation Date: 01/02/23 12:45 Actual Procedure Side Surgeon p Colonoscopy Flexible Sigmoidoscopy Annabelle Okeefe MD Postoperative status: doing well Postoperative status narrative: No heavy lifting or enemas for another week. Needs protein in nutrition to improve healing Postoperative plan narrative: Discharging home. Follow up for staple removal in surgery clinic 7-10 days
== END 2023-01-07 15:07 | disposition home or self-care (01) | DRG 673 ==
LOC: ED 12-28 02:08 → AC 12-28 03:57
PROVIDERS: Family Medicine; Surgery; Admitting Provider Family Medicine; Emergency Provider Emergency Medicine; Family Provider Family Medicine; PCP Family Medicine; Referring Provider Emergency Medicine; Visit Provider Family Medicine
PROC: 0DTN0ZZ Resection of Sigmoid Colon, Open Approach (ICD-10-PCS; CPT 49000; principal; 2022-12-31 15:15)
PROC: 0DJD8ZZ Inspection of Lower Intestinal Tract, Via Natural or Artificial Opening Endoscopic (ICD-10-PCS; CPT 45378; principal; 2023-01-02 12:45)
DX: T83.518A Infection and inflammatory reaction due to other urinary catheter, initial encounter (principal); A41.9 Sepsis, unspecified organism; G82.54 Quadriplegia, C5-C7 incomplete; K56.2 Volvulus; N39.0 Urinary tract infection, site not specified; N13.30 Unspecified hydronephrosis; E87.6 Hypokalemia; K59.00 Constipation, unspecified; L89.311 Pressure ulcer of right buttock, stage 1; B96.20 Unspecified Escherichia coli [E. coli] as the cause of diseases classified elsewhere; B96.5 Pseudomonas (aeruginosa) (mallei) (pseudomallei) as the cause of diseases classified elsewhere; I10 Essential (primary) hypertension; Z20.822 Contact with and (suspected) exposure to COVID-19
CPT/HCPCS: 36415; 44140; 44388; 73030; 74018; 74176; 74177; 80048; 80053; 81003; 82550; 82553; 83605; 84132; 84145; 84484; 85007; 85025; 87040; 87077; 87086; 87186; 87635; 93005; 96365; 99222; 99223; 99232; 99233; 99238; 99284; 99285; C9803; G0378; J0330; J0360; J0696; J0744; J1100; J1650; J2250; J2405; J2704; J2765; J3010; Q9967

== ENCOUNTER 2023-02-10 11:12 | Emergency (ER) | payer OTHER, MEDICARE, SELFPAY ==
[2023-01-16 11:34] VITALS: BMI 25.7
[2023-02-10] VITALS (8 sets, daily range): BP systolic 87–159; BP diastolic 50–84; PULSE 66–79; RESP 18; TEMP 36.4; O2SAT 97–100
[2023-02-10 11:44] LABS: Appearance Urine UA CLEAR; Bilirubin Urine UA NEGATIVE (NEGATIVE); Color Urine UA YELLOW; Glucose Urine UA NEGATIVE (Negative); Ketones Urine UA 1+ (NEGATIVE); Leukocyte Esterase Urine UA 3+ (NEGATIVE); Nitrite Urine UA POSITIVE (Negative); Occult Blood Urine UA 3+ (Negative); Protein Urine UA 2+ (Negative); Specific Gravity Urine UA 1.025 (1.000-1.035); pH Urine UA 6.5 (4.5-8.0)
--- NOTE | 2023-02-10 11:44 | DI.CT.S_ITS ---
PROCEDURE: CT KIDNEY URETER BLADDER (KUB) INDICATIONS: known L sided ureteral stent with UTI TECHNIQUE: Axial sections were acquired from the lung bases to the pubic symphysis. Coronal and sagittal reformats were performed. For radiation dose reduction, the following was used: automated exposure control, adjustment of mA and/or kV according to patient size. COMPARISON: [facility], CT, CT ABDOMEN PELVIS W CON, 12/31/2022, 10:19. [facility], CT, CT KIDNEY URETER BLADDER (KUB), 12/27/2022, 23:21. FINDINGS: Image quality: Excellent. Lung bases: Unremarkable. Heart: No significant findings. URINARY: Right Kidney: No hydronephrosis. 2 or 3 small nonobstructing kidney stones. Small benign cysts. Right Ureter: No hydroureter. Left Kidney: No significant hydronephrosis. Questionable punctate focus of gas at the superior pole calyx, (11/25). Small nonobstructing kidney stones. Largest measuring 0.3 cm. Small benign cysts. Left Ureter: Left double-J ureteral stent. The superior aspect is located in the proximal ureter. The distal aspect is located in the urinary bladder. Bladder: Decompressed with Flowers catheter. Possible punctate stone in the bladder, (). ABDOMEN: Liver: Small cyst at the dome, unchanged. Gallbladder: Absent. Biliary ducts: Unremarkable. Pancreas: Unremarkable. Spleen: Unremarkable. Adrenal Glands: Unremarkable. Stomach and Bowel: Sigmoid colon anastomosis. Gaseous distension of the proximal colon. Peritoneum: No abnormal intraperitoneal fluid. No free air. Ventral Wall: No hernia. Abdominal Nodes: No enlarged retroperitoneal or mesenteric lymph nodes. Vessels: Aorta and inferior vena cava are normal in size. PELVIS: Pelvic Organs: Prominent prostate gland. Pelvic Nodes: Unremarkable. Miscellaneous: No inguinal hernias are seen. Presacral edema. Bones: Several lucencies within the pelvis and a somewhat heterogeneous appearance, unchanged. No compression fracture. IMPRESSION: 1. Left double-J ureteral stent. The stent has displaced inferiorly out of the renal pelvis. No hydronephrosis. Questionable punctate focus of gas at the left superior pole calyx. 2. Small nonobstructing kidney stones bilaterally. 3. No small bowel obstruction. Gaseous distension of the colon. Similar presacral edema. Dictated by: Dio Polanco M.D. on 02/10/2023 at 12:50 Approved by: Dio Polanco M.D. on 02/10/2023 at 13:01
--- NOTE | 2023-02-10 11:44 | ED.GENADULT ---
HPI - General Adult General Chief complaint: Urogenital-Male Stated complaint: poss bladder infection T-2 Time Seen by Provider: 02/10/23 11:33 Source: patient Mode of arrival: Wheelchair History of Present Illness HPI narrative: Patient is a 57-year-old male. He is a C6/C7 quadriplegic. He does have an indwelling urinary catheter. Has had multiple urinary tract infections in the past. Last time he had an infection he was on Levaquin. He also has a left-sided ureteral stent that was placed after having kidney stones removed. He stated that on Friday he thought that maybe he overdid it in the heat and he started to not feel very well. It has continued and he is having chills which is some of the symptoms he gets when he has a urinary tract infection. Does not have any sensation from his mid chest down. He does have a urinary catheter in place that was changed last . He states that the catheter is draining but he is also having some blood in the urine. He is scheduled to have a repeat CT scan later this week to evaluate for the progression of the stones and also the placement of the left-sided ureteral stent. Related Data Home Medications Medication Instructions Recorded Confirmed ascorbic acid (vitamin C) 500 mg 1,000 mg PO DAILY ##0 10/20/18 01/30/23 tablet cholecalciferol (vitamin D3) 25 2,000 unit PO DAILY ##0 10/20/18 01/30/23 mcg (1,000 unit) tablet (Vitamin D3) midodrine 5 mg tablet 5 mg PO TID ##0 10/20/18 02/10/23 Previous Rx's Medication Instructions Recorded levofloxacin 750 mg tablet 750 mg PO DAILY 5 days #5 tabs 02/10/23 Allergies Allergy/AdvReac Type Severity Reaction Status Date / Time Sulfa (Sulfonamide Allergy Mild Rash Verified 02/10/23 11:24 Antibiotics) Review of Systems Constitutional Constitutional: Reports system reviewed and no additional complaints, except as documented Respiratory Respiratory: Reports system reviewed and no additional complaints, except as documented Gastrointestinal Gastrointestinal: Reports system reviewed and no additional complaints, except as documented Genitourinary Genitourinary: Reports system reviewed and no additional complaints, except as documented Integumentary/Breasts Skin/Breast: Reports system reviewed and no additional complaints, except as documented Hematologic/Lymphatic On Anticoagulants: No Patient History Medical History (Updated 02/10/23 @ 13:13 by Jackson Nicolas DO) Chicken pox Hearing loss Kidney stones (~09/2017) Quadriplegia Shoulder pain (~1997) Vision disorder Surgical History History of back surgery Family History Father Cancer Mother Dementia Sister Heart disease Social History household members: spouse Smoking Status: Never smoker alcohol intake: current Smoking Status: Never smoker alcohol intake frequency: holidays/special occasions only Substance Use Type: does not use Exam Initial Vital Signs Initial Vital Signs: Vital Signs Blood Pressure 87/50 L 02/10/23 11:16 HENMT Head: normal to inspection and normocephalic Mouth: oral mucosae normal Resp Effort & Inspection: normal respiratory effort Cardio Rate: regular rate Neuro General: patient alert and patient awake Course Orders Ordered: ED Orders 02/10/23 11:32 Urinalysis and Microscopic Stat Urine Culture Stat 02/10/23 11:44 CT kidney ureter bladder (KUB) Stat Vital Signs Vital signs: Vital Signs - 8 hr 02/10/23 11:19 02/10/23 11:16 02/10/23 11:17 Temperature 97.6 F Pulse Rate 79 Respiratory Rate 18 Blood Pressure 90/54 L 87/50 L 90/54 L Pulse Oximetry 99 Oxygen Delivery Method Room Air 02/10/23 11:17 02/10/23 11:24 02/10/23 11:24 Temperature Pulse Rate 78 78 Respiratory Rate Blood Pressure 88/54 L Pulse Oximetry 99 100 Oxygen Delivery Method 02/10/23 11:30 02/10/23 11:45 Temperature Pulse Rate 75 77 Respiratory Rate Blood Pressure Pulse Oximetry 100 97 Oxygen Delivery Method Medical Decision Making Medical Records Medical records reviewed: Yes I reviewed the patient's medical records. Lab Data Lab results reviewed: Yes I reviewed the patient's lab results. Labs: Lab Results 02/10/23 Range/Units 11:32 Urine Color Yellow Urine Appearance Clear Urine pH 6.5 (4.5-8.0) Ur Specific [place] 1.025 (1.000-1.035) Urine Protein 2+ H (Negative) Urine Glucose (UA) Negative (Negative) g/dL Urine Ketones 1+ H (NEGATIVE) Urine Occult Blood 3+ H (Negative) Urine Nitrate Positive H (Negative) Urine Bilirubin Negative (NEGATIVE) Urine Urobilinogen 1.0 (0.2) E.U./dL Ur Leukocyte Esterase 3+ H (NEGATIVE) Urine RBC 1-5/hpf (0-5/HPF) Urine WBC 10-30/hpf H (0-5/HPF) Ur Squamous Epith Cells 0-1 /hpf (0-5/HPF) Amorphous Sediment 1+ Urine Bacteria Many (>30) H (None) Ur Culture Indicated? Specimen cultured Imaging Data CT scan - abdomen/pelvis: Radiologist's Impression: PROCEDURE:? CT KIDNEY URETER BLADDER (KUB) ? INDICATIONS:? known L sided ureteral stent with UTI ? TECHNIQUE:? Axial sections were acquired from the lung bases to the pubic symphysis.? Coronal and sagittal reformats were performed.? For radiation dose reduction, the following was used: ?automated exposure control, adjustment of mA and/or kV according to patient size.? ? COMPARISON:? [facility], CT, CT ABDOMEN PELVIS W CON, 12/31/2022, 10:19.? [facility], CT, CT KIDNEY URETER BLADDER (KUB), 12/27/2022, 23:21. ? FINDINGS:? Image quality:? Excellent.? ? Lung bases:? Unremarkable.? ? Heart:? No significant findings. ? URINARY: Right Kidney:? No hydronephrosis.? 2 or 3 small nonobstructing kidney stones.? Small benign cysts. Right Ureter:? No hydroureter.? ? Left Kidney:? No significant hydronephrosis.? Questionable punctate focus of gas at the superior pole calyx, (11/25).? Small nonobstructing kidney stones.? Largest measuring 0.3 cm.? Small benign cysts. Left Ureter:? Left double-J ureteral stent.? The superior aspect is located in the proximal ureter.? The distal aspect is located in the urinary bladder. ? Bladder:? Decompressed with Flowers catheter.? Possible punctate stone in the bladder, (). ? ABDOMEN: Liver:? Small cyst at the dome, unchanged.? Gallbladder:? Absent. Biliary ducts:? Unremarkable.? ? Pancreas:? Unremarkable.? ? Spleen:? Unremarkable.? ? Adrenal Glands:? Unremarkable.? ? ? Stomach and Bowel:? Sigmoid colon anastomosis.? Gaseous distension of the proximal colon. Peritoneum:? No abnormal intraperitoneal fluid.? No free air.? ? Ventral Wall: ? No hernia.? Abdominal Nodes:? No enlarged retroperitoneal or mesenteric lymph nodes.? Vessels:? Aorta and inferior vena cava are normal in size.? ? PELVIS: Pelvic Organs:? Prominent prostate gland.? ? Pelvic Nodes: Unremarkable. Miscellaneous: No inguinal hernias are seen.? Presacral edema.? ? ? Bones:? Several lucencies within the pelvis and a somewhat heterogeneous appearance, unchanged.? No compression fracture. ? IMPRESSION:? 1. Left double-J ureteral stent.? The stent has displaced inferiorly out of the renal pelvis.? No hydronephrosis.? Questionable punctate focus of gas at the left superior pole calyx. ? 2. Small nonobstructing kidney stones bilaterally. ? 3. No small bowel obstruction.? Gaseous distension of the colon.? Similar presacral edema.? MDM Narrative Medical decision making narrative: Urinalysis today his consistent with a urinary tract infection especially given his history and also his presentation. He states that he has been on Levaquin in the past which seems to have helped his prior infections. Review of his medical record shows that he is had multiple different bacteria that been the source of infections however they do all seem to be susceptible to ciprofloxacin. Since he is tolerated Levaquin in the past I will prescribe another course of this. The CT scan does show the left-sided ureteral stent which seems to have migrated distally however does not appear to have any sort of blockage. Patient is not septic. Is tolerating oral intake. He was given a copy of this CT scan so that he does not have to have it repeated on Friday of this week. He was given return precautions. He expressed understanding and agreement. Discharge Plan Departure Patient Disposition: Home Clinical Impression: Acute UTI Instructions: DI for Urinary Tract Infection (UTI) Activity Restrictions/Additional Instructions: A prescription for antibiotics was sent to [facility] in [place]. There was a urine culture pending at the time of your discharge and we will contact you if we need to change any of these antibiotics. I do recommend that you contact your urologist for a follow-up. Return to the emergency department for new or worsening symptoms. Prescriptions: New levofloxacin 750 mg tablet 750 mg PO DAILY 5 Days Qty: 5 0RF No Action midodrine 5 mg Tablet 5 mg PO TID Qty: 0 Patient Comments: patient states takes daily and prn. Rx Instructions: Take first dose shortly before rising, and the other doses PRN ie: after a big meal/ when BP drops ascorbic acid (vitamin C) 500 mg Tablet 1,000 mg PO DAILY Qty: 0 cholecalciferol (vitamin D3) [Vitamin D3] 1,000 unit Tablet 2,000 unit PO DAILY Qty: 0 Referrals: Christine Magaña MD [Primary Care Provider] - Stand Alone Forms: Patient Portal/API
[2023-02-10 11:48] LABS: Amorphous Sediment Urine 1+; Bacteria Urine Many (>30); Culture Indicated Urine Specimen Cultured; RBC Urine 1-5/HPF (0-5/HPF); Squamous Epithelial Cell Urine 0-1 /HPF (0-5/HPF); WBC Urine 10-30/HPF (0-5/HPF)
== END 2023-02-10 13:46 | disposition home or self-care (01) ==
PROVIDERS: Emergency Provider Emergency Medicine; Family Provider Family Medicine; PCP Family Medicine
DX: T83.192A Other mechanical complication of indwelling ureteral stent, initial encounter (principal); N39.0 Urinary tract infection, site not specified; G82.54 Quadriplegia, C5-C7 incomplete
CPT/HCPCS: 74176; 81001; 87077; 87086; 87186; 99281; 99284

== ENCOUNTER → 2023-03-12 14:17 | Outpatient (CLI) | payer OTHER, MEDICARE, SELFPAY ==
[2023-01-16 11:34] VITALS: BMI 25.7
[2023-03-12 15:47] LABS: Bilirubin Urine UA NEGATIVE (NEGATIVE); Color Urine UA YELLOW; Glucose Urine UA NEGATIVE (Negative); Ketones Urine UA NEGATIVE (NEGATIVE); Leukocyte Esterase Urine UA 3+ (NEGATIVE); Nitrite Urine UA POSITIVE (Negative); Occult Blood Urine UA 1+ (Negative); Protein Urine UA NEGATIVE (Negative); Specific Gravity Urine UA 1.015 (1.000-1.035); Urobilinogen Urine UA 0.2 E.U./dL (0.2); pH Urine UA 6.5 (4.5-8.0)
[2023-03-12 15:49] LABS: Appearance Urine UA SL CLOUDY
[2023-03-12 15:58] LABS: Amorphous Sediment Urine 2+; Bacteria Urine Moderate (10-30); Culture Indicated Urine Specimen Cultured; Mucus Urine 1+ (Negative); RBC Urine 1-5/HPF (0-5/HPF); Squamous Epithelial Cell Urine 0-1 /HPF (0-5/HPF); WBC Urine 30-100/HPF (0-5/HPF)
== END ==
PROVIDERS: Family Provider Family Medicine; PCP Family Medicine; Referring Provider Family Medicine; Visit Provider Family Medicine
DX: N39.0 Urinary tract infection, site not specified (principal); T83.511A Infection and inflammatory reaction due to indwelling urethral catheter, initial encounter
CPT/HCPCS: 81001; 87077; 87086; 87186

== ENCOUNTER → 2023-10-01 09:44 | Outpatient (CLI) | payer OTHER, MEDICARE, SELFPAY ==
[2023-01-16 11:34] VITALS: BMI 25.7
[2023-10-01 10:04] LABS: Appearance Urine UA SL CLOUDY; Bilirubin Urine UA NEGATIVE (NEGATIVE); Color Urine UA YELLOW; Glucose Urine UA NEGATIVE (Negative); Ketones Urine UA NEGATIVE (NEGATIVE); Leukocyte Esterase Urine UA 3+ (NEGATIVE); Nitrite Urine UA POSITIVE (Negative); Occult Blood Urine UA TRACE-INTACT (Negative); Protein Urine UA NEGATIVE (Negative); Urobilinogen Urine UA 0.2 E.U./dL (0.2); pH Urine UA 6.5 (4.5-8.0)
[2023-10-01 10:11] LABS: Bacteria Urine Many (>30); Culture Indicated Urine Specimen Cultured; RBC Urine 0-1/HPF (0-5/HPF); Squamous Epithelial Cell Urine 1-5 /HPF (0-5/HPF); WBC Urine 10-30/HPF (0-5/HPF)
== END ==
PROVIDERS: Family Provider Family Medicine; PCP Family Medicine; Referring Provider Family Medicine; Visit Provider Family Medicine
DX: T83.511A Infection and inflammatory reaction due to indwelling urethral catheter, initial encounter (principal); N39.0 Urinary tract infection, site not specified
CPT/HCPCS: 81001; 87077; 87086; 87186

== ENCOUNTER 2023-10-22 22:42 | Emergency (ER) | payer OTHER, MEDICARE, SELFPAY ==
[2023-01-16 11:34] VITALS: BMI 25.7
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
[2023-10-22 22:52] VITALS: PULSE 75; O2SAT 99
[2023-10-22 22:53] VITALS: BP 102/55; PULSE 77; O2SAT 98
[2023-10-22 22:56] VITALS: BP 102/55; PULSE 76; RESP 20; TEMP 36.2; O2SAT 100; BMI 19.0
[2023-10-22 23:00] VITALS: PULSE 72; RESP 18; O2SAT 99
[2023-10-22 23:40] LABS: Influenza A - CEPHEID Flu A NEGATIVE (NEGATIVE); Influenza B - CEPHEID Flu B NEGATIVE (NEGATIVE); Respiratory Syncytial Virus Negative (Negative)
[2023-10-22] MEDS: LACTATED RINGERS 1,000 ML 1000 ML IV (23:44)
[2023-10-22 23:45] LABS: COVID-19 CEPHEID 4-PLEX PCR POSITIVE (Negative)
[2023-10-23] VITALS (20 sets, daily range): BP systolic 77–166; BP diastolic 42–107; PULSE 55–100; RESP 15–18; TEMP 36.2; O2SAT 89–100
[2023-10-23 00:27] LABS: Add Manual Diff / Slide Review NO; Basophils Absolute Auto 0 /uL (0-100); Basophils Percent Auto 0.9 % (0-2); Eosinophils Absolute Auto 200 /uL (0-450); Eosinophils Percent Auto 3.5 % (2-4); Hematocrit 35.5 % (41-53); Hemoglobin 11.9 g/dL (13.5-17.5); Lactate (Lactic Acid) 0.9 mmol/L (0.7-2.1); Lymphocytes Absolute Auto 800 /uL (1100-4500); Lymphocytes Percent Auto 16.4 % (25-40); Mean Corpuscular HGB Conc 33.6 % (30-36); Mean Corpuscular Volume 89.3 fL (80-100); Monocytes Absolute Auto 300 /uL (0-900); Monocytes Percent Auto 5.9 % (3-14); Neutrophils Absolute Auto 3800 /uL (1500-7000); Neutrophils Percent Auto 73.3 % (50-75); Platelet Count 148 X10^3/uL (150-400); Red Blood Cell Count 3.98 X10^6/uL (4.5-5.9); Red Cell Distribution Width 14.8 % (11.6-14.8); White Blood Cell Count 5.2 X10^3/uL (4.5-11.0)
[2023-10-23 00:28] LABS: Alanine Aminotransferase 17 IU/L (<50); Albumin 3.5 g/dL (3.5-5.0); Albumin Globulin Ratio 1.1 (1.0-2.8); Alkaline Phosphatase 67 U/L (38-126); Aspartate Aminotransferase 28 IU/L (17-59); BUN Creatinine Ratio 24.1 (6-22); Bilirubin Total 0.7 mg/dL (0.2-1.3); Blood Urea Nitrogen 13 mg/dL (9-20); Calcium 8.6 mg/dL (8.4-10.2); Carbon Dioxide 21 mmol/L (22-32); Chloride 96 mmol/L (98-107); Estimated Glomerular Filt Rate > 60 mL/min (>60); Globulin 3.1 g/dL (1.7-4.1); Glucose 113 mg/dL (80-110); HEMOLYSIS 46 (0-50); Magnesium 1.6 mg/dL (1.6-2.3); Potassium 4.2 mmol/L (3.4-5.1); Sodium 125 mmol/L (137-145); Total Protein 6.6 g/dL (6.3-8.2)
[2023-10-23 00:33] LABS: D Dimer 676 ng/ml (<500)
--- NOTE | 2023-10-23 00:49 | DI.CT.S_ITS ---
PROCEDURE: CT ANGIO CHEST PE PROTOCOL INDICATIONS: cough, hemoptysis, Dimer above age corrected cutoff TECHNIQUE: After the administration of intravenous contrast, 2 mm thick sections acquired from the pulmonary apices to the posterior costophrenic angles. 3-dimensional maximum intensity projection (MIP) coronal and sagittal reformats were then acquired through the thorax. For radiation dose reduction, the following was used: automated exposure control, adjustment of mA and/or kV according to patient size. COMPARISON: [facility], CR, XR CHEST 1V, 05/15/2022, 14:33. FINDINGS: Image quality: Diagnostic. Pulmonary arteries: Pulmonary arteries are normal in size, and demonstrate no intraluminal filling defects to suggest central pulmonary embolism. Lower Neck: No enlarged lymph nodes. Thyroid: No thyroid nodules which require sonographic follow up, per consensus guidelines. Axillae: No enlarged lymph nodes. Chest Wall: Unremarkable. Bones: Unremarkable. Lungs and Pleura: There are clustered nodules in the right upper lobe and right middle lobe with tree-in-bud configuration. There is a 3 mm subpleural nodule in the right middle lobe. Tiny clustered nodules are also seen in left lower lobe. There is bronchiectasis in right upper lobe and right middle lobe. No pneumothorax or pleural effusions. Heart: Heart size is normal. No pericardial effusion. Thoracic Vessels: No aortic aneurysm. Mediastinum and Jacqui: No enlarged lymph nodes. Esophagus: No wall thickening. No hiatal hernia. Upper Abdomen: There is a 1 cm hypodense nodule in the hepatic dome, probably a cyst. Visualized upper abdomen solid organs and bowel loops appear normal. IMPRESSION: 1. No pulmonary embolus. 2. Multiple pulmonary nodules are seen in right upper lobe and right middle. The right upper lobe nodules demonstrate tree-in-bud configuration suggesting atypical infection such as CASSIE. Recommend clinical correlation. 3. Bronchiectasis in right upper lobe and right middle lobe. Dictated by: Candace Harley M.D. on 10/23/2023 at 2:04 Approved by: Candace Harley M.D. on 10/23/2023 at 2:11
[2023-10-23 01:00] LABS: RBC Urine 0-1/HPF (0-5/HPF); Urine Volume Low Vol <10mL (spun)
[2023-10-23] MEDS: LACTATED RINGERS 1,000 ML 1000 ML IV (01:00)
[2023-10-23 01:01] LABS: Bacteria Urine Few (2-10); Mucus Urine 1+ (Negative); Squamous Epithelial Cell Urine 0-1 /HPF (0-5/HPF); WBC Urine 30-100/HPF (0-5/HPF)
[2023-10-23 01:02] LABS: Culture Indicated Urine Specimen Cultured
[2023-10-23 04:00] LABS: BUN Creatinine Ratio 25.6 (6-22); Blood Urea Nitrogen 11 mg/dL (9-20); Calcium 8.3 mg/dL (8.4-10.2); Carbon Dioxide 20 mmol/L (22-32); Chloride 102 mmol/L (98-107); Estimated Glomerular Filt Rate > 60 mL/min (>60); Glucose 101 mg/dL (80-110); HEMOLYSIS < 15 (0-50); Potassium 3.6 mmol/L (3.4-5.1); Sodium 130 mmol/L (137-145)
== END 2023-10-23 05:01 | disposition home or self-care (01) ==
PROVIDERS: Emergency Provider Emergency Medicine; Family Provider Family Medicine; PCP Family Medicine
DX: U07.1 COVID-19 (principal); T83.511A Infection and inflammatory reaction due to indwelling urethral catheter, initial encounter; E87.1 Hypo-osmolality and hyponatremia; R91.1 Solitary pulmonary nodule
CPT/HCPCS: 0241U; 36415; 71275; 80048; 80053; 81003; 81015; 83605; 83735; 85025; 85379; 87040; 87077; 87086; 87147; 87186; 96360; 96361; 99284; Q9967

== ENCOUNTER 2024-08-19 11:12 | Emergency (ER) | payer OTHER, MEDICARE, SELFPAY ==
[2023-01-16 11:34] VITALS: BMI 25.7
[2024-08-19 11:17] VITALS: BP 139/84; PULSE 61; RESP 12; TEMP 36.6; O2SAT 100; BMI 17.8
[2024-08-19 11:23] VITALS: BMI 17.8
--- NOTE | 2024-08-19 11:31 | PC.NURSE ---
Friday pt had indwelling catheter exchanged; a couple of days ago pt noted to have symptoms of UTI. Pt states he is feeling burning, discharge at catheter site, and cloudy urine. Pt states he has also felt some chills. Pt brings in a catheter sample for ER. GCS 15. Respirations regular and unlabored.
--- NOTE | 2024-08-19 11:35 | ED.MALEGU ---
HPI - Male Genitourinary General Chief complaint: Urogenital-Male Stated complaint: per pt bladder infection Time Seen by Provider: 08/19/24 11:23 Source: patient Mode of arrival: Wheelchair Related Data Home Medications Medication Instructions Recorded Confirmed ascorbic acid (vitamin C) 500 mg 1,000 mg PO DAILY ##0 10/20/18 03/12/23 tablet cholecalciferol (vitamin D3) 25 2,000 unit PO DAILY ##0 10/20/18 03/12/23 mcg (1,000 unit) tablet (Vitamin D3) midodrine 5 mg tablet 5 mg PO TID ##0 10/20/18 03/12/23 Allergies Allergy/AdvReac Type Severity Reaction Status Date / Time Sulfa (Sulfonamide Allergy Mild Rash Verified 10/26/23 16:36 Antibiotics) Patient History Medical History Hypotension after procedure Sigmoid volvulus Quadriplegia Vision disorder Hearing loss Shoulder pain (~1997) Chicken pox Kidney stones (~09/2017) Surgical History S/P partial colectomy History of back surgery Family History Father Cancer Mother Dementia Sister Heart disease Social History household members: spouse Smoking Status: Never smoker alcohol intake: current Smoking Status: Never smoker alcohol intake frequency: holidays/special occasions only Substance Use Type: does not use Exam Initial Vital Signs Initial Vital Signs: Vital Signs Temperature 97.8 F 08/19/24 11:17 Pulse Rate 61 08/19/24 11:17 Respiratory Rate 12 08/19/24 11:17 Blood Pressure 139/84 08/19/24 11:17 Pulse Oximetry 100 08/19/24 11:17 Oxygen Delivery Method Room Air 08/19/24 11:17 Course Vital Signs Vital signs: Vital Signs - 8 hr 08/19/24 11:17 Temperature 97.8 F Pulse Rate 61 Respiratory Rate 12 Blood Pressure 139/84 Pulse Oximetry 100 Oxygen Delivery Method Room Air MDM - Male Genitourinary Medical Records Attestation: I reviewed the patient's medical records. Medical records narrative: Reviewed ED visit 02/10/2023 for UTI where patient was treated with Levaquin then switched to ciprofloxacin after culture results. Also reviewed most recent urine culture result on 10/23/2023 that was positive for MRSA. Urine culture on 10/01/2023 positive for Serratia marcescens, Pseudomonas aeruginosa. Discharge Plan Departure Prescriptions: No Action midodrine 5 mg Tablet 5 mg PO TID Qty: 0 Patient Comments: patient states takes daily and prn. Rx Instructions: Take first dose shortly before rising, and the other doses PRN ie: after a big meal/ when BP drops ascorbic acid (vitamin C) 500 mg Tablet 1,000 mg PO DAILY Qty: 0 cholecalciferol (vitamin D3) [Vitamin D3] 1,000 unit Tablet 2,000 unit PO DAILY Qty: 0 Referrals: Christine Magaña MD [Primary Care Provider] -
--- NOTE | 2024-08-19 11:50 | ED.MALEGU ---
HPI - Male Genitourinary <Maia Archer PA-C - Last Filed: 08/19/24 12:32> General Chief complaint: Urogenital-Male Stated complaint: per pt bladder infection Time Seen by Provider: 08/19/24 11:23 Source: patient Mode of arrival: Wheelchair History of Present Illness HPI Narrative: Mr. Figueroa is a very pleasant 58-year-old male with a medical history of C6 quadriplegia with chronic indwelling Flowers catheter changed every 2 weeks who presents to the emergency department for concern for UTI x3 days. Patient reports he changes Flowers catheter every 2 weeks, most recently changed on Friday. States that he is just getting over a cold so he attributed feeling fatigued and chills to that however on Friday his cold symptoms started to resolve but his urine began to become cloudy. This concerned him that he now has a urinary tract infection. Patient was last treated with antibiotics for UTI in September of this year and at that time it was MRSA. States that he does have some phantom pains of burning sensation when urinating. Still producing normal amount of urine and having good output. He denies fever, nausea, vomiting, hematuria, urinary retention. He is allergic to sulfa antibiotics. Related Data Home Medications Medication Instructions Recorded Confirmed ascorbic acid (vitamin C) 500 mg 1,000 mg PO DAILY ##0 10/20/18 03/12/23 tablet cholecalciferol (vitamin D3) 25 2,000 unit PO DAILY ##0 10/20/18 03/12/23 mcg (1,000 unit) tablet (Vitamin D3) midodrine 5 mg tablet 5 mg PO TID ##0 10/20/18 03/12/23 Previous Rx's Medication Instructions Recorded ciprofloxacin HCl 500 mg tablet 500 mg PO BID 7 days #14 tabs 08/19/24 (Cipro) nitrofurantoin macrocrystal 100 mg 100 mg PO BID 7 days #14 caps 08/19/24 capsule Allergies Allergy/AdvReac Type Severity Reaction Status Date / Time Sulfa (Sulfonamide Allergy Mild Rash Verified 10/26/23 16:36 Antibiotics) Review of Systems <Maia Archer PA-C - Last Filed: 08/19/24 12:32> Review of Systems Narrative: All systems reviewed and are unremarkable except as noted in HPI and below. Patient History <Maia Archer PA-C - Last Filed: 08/19/24 12:32> Medical History Hypotension after procedure Sigmoid volvulus Quadriplegia Vision disorder Hearing loss Shoulder pain (~1997) Chicken pox Kidney stones (~09/2017) Surgical History S/P partial colectomy History of back surgery Family History Father Cancer Mother Dementia Sister Heart disease Social History household members: spouse Smoking Status: Never smoker alcohol intake: current Smoking Status: Never smoker alcohol intake frequency: holidays/special occasions only Substance Use Type: does not use Exam <Maia Archer PA-C - Last Filed: 08/19/24 12:32> Narrative Exam Narrative: GENERAL: 58 year old patient appears stated age. Well-developed patient, in no acute distress, sitting in wheelchair. HEAD: Atraumatic. Normocephalic. EYES: Extraocular motions intact. No scleral icterus. No injection or drainage. ENT: Nose without bleeding, purulent drainage. Airway patent. NECK: Trachea midline. Cervical ROM intact. CARDIOVASCULAR: Regular rate and rhythm. RESPIRATORY: Nonlabored respirations. Speaking in clear, full sentences. Clear to auscultation. Breath sounds equal bilaterally. No wheezes, rales, or rhonchi. GASTROINTESTINAL: Declines exam. Abdomen soft, non-tender, nondistended. EXTREMITIES: Some movement of upper extremities. NEURO: AOx3. Clear speech. No sensation or movement approximately 2 inches above nipple line, baseline. SKIN: No rash or erythema of visible areas Initial Vital Signs Initial Vital Signs: Vital Signs Temperature 97.8 F 08/19/24 11:17 Pulse Rate 61 08/19/24 11:17 Respiratory Rate 12 08/19/24 11:17 Blood Pressure 139/84 08/19/24 11:17 Pulse Oximetry 100 08/19/24 11:17 Oxygen Delivery Method Room Air 08/19/24 11:17 <Rhonda Cloud MD - Last Filed: 08/20/24 08:24> Initial Vital Signs Initial Vital Signs: Vital Signs Temperature 97.8 F 08/19/24 11:17 Pulse Rate 61 08/19/24 11:17 Respiratory Rate 12 08/19/24 11:17 Blood Pressure 139/84 08/19/24 11:17 Pulse Oximetry 100 08/19/24 11:17 Oxygen Delivery Method Room Air 08/19/24 11:17 Course <Maia Archer PA-C - Last Filed: 08/19/24 12:32> Orders Ordered: ED Orders 08/19/24 11:40 Urinalysis and Microscopic Stat Urine Culture Stat Vital Signs Vital signs: Vital Signs - 8 hr 08/19/24 11:17 Temperature 97.8 F Pulse Rate 61 Respiratory Rate 12 Blood Pressure 139/84 Pulse Oximetry 100 Oxygen Delivery Method Room Air <Rhonda Cloud MD - Last Filed: 08/20/24 08:24> Orders Ordered: ED Orders 08/19/24 11:40 Urinalysis and Microscopic Stat Urine Culture Stat Vital Signs Vital signs: Vital Signs - 8 hr 08/19/24 11:17 Temperature 97.8 F Pulse Rate 61 Respiratory Rate 12 Blood Pressure 139/84 Pulse Oximetry 100 Oxygen Delivery Method Room Air MDM - Male Genitourinary <Maai Archer PA-C - Last Filed: 08/19/24 12:32> Medical Records Attestation: I reviewed the patient's medical records. Medical records narrative: Reviewed ED visit 02/10/2023 for UTI where patient was treated with Levaquin then switched to ciprofloxacin after culture results. Also reviewed most recent urine culture result on 10/23/2023 that was positive for MRSA. Urine culture on 10/01/2023 positive for Serratia marcescens, Pseudomonas aeruginosa. Lab Data Labs: Lab Results 08/19/24 Range/Units 11:40 Urine Color Yellow Urine Appearance Cloudy Urine pH 6.5 (4.5-8.0) Ur Specific [place] 1.015 (1.000-1.035) Urine Protein Trace H (Negative) Urine Glucose (UA) Negative (Negative) g/dL Urine Ketones Negative (NEGATIVE) Urine Occult Blood 1+ H (Negative) Urine Nitrate Positive H (Negative) Urine Bilirubin Negative (NEGATIVE) Urine Urobilinogen 1.0 (0.2) E.U./dL Ur Leukocyte Esterase 2+ H (NEGATIVE) Urine RBC 5-10/hpf H (0-5/HPF) Urine WBC 30-100/hpf H (0-5/HPF) Ur Squamous Epith Cells 1-5 /hpf (0-5/HPF) Urine Bacteria Many (>30) H (None) Ur Culture Indicated? Specimen cultured Vol Urine Centrifuged 10ml (spun) MDM Narrative Medical decision making narrative: 58-year-old C6 quadriplegic man with chronic indwelling Flowers catheter presents to the emergency department for UTI symptoms x3 days. Differential diagnosis includes but not limited to cystitis, urinary tract infection, complicated UTI, pyelonephritis, ureterolithiasis, etc. On exam patient is in no acute distress, nontoxic-appearing, all vital signs within normal limits. He is not febrile or tachycardic. Extensive record review of prior urine cultures, he was most recently treated with doxycycline in September of this year for MRSA UTI. We will obtain urinalysis directly from Flowers catheter tube, patient declines changing out his Flowers or exam. UA sent and positive for UTI. 1203: Consulted our pharmacist, Angel. After extensive discussion & review of the patient's past urine cultures, we decided to treat the patient with both nitrofurantoin as his most recent urine culture was susceptible to that, in addition to ciprofloxacin, as prior urine cultures that grew Pseudomonas were susceptible to Cipro. Patient is agreeable to this plan. All of his questions were answered. Very strict return precautions discussed. Antibiotics sent to pharmacy of choice, Patient is stable for discharge. <Rhonda Cloud MD - Last Filed: 08/20/24 08:24> Lab Data Labs: Lab Results 08/19/24 Range/Units 11:40 Urine Color Yellow Urine Appearance Cloudy Urine pH 6.5 (4.5-8.0) Ur Specific [place] 1.015 (1.000-1.035) Urine Protein Trace H (Negative) Urine Glucose (UA) Negative (Negative) g/dL Urine Ketones Negative (NEGATIVE) Urine Occult Blood 1+ H (Negative) Urine Nitrate Positive H (Negative) Urine Bilirubin Negative (NEGATIVE) Urine Urobilinogen 1.0 (0.2) E.U./dL Ur Leukocyte Esterase 2+ H (NEGATIVE) Urine RBC 5-10/hpf H (0-5/HPF) Urine WBC 30-100/hpf H (0-5/HPF) Ur Squamous Epith Cells 1-5 /hpf (0-5/HPF) Urine Bacteria Many (>30) H (None) Ur Culture Indicated? Specimen cultured Vol Urine Centrifuged 10ml (spun) Discharge Plan Departure Patient Disposition: Home Clinical Impression: Acute UTI (urinary tract infection) Instructions: DI for Urinary Tract Infection (UTI) Activity Restrictions/Additional Instructions: Dear Mr. Figueroa, Your diagnosis today is urinary tract infection. After discussion with our pharmacist, we have decided to start you on two different antibiotics to cover a broader possibility of bacteria. Your urine culture result is pending and in 2-3 days, you will be called if you need to change or discontinue an antibiotic. Please follow up with your primary care doctor within the next 2-3 days for ER follow-up. IF YOU DEVELOP ANY NEW OR WORSENING SYMPTOMS, RETURN TO THE ER! Please read the attached instructions, they highlight more specific treatments and interventions for you at home. Thank you for letting me participate in your care, Maia Archer PA-C Prescriptions: New ciprofloxacin HCl [Cipro] 500 mg tablet 500 mg PO BID 7 Days Qty: 14 0RF nitrofurantoin macrocrystal 100 mg capsule 100 mg PO BID 7 Days Qty: 14 0RF Rx Instructions: must administer with a meal/food No Action midodrine 5 mg Tablet 5 mg PO TID Qty: 0 Patient Comments: patient states takes daily and prn. Rx Instructions: Take first dose shortly before rising, and the other doses PRN ie: after a big meal/ when BP drops ascorbic acid (vitamin C) 500 mg Tablet 1,000 mg PO DAILY Qty: 0 cholecalciferol (vitamin D3) [Vitamin D3] 1,000 unit Tablet 2,000 unit PO DAILY Qty: 0 Referrals: Christine Magaña MD [Primary Care Provider] - Stand Alone Forms: Patient Portal/API/Survey ED Sign-out <Rhonda Cloud MD - Last Filed: 08/20/24 08:24> Cosign ED Attending Pacoature Attestation: I was immediately available in the department for consultation throughout this patient's visit. Rhonda Cloud MD
[2024-08-19 11:55] LABS: Appearance Urine UA CLOUDY; Bilirubin Urine UA NEGATIVE (NEGATIVE); Color Urine UA YELLOW; Glucose Urine UA NEGATIVE (Negative); Ketones Urine UA NEGATIVE (NEGATIVE); Leukocyte Esterase Urine UA 2+ (NEGATIVE); Nitrite Urine UA POSITIVE (Negative); Occult Blood Urine UA 1+ (Negative); Protein Urine UA TRACE (Negative); Specific Gravity Urine UA 1.015 (1.000-1.035); Urine Volume 10mL (spun); pH Urine UA 6.5 (4.5-8.0)
[2024-08-19 11:57] LABS: Bacteria Urine Many (>30); RBC Urine 5-10/HPF (0-5/HPF); WBC Urine 30-100/HPF (0-5/HPF)
[2024-08-19 11:58] LABS: Culture Indicated Urine Specimen Cultured; Squamous Epithelial Cell Urine 1-5 /HPF (0-5/HPF)
== END 2024-08-19 12:20 | disposition home or self-care (01) ==
PROVIDERS: Emergency Provider Physician Assistant; Family Provider Family Medicine; PCP Family Medicine
DX: N39.0 Urinary tract infection, site not specified (principal)
CPT/HCPCS: 81001; 87077; 87086; 87186; 99281; 99282

== ENCOUNTER 2024-08-28 18:06 | Emergency (ER) | payer OTHER, MEDICARE, SELFPAY ==
[2023-01-16 11:34] VITALS: BMI 25.7
[2024-08-28 18:13] VITALS: BP 95/56; PULSE 76; RESP 17; TEMP 36.2; O2SAT 100; BMI 18.3
[2024-08-28 19:11] LABS: Bilirubin Urine UA NEGATIVE (NEGATIVE); Color Urine UA YELLOW; Glucose Urine UA NEGATIVE (Negative); Ketones Urine UA TRACE (NEGATIVE); Leukocyte Esterase Urine UA 2+ (NEGATIVE); Nitrite Urine UA NEGATIVE (Negative); Occult Blood Urine UA 1+ (Negative); Protein Urine UA TRACE (Negative); Specific Gravity Urine UA 1.015 (1.000-1.035); Urobilinogen Urine UA 0.2 E.U./dL (0.2)
[2024-08-28 19:13] LABS: Add Manual Diff / Slide Review NO; Appearance Urine UA Slightly Cloudy; Basophils Absolute Auto 100 /uL (0-100); Basophils Percent Auto 0.8 % (0-2); Eosinophils Absolute Auto 400 /uL (0-450); Eosinophils Percent Auto 4.1 % (2-4); Hemoglobin 12.4 g/dL (13.5-17.5); Lymphocytes Absolute Auto 900 /uL (1100-4500); Lymphocytes Percent Auto 10.1 % (25-40); Mean Corpuscular HGB Conc 33.5 % (30-36); Mean Corpuscular Hemoglobin 29.8 PG (26-34); Mean Corpuscular Volume 88.9 fL (80-100); Monocytes Absolute Auto 600 /uL (0-900); Monocytes Percent Auto 7.2 % (3-14); Neutrophils Absolute Auto 6800 /uL (1500-7000); Neutrophils Percent Auto 77.8 % (50-75); Platelet Count 254 X10^3/uL (150-400); Red Blood Cell Count 4.16 X10^6/uL (4.5-5.9); Red Cell Distribution Width 13.9 % (11.6-14.8); White Blood Cell Count 8.7 X10^3/uL (4.5-11.0)
[2024-08-28 19:20] LABS: Alanine Aminotransferase 24 IU/L (<50); Albumin 3.9 g/dL (3.5-5.0); Albumin Globulin Ratio 1.2 (1.0-2.8); Alkaline Phosphatase 69 U/L (38-126); Aspartate Aminotransferase 29 IU/L (17-59); BUN Creatinine Ratio 30.8 (6-22); Bacteria Urine Few (2-10); Bilirubin Total 0.6 mg/dL (0.2-1.3); Blood Urea Nitrogen 20 mg/dL (9-20); Calcium 9.3 mg/dL (8.4-10.2); Carbon Dioxide 25 mmol/L (22-32); Chloride 100 mmol/L (98-107); Estimated Glomerular Filt Rate > 60 mL/min (>60); Globulin 3.3 g/dL (1.7-4.1); Glucose 117 mg/dL (80-110); HEMOLYSIS < 15 (0-50); Lipase 215 U/L (23-300); Potassium 4.1 mmol/L (3.4-5.1); RBC Urine 1-5/HPF (0-5/HPF); Sodium 133 mmol/L (137-145); Total Protein 7.2 g/dL (6.3-8.2); Urine Volume 10mL (spun); WBC Urine 10-30/HPF (0-5/HPF)
[2024-08-28 19:21] LABS: Squamous Epithelial Cell Urine 1-5 /HPF (0-5/HPF)
[2024-08-28 21:20] VITALS: BP 112/70; PULSE 79; RESP 16; TEMP 36.4; O2SAT 100
--- NOTE | 2024-08-28 21:32 | PC.NURSE ---
Pt self wheeled to room 2. Alert and oriented. C/O current fatigue and feeling ill over past two days. recently completed abx for UTI. Reports concentrated urine. No fever, but chills started today. Pt reports recurrent UTIs. Pt in room with call light, reports most comfortable in his chair at this time. Family at bedside.
--- NOTE | 2024-08-28 21:54 | ED_ITS ---
HPI - Recheck/Abnormal Lab/Rx General Chief Complaint: Recheck/Abnormal Lab/Rx Stated Complaint: infection Time Seen by Provider: 08/28/24 21:13 Source: patient Mode of arrival: Wheelchair History of Present Illness HPI narrative: Patient is a 59-year-old male. He was a incomplete quadriplegia. He was in a wheelchair. He was an indwelling Flowers catheter. Was recently seen and evaluated and diagnosed with a urinary tract infection. He was put on both Macrobid and ciprofloxacin based on prior urine cultures. He took these antibiotics. Tolerated them well. Thought that his symptoms were improving. The antibiotics were completed earlier this week. Since that time he was felt like his symptoms were returning to include dark-colored urine. No vomiting. No fevers. Related Data Home Medications Medication Instructions Recorded Confirmed ascorbic acid (vitamin C) 500 mg 1,000 mg PO DAILY ##0 10/20/18 03/12/23 tablet cholecalciferol (vitamin D3) 25 2,000 unit PO DAILY ##0 10/20/18 03/12/23 mcg (1,000 unit) tablet (Vitamin D3) midodrine 5 mg tablet 5 mg PO TID ##0 10/20/18 03/12/23 Previous Rx's Medication Instructions Recorded ciprofloxacin HCl 500 mg tablet 500 mg PO BID 7 days #14 tabs 08/28/24 nitrofurantoin 100 mg PO Q12H 7 days #14 caps 08/28/24 monohydrate/macrocrystals 100 mg capsule (Macrobid) Allergies Allergy/AdvReac Type Severity Reaction Status Date / Time Sulfa (Sulfonamide AdvReac Mild Rash Verified 08/28/24 18:13 Antibiotics) Review of Systems Review of Systems Narrative: See HPI Patient History Medical History Hypotension after procedure Sigmoid volvulus Quadriplegia Vision disorder Hearing loss Shoulder pain (~1997) Chicken pox Kidney stones (~09/2017) Surgical History S/P partial colectomy History of back surgery Family History Father Cancer Mother Dementia Sister Heart disease Social History household members: spouse Smoking Status: Never smoker alcohol intake: current Smoking Status: Never smoker alcohol intake frequency: holidays/special occasions only Substance Use Type: does not use Exam Initial Vital Signs Initial Vital Signs: Vital Signs Temperature 97.2 F L 08/28/24 18:13 Pulse Rate 76 08/28/24 18:13 Respiratory Rate 17 08/28/24 18:13 Blood Pressure 95/56 L 08/28/24 18:13 Pulse Oximetry 100 08/28/24 18:13 Oxygen Delivery Method Room Air 08/28/24 18:13 Const General: cooperative, comfortable and No ill appearing [facility] Head: normal to inspection GI Inspection: non-distended Neuro Other: Unchanged from baseline Course Orders Ordered: ED Orders 08/28/24 19:02 Complete Blood Count AUTO DIFF Stat Comprehensive Metabolic Panel Stat Lactate (Lactic Acid) Stat Lipase Stat Urinalysis and Microscopic Stat Urine Culture Stat Discontinued Medications Ciprofloxacin (Ciprofloxacin 250 Mg Tablet) 500 mg PO NOW ONE Stop: 08/28/24 21:56 Last Admin: 08/28/24 21:59 Dose: 500 mg Documented By: JANAY Nitrofurantoin Macrocrystals (Nitrofurantoin Er 100 Mg Capsule) 100 mg PO NOW ONE Stop: 08/28/24 21:54 Last Admin: 08/28/24 21:59 Dose: 100 mg Documented By: JANAY Vital Signs Vital signs: Vital Signs - 8 hr 08/28/24 21:20 Temperature 97.6 F Pulse Rate 79 Respiratory Rate 16 Blood Pressure 112/70 Pulse Oximetry 100 Oxygen Delivery Method Room Air MDM - Recheck/Abnormal Lab/Rx Medical Records Attestation: I reviewed the patient's medical records. Lab Data Attestation: I reviewed the patient's lab results. 08/28/24 19:02 08/28/24 19:02 Labs: Lab Results 08/28/24 Range/Units 19:02 WBC 8.7 (4.5-11.0) X10^3/uL RBC 4.16 L (4.5-5.9) X10^6/uL Hgb 12.4 L (13.5-17.5) g/dL Hct 37.0 L (41-53) % MCV 88.9 (80-100) fL MCH 29.8 (26-34) PG MCHC 33.5 (30-36) % RDW 13.9 (11.6-14.8) % Plt Count 254 (150-400) X10^3/uL Neut % (Auto) 77.8 H (50-75) % Lymph % (Auto) 10.1 L (25-40) % [place] % (Auto) 7.2 (3-14) % Eos % (Auto) 4.1 H (2-4) % Baso % (Auto) 0.8 (0-2) % Neut # (Auto) 6800 (3396-0492) /uL Lymph # (Auto) 900 L (6603-5775) /uL [place] # (Auto) 600 (0-900) /uL Eos # (Auto) 400 (0-450) /uL Baso # (Auto) 100 (0-100) /uL Sodium 133 L (137-145) mmol/L Potassium 4.1 (3.4-5.1) mmol/L Chloride 100 (98-107) mmol/L Carbon Dioxide 25 (22-32) mmol/L BUN 20 (9-20) mg/dL Creatinine 0.65 L (0.66-1.25) mg/dL Estimated GFR > 60 (>60) mL/min BUN/Creatinine Ratio 30.8 H (6-22) Glucose 117 H (80-110) mg/dL Lactate 1.0 (0.7-2.1) mmol/L Calcium 9.3 (8.4-10.2) mg/dL Total Bilirubin 0.6 (0.2-1.3) mg/dL AST 29 (17-59) IU/L ALT 24 (<50) IU/L Alkaline Phosphatase 69 (38-126) U/L Total Protein 7.2 (6.3-8.2) g/dL Albumin 3.9 (3.5-5.0) g/dL Globulin 3.3 (1.7-4.1) g/dL Albumin/Globulin Ratio 1.2 (1.0-2.8) Lipase 215 (23-300) U/L Urine Color Yellow Urine Appearance Slightly cloudy Urine pH 7.0 (4.5-8.0) Ur Specific [place] 1.015 (1.000-1.035) Urine Protein Trace H (Negative) Urine Glucose (UA) Negative (Negative) g/dL Urine Ketones Trace H (NEGATIVE) Urine Occult Blood 1+ H (Negative) Urine Nitrate Negative (Negative) Urine Bilirubin Negative (NEGATIVE) Urine Urobilinogen 0.2 (0.2) E.U./dL Ur Leukocyte Esterase 2+ H (NEGATIVE) Urine RBC 1-5/hpf (0-5/HPF) Urine WBC 10-30/hpf H (0-5/HPF) Ur Squamous Epith Cells 1-5 /hpf (0-5/HPF) Urine Bacteria Few (2-10) H (None) Vol Urine Centrifuged 10ml (spun) MDM Narrative Medical decision making narrative: Review of the medical record shows that the urine culture from his last urinalysis does have bacteria that should be susceptible to both Cipro and Macrobid. He does have a complicated urinary tract infection given his neurologic issues and also was indwelling Flowers catheter. The Macrobid and Cipro did seem to improve his symptoms per his report. Urinalysis today is consistent with a urinary tract infection specifically given his presenting symptoms. Plan will be is to obtain another urine culture which is pending at the time of discharge however we will restart the patient back on Macrobid and Cipro. He potentially just needed a longer course of these medications given the complications of his urinary system. He was given return precautions and follow-up instructions. He expressed understanding and agreement with plan. Discharge Plan Departure Patient Disposition: Home Clinical Impression: UTI (urinary tract infection) due to urinary indwelling catheter Instructions: DI for Urinary Tract Infection (UTI) Activity Restrictions/Additional Instructions: A urine culture was pending at the time of your discharge today. We will contact you if we need to change any antibiotics based on this. Take the antibiotics as directed. Return to the emergency department for new symptoms. Prescriptions: New nitrofurantoin monohyd/m-cryst [Macrobid] 100 mg capsule 100 mg PO Q12H 7 Days Qty: 14 0RF Rx Instructions: must administer with a meal/food ciprofloxacin HCl 500 mg tablet 500 mg PO BID 7 Days Qty: 14 0RF No Action midodrine 5 mg Tablet 5 mg PO TID Qty: 0 Patient Comments: patient states takes daily and prn. Rx Instructions: Take first dose shortly before rising, and the other doses PRN ie: after a big meal/ when BP drops ascorbic acid (vitamin C) 500 mg Tablet 1,000 mg PO DAILY Qty: 0 cholecalciferol (vitamin D3) [Vitamin D3] 1,000 unit Tablet 2,000 unit PO DAILY Qty: 0 Referrals: Christine Magaña MD [Primary Care Provider] - Stand Alone Forms: Patient Portal/API/Survey
[2024-08-28] MEDS: NITROFURANTOIN ER 100 MG CAPSULE PO (21:59)
[2024-08-28] MEDS: CIPROFLOXACIN 250 MG TABLET 500 MG PO (21:59)
== END 2024-08-28 22:10 | disposition home or self-care (01) ==
PROVIDERS: Emergency Provider Emergency Medicine; Family Provider Family Medicine; PCP Family Medicine
DX: T83.511A Infection and inflammatory reaction due to indwelling urethral catheter, initial encounter (principal); N39.0 Urinary tract infection, site not specified
CPT/HCPCS: 36415; 80053; 81001; 83605; 83690; 85025; 87077; 87086; 87147; 99283

== ENCOUNTER → 2024-09-14 11:14 | Outpatient (CLI) | payer MEDICARE, OTHER, SELFPAY ==
[2023-01-16 11:34] VITALS: BMI 25.7
== END ==
PROVIDERS: Family Provider Family Medicine; PCP Family Medicine; Referring Provider Family Medicine; Visit Provider Family Medicine
DX: N39.0 Urinary tract infection, site not specified (principal); T83.511A Infection and inflammatory reaction due to indwelling urethral catheter, initial encounter
CPT/HCPCS: 87070; 87077; 87086; 87205

== ENCOUNTER → 2024-10-14 12:32 | Outpatient (CLI) | payer MEDICARE, OTHER, SELFPAY ==
[2023-01-16 11:34] VITALS: BMI 25.7
== END ==
PROVIDERS: Family Provider Family Medicine; PCP Family Medicine; Referring Provider Family Medicine; Visit Provider Family Medicine
DX: R04.2 Hemoptysis (principal)
CPT/HCPCS: 87070; 87077; 87147; 87186; 87205

== ENCOUNTER → 2024-10-19 14:14 | Outpatient (CLI) | payer OTHER, MEDICARE, SELFPAY ==
[2023-01-16 11:34] VITALS: BMI 25.7
--- NOTE | 2024-10-19 14:17 | DI.RAD.S_ITS ---
PROCEDURE: XR CHEST 2V INDICATIONS: hemoptysis TECHNIQUE: 2 views of the chest were acquired. COMPARISON: [facility], , XR CHEST 1V, 05/15/2022, 14:33. FINDINGS: Surgical changes and devices: Postsurgical changes are seen in visualized lower cervical spine. Lungs and pleura: AP view is obscured with artifacts. No definite focal infiltrate. No pleural effusions or pneumothorax. Mediastinum: Mediastinal contours are normal. Heart size is normal. Bones and chest wall: No suspicious bony abnormalities. Soft tissues appear unremarkable. IMPRESSION: Slightly limited AP view. No definite focal infiltrate. No pleural effusion or pneumothorax. Dictated by: Sid Jin M.D. on 10/19/2024 at 19:13 Approved by: Sid Jin M.D. on 10/19/2024 at 19:14
== END ==
PROVIDERS: Family Provider Family Medicine; PCP Family Medicine; Referring Provider Family Medicine; Visit Provider Family Medicine
DX: R04.2 Hemoptysis (principal); Z98.1 Arthrodesis status
CPT/HCPCS: 71046

== ENCOUNTER → 2024-11-24 13:49 | Outpatient (CLI) | payer MEDICARE, OTHER, SELFPAY ==
[2023-01-16 11:34] VITALS: BMI 25.7
[2024-11-24 15:02] LABS: Appearance Urine UA SL CLOUDY; Bilirubin Urine UA NEGATIVE (NEGATIVE); Color Urine UA YELLOW; Glucose Urine UA NEGATIVE (Negative); Ketones Urine UA NEGATIVE (NEGATIVE); Leukocyte Esterase Urine UA 3+ (NEGATIVE); Nitrite Urine UA POSITIVE (Negative); Occult Blood Urine UA 1+ (Negative); Protein Urine UA NEGATIVE (Negative); Urobilinogen Urine UA 0.2 E.U./dL (0.2); pH Urine UA 6.5 (4.5-8.0)
[2024-11-24 15:13] LABS: Bacteria Urine Many (>30); Culture Indicated Urine Specimen Cultured; RBC Urine 0-1/HPF (0-5/HPF); Squamous Epithelial Cell Urine 1-5 /HPF (0-5/HPF); Urine Volume 10mL (spun); WBC Urine 5-10/HPF (0-5/HPF)
== END ==
PROVIDERS: Family Provider Family Medicine; PCP Family Medicine; Referring Provider Family Medicine; Visit Provider Family Medicine
DX: T83.511D Infection and inflammatory reaction due to indwelling urethral catheter, subsequent encounter (principal); N39.0 Urinary tract infection, site not specified
CPT/HCPCS: 81001; 87077; 87086; 87186

== ENCOUNTER → 2025-01-01 12:28 | Outpatient (CLI) | payer MEDICARE, OTHER, SELFPAY ==
[2023-01-16 11:34] VITALS: BMI 25.7
[2025-01-01 14:46] LABS: Clostridium Difficile Tox PCR Negative for C. diff (Negative)
== END ==
PROVIDERS: Family Provider Family Medicine; PCP Family Medicine; Referring Provider Family Medicine; Visit Provider Family Medicine
DX: R19.7 Diarrhea, unspecified (principal)
CPT/HCPCS: 87045; 87177; 87205; 87493

== ENCOUNTER → 2025-03-29 14:11 | Outpatient (CLI) | payer OTHER, MEDICARE, SELFPAY ==
[2023-01-16 11:34] VITALS: BMI 25.7
[2025-03-29 14:37] LABS: Appearance Urine UA CLOUDY; Bilirubin Urine UA NEGATIVE (NEGATIVE); Color Urine UA ORANGE; Glucose Urine UA NEGATIVE (Negative); Ketones Urine UA NEGATIVE (NEGATIVE); Leukocyte Esterase Urine UA 3+ (NEGATIVE); Nitrite Urine UA POSITIVE (Negative); Occult Blood Urine UA 3+ (Negative); Protein Urine UA 2+ (Negative); Specific Gravity Urine UA 1.015 (1.000-1.035); Urobilinogen Urine UA 0.2 E.U./dL (0.2); pH Urine UA 7.0 (4.5-8.0)
[2025-03-29 14:49] LABS: Culture Indicated Urine Specimen Cultured
== END ==
PROVIDERS: Family Provider Family Medicine; PCP Family Medicine; Referring Provider Family Medicine; Visit Provider Family Medicine
DX: T83.511D Infection and inflammatory reaction due to indwelling urethral catheter, subsequent encounter (principal); N39.0 Urinary tract infection, site not specified
CPT/HCPCS: 81001; 87077; 87086; 87186

== ENCOUNTER 2025-08-14 14:35 | Emergency (ER) | payer OTHER, MEDICARE, SELFPAY ==
[2023-01-16 11:34] VITALS: BMI 25.7
[2025-08-14 14:43] VITALS: BP 101/54; PULSE 78; RESP 18; TEMP 37; O2SAT 98; BMI 19.6
--- NOTE | 2025-08-14 15:45 | PC.NURSE ---
Patient reports fatigue and chills.
[2025-08-14 15:52] VITALS: BP 101/62; PULSE 72; RESP 18; O2SAT 96
[2025-08-14 19:19] VITALS: BP 101/60; PULSE 70; RESP 16; O2SAT 98
--- NOTE | 2025-08-14 19:40 | ED.MALEGU ---
HPI - Male Genitourinary General Chief complaint: Urogenital-Male Stated complaint: Poss bladder infection Time Seen by Provider: 08/14/25 18:25 Source: patient Mode of arrival: Wheelchair History of Present Illness HPI Narrative: 59-year-old paraplegia with indwelling catheter on Macrobid presents with weakness and concerns for UTI as he has has had multiple the last one in March feels the same way. Patient reports he similar presentation for UTI and wanted to get checked out. he denies fever chills body aches back pain abdominal pain vomiting diarrhea constipation cough sore throat. Other than what is stated 14 point review of system is negative. Related Data Home Medications ?Medication ?Instructions ?Recorded ?Confirmed ascorbic acid (vitamin C) 500 mg 1,000 mg PO DAILY ##0 10/20/18 02/11/25 tablet cholecalciferol (vitamin D3) 25 2,000 unit PO DAILY ##0 10/20/18 02/11/25 mcg (1,000 unit) tablet (Vitamin D3) midodrine 5 mg tablet 5 mg PO TID ##0 10/20/18 02/11/25 Previous Rx's ?Medication ?Instructions ?Recorded Nebulizer #1 ea 10/22/24 sodium chloride 7 % for 4 ml inhalation BID #240 mL 11/24/24 nebulization levofloxacin 750 mg tablet 750 mg PO DAILY #10 tabs 11/29/24 albuterol sulfate 2.5 mg/3 mL 2.5 mg (3 mL) inhalation BID #180 02/11/25 (0.083 %) solution for nebulization mL levofloxacin 500 mg tablet 500 mg PO DAILY #5 tabs 08/14/25 Allergies Allergy/AdvReac Type Severity Reaction Status Date / Time Sulfa (Sulfonamide AdvReac Mild Rash Verified 08/14/25 14:43 Antibiotics) Review of Systems Review of Systems ROS Unobtainable: All systems reviewed & are unremarkable except as noted in HPI and below Patient History Medical History (Updated 08/14/25 @ 19:45 by Jeffery Mora, ) Mycobacterium avium complex Hemoptysis Bronchiectasis Hypotension after procedure Sigmoid volvulus Quadriplegia Vision disorder Hearing loss Shoulder pain (~1997) Chicken pox Kidney stones (~09/2017) Surgical History S/P partial colectomy History of back surgery Family History Father Cancer Mother Dementia Sister Heart disease Social History household members: spouse Smoking Status: Never smoker alcohol intake: current Smoking Status: Never smoker alcohol intake frequency: holidays/special occasions only Exam Narrative Exam Narrative: GENERAL: [59] year old patient appears stated age. Well-developed patient, in mild distress. HEAD: Atraumatic. Normocephalic. EYES: Pupils equal round and reactive. Extraocular motions intact. No scleral icterus. No injection or drainage. NEURO: AOx3. SKIN: No rash or erythema of visible areas Initial Vital Signs Initial Vital Signs: Vital Signs Temperature 98.6 F 08/14/25 14:43 Pulse Rate 78 08/14/25 14:43 Respiratory Rate 18 08/14/25 14:43 Blood Pressure 101/54 L 08/14/25 14:43 Pulse Oximetry 98 08/14/25 14:43 Oxygen Delivery Method Room Air 08/14/25 14:43 Course Orders Ordered: ED Orders 08/14/25 14:48 Urine Culture Stat Urine Microscopic Stat Vital Signs Vital signs: Vital Signs - 8 hr 08/14/25 14:43 08/14/25 15:52 08/14/25 19:19 Temperature 98.6 F Pulse Rate 78 72 70 Respiratory Rate 18 18 16 Blood Pressure 101/54 L 101/62 101/60 Pulse Oximetry 98 96 98 Oxygen Delivery Method Room Air Room Air Room Air MDM - Male Genitourinary Lab Data Labs: Lab Results 08/14/25 Range/Units 14:48 Urine RBC 10-30/hpf H (0-5/HPF) Urine WBC 30-100/hpf H (0-5/HPF) Ur Squamous Epith Cells 1-5 /hpf (0-5/HPF) Ur Transition Epith Cell 1-5/hpf (0-5/HPF) Urine Bacteria Moderate (10-30) H (None) Vol Urine Centrifuged 10ml (spun) Urine Dip Bedside Urine Glucose Negative Bedside Urine Bilirubin - Negative Bedside Urine Ketone - Negative Urine Specific [place] 1.015 Bedside Urine Occult Blood +++ Bedside Urine pH 6.5 Bedside Urine Protein + 30 Bedside Urine Urobilinogen - Negative Bedside Urine Nitrite + Positive Bedside Urine Leukocytes +++ 500 Esterase MDM Narrative Medical decision making narrative: All lab work, vital signs, nurse triage note, medication list, previous ER visits, and all imaging studies reviewed. Patient given Levaquin and is already on Macrobid UA showed 10-30 RBC 30-100 WBC moderate bacteria we will be sent home on Levaquin rx. differential diagnosis UTI sepsis Discharge Plan Departure Patient Disposition: Home Clinical Impression: Urinary tract infection Instructions: DI for Urinary Tract Infection (UTI) Activity Restrictions/Additional Instructions: Return with new or worsening symptoms. Take medicines as directed. Follow up with urologist at your lithotripsy appointment. Prescriptions: New levofloxacin 500 mg tablet 500 mg PO DAILY Qty: 5 0RF No Action sodium chloride 7 % solution for nebulization 4 ml inhalation BID Qty: 240 5RF levofloxacin 750 mg tablet 750 mg PO DAILY Qty: 10 0RF midodrine 5 mg Tablet 5 mg PO TID Qty: 0 Patient Comments: patient states takes daily and prn. Rx Instructions: Take first dose shortly before rising, and the other doses PRN ie: after a big meal/ when BP drops ascorbic acid (vitamin C) 500 mg Tablet 1,000 mg PO DAILY Qty: 0 cholecalciferol (vitamin D3) [Vitamin D3] 1,000 unit Tablet 2,000 unit PO DAILY Qty: 0 (DME) Nebulizer See Rx Instructions .Route .MEDSUPPLY Qty: 1 0RF Rx Instructions: As directed albuterol sulfate 2.5 mg /3 mL (0.083 %) solution for nebulization 2.5 mg inhalation BID Qty: 180 3RF Referrals: Christine Magaña MD [Primary Care Provider, Family Practice] Stand Alone Forms: Patient Portal/API
--- NOTE | 2025-08-14 19:42 | PC.NURSE ---
Patient reports burning down in bladder area. Patient also reports 5mg to 10mg PRN midrodrine for low blood pressure.
[2025-08-14 19:43] VITALS: BP 92/51; PULSE 78; RESP 18; TEMP 37.1; O2SAT 97
== END 2025-08-14 19:55 | disposition home or self-care (01) ==
PROVIDERS: Emergency Medicine; Emergency Provider Family Medicine; Family Provider Family Medicine; PCP Family Medicine
DX: N39.0 Urinary tract infection, site not specified (principal); B96.5 Pseudomonas (aeruginosa) (mallei) (pseudomallei) as the cause of diseases classified elsewhere; Z16.39 Resistance to other specified antimicrobial drug
CPT/HCPCS: 81003; 81015; 87077; 87086; 87186; 99283

== ENCOUNTER 2025-08-17 10:42 | Emergency (ER) | payer OTHER, MEDICARE, SELFPAY ==
[2023-01-16 11:34] VITALS: BMI 25.7
[2025-08-17] VITALS (15 sets, daily range): BP systolic 85–138; BP diastolic 54–95; PULSE 55–71; RESP 16–45; TEMP 36.4; O2SAT 95–100; BMI 19.6
--- NOTE | 2025-08-17 11:23 | ED.ABDPAIN ---
HPI - Abdominal Pain General Chief Complaint: Abdominal Pain Stated Complaint: Here Friday , still having Stomach pain Time Seen by Provider: 08/17/25 11:15 Source: patient Mode of arrival: Wheelchair History of Present Illness HPI narrative: This is a 59-year-old male presents to the emergency department due to abdominal bloating and diarrhea for the last month. States that over the last few days he has noticed blood in his stool as well as bright red. He has a C6 paraplegic and does not have sensation below the C6 level. Due to this he denies any abdominal pain. Prior to the episodes of bloating and diarrhea he has not recall any abnormal foods or significant antibiotic use. Over the last 5 days he was prescribed a 3 day course of Macrobid for a ?kidney stone surgery? and was seen here 3 days ago and prescribed Levaquin for possible UTI. He reports some nausea but is still able to take things orally. He states he gets this is bowel care 1 time a day and is unable to feel how many times he has had bowel movements. Related Data Home Medications ?Medication ?Instructions ?Recorded ?Confirmed ascorbic acid (vitamin C) 500 mg 1,000 mg PO DAILY ##0 10/20/18 02/11/25 tablet cholecalciferol (vitamin D3) 25 2,000 unit PO DAILY ##0 10/20/18 02/11/25 mcg (1,000 unit) tablet (Vitamin D3) midodrine 5 mg tablet 5 mg PO TID ##0 10/20/18 02/11/25 Previous Rx's ?Medication ?Instructions ?Recorded Nebulizer #1 ea 10/22/24 sodium chloride 7 % for 4 ml inhalation BID #240 mL 11/24/24 nebulization levofloxacin 750 mg tablet 750 mg PO DAILY #10 tabs 11/29/24 albuterol sulfate 2.5 mg/3 mL 2.5 mg (3 mL) inhalation BID #180 02/11/25 (0.083 %) solution for nebulization mL levofloxacin 500 mg tablet 500 mg PO DAILY #5 tabs 08/14/25 Allergies Allergy/AdvReac Type Severity Reaction Status Date / Time Sulfa (Sulfonamide AdvReac Mild Rash Verified 08/14/25 14:43 Antibiotics) Review of Systems Review of Systems Narrative: GENERAL: Denies chills, fatigue, malaise, fever, sweats. HEENT: Denies sinus pain, ear pain, sore throat, difficulty swallowing, dizziness. RESPIRATORY: Denies dyspnea, cough, wheezing, hemoptysis, sputum. CARDIOVASCULAR: Denies chest pain, palpitations, orthopnea, edema, GASTROINTESTINAL: Reports nausea, diarrhea, blood in the stool Denies vomiting, abdominal pain, , constipation, melena. : Denies dysuria, frequency, incontinence, hematuria, urinary retention. MUSCULOSKELETAL: denies weakness, joint pain, or bony pain SKIN: Denies rash, skin lesions, or other NEUROLOGIC: Denies weakness, headache, numbness, change in speech, confusion, seizures, incoordination. PSYCHIATRIC: No concerning psychosocial issues. 12 point review of systems is negative except for those stated above Patient History Medical History (Updated 08/17/25 @ 17:54 by Linus Soria PA-C) Mycobacterium avium complex Hemoptysis Bronchiectasis Hypotension after procedure Sigmoid volvulus Quadriplegia Vision disorder Hearing loss Shoulder pain (~1997) Chicken pox Kidney stones (~09/2017) Surgical History S/P partial colectomy History of back surgery Family History Father Cancer Mother Dementia Sister Heart disease Social History household members: spouse alcohol intake: current alcohol intake frequency: holidays/special occasions only Exam Narrative Exam Narrative: GENERAL: Well-developed patient, in mild distress. HEAD: Atraumatic. Normocephalic. EYES: Pupils equal round and reactive. Extraocular motions intact. No scleral icterus. No injection or drainage. ENT: Nose without bleeding, purulent drainage. Throat without erythema, tonsillar hypertrophy or exudate. Airway patent. NECK: Trachea midline. Non tender EXTREMITIES: No edema or joint tenderness. NEURO: AOx3. SKIN: No rash or erythema of visible areas Abdomen: No significant distention, no abdominal tenderness to palpation secondary to paraplegia Rectal: Patient has declined Initial Vital Signs Initial Vital Signs: Vital Signs Pulse Rate 55 L 08/17/25 10:27 Respiratory Rate 45 H 08/17/25 10:27 Pulse Oximetry 98 08/17/25 10:27 Course Orders Ordered: ED Orders 08/17/25 11:37 EKG-12 Lead Stat 08/17/25 12:35 Complete Blood Count AUTO DIFF Stat Comprehensive Metabolic Panel Stat Lipase Stat Troponin I Stat 08/17/25 13:25 CT abdomen pelvis w con Stat Vital Signs Vital signs: Vital Signs - 8 hr 08/17/25 10:27 08/17/25 10:51 08/17/25 10:55 Temperature Pulse Rate 55 L 69 Respiratory Rate 45 H Blood Pressure 85/54 L Pulse Oximetry 98 99 Oxygen Delivery Method 08/17/25 10:55 08/17/25 11:00 08/17/25 11:09 Temperature 97.6 F Pulse Rate 68 67 71 Respiratory Rate 16 Blood Pressure 85/54 L Pulse Oximetry 98 96 97 Oxygen Delivery Method Room Air 08/17/25 12:31 08/17/25 12:32 08/17/25 12:32 Temperature Pulse Rate Respiratory Rate Blood Pressure 126/72 Pulse Oximetry 99 95 Oxygen Delivery Method 08/17/25 14:36 08/17/25 14:48 08/17/25 15:07 Temperature Pulse Rate 61 Respiratory Rate Blood Pressure 137/95 H Pulse Oximetry 100 99 Oxygen Delivery Method 08/17/25 15:30 08/17/25 16:00 08/17/25 16:30 Temperature Pulse Rate Respiratory Rate Blood Pressure 128/85 138/89 106/63 Pulse Oximetry Oxygen Delivery Method MDM - Abdominal Pain Lab Data 08/17/25 12:35 08/17/25 12:35 Labs: Lab Results 08/17/25 Range/Units 12:35 WBC 7.0 (4.5-11.0) X10^3/uL RBC 4.28 L (4.5-5.9) X10^6/uL Hgb 12.6 L (13.5-17.5) g/dL Hct 37.7 L (41-53) % MCV 88.0 (80-100) fL MCH 29.5 (26-34) PG MCHC 33.5 (30-36) % RDW 14.6 (11.6-14.8) % Plt Count 176 (150-400) X10^3/uL Neut % (Auto) 79.9 H (50-75) % Lymph % (Auto) 10.2 L (25-40) % [place] % (Auto) 5.6 (3-14) % Eos % (Auto) 3.9 (2-4) % Baso % (Auto) 0.4 (0-2) % Neut # (Auto) 5600 (5891-2754) /uL Lymph # (Auto) 700 L (1677-9706) /uL [place] # (Auto) 400 (0-900) /uL Eos # (Auto) 300 (0-450) /uL Baso # (Auto) 0 (0-100) /uL Sodium 134 L (137-145) mmol/L Potassium 4.0 (3.4-5.1) mmol/L Chloride 105 (98-107) mmol/L Carbon Dioxide 21 L (22-32) mmol/L BUN 17 (9-20) mg/dL Creatinine 0.61 L (0.66-1.25) mg/dL Estimated GFR > 60 (>60) mL/min BUN/Creatinine Ratio 27.9 H (6-22) Glucose 98 (70-99) mg/dL Calcium 9.2 (8.4-10.2) mg/dL Total Bilirubin 0.6 (0.2-1.3) mg/dL AST 22 (17-59) IU/L ALT 14 (<50) IU/L Alkaline Phosphatase 61 (38-126) U/L Troponin I < 0.012 (0.01-0.034) ng/mL Total Protein 7.3 (6.3-8.2) g/dL Albumin 4.0 (3.5-5.0) g/dL Globulin 3.3 (1.7-4.1) g/dL Albumin/Globulin Ratio 1.2 (1.0-2.8) Lipase 152 (23-300) U/L Imaging Data CT scan - abdomen/pelvis: Radiologist's Impression: [address] [address] [address] Scan Report Signed with Addenda Patient: Jeffery Figueroa MR#: [id number] : 1965 Acct:[id number] Age/Sex: 59 / M Date of Service: 08/17/25 Loc: ED Accession Number: [id number] Procedure: CT abdomen pelvis w con Ordering Provider: Linus Soria PA-C ADDENDUM This report includes an Addendum and supersedes previous reports for this exam. PROCEDURE: CT ABDOMEN PELVIS W CON INDICATIONS: Abd pain TECHNIQUE: After the administration of intravenous contrast, axial sections acquired from the lung bases to the pubic symphysis. Coronal and sagittal reformats were performed. For radiation dose reduction, the following was used: automated exposure control, adjustment of mA and/or kV according to patient size. COMPARISON: [facility], CT, CT ABDOMEN PELVIS W CON, 12/31/2022, 10:19. FINDINGS: Image quality: Diagnostic. Lower Chest: No significant findings. ABDOMEN: Liver: No solid mass. Simple cyst in hepatic dome remains unchanged. Gallbladder: Not visualized, likely surgically absent. Biliary ducts: No biliary dilation. Pancreas: No ductal dilation. Spleen: Size is within normal limits. Adrenal Glands: No adrenal nodules. Kidneys and Ureters: Nonobstructing stones are seen in lower pole bilateral kidneys. No obstructing stones or hydronephrosis. No solid mass. Simple appearing bilateral renal cysts are seen unchanged from prior studies. No complex renal cystic lesion which requires follow up. Stomach and Bowel: There is significant air distended transverse, descending and sigmoid colon loops with [id number] fecal stasis in the colon. No evidence of bowel obstruction. No abnormal bowel wall thickening. No abscess collection. Peritoneum: No abnormal intraperitoneal fluid. No free air. Ventral Wall: No significant ventral hernia. Abdominal Nodes: No retroperitoneal or mesenteric adenopathy by size criteria. Vessels: Aorta and inferior vena cava are normal in size. PELVIS: Pelvic Organs: Unremarkable. Bladder: Flowers catheter in fairly well distended urinary bladder with suggestion of diffuse bladder wall thickening. Mild perivesicular fat stranding is also noted. Pelvic Nodes: No enlarged lymph nodes. Miscellaneous: No inguinal hernias are seen. Bones: Numerous radiolucent areas scattered in bony pelvis are again seen unchanged in size and distribution compared to prior studies. No acute vertebral body compression fracture. IMPRESSION: 1. Air distended colon loops with [id number] fecal stasis extending to sigmoid colon and rectum. No significant wall thickening. Finding is concerning for colonic wall mole talar disorder suggest clinical correlation. No abscess collection. No small bowel or gastric distention. No free fluid or free air. 2. Nonobstructing stones in bilateral kidneys. No hydronephrosis or hydroureter. Diffuse bladder wall thickening with perivesicular fat stranding concerning for cystitis. No discrete bladder wall mass or calcified bladder stones. Flowers catheter is noted within bladder lumen. 3. Other chronic findings as above. Dictated by: Sid Jin M.D. on 08/17/2025 at 15:19 Approved by: Sid Jin M.D. on 08/17/2025 at 15:30 ADDENDUM: IMPRESSION: 1. Air distended colon loops with [id number] fecal stasis extending to sigmoid colon and rectum. No significant wall thickening. Finding is concerning for COLONIC MOTILITY DISORDER suggest clinical correlation. No abscess collection. No small bowel or gastric distention. No free fluid or free air. Dictated by: Sid Jin M.D. on 08/17/2025 at 15:55 Approved by: Sid Jin M.D. on 08/17/2025 at 15:56 ECG Data Interpretation: 1555: EKG showed normal sinus rhythm with a 65 beats per minute. Did show slight ST elevation as compared to previous EKG from 2022. MDM Narrative Medical decision making narrative: ED course: This is a 59-year-old male presents to the emergency department due to abdominal distention as well as diarrhea for the last month. He did report a couple episodes of rectal bleeding with bright red blood although declined stool guaiac. Lab work showed anemia similar to prior. No leukocytosis. CT abdomen and pelvis showed findings concerning for colonic motility disorder. Patient is still having bowel movements and low concern for any small bowel obstruction at this time. Did discuss possible endoscopy although patient strongly requested to be discharged. Discussed case with general surgeon, Dr. Mendez, who agreed with the plan to follow up in his office for possible endoscopy. Patient does have a chronic history of hemorrhoids which she thinks maybe causing the blood in the stool. CC: Abdominal pain Complicating co-morbidities: As below Data collected from: Previous notes Medical records reviewed: Patient was seen here 3 days ago due to UTI symptoms. Paraplegic with indwelling catheter. They were On Macrobid. Status post partial colectomy. Patient Was prescribed Levaquin for antibiotic coverage. Differential considered, but not limited to: Small-bowel obstruction, hemorrhoids Exam documented above, pertinent findings include: No significant distention or abdominal tenderness to palpation Lab Test results independently reviewed as above. Pertinent findings: Lab work unremarkable Imaging studies independently reviewed: CT showed evidence of possible colonic motility disorder Scores Used: None MIPS Elements: None Consultations: None Treatments: None Re-evaluations: None Discussion: Discussed plan with the patient was comfortable with the plan Diagnosis: Abdominal pain Disposition: see below, along with detailed discharge instructions that have been reviewed with patient as well as indications for ED re-evaluation and additional outpatient follow up Discharge Plan Departure Patient Disposition: Home Clinical Impression: Abdominal pain Qualifiers: Abdominal location: unspecified location Qualified Code(s): R10.9 - Unspecified abdominal pain Activity Restrictions/Additional Instructions: Thank you for coming to the [facility] Emergency Department today. As we discussed you may follow up with Dr. Pelaez the general surgeon for possible endoscopy. There was no signs of a small-bowel obstruction on the CT scan. Your lab work today was reassuring. Please return to the emergency department if you develop any fevers, significant nausea vomiting, or worsening blood in her stool, or any other concerning signs or symptoms. I hope you feel better soon. Please follow up with your primary care provider within a week if your symptoms continue. If you do not have a primary care provider please contact the [facility] Resource line at [phone]. They will ask some questions about your medical history and help you get set up with a provider in the community. Prescriptions: No Action sodium chloride 7 % solution for nebulization 4 ml inhalation BID Qty: 240 5RF levofloxacin 750 mg tablet 750 mg PO DAILY Qty: 10 0RF midodrine 5 mg Tablet 5 mg PO TID Qty: 0 Patient Comments: patient states takes daily and prn. Rx Instructions: Take first dose shortly before rising, and the other doses PRN ie: after a big meal/ when BP drops ascorbic acid (vitamin C) 500 mg Tablet 1,000 mg PO DAILY Qty: 0 cholecalciferol (vitamin D3) [Vitamin D3] 1,000 unit Tablet 2,000 unit PO DAILY Qty: 0 levofloxacin 500 mg tablet 500 mg PO DAILY Qty: 5 0RF (DME) Nebulizer See Rx Instructions .Route .MEDSUPPLY Qty: 1 0RF Rx Instructions: As directed albuterol sulfate 2.5 mg /3 mL (0.083 %) solution for nebulization 2.5 mg inhalation BID Qty: 180 3RF Referrals: Christine Magaña MD [Primary Care Provider, Family Practice] Colt Pelaez MD [Physician, General Surgery] Referral Note: f/u regarding blood in stool/possible endoscopy Clinical Impression: Abdominal pain Stand Alone Forms: Patient Portal/API
--- NOTE | 2025-08-17 11:37 | EKG_ITS ---
[address] [address] [address] [address] Test Date: 2025-08-17 Pat Name: Jeffery Figueroa Department: Room: Gender: Male Networking Technician: KARLA : 1965 Requested By: Order Number: [id number] Reading MD: Jeffery Elkins MD Measurements Intervals [place] Rate: 65 P: 77 [place]: 160 QRS: 60 QRSD: 76 T: 78 QT: 414 QTc: 430 Interpretive Statements Normal sinus rhythm Possible Left atrial enlargement ST elevation, consider early repolarization, pericarditis, or injury Electronically Signed On 08-18-2025 7:38:09 PST by Jeffery Elkins MD
[2025-08-17 12:47] LABS: Add Manual Diff / Slide Review NO; Hematocrit 37.7 % (41-53); Hemoglobin 12.6 g/dL (13.5-17.5); Lymphocytes Absolute Auto 700 /uL (1100-4500); Mean Corpuscular HGB Conc 33.5 % (30-36); Mean Corpuscular Hemoglobin 29.5 PG (26-34); Mean Corpuscular Volume 88.0 fL (80-100); Platelet Count 176 X10^3/uL (150-400)
--- NOTE | 2025-08-17 12:50 | PC.NURSE ---
patient experiencing abdominal pain and bloody stools - was recently seen for uti. sitting in chair declined to get into bed at this time.
[2025-08-17 13:01] LABS: Alanine Aminotransferase 14 IU/L (<50); Albumin 4.0 g/dL (3.5-5.0); Albumin Globulin Ratio 1.2 (1.0-2.8); Alkaline Phosphatase 61 U/L (38-126); Blood Urea Nitrogen 17 mg/dL (9-20); Calcium 9.2 mg/dL (8.4-10.2); Carbon Dioxide 21 mmol/L (22-32); Chloride 105 mmol/L (98-107); Estimated Glomerular Filt Rate > 60 mL/min (>60); Globulin 3.3 g/dL (1.7-4.1); Glucose 98 mg/dL (70-99); HEMOLYSIS < 15 (0-50); Lipase 152 U/L (23-300); Potassium 4.0 mmol/L (3.4-5.1); Sodium 134 mmol/L (137-145); Total Protein 7.3 g/dL (6.3-8.2)
--- NOTE | 2025-08-17 13:25 | DI.CT.S_ITS ---
PROCEDURE: CT ABDOMEN PELVIS W CON INDICATIONS: Abd pain TECHNIQUE: After the administration of intravenous contrast, axial sections acquired from the lung bases to the pubic symphysis. Coronal and sagittal reformats were performed. For radiation dose reduction, the following was used: automated exposure control, adjustment of mA and/or kV according to patient size. COMPARISON: [facility], CT, CT ABDOMEN PELVIS W CON, 12/31/2022, 10:19. FINDINGS: Image quality: Diagnostic. Lower Chest: No significant findings. ABDOMEN: Liver: No solid mass. Simple cyst in hepatic dome remains unchanged. Gallbladder: Not visualized, likely surgically absent. Biliary ducts: No biliary dilation. Pancreas: No ductal dilation. Spleen: Size is within normal limits. Adrenal Glands: No adrenal nodules. Kidneys and Ureters: Nonobstructing stones are seen in lower pole bilateral kidneys. No obstructing stones or hydronephrosis. No solid mass. Simple appearing bilateral renal cysts are seen unchanged from prior studies. No complex renal cystic lesion which requires follow up. Stomach and Bowel: There is significant air distended transverse, descending and sigmoid colon loops with [id number] fecal stasis in the colon. No evidence of bowel obstruction. No abnormal bowel wall thickening. No abscess collection. Peritoneum: No abnormal intraperitoneal fluid. No free air. Ventral Wall: No significant ventral hernia. Abdominal Nodes: No retroperitoneal or mesenteric adenopathy by size criteria. Vessels: Aorta and inferior vena cava are normal in size. PELVIS: Pelvic Organs: Unremarkable. Bladder: Flowers catheter in fairly well distended urinary bladder with suggestion of diffuse bladder wall thickening. Mild perivesicular fat stranding is also noted. Pelvic Nodes: No enlarged lymph nodes. Miscellaneous: No inguinal hernias are seen. Bones: Numerous radiolucent areas scattered in bony pelvis are again seen unchanged in size and distribution compared to prior studies. No acute vertebral body compression fracture. IMPRESSION: 1. Air distended colon loops with [id number]-mw-[id number] fecal stasis extending to sigmoid colon and rectum. No significant wall thickening. Finding is concerning for colonic wall mole talar disorder suggest clinical correlation. No abscess collection. No small bowel or gastric distention. No free fluid or free air. 2. Nonobstructing stones in bilateral kidneys. No hydronephrosis or hydroureter. Diffuse bladder wall thickening with perivesicular fat stranding concerning for cystitis. No discrete bladder wall mass or calcified bladder stones. Flowers catheter is noted within bladder lumen. 3. Other chronic findings as above. Dictated by: Sid Jin M.D. on 08/17/2025 at 15:19 Approved by: Sid Jin M.D. on 08/17/2025 at 15:30
--- NOTE | 2025-08-17 13:33 | PC.NURSE ---
Patient transferred to the stretcher for CT scan.
[2025-08-17 16:27] LABS: Troponin I < 0.012 ng/mL (0.01-0.034)
--- OUTSIDE RECORDS SUMMARY | 2025-08-19 15:25 | XMS_ITS | Encounter Summary ---
Author Organization Merged with [facility] Address [facility] [address] Care Team Providers Care Literacy Consultant Name Role Phone Unavailable Primary Care Provider Unavailabl e Encounter Details Date Type Department Care Team (Latest Contact Info) Description 11/29/2013 Documentation SCANNED ONLY Scanned, Document Social History Tobacco Use Types Packs/Day Years Used Date Smoking Tobacco: Never Assessed Sex and Gender Information Value Date Recorded Sex Assigned at Not on file Legal Sex Male 4:03 PM PDT Gender Identity Not on file Sexual Orientation Not on file documented as of this encounter Plan of Treatment Not on file documented as of this encounter Visit Diagnoses Not on filedocumented in this encounter
--- OUTSIDE RECORDS SUMMARY | 2025-08-19 15:25 | XMS_ITS | Clinical Summary ---
Author Organization [facility] Address [address] [place] [id number] Care Team Providers Care Kinesiologist Name Role Phone Unavailable Primary Care Provider Unavailabl e Social History Tobacco Use Types Packs/Day Years Used Date Smoking Tobacco: Never Assessed Sex and Gender Information Value Date Recorded Sex Assigned at Not on file Legal Sex Male 4:03 PM PDT Gender Identity Not on file Sexual Orientation Not on file Plan of Treatment Not on file
--- OUTSIDE RECORDS SUMMARY | 2025-08-19 15:25 | XMS_ITS | Encounter Summary ---
Author Organization [facility] Address [facility] [address] Care Team Providers Care Varnish Thinner Name Role Phone Unavailable Primary Care Provider Unavailabl e Encounter Details Date Type Department Care Team (Late st Contact Info) Description 11/29/2013 Documentation [facility] Nilson Umaña MD Social History Tobacco Use Types Packs/Day Years Used Date Smoking Tobacco: Never Assessed Sex and Gender Information Value Date Recorded Sex Assigned at Not on file Legal Sex Male 4:03 PM PDT Gender Identity Not on file Sexual Orientation Not on file documented as of this encounter ED Notes * Nilson Umaña MD - 11/29/2013 7:00 PM PST Clinical Report - Physicians/Mid Levels [address] [id number] Patient: Jeffery FIGUEROA VisitID: [id number] 48y, M 1965 Time Seen: 19:25 Nov 29 2013. Arrived- By ambulance. Historian- patient. Attending Note: Documentation assistance provided by scribe (Lala Alcala in the presence of me). Information recorded by the scribe was done at my direction and has been reviewed and validated by me. HISTORY OF PRESENT ILLNESS WEAKNESS. This started today and is still present. It has been constant. He has had generalized weakness. The patient has had visual disturbance with double vision. When seen in the E.D., deficit described as mild. He has had dizziness. No altered mental status. Usually is alert and oriented X3 and has normal mobility. (Pt states that he called medics while he was on his way home to [facility] when he developed double vision and weakness, so he pulled over and called 911. He states that his BP is also higher than usual today at 120, usually runs around 90.). REVIEW OF SYSTEMS The patient has had a headache. No fever, head injury, chest pain, difficulty breathing or cough. No sputum production, sore throat, abdominal pain, nausea or diarrhea. No black stools, difficulty with urination or skin rash. All systems otherwise negative, except as recorded above. PAST HISTORY (Autonomic Dysreflexia). SOCIAL HISTORY Occasional alcohol use. Nonsmoker. No drug use. ADDITIONAL NOTES The nursing notes have been reviewed. PHYSICAL EXAM Appearance: Alert. No acute distress. Vital Signs: Have been reviewed. (BP: 147 / 98 sitting. HR: 60 regular. RR: 16. O2 saturation: 98 room air.). Head: Head atraumatic. Eyes: Pupils equal, round and reactive to light. ENT: Normal ENT inspection. Airway intact. Pharynx normal. Neck: Normal inspection. Neck supple. CVS: Normal heart rate and rhythm. Heart sounds normal. Respiratory: No respiratory distress. Breath sounds normal. Abdomen: Soft and nontender. No organomegaly. Back: Normal inspection. Rectal: (omalley in place). Skin: Skin warm and dry. Normal skin color. No rash. Normal skin turgor. Extremities: Extremities exhibit normal ROM. No lower extremity edema. Neuro: Alert. Oriented X 3. No alteration in mental status. Mood/affect normal. Speech normal. The patient has had weakness of the right leg (severe), right foot (severe), left leg (severe) and left foot (severe). LABS, X-RAYS, AND EKG EKG: EKG time (21:48). Normal sinus rhythm. Rate: 49. Bradycardia. Normal P waves. Left atrial enlargement. Normal JATINDER. Normal QRS complex. LVH. Normal axis. Normal QT and QTc. Non-specific ST segment / T wave abnormalities. The study has been interpreted contemporaneously by me. The study has been independently viewed by me. I agree with and confirm the computer reading of the EKG. CT Head: (Findings: The brain demonstrates normal size sulci, ventricles, and cisterns. There is no focal mass effect or hemorrhage. The brain density is normal without diffuse white matter abnormalities, focal edema, or visible infarct. Prior sinus surgery with nasal antral windows and ethmoidectomies is noted. There is mild to moderate mucosal thickening throughout most of the sinuses. This is most prominent in the frontal and anterior ethmoid sinuses. There is complete high density opacification of the right sphenoid sinus. The wall of the sinus is thickened consistent with a chronic process. Conclusion: 1. Normal-appearing brain. 2. Chronic pansinusitis with prior sinus surgery.). The study was interpreted by the radiologist and discussed with the radiologist. Laboratory Tests: Laboratory tests have been ordered, with results reviewed and considered in the medical decision making process. Basic Metabolic Pnl: ( MsgRcvd 11/29/2013 21:42) Final results Test Result Flag Units (Reference) SODIUM 133 L mmol/L (136-145) POTASSIUM 3.5 mmol/L (3.5-5.1) CHLORIDE 99 L mmol/L (100-110) TOTAL CO2 24 mmol/L (22-31) GLUCOSE 82 mg/dL (70-99) UREA NITROGEN (BUN) 11 mg/dL (6-20) CREATININE 0.4 L mg/dL (0.6-1.3) GFR (MDRD) Non-Black >80 /1.73m2 (mean=93 mL/mi GFR (MDRD) Black >80 /1.73m2 (mL/min) CALCIUM 9.2 mg/dL (8.4-10.2) CBC: ( MsgRcvd 11/29/2013 21:26) Final results Test Result Flag Units (Reference) WHITE BLOOD CELLS 9.5 K/mm3 (4.0-11.0) RED BLOOD CELLS 4.54 M/mm3 (4.31-5.77) HEMOGLOBIN 13.7 g/dL (13.2-17.5) HEMATOCRIT 40.4 % (38.9-49.9) MCV 89.0 fL (80.0-100.0) MCH 30.2 pg (27.8-33.8) MCHC 33.9 g/dL (31.5-36.5) RDW 12.7 % (11.5-14.2) PLATELETS 194 K/mm3 (150-400) MPV 9.8 fL (8.5-12.4) % NEUTROPHILS 81.5 % LYMPHOCYTES 9.3 % MONOCYTES 4.5 % EOSINOPHILS 4.1 % BASOPHILS 0.3 % IMM GRAN 0.3 % (0-0.5) Includes myelocytes, metamyelocytes and promyelocytes. # NEUTROPHILS 7.7 K/mm3 (1.5-8.0) # LYMPHOCYTES 0.9 L K/mm3 (1.0-3.5) # MONOCYTES 0.4 K/mm3 (0.2-1.0) # EOSINOPHILS 0.4 K/mm3 (0-0.5) # BASOPHILS 0.0 K/mm3 (0-0.2) METHOD AUTO Cult,Urine: ( MsgRcvd 11/29/2013 20:12) New Order UA+Micro,Cult If Ind: ( MsgRcvd 11/29/2013 20:13) Final results Test Result Flag Units (Reference) COLLECTION METHOD CATH COLOR YELLOW CLARITY CLOUDY SPECIFIC GRAVITY 1.018 (1.003-1.035) LEUKOCYTE ESTERASE LARGE H (NEGATIVE) NITRITE NEGATIVE (NEGATIVE) pH 7.5 units (5.0-9.0) PROTEIN 20 H mg/dL (NEGATIVE-TRAC GLUCOSE NEGATIVE mg/dL (NEGATIVE,) KETONES 3+ H (NEGATIVE) UROBILINOGEN NORMAL mg/dL (0-1) BILIRUBIN NEGATIVE (NEGATIVE) BLOOD SMALL H (NEGATIVE) MUCUS FEW H (NONE) WBC 92 H /hpf (0-3) RBC 35 H /hpf (0-3) BACTERIA MANY H /hpf (NONE) . Bedside Tests: Urine dipstick (Sp Gr 1.015; pH 8; moderate leukocytes; nitrite positive; trace protein; glucose normal; moderate ketones; urobilinogen normal; bilirubin negative; blood about 50 Maikol/uL.). Pulse Oximetry: O2 saturation- 98% (FIO2 - room air). Interpretation: normal. PROGRESS AND PROCEDURES Course of Care: 20:10. Pt recheck, pt BP is 131/92. Pt is stable and appears comfortable at this time. 21:04. Pt recheck, pt is stable and states that he is feeling better. Informed pt that his urine shows that he has a UTI, but he states that it is a chronic problem with his omalley and would prefer to not be treated. Informed pt of ED findings, dx, tx plan and plan for follow up. Pt understands and agrees with this plan, all questions and concerns addressed. 20:21 11/29/2013. ZOFRAN 4 mg 20:23 11/29/2013. MORPHINE 2mg 22:20 11/29/2013. MORPHINE 2mg 22:27 11/29/2013. NITROGLYCERIN 1 inch paste right chest. BP: 162/96. HR: 52. RR: 16. O2 saturation: 100 % room air. Patient counseled in person regarding the patient's stable condition, test results, diagnosis and need for follow-up. Concerns were addressed. Old medical records reviewed. Disposition: Condition: good and stable. Discharged home in stable condition. CLINICAL IMPRESSION Headache. INSTRUCTIONS Warnings: GENERAL WARNINGS: Return or contact your physician immediately if your condition worsens or changes unexpectedly, if not improving as expected, or if other problems arise. Follow-up: Follow up with your doctor. Call for the next available appointment. Summary of care provided to patient. Understanding of the discharge instructions verbalized by patient. (Electronically signed by Nilson Umaña MD 11/30/2013 1:27) Clinical Report - Nurses [place] [id number] Patient: Jeffery FIGUEROA VisitID: [id number] 48y, M 1965 TRIAGE Triage time 19:00. Acuity: LEVEL 2. Chief Complaint: WEAKNESS. BP: 147 / 98 sitting. HR: 60 regular. RR: 16. O2 saturation: 98 room air. [place] Coma Scale- eyes open spontaneously (4); best verbal response- oriented x 4 (5); best motor response- obeys commands (6). --19:13 Muriel Mena RN Temp: 35.6 oral. --19:17 Muriel Mena RN Acuity: LEVEL 2. --19:17 Muriel Mena RN. History (called medics for help while attempting to drive home to [facility]). SOCIAL HX: Alcohol use. Nonsmoker. No drug use. Functional assessment performed: requires assistance with the activities of daily living. The nutritional risk assessment revealed no deficiencies. The learning needs assessment revealed no barriers. No report of abuse. Arrived by EMS. --19:13 Muriel Mena RN Treatment RIG MANAGER: Took NTG sublingually (x 4 by medics for BP 178/p). BP: 178 / palp. HR: 80. PAST MEDICAL HX: (Autonomic Dysreflexia). --19:17 Muriel Mena RN. Assessment Alert. Oriented X 4. Appears anxious and in distress. Patient appears calm and cooperative. Respirations not labored. Cardiac rhythm: sinus bradycardia. Capillary refill less than 2 seconds. Mucous membranes are pink. Skin is warm. --19:13 Muriel Mena RN. Interventions Fall risk assessment completed per protocol. Risk factors identified include severe pain, postural hypotension, nausea, dizziness, vertigo and patient impairment of mobility. Fall interventions initiated. Patient placed in wheelchair. --19:13 Muriel Mena RN ID band on patient. --19:17 Muriel Mena RN. PHYSICAL ASSESSMENT 19:43 11/29/2013. Awake. Oriented X 4. Alert. Speech normal. Mood/affect normal. (pt is tetraplegic, abd distention noted). No facial asymmetry noted. Pharynx within normal limits. Breath sounds within normal limits. Respirations not labored. (pt states my breathing feels a little shallow). Normal sinus rhythm noted. Capillary refill less than 2 seconds. Skin is intact, warm and dry. --19:43 Lawrence Daley RN 19:44 11/29/2013. (pt states feel slightly nauseated). --19:44 Lawrence Daley RN 19:44 11/29/2013. (headache). --19:44 Lawrence Daley RN. NURSING PROGRESS NOTES Monitoring of patient in place. IV access: site #1, right antecubital space, 20g angiocath, with aseptic technique and good blood return; one attempt. Blood drawn: rainbow set. Patient gowned. Head of bed elevated. --19:14 Muriel Mena RN 19:21 11/29/2013. Care transferred and report received (VALE Murillo). --19:21 Lawrence Daley RN 19:25 11/29/2013. (MD at bedside, assessing pt). --19:25 Lawrence Daley RN 19:25 11/29/2013. Three patient identifiers checked. Call light placed in reach. Side rails up x 2. Bed placed in lowest position. Brakes of bed on. --19:25 Lawrence Daley RN 19:26 11/29/2013. BP: 122/86. HR: 65. RR: 25. O2 saturation: 100 % room air. --19:26 Lawrence Daley RN 19:41 11/29/2013. IV FLUIDS STARTED: bag #1-1000 mL NS; at site #1. Rate = 500 mL/hr via IV pump. --19:41 Lawrence Daley RN 19:44 11/29/2013. (changed urinary bag). --19:44 Lawrence Daley RN 19:45 11/29/2013. BP: 142/94. HR: 53. RR: 22. O2 saturation: 100 %. --19:45 Lawrence Daley RN 19:50 11/29/2013. Urine dipstick: Sp Gr 1.015; pH 8; moderate leukocytes; nitrite positive; trace protein; glucose normal; moderate ketones; urobilinogen normal; bilirubin negative; blood about 50 Maikol/uL. --19:50 Lawrence Daley RN 19:50 11/29/2013. (urine obtained, sent to lab). --19:50 Lawrence Daley RN 20:13 11/29/2013. (MD at bedside). --20:13 Lawrence Daley RN 20:20 11/29/2013. Patient reports current pain level as 10/10. Pain level (headache). --20:20 Lawrence Daley RN 20:21 11/29/2013. ZOFRAN 4 mg diluted with IV fluid slow IVP over 1 minute via IV site #1. IV patency established. IV site checked: no pain, redness, or swelling. IV flushed thoroughly pre- and post-medication administration. Confirmed right patient, medication, dose, time and route. --20:21 Lawrence Daley RN 20:22 11/29/2013. BP: 151/95. HR: 50. RR: 19. O2 saturation: 100 % room air. --20:22 Lawrence Daley RN 20:23 11/29/2013. MORPHINE 2mg diluted with IV fluid slow IVP over 1 minute via IV site #1. IV patency established. IV site checked: no pain, redness, or swelling. IV flushed thoroughly pre- and post-medication administration. Sedative drug warning given to patient. Confirmed right patient, medication, dose, time and route. --20:23 Lawrence Daley RN 20:41 11/29/2013. Patient transported to CT by stretcher (20:23). --20:41 Lawrence Daley RN 20:44 11/29/2013. Patient returned from CT by stretcher. --20:44 Lawrence Daley RN 20:45 11/29/2013. BP: 143/94. HR: 51. RR: 14. O2 saturation: 100 % room air. --20:45 Lawrence Daley RN 20:45 11/29/2013. Patient reports current pain level as 1/10. Pain level (pt states it feels better). --20:45 Lawrence Daley RN 21:27 11/29/2013. The patient is calm, resting quietly and sleeping. --21:27 Lawrence Daley RN 21:32 11/29/2013. BP: 122/93. HR: 48. RR: 14. O2 saturation: 99 % room air. --21:32 Lawrence Daley RN 21:32 11/29/2013. Pain level (pt states feel a lot better then when I came in). --21:32 Lawrence Daley RN 22:16 11/29/2013. BP: 152 / 101. HR: 48. RR: 16. O2 saturation: 100 percent. Patient reports current pain level as 4/10. Overall patient status is worse. --22:16 Carolina Grey R.N. 22:20 11/29/2013. MORPHINE 2mg diluted with NS IVP via IV site #1. IV patency established. IV site checked: no pain, redness, or swelling. IV flushed thoroughly pre- and post-medication administration. Sedative drug warning given to patient and family. Confirmed right patient, medication, dose, time and route. --22:20 Carolina Grey R.N. 22:26 11/29/2013. ( aware of pts bp, orders nitro oinment for pt to leave with as his usual treatment for HTN). --22:26 Carolina Grey R.N. 22:27 11/29/2013. NITROGLYCERIN 1 inch paste right chest. Confirmed right patient, medication, dose, time and route. --22:27 Carolina Grey R.N. 22:39 11/29/2013. BP: 162/96. HR: 52. RR: 16. O2 saturation: 100 % room air. --22:39 Lawrence Daley RN. DISPOSITION / DISCHARGE 23:05 11/29/2013. BP: 152 / 92. HR: 48. RR: 22. O2 saturation: 100 percent on room air. IV site discontinued, catheter intact. Condition at departure: improved. Patient reports pain level on departure as 2/10. (pt requesting discharge, approves. pt alert states he is feeling better.). --23:05 Carolina Grey R.N. 23:05 11/29/2013. No learning barriers present. Discharge instructions provided and reviewed with the patient and spouse. Reviewed referral to family practice. Patient and spouse verbalized understanding. Written instructions provided in [place]anian. The patient was discharged home and accompanied by spouse. The patient left the Emergency Department in a wheelchair and via private vehicle. Spouse driving. --23:05 Carolina Grey R.N. 23:05 11/29/2013. Departure time: 23:05. --23:05 Carolina Grey R.N.. Locked/Released at 11/29/2013 23:05 by Carolina Grey R.N. * Nilson Umaña MD - 11/29/2013 7:00 PM PST ..... Patient: Jeffery FIGUEROA OrderSheet Hospital VisitID: [id number] [place] [address] 48y, M 08/[birth year]/[id number] ORDER SHEET Allergies: Weight: GENERAL ORDERS: POC - Urine Dip (19:34 11/29/2013 Zach CASTILLO) (Ack 19:40 AOliver R.N.) (19:48 AOliver R.N.) Urinalysis \T\ Micro, Cult if Ind (indwelling cath spec.) Stat (19:48 11/29/2013 AOliver R.N. per protocol) (19:49 [facility]) CT Head wo IV CM Routine (20:13 11/29/2013 Zach CASTILLO) (20:15 [facility]) EKG (21:05 11/29/2013 Zach CASTILLO) (21:08 [facility]) CBC w Auto Diff Stat (21:06 11/29/2013 Zach CASTILLO) (21:08 [facility]) BMP ([facility]) Stat (21:06 11/29/2013 Zach CASTILLO) (21:08 [facility]) MEDICATION ORDERS: Morphine IV 2 mg (HIGH ALERT MEDICATION, 2mg q5m prn pain, MAX 8mg) (20:13 11/29/2013 Zach CASTILLO) (Ack 20:14 Betsy RN) (20:24 Betsy RN) Ondansetron IV 4 mg (20:14 11/29/2013 Zach CASTILLO) (Ack 20:14 Betsy RN) (20:24 Betsy RN) NitroGLYCERIN Paste Topical (Ointment 2 %) 1 in. (22:22 11/29/2013 Zach CASTILLO) (22:26 AOliver R.N.) IV FLUIDS: ORDER SHEET NOTES: [Electronically signed by Nilson Umaña MD (01:27 11/30/2013)] [Electronically locked/signed by Carolina Grey R.N. (23:05 11/29/2013)] documented in this encounter Plan of Treatment Not on file documented as of this encounter Visit Diagnoses Not on filedocumented in this encounter
--- OUTSIDE RECORDS SUMMARY | 2025-08-19 15:25 | XMS_ITS | Clinical Summary ---
Author Organization [facility] Address [address] [place] [address] Care Team Providers Care Diesel Engine Mechanic Apprentice Name Role Phone Pcp, Outside Primary Care Provider Unavailabl e Social History Tobacco Use Types Packs/Day Years Used Date Smoking Tobacco: Never Assessed Sex and Gender Information Value Date Recorded Sex Assigned at Not on file Legal Sex Male 5:29 AM PST Gender Identity Not on file Sexual Orientation Not on file Plan of Treatment Not on file Care Teams Diesel Engine Mechanic Apprentice Relationship Specialty Start Date End Date Pcp, Outside Identifies patients who have a Non Medicine PCP PCP - General 05/13/17
--- OUTSIDE RECORDS SUMMARY | 2025-08-19 15:25 | XMS_ITS | Clinical Summary ---
Author Organization [facility] Address [address] [place] [address] Care Team Providers Care Optical Worker Name Role Phone Unavailable Primary Care Provider Unavailabl e Allergies Active Allergy Reactions Criticality Noted Date Comments Sulfa (Sulfonamide Antibiotics) Rash High 07/27/2019 Rash, welts in his body Medications cefixime (SUPRAX) 400 mg capsule take 1 capsule by mouth once daily for 7 days 0 06/14/2019 Active nitrofurantoin, macrocrystal-mo nohydrate, (MACROBID) 100 mg capsule take 1 capsule by mouth twice a day STARTING TOMORROW 0 07/11/2019 Active Active Problems No known active problems Social History Tobacco Use Types Packs/Day Years Used Date Smoking Tobacco: Never Smokeless Tobacco: Never Alcohol Use Standard Drinks/Week Comments Yes 2 (1 standard drink = 0.6 oz pur e alcohol) AUDIT-C Answer Date Recorded Frequency of Alcohol Consumption Monthly or less 07/27/2019 Average Number of Drinks Not on file 019 Frequency of Binge Drinking Not on file 06/30 Sex and Gender Information Value Date Recorded Sex Assigned at Not on file Legal Sex Male 5:34 PM PDT Gender Identity Not on file Sexual Orientation Not on file Last Filed Vital Signs Vital Sign Reading Time Taken Comments Blood Pressure 103/71 07/27/2019 3:26 PM PDT Pulse 76 07/27/2019 3:26 PM PDT Temperature 36.3 C (97.4 F) 07/27/2019 3:26 PM PDT Respiratory Rate - - Oxygen Saturation 99% 07/27/2019 3:26 PM PDT Inhaled Oxygen Concentration - - Weight - - Height - - Body Mass Index - - Plan of Treatment Health Maintenance Due Date Last Done Comments PSA Screening Discussion 1965 MMR Vaccines (1 of 1 - Stand zara series) 1964 Depression Screening (PHQ-2) 1975 DTaP,Tdap,and Td Vaccines (1 - Tdap) 1982 Colorectal Cancer Screening (Colonoscopy) 2008 Colorectal Cancer Screening (FOBT) 2008 Colorectal Cancer Screening (Fecal DNA) 2008 Colorectal Cancer Screening Combined 2008 HM Pneumococcal Adult 50+ (1 of 1 - PCV) 2013 Zoster Vaccines (2 of 2) 04/30/2019 03/05/2019 COVID-19 Vaccine (1 - 2024-2 6 season) 2025 Influenza Vaccine (#1) 2025 RSV Patients Over 60 years O R qualifying ( Patients) (1 - 1-dose 75+ series) 2038 HPV Vaccines Aged Out No longer eligi ble based on patient's age to complete this topic Hepatitis A Vaccines Aged Out No long er eligible based on patient's age to complete this topic Hepatitis B Vaccines Aged Out No long er eligible based on patient's age to complete this topic IPV Vaccines Aged Out No longer eligi ble based on patient's age to complete this topic Insurance IN CHOICE PLAN
== END 2025-08-17 18:05 | disposition home or self-care (01) ==
PROVIDERS: Emergency Provider Physician Assistant Medical; Family Provider Family Medicine; PCP Family Medicine
DX: R10.9 Unspecified abdominal pain (principal); R19.7 Diarrhea, unspecified
CPT/HCPCS: 36415; 74177; 80053; 83690; 84484; 85025; 93005; 93010; 99283; 99284; Q9967